=== PATIENT | male | born 1990 | race Caucasian/White ===

== ENCOUNTER 2020-02-06 09:41 | Emergency (ER) | payer SELFPAY ==
[2020-02-06 09:55] VITALS: BP 120/82; PULSE 75; RESP 18; TEMP 37.1; O2SAT 100; BMI 24.3
--- NOTE | 2020-02-06 09:57 | XR_ITS ---
EXAMINATION: CHEST X-RAY CLINICAL INFORMATION: Cough COMPARISON: None TECHNIQUE: Two-view chest FINDINGS: The cardiac and mediastinal contours are normal. The lungs are clear. There is no pleural effusion or pneumothorax. Bony structures are unremarkable. IMPRESSION: Unremarkable exam. EXAMINATION: Bilateral foot x-ray CLINICAL INFORMATION: Pain and soft tissue infection/cellulitis COMPARISON: None. TECHNIQUE: 3 views of each foot FINDINGS: Bone alignment is normal. No fracture or dislocation is seen. The joint spaces are normal. Soft tissues are normal. IMPRESSION: Unremarkable examination.
--- NOTE | 2020-02-06 10:09 | PC.NURSE ---
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 PT HAS WHITE PATCHES? ULCERS TO BOTH FEET ON TOES AND EXCORIATED SKIN AROUND BOTH ANKLES. PT PRESENTED IN POOR HYGIENWITH WET POOR FITTING FOOTWEAR.
--- NOTE | 2020-02-06 10:10 | ED_ITS ---
HPI - General Adult General Chief complaint: General Medical Stated complaint: foot pain Time Seen by Provider: 02/06/20 09:57 Source: EMS Mode of arrival: ambulatory Limitations: other (Homeless) History of Present Illness HPI narrative: 29yoM c PMHx of heart murmur whom is currently homeless and ETOH dependent presenting to the ED via EMS c multiple complaints and concerns. He admits to not taking his shoes on in so long and has pain to them which has been for a few weeks worse today. 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 Hev reports he only had one nip this AM and feels like he may be in ETOH withdrawal due to has been having shakes and feeling liks his heart is racing. Also admit to nausea and a productive cough. Related Data Previous Rx's Medication Instructions Recorded cephalexin 500 mg PO Q6H 10 Days #400 ml NS 02/06/20 doxycycline calcium 10 ml PO BID 10 Days #200 ml NS 02/06/20 ketoconazole 1 applic TOPICAL BID #60 g NS 02/06/20 Allergies Allergy/AdvReac Type Severity Reaction Status Date / Time No Known Allergies Allergy Unverified 01/05/20 16:46 Review of Systems Review of Systems: Constitutional : No Weight loss, No Fever, No Chills, No Night Sweats, No Fatigue, No Malaise ENT/Mouth : No Hearing loss, No Ear Pain, No Nasal Congestion, No Sinus Pain, No Hoarseness, No sore throat, No Rhinorrhea, No Swallowing Difficulty Eyes: No Eye Pain, No Swelling, No Redness, No Foreign Body, No Discharge, No Vision Changes Cardiovascular : No Chest Pain, No SOB, No Dyspnea on Exertion, No Orthopnea, No Edema, No Palpitations Respiratory : No Wheezing, No Smoke Exposure, No Dyspnea Gastrointestinal : No Nausea, No Vomiting, No Diarrhea, No Constipation, No abdominal Pain, No Hematochezia, No Melena Genitourinary : no irregular bleeding, No Dysuria, No Urinary Frequency, No Hematuria, No Urinary Incontinence, No Urgency, No Flank Pain, No Urinary Flow Changes, No Hesitancy Musculoskeletal : No joint pain, No Myalgias, No Joint Swelling Skin : No rash Neuro : No Weakness, No Numbness, No Paresthesias, No Loss of Consciousness, No Dizziness, No Headache Psych : No Anxiety/Panic, No Depression, No SI/HI/AH/VH Heme/Lymph: No Bruising, No Bleeding,No Lymphadenopathy Endocrine : No Polyuria, No Polydipsia, No Temperature Intolerance Yes all other systems are reviewed and are negative [facility] Past Medical History Attestation statement: The following information was validated with the patient. Medical History Heart murmur No known health problems Social History Social History Alcohol intake: current Alcohol intake frequency: 3 or more drinks per day Alcohol type: hard liquor Smoking Status: Current every day smoker Smoked in Last 30 Days: Yes Use of substances other than those prescribed or required for medical reasons: Yes Substance Use Type: Heroin Substance Use Type Other:: PT REPLACED ETOH FOR HEROIN DRUG OF CHOICE Substance Use Frequency: Chronic Longstanding Last Used Substance: Just Prior to Admission Any prior treatment program specific to substance use: No Advance Directives: No Advance Directives Information Provided: No Physical Exam Vital Signs: Vital Signs: Vital Signs Temp Pulse Resp BP Pulse Ox 02/06/20 12:00 98.4 F 86 16 151/82 H 97 02/06/20 09:55 98.8 F 75 18 120/82 100 Body Mass Index 24.3 Vital signs have been reviewed as normal and appeared to be correct. Blood pressure normal. Heart rate normal. Respiration rate normal. Temperature normal. Oxygen saturation normal. Appearance: Alert. Oriented X3. No acute distress. Head: Normal external exam. Normocephalic. Atraumatic. Eyes: PERRLA. EOMI. Conjunctiva and sclera normal. Eyelids normal. ENT: EAC normal. TM's Normal. Pharynx normal. Uvula midline. Moist mucous membranes. No trismus noted. No drooling noted. No muffled voice noted. Neck: Normal inspection. Neck supple. FROM. No adenopathy. Thyroid Normal. No meningeal signs. No neck mass noted. CVS: Normal heart rate and rhythm. Heart sound normal. No murmurs noted. Pulses normal throughout. Respiratory: No respiratory distress. Painless inspiration. Breath sounds normal. No wheezes/rales/rhonchi noted. Chest nontender. No accessory muscle usage noted or decreased air movement noted. Abdomen: Soft and nontender. Bowel sounds normal in all 4 quadrants. No dis tention noted. No organomegaly noted. No visible injury noted. Back: No CVA tenderness. Full range of motion noted. Skin: the pt's b/l feet c hard black dirty stuck to feet. Once cleaned and jose e vianney he is noted to have erythema to the soles of b/l feet and between the toes. Erythema and white, macerated skin between the toes. The rest of the Skin is warm and dry. Normal skin color. Normal skin turgor. No lacerations noted. Extremities: No lower extremity edema. Extremities exhibit normal range of motion. Neuro: Oriented X 3. No motor deficit. No sensory deficit. Reflexes normal. Course Course Course Narrative: 29yoM c PMHx of heart murmur whom is currently homeless and ETOH dependent presenting to the ED via EMS c multiple complaints and concerns. which incldued pain/rash/lesions to b/l feet, productive cough, nause c heart racing ? withdrawal. Requesting Detox for ETOH. Denies SI/TERESA/AVH or thoughts of self injury. Denies drug usage has been sober from drugs for 4 years. - Plan: Labs including ETOH level, drugs of abuse screen, xray of chest and b/l feet. Pt's feet were cleansed and scrubbed and topical antifungal cream placed and new socks given. Provide ativan after the drugs of abuse screen. Will also consult power and recovery superintendent for Detox then Re-evaluate. Reevaluation(s) Reevaluation #1: Labs within normal limits. Chest x-ray within normal limits no acute processes noted. X-ray of bilateral feet within normal limits no acute processes noted. Will DC home with antibiotics for cellulitis infection and antifungal cream. Patient is going to detox at this time at [place] and is going by [facility] ([place]). I gave him a list of primary care providers. Will instruct to return if any new or worsening symptoms and to follow up with primary care provider. Patient understands agrees with this plan Medical Decision Making Lab Data Result diagrams: 02/06/20 10:46 02/06/20 10:46 Labs: Lab Results 02/06/20 02/06/20 02/06/20 Range/Units 10:46 10:46 10:46 WBC (4.8-10.8) X10*3/uL RBC (4.60-5.80) X10*6/uL Hgb (14.0-18.0) g/dl Hct (42-52) % MCV (80-98) fL MCH (27.0-33.0) pg MCHC (31.0-36.0) g/dl RDW (11.0-16.0) % Plt Count (160-400) X10*3/uL MPV (9.4-12.4) fL Immature Gran % (Auto) (0.0-0.4) % Neut % (Auto) (45-73) % Lymph % (Auto) (20-40) % [place] % (Auto) (2-11) % Eos % (Auto) (0-4) % Baso % (Auto) (0-2) % Lymph # (Auto) (1.2-4.9) X10*3/uL [place] # (Auto) (0.1-1.2) X10*3/uL Eos # (Auto) (0.0-0.4) X10*3/uL Baso # (Auto) (0.0-0.2) X10*3/uL Abs Immat Gran (auto) (0.00-0.03) X10*3/uL Absolute Neuts (auto) (2.0-8.3) X10*3/uL Absolute Nucleated RBC (0.0-0.012) X10*3/uL Nucleated RBC % (auto) (0.0-0.2) /100WBC Smear Tech's Comments Hold Blue Top SEE NOTE Sodium 138 (135-145) mmol/L Potassium 4.0 (3.3-5.1) mmol/l Chloride 101 (96-108) mmol/L Carbon Dioxide 22 (22-29) mmol/L Anion Gap 19 (12-20) BUN 6 L (9-16) mg/dL Creatinine 0.68 (0.5-1.4) mg/dL Estim Creat Clear Calc 149.8 Estimated GFR > 60 Random Glucose 68 (60-115) mg/dL Calcium 9.7 (8.4-10.2) mg/dL Magnesium 1.8 (1.6-2.6) mg/dL Ethyl Alcohol < 10 mg/dL 02/06/20 Range/Units 10:46 WBC 5.7 (4.8-10.8) X10*3/uL RBC 4.12 L (4.60-5.80) X10*6/uL Hgb 14.8 (14.0-18.0) g/dl Hct 41.3 L (42-52) % MCV 100.2 H (80-98) fL MCH 35.9 H (27.0-33.0) pg MCHC 35.8 (31.0-36.0) g/dl RDW 12.0 (11.0-16.0) % Plt Count 165 (160-400) X10*3/uL MPV 9.9 (9.4-12.4) fL Immature Gran % (Auto) 0.4 (0.0-0.4) % Neut % (Auto) 77.0 H (45-73) % Lymph % (Auto) 9.1 L (20-40) % [place] % (Auto) 12.1 H (2-11) % Eos % (Auto) 0.2 (0-4) % Baso % (Auto) 1.2 (0-2) % Lymph # (Auto) 0.5 L (1.2-4.9) X10*3/uL [place] # (Auto) 0.7 (0.1-1.2) X10*3/uL Eos # (Auto) 0.0 (0.0-0.4) X10*3/uL Baso # (Auto) 0.1 (0.0-0.2) X10*3/uL Abs Immat Gran (auto) 0.02 (0.00-0.03) X10*3/uL Absolute Neuts (auto) 4.4 (2.0-8.3) X10*3/uL Absolute Nucleated RBC 0.000 (0.0-0.012) X10*3/uL Nucleated RBC % (auto) 0.0 (0.0-0.2) /100WBC Smear Tech's Comments VERIFIED Hold Blue Top Sodium (135-145) mmol/L Potassium (3.3-5.1) mmol/l Chloride (96-108) mmol/L Carbon Dioxide (22-29) mmol/L Anion Gap (12-20) BUN (9-16) mg/dL Creatinine (0.5-1.4) mg/dL Estim Creat Clear Calc Estimated GFR Random Glucose (60-115) mg/dL Calcium (8.4-10.2) mg/dL Magnesium (1.6-2.6) mg/dL Ethyl Alcohol mg/dL Imaging Data b/l feet: Attestation: I personally reviewed and interpreted this imaging study as follows: Radiologist's impression: FINDINGS: Bone alignment is normal. No fracture or dislocation is seen. The joint spaces are normal. Soft tissues are normal. IMPRESSION: Unremarkable examination Chest x-ray: Attestation: I personally reviewed and interpreted this imaging study as follows: Radiologist's impression: FINDINGS: The cardiac and mediastinal contours are normal. The lungs are clear. There is no pleural effusion or pneumothorax. Bony structures are unremarkable. IMPRESSION: Unremarkable exam. Discharge Plan Discharge Clinical Impression: Tinea pedis, Cellulitis and abscess of foot, Multiple open wounds of foot, EtOH dependence Patient Disposition: Xfer Psychiatric Hosp Instructions: Athlete's Foot (ED), Cellulitis (ED), Abuse of Alcohol (ED), Polysubstance Abuse (ED) Additional Instructions: Follow-up if new or worsening symptoms. Follow up with her primary care provider. Prescriptions: New ketoconazole 2 % cream 1 applic topical BID Qty: 60 RF: 0 cephalexin 250 mg/5 mL suspension for reconstitution 500 mg PO Q6H 10 Days Qty: 400 RF: 0 doxycycline calcium 50 mg/5 mL syrup 10 ml PO BID 10 Days Qty: 200 RF: 0 Print Language: Burkinan
[2020-02-06 10:56] LABS: Basophils Absolute Auto 0.1 X10*3/uL (0.0-0.2); Basophils Percent Auto 1.2 % (0-2); Eosinophils Percent Auto 0.2 % (0-4); Hematocrit 41.3 % (42-52); Hemoglobin 14.8 g/dl (14.0-18.0); Imm Gran Abs Auto 0.02 X10*3/uL (0.00-0.03); Imm Gran Pct Auto 0.4 % (0.0-0.4); Lymphocytes Absolute Auto 0.5 X10*3/uL (1.2-4.9); Lymphocytes Percent Auto 9.1 % (20-40); MANUAL DIFF FLAG SCAN; Mean Corpuscular HGB Conc 35.8 g/dl (31.0-36.0); Mean Corpuscular Hemoglobin 35.9 pg (27.0-33.0); Mean Corpuscular Volume 100.2 fL (80-98); Mean Platelet Volume 9.9 fL (9.4-12.4); Monocytes Absolute Auto 0.7 X10*3/uL (0.1-1.2); Monocytes Percent Auto 12.1 % (2-11); Neutrophils Absolute Auto 4.4 X10*3/uL (2.0-8.3); Platelet Count 165 X10*3/uL (160-400); Red Blood Count 4.12 X10*6/uL (4.60-5.80); SCAN SMEAR FLAG 1; White Blood Count 5.7 X10*3/uL (4.8-10.8)
[2020-02-06] MEDS: Clotrimazole 1 % Cream 15 GM TUBE TOPICAL (11:18)
[2020-02-06 11:20] LABS: Ethanol < 10 mg/dL
[2020-02-06 11:22] LABS: Magnesium 1.8 mg/dL (1.6-2.6)
[2020-02-06 11:48] LABS: SLIDE REVIEW VERIFIED
[2020-02-06 12:00] VITALS: BP 151/82; PULSE 86; RESP 16; TEMP 36.9; O2SAT 97
--- NOTE | 2020-02-06 12:12 | MHC.CARE ---
Addiction Consult Service note: Patient reports daily etoh consumption and that he believes he is starting to experience withdrawal. Patient was referred to [facility] and has been accepted for a 1300 admission. Patient and RN aware. This communications writer will assist with transportation via [employer].
[2020-02-06] MEDS: cephALEXin 500 MG CAPSULE PO (12:29)
[2020-02-06 12:31] LABS: Anion Gap 19 (12-20); Blood Urea Nitrogen 6 mg/dL (9-16); Calcium 9.7 mg/dL (8.4-10.2); Carbon Dioxide 22 mmol/L (22-29); Chloride 101 mmol/L (96-108); Creatinine Clr Calc Pharmacy 149.8; Estimated Glomerular Filt Rate > 60; Glucose Random 68 mg/dL (60-115); Sodium 138 mmol/L (135-145)
--- NOTE | 2020-02-06 12:40 | PC.NURSE ---
bilateral feet soaked in ns/betadine, clotrimazole cream applied/telfa and gauze wrap also applied. medicated with antibiotics prior to dc, awaiting tray, chicken salad sandwich and navneet jonah given
== END 2020-02-06 12:55 | disposition home or self-care (01) ==
PROVIDERS: Physician Assistant Medical; Emergency Provider Emergency Medicine
DX: B35.3 Tinea pedis (principal); L03.116 Cellulitis of left lower limb; L03.115 Cellulitis of right lower limb; R05 Cough; S91.302A Unspecified open wound, left foot, initial encounter; S91.301A Unspecified open wound, right foot, initial encounter; Y33.XXXA Other specified events, undetermined intent, initial encounter; Y93.01 Activity, walking, marching and hiking; Y92.410 Unspecified street and highway as the place of occurrence of the external cause; F10.20 Alcohol dependence, uncomplicated; Y90.0 Blood alcohol level of less than 20 mg/100 ml; F11.10 Opioid abuse, uncomplicated; Z71.51 Drug abuse counseling and surveillance of drug abuser; Z59.0 Homelessness; Z79.899 Other long term (current) drug therapy
CPT/HCPCS: 36415; 71046; 73630; 80048; 80320; 83735; 85025; 99284; 99285

== ENCOUNTER 2020-04-26 10:33 | Outpatient (REF) | payer OTHER, SELFPAY | END 2020-04-26 10:34 | disposition home or self-care (01) | LOC: HO.LAB 10:33 | PROVIDERS: Visit Provider Internal Medicine | DX: Z20.828 Contact with and (suspected) exposure to other viral communicable diseases (principal) | CPT/HCPCS: 36415; C9803; U0003 ==

== ENCOUNTER 2020-12-12 14:53 | Emergency (ER) | payer OTHER, SELFPAY ==
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
[2020-12-12 14:56] VITALS: RESP 16; BMI 23.6
[2020-12-12 15:00] VITALS: BP 125/85; PULSE 87; RESP 16; TEMP 37; O2SAT 98
[2020-12-12] MEDS: Ketorolac Tromethamine 15 MG/ML VIAL IM (16:24)
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
[2020-12-12] MEDS: Diphth,Pertus(ACell),Tet Adult 0.5 ML SYRINGE IM (17:57)
[2020-12-12 18:01] VITALS: BP 129/79; PULSE 69; RESP 16; O2SAT 98
[2020-12-12] MEDS: LORazepam 2 MG/ML VIAL IVPUSH (18:27)
== END 2020-12-12 19:00 | disposition home or self-care (01) ==
PROVIDERS: Emergency Provider Emergency Medicine
DX: S01.511A Laceration without foreign body of lip, initial encounter (principal); R07.81 Pleurodynia; M54.2 Cervicalgia; G44.309 Post-traumatic headache, unspecified, not intractable; M54.6 Pain in thoracic spine; Y04.8XXA Assault by other bodily force, initial encounter; Y93.9 Activity, unspecified; Y92.9 Unspecified place or not applicable; Y99.9 Unspecified external cause status; Z79.899 Other long term (current) drug therapy
CPT/HCPCS: 70450; 71250; 72125; 90471; 90715; 96372; 96374; 99284; J1885; J2060

== ENCOUNTER 2021-01-28 08:39 | Inpatient (IN) | payer OTHER, SELFPAY ==
--- NOTE | ~2021-01-28 | XR_ITS ---
EXAMINATION: XR ABDOMEN KUB CLINICAL INDICATION: Left-sided abdominal pain COMPARISON: None TECHNIQUE: AP view of the abdomen. FINDINGS: No dilated air-filled loops of small bowel to suggest an obstructive process. Moderate colonic stool burden diffusely. No definitive calcific density identified projected over either renal shadow or the expected course of either ureter. No acute osseous abnormality. XR/XR abdomen 1V IMPRESSION: Moderate colonic stool burden suggesting constipation.
[2021-01-28 09:10] VITALS: BP 131/75; PULSE 106; RESP 18; TEMP 37.4; O2SAT 96; BMI 23.6
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
--- NOTE | 2021-01-28 10:13 | MHC.CARE ---
CARE Team conducted local ATS bedsearch. No current beds available. Pending medical clearance CARE Team will meet with Pt regarding recovery support.
[2021-01-28 10:14] LABS: Basophils Absolute Auto 0.1 X10*3/uL (0.0-0.2); Basophils Percent Auto 0.7 % (0-2); Hemoglobin 14.3 g/dl (14.0-18.0); PLT CLUMP 1; Red Cell Distribution Width 11.9 % (11.0-16.0); SCAN SMEAR FLAG 1
[2021-01-28 10:14] LABS: Appearance Urine CLEAR; Color Urine YELLOW; Glucose Urine UA NEG (NEG); Leukocyte Esterase Urine NEG (NEG); Nitrite Urine NEG (NEG); Urine Blood NEG (NEG); Urine Ketones NEG (NEG); Urine Protein NEG (NEG-TRACE)
[2021-01-28 10:16] LABS: Eosinophils Absolute Auto 0.1 X10*3/uL (0.0-0.4); Eosinophils Percent Auto 0.7 % (0-4); Hematocrit 40.7 % (42-52); Imm Gran Abs Auto 0.02 X10*3/uL (0.00-0.03); Imm Gran Pct Auto 0.3 % (0.0-0.4); Lymphocytes Absolute Auto 1.2 X10*3/uL (1.2-4.9); Lymphocytes Percent Auto 15.8 % (20-40); Mean Corpuscular HGB Conc 35.1 g/dl (31.0-36.0); Mean Corpuscular Hemoglobin 34.5 pg (27.0-33.0); Mean Corpuscular Volume 98.3 fL (80-98); Monocytes Absolute Auto 0.9 X10*3/uL (0.1-1.2); Monocytes Percent Auto 12.1 % (2-11); Neutrophils Absolute Auto 5.3 X10*3/uL (2.0-8.3); Neutrophils Percent Auto 70.4 % (45-73); Red Blood Count 4.14 X10*6/uL (4.60-5.80); White Blood Count 7.5 X10*3/uL (4.8-10.8)
[2021-01-28 10:17] LABS: Platelet Count 125 X10*3/uL (160-400)
[2021-01-28 10:29] LABS: Ethanol 177 mg/dL
[2021-01-28 10:32] LABS: Amphetamine Screen Urine Not Detected (Not Detect); Barbiturates, Urine Not Detected (Not Detect); Benzodiazepines Screen Urine Not Detected (Not Detect); Cannabinoid Screen Urine Not Detected (Not Detect); Cocaine Screen Urine Not Detected (Not Detect); Fentanyl, urine Not Detected (Not Detect); Opiate Screen Urine Not Detected (Not Detect); Phencyclidine Screen Urine Not Detected (Not Detect)
[2021-01-28 10:37] LABS: Alanine Aminotransferase 107 U/L (0-40); Albumin Level 4.7 g/dL (3.5-5.0); Alkaline Phosphatase 109 U/L (39-117); Anion Gap 19 (12-20); Aspartate Amino Transferase 153 U/L (5-37); Bilirubin Direct 0.3 mg/dL (0.0-0.5); Bilirubin Total 0.8 mg/dL (0.0-1.0); Blood Urea Nitrogen 9 mg/dL (9-16); Calcium 9.7 mg/dL (8.4-10.2); Carbon Dioxide 19 mmol/L (22-29); Chloride 104 mmol/L (96-108); Creatinine Clr Calc Pharmacy 133.9; Estimated Glomerular Filt Rate > 60; Glucose Random 70 mg/dL (60-115); Lipase 71 U/L (8-78); Potassium 3.6 mmol/L (3.3-5.1); Sodium 138 mmol/L (135-145); Total Protein 8.5 g/dL (6.5-8.0)
--- NOTE | 2021-01-28 11:44 | MHC.CARE ---
Pt provided ATS list and encouraged to call facilities
[2021-01-28 11:52] LABS: COVID-19 Test Negative (Negative)
[2021-01-28] MEDS: chlordiazePOXIDE HCl 25 MG CAPSULE 50 MG PO ×2 (12:34→17:28)
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
--- NOTE | 2021-01-28 17:12 | PC.NURSE ---
pt reports visual and audible hallucination while in pt room, sts spirits are speaking with him and reports the bed is moving. this rn at bedside, reorienting pt to present situation and encouraging pt is in safe space. provider aware, vss. wctm for further s/s of etoh withdrawal, prn medications ordered.
--- NOTE | 2021-01-28 18:07 | MHC.RECOVSUP ---
? Reason for consult:Detox admit o?? Current location [facility]? o?? Identified substance use Alcohol ?? Seeking ATS (detox ? Intervention: o?? Community resources provided o?? Harm reduction discussion ? Plan: o?? Bed search in progress to o?? Follow up tomorrow? o?? Patient awaiting crisis evaluation o?? Patient to follow up with [facility] after discharge ? Additional information: ?Spoke to Pt. about his alcohol use. He states that he has been drinking for a while now.Also he is seeing thing in his room while we were having a conversation.Informed the [facility] Team about what Pt. told me Will give Pt. information about different treatment option
[2021-01-28 19:33] VITALS: BP 122/70; PULSE 85; RESP 18; TEMP 36.9; O2SAT 99
[2021-01-28 23:05] LABS: Ammonia 32 umol/L (13-55)
[2021-01-28 23:42] VITALS: BP 109/76; PULSE 80; RESP 20; TEMP 36.6; O2SAT 100
--- NOTE | 2021-01-29 | ECG_ITS ---
Test Reason : MEDCLEAREANCE Blood Pressure : / mmHG Vent. Rate : 063 BPM Atrial Rate : 063 BPM P-R Int : 142 ms QRS Dur : 088 ms QT Int : 420 ms P-R-T Axes : 033 067 059 degrees QTc Int : 429 ms Normal sinus rhythm Possible Early repolarization Otherwise normal ECG No previous ECGs available Referred By: Pilar Whitaker Electronically Signed By:JESUS CHAVEZ MD
[2021-01-29] MEDS: chlordiazePOXIDE HCl 25 MG CAPSULE PO ×2 (03:40→10:39)
--- NOTE | 2021-01-29 06:42 | PC.NURSE ---
Patient slept through the night, patient was up one time reporting he is seeing a girl in his room, patient is at time delusional and at time patient is reporting seeing things, patient is asymptomatic of ETOH withdrawal at this time, but received librium 25 mg for restlessness due to hallucination, VSS, patient showered before going to bed, disposition per care team is section 12 inpatient bed search, will continue to monitor.
--- NOTE | 2021-01-29 07:36 | PC.NURSE ---
patient appears in no distress, appears asleep respirations are even and unlabored
[2021-01-29 08:30] VITALS: BP 106/70; PULSE 67; RESP 12; TEMP 36.6; O2SAT 98
[2021-01-29 16:46] VITALS: BP 119/64; PULSE 65; RESP 18; TEMP 37.4; O2SAT 100
--- NOTE | 2021-01-29 21:44 | PC.ADMIT ---
Pt is a 30 year old male who came into [facility] seeking detox. Tox screen negative - BAL 177. Reports no withdrawal symptoms but stated DT's he has had before yesterday I saw water coming out of the hyman and the nurse told me there wasn't . States that anxiety 11/27 and depression 10/27. Currently, experiencing AVH and believes that mother Neisha has chosen him to unburden the souls of ghosts. Speaks of mother Neisha frequently. Although denies auditory and visual hallucinations I see spirits and I have befriended them . Pt placed on 15 minute checks. CV signed.
[2021-01-29] MEDS: traZODone HCL 50 MG TABLET PO (21:47)
[2021-01-29] MEDS: LORazepam 1 MG TABLET 2 MG PO (21:47)
[2021-01-30 09:00] VITALS: BP 112/65; PULSE 62; TEMP 35.8; O2SAT 100
[2021-01-30] MEDS: Thiamine HCL 100 MG TABLET PO (09:24)
[2021-01-30] MEDS: Folic Acid 1 MG TABLET PO (09:24)
[2021-01-30 09:25] LABS: Folate 10.9 ng/mL (> or = 4.0); Vitamin B12 222 pg/mL (200-900)
[2021-01-30] MEDS: Nicotine 14 MG PATCH.TD24 TRANSDERMA (11:51)
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
[2021-01-30 18:00] VITALS: BP 114/62; PULSE 66; TEMP 36.6; O2SAT 100
[2021-01-30] MEDS: LORazepam 1 MG TABLET 2 MG PO (19:13)
[2021-01-30 22:18] VITALS: BP 127/66; PULSE 75; RESP 16; TEMP 37.3; O2SAT 100
[2021-01-30] MEDS: traZODone HCL 50 MG TABLET PO (22:24)
[2021-01-31 06:00] VITALS: BP 105/64; PULSE 62; RESP 16; TEMP 36.6; O2SAT 99
[2021-01-31] MEDS: Nicotine 14 MG PATCH.TD24 TRANSDERMA (08:31)
[2021-01-31] MEDS: Thiamine HCL 100 MG TABLET PO (08:31)
[2021-01-31] MEDS: Multivitamin TABLET 1 TAB PO (08:31)
[2021-01-31] MEDS: Folic Acid 1 MG TABLET PO (08:31)
[2021-01-31 08:57] LABS: Estimated Average Glucose 82 mg/dL; Hemoglobin A1c % 4.5 %
[2021-01-31 09:15] LABS: Cholesterol 204 mg/dL; HDL Cholesterol 62 mg/dL; Iron 104 mcg/dL (45-160); LDL Cholesterol Calculated 128 mg/dl; Percent Iron Saturation 33 % (15-50); Total Iron Binding Capacity 313 mcg/dL (228-428); Triglycerides 72 mg/dL; Unsaturated Iron Binding 209 ug/dL
[2021-01-31 09:25] VITALS: BP 110/61; PULSE 60; TEMP 35.8; O2SAT 99
[2021-01-31 09:36] LABS: Thyroid Stimulating Hormone 2.52 uIU/mL (0.32-4.0)
[2021-01-31 09:42] VITALS: BMI 23.3
[2021-01-31 20:48] VITALS: BP 122/66; PULSE 63; RESP 16; TEMP 36.9; O2SAT 100
[2021-01-31] MEDS: OLANZapine 5 MG TABLET PO (21:47)
[2021-01-31] MEDS: traZODone HCL 50 MG TABLET PO (21:49)
[2021-02-01 06:00] VITALS: BP 109/69; PULSE 57; RESP 16; TEMP 36.2; O2SAT 98
[2021-02-01] MEDS: Multivitamin TABLET 1 TAB PO (08:51)
[2021-02-01] MEDS: Folic Acid 1 MG TABLET PO (08:51)
[2021-02-01] MEDS: Thiamine HCL 100 MG TABLET PO (08:51)
[2021-02-01] MEDS: Nicotine 14 MG PATCH.TD24 TRANSDERMA (08:51)
--- NOTE | 2021-02-01 09:00 | HO.PSYCHPN ---
Subjective Subjective Date of Service: 01/31/21 Reason For Visit: AUD Psychosis Subjective Notes: Conditional Voluntary Interim History: Pt reports he was able to sleep and is in NAD with withdrawal sx. He reports he is safe on the unit. Discussed hx of mood sx. He reports he believes he has had johanny with significant anxiety, racing thoughts, lability and irritability. Discussed medication options for trial. Currently pt is wanting to transfer to a [facility] when admission is completed. Full review of diagnostics with pt as well. Medication Compliance: Yes Side effects from medications: No Review of Systems Acute medical concerns: No Medical Review of Systems: unchanged Review of Systems Reports behavioral changes Psychiatric: Reports anxiety, Reports behavioral changes, Reports depression, Reports difficulty concentrating, Reports auditory hallucinations, Reports irritability, Reports mood swings, Reports paranoia and Reports visual hallucinations Mental Status Exam Mental Status Exam Patient Appearance: Fatigued and Appropriate Patient Orientation: Person, Place, Time and Situation Level of Consciousness: Awake and Alert Patient Behavior: Appropriate, Talkative, Cooperative, Anxious, Fearful, Fatigued, Distractible and Good Eye Contact Mood Description: Withdrawn, Depressed and Anxious Affect Description: Flat Patient Cognition Impaired: No Ability to Follow Directions: Good Speech Pattern: Spontaneous Speech Memory Description: Intact Hallucinations: Auditory (not currently, but with clear memory of interaction in ER with spirits), Visual (not currently, but last night) and Tactile (not currently, but last night) Delusions: Not Present Perceptual Disturbances: Derealization Thought Process: Distracted Thought Content: positive for Intact, positive for Goal Oriented, positive for Perseveration and positive for Preoccupation Depressive Symptoms: Increased Anxiety, Insomnia, Hopelessness, Increased Fatigue, Thoughts of /Suicide (I need to be alive for my daughter), Low Self Esteem, Loss of Energy and Difficulty Concentrating Judgement: Fair Diagnostics Vital Signs (24Hr): Vital Signs - 24 hr 01/31/21 09:25 01/31/21 20:48 02/01/21 06:00 Temperature 96.4 F L 98.4 F 97.2 F Pulse Rate 60 63 57 Respiratory Rate 16 16 Blood Pressure 110/61 122/66 109/69 Pulse Oximetry 99 100 98 Body Mass Index 23.3 Labs Results: 01/28/21 09:48 01/28/21 09:48 Labs: Laboratory Results - last 48 hr 01/30/21 01/31/21 01/31/21 07:16 08:02 08:02 Estimat Average Glucose 82 Hemoglobin A1c % 4.5 Iron 104 TIBC 313 % Saturation 33 Unsat Iron Binding 209 Triglycerides 72 Cholesterol 204 LDL Cholesterol, Calc 128 HDL Cholesterol 62 Vitamin B12 222 Folate 10.9 TSH 2.52 Medications Medications Current Medications Acetaminophen (Acetaminophen 325 Mg Tablet) 650 mg PO Q6H PRN PRN Reason: Headache/Pain Mild Scale (1-3) Al Hydroxide/Mg Hydroxide (Magnesium Hydrox/Alum Hydrox 30 Ml Oral.Susp) 30 ml PO Q6H PRN PRN Reason: Heartburn/Nausea Folic Acid (Folic Acid 1 Mg Tablet) 1 mg PO DAILY [facility] Last Admin: 02/01/21 08:51 Dose: 1 mg Documented by: Hydroxyzine HCl (Hydroxyzine Hcl 25 Mg Tablet) 25 mg PO Q6H PRN PRN Reason: Anxiety Lorazepam (Lorazepam 1 Mg Tablet) 2 mg PO Q6H PRN PRN Reason: Alcohol Withdrawal Last Admin: 01/30/21 19:13 Dose: 2 mg Documented by: Magnesium Hydroxide (Milk Of Magnesia 30 Ml Oral.Susp) 30 ml PO DAILY PRN PRN Reason: Constipation Multivitamins/Vitamin C (Multivitamin Tablet) 1 tab PO DAILY [facility] Last Admin: 02/01/21 08:51 Dose: 1 tab Documented by: Nicotine (Nicotine 14 Mg Patch.Td24) 14 mg TRANSDERMA DAILY [facility] Last Admin: 02/01/21 08:51 Dose: 14 mg Documented by: Olanzapine (Olanzapine 5 Mg Tablet) 5 mg PO BEDTIME [facility] Last Admin: 01/31/21 21:47 Dose: 5 mg Documented by: Olanzapine (Olanzapine 5 Mg Tablet) 5 mg PO Q8H PRN PRN Reason: agitation, hypomania, psychosi Thiamine HCl (Thiamine Hcl 100 Mg Tablet) 100 mg PO DAILY [facility] Last Admin: 02/01/21 08:51 Dose: 100 mg Documented by: Trazodone HCl (Trazodone Hcl 50 Mg Tablet) 50 mg PO BEDTIME PRN PRN Reason: Insomnia Last Admin: 01/31/21 21:49 Dose: 50 mg Documented by: Allergies Allergies Allergy/AdvReac Type Severity Reaction Status Date / Time sertraline AdvReac Intermediate heart Verified 06/29/20 12:21 palpitations Assessment & Plan Assessment & Plan (1) Psychosis: Status: Acute Code(s): F29 - Unspecified psychosis not due to a substance or known physiological condition (2) Alcohol use disorder, severe, dependence: Status: Acute Code(s): F10.20 - Alcohol dependence, uncomplicated (3) Hallucinosis, alcohol withdrawal: Status: Acute Code(s): F10.232 - Alcohol dependence with withdrawal with perceptual disturbance Assessment and Plan: 30 yo male presenting with auditory visual tactile perceptual alterations of mother Neisha instructing him to unburden souls. Pt reports a history of depression, anxiety and bipolar disorder along with alcohol use disorder, reports drinking 48 oz of liquor daily and being unable to maintain sobriety for more than twelve hours without withdrawal symptoms. Pt is not currently experiencing perceptual alterations, however, is very focused on the reality of the experience and is frightened by the meaning for him. He describes a history of bipolar disorder, states he has used medications for depression and anxiety in the past (Gabapentin) but had stopped them as he was fed up with the same stuff . Plan: Continue to monitor for withdrawal/psychosis Collateral contact family/former treatment team if available Addiction consult Lamictal 25 mg HS 01/31/21: Review of diagnostics. Review of mood symptoms. Plan: Olanzapine 5 mg HS and prn for trial. Atorvastatin 10 mg daily. Greater than 50% of the session was spent on counseling and/or coordination of care Patient educated on: medication risk/benefits, substance abuse, therapeutic strategies and medical condition Informed Consent: understands Reason for contiued inpatient stay Substantial Risk for: harm to self, inability to function, rapid decompensation and med/psych decompensation
--- NOTE | 2021-02-01 15:55 | P.PNPSI_ITS ---
Subjective Subjective Date of Service: 02/01/21 Reason For Visit: AUD Psychosis Subjective Notes: Conditional Voluntary Medical Problems Affecting Mental Status: No Interim History: I am starting to feel better-I think I am going to try to meet some of the people on the unit today. Reports minimal withdrawal sx, reasonable sleep- getting back on track . Tolerating olanzapine No further sx of hallucinosis-less guarded wanting to become more milieu involved. Medication Compliance: Yes Side effects from medications: No Attending Groups: Yes Review of Systems Acute medical concerns: No Medical Review of Systems: unchanged Review of Systems Reports behavioral changes Psychiatric: Reports anxiety, Reports behavioral changes, Reports depression, Reports difficulty concentrating, Reports auditory hallucinations, Reports irritability, Reports mood swings, Reports paranoia, Reports visual hallucinations and Reports other (reports symptoms listed above are decreasing and subsiding.) Mental Status Exam Mental Status Exam Patient Appearance: Appropriate Patient Orientation: Person, Place, Time and Situation Level of Consciousness: Awake and Alert Patient Behavior: Appropriate, Talkative, Cooperative, Fatigued, Distractible and Good Eye Contact Mood Description: Depressed and Anxious Affect Description: Flat Patient Cognition Impaired: No Ability to Follow Directions: Good Speech Pattern: Spontaneous Speech Memory Description: Intact Delusions: Not Present Perceptual Disturbances: Derealization Thought Process: Distracted Thought Content: positive for Intact, positive for Goal Oriented, positive for Perseveration and positive for Preoccupation Depressive Symptoms: Increased Anxiety, Insomnia (decreasing), Hopelessness, Increased Fatigue, Low Self Esteem, Loss of Energy and Difficulty Concentrating Judgement: Fair Diagnostics Vital Signs (24Hr): Vital Signs - 24 hr 01/31/21 20:48 02/01/21 06:00 Temperature 98.4 F 97.2 F Pulse Rate 63 57 Respiratory Rate 16 16 Blood Pressure 122/66 109/69 Pulse Oximetry 100 98 Body Mass Index 23.3 Labs Results: 01/28/21 09:48 01/28/21 09:48 Labs: Laboratory Results - last 48 hr 01/31/21 01/31/21 08:02 08:02 Estimat Average Glucose 82 Hemoglobin A1c % 4.5 Iron 104 TIBC 313 % Saturation 33 Unsat Iron Binding 209 Triglycerides 72 Cholesterol 204 LDL Cholesterol, Calc 128 HDL Cholesterol 62 TSH 2.52 Medications Medications Current Medications Acetaminophen (Acetaminophen 325 Mg Tablet) 650 mg PO Q6H PRN PRN Reason: Headache/Pain Mild Scale (1-3) Al Hydroxide/Mg Hydroxide (Magnesium Hydrox/Alum Hydrox 30 Ml Oral.Susp) 30 ml PO Q6H PRN PRN Reason: Heartburn/Nausea Folic Acid (Folic Acid 1 Mg Tablet) 1 mg PO DAILY [facility] Last Admin: 02/01/21 08:51 Dose: 1 mg Documented by: Hydroxyzine HCl (Hydroxyzine Hcl 25 Mg Tablet) 25 mg PO Q6H PRN PRN Reason: Anxiety Lorazepam (Lorazepam 1 Mg Tablet) 2 mg PO Q6H PRN PRN Reason: Alcohol Withdrawal Last Admin: 01/30/21 19:13 Dose: 2 mg Documented by: Magnesium Hydroxide (Milk Of Magnesia 30 Ml Oral.Susp) 30 ml PO DAILY PRN PRN Reason: Constipation Multivitamins/Vitamin C (Multivitamin Tablet) 1 tab PO DAILY [facility] Last Admin: 02/01/21 08:51 Dose: 1 tab Documented by: Nicotine (Nicotine 14 Mg Patch.Td24) 14 mg TRANSDERMA DAILY [facility] Last Admin: 02/01/21 08:51 Dose: 14 mg Documented by: Olanzapine (Olanzapine 5 Mg Tablet) 5 mg PO BEDTIME [facility] Last Admin: 01/31/21 21:47 Dose: 5 mg Documented by: Olanzapine (Olanzapine 5 Mg Tablet) 5 mg PO Q8H PRN PRN Reason: agitation, hypomania, psychosi Thiamine HCl (Thiamine Hcl 100 Mg Tablet) 100 mg PO DAILY [facility] Last Admin: 02/01/21 08:51 Dose: 100 mg Documented by: Trazodone HCl (Trazodone Hcl 50 Mg Tablet) 50 mg PO BEDTIME PRN PRN Reason: Insomnia Last Admin: 01/31/21 21:49 Dose: 50 mg Documented by: Allergies Allergies Allergy/AdvReac Type Severity Reaction Status Date / Time sertraline AdvReac Intermediate heart Verified 06/29/20 12:21 palpitations Assessment & Plan Assessment & Plan (1) Psychosis: Status: Acute Code(s): F29 - Unspecified psychosis not due to a substance or known physiological condition (2) Alcohol use disorder, severe, dependence: Status: Acute Code(s): F10.20 - Alcohol dependence, uncomplicated (3) Hallucinosis, alcohol withdrawal: Status: Acute Code(s): F10.232 - Alcohol dependence with withdrawal with perceptual disturbance (4) Bipolar disorder: Status: Acute Code(s): F31.9 - Bipolar disorder, unspecified Assessment and Plan: 30 yo male presenting with auditory visual tactile perceptual alterations of mother Neisha instructing him to unburden souls. Pt reports a history of depression, anxiety and bipolar disorder along with alcohol use disorder, reports drinking 48 oz of liquor daily and being unable to maintain sobriety for more than twelve hours without withdrawal symptoms. Pt is not currently experiencing perceptual alterations, however, is very focused on the reality of the experience and is frightened by the meaning for him. He describes a history of bipolar disorder, states he has used medications for depression and anxiety in the past (Gabapentin) but had stopped them as he was fed up with the same stuff . Plan: Continue to monitor for withdrawal/psychosis Collateral contact family/former treatment team if available Addiction consult Lamictal 25 mg HS 01/31/21: Review of diagnostics. Review of mood symptoms. Plan: Olanzapine 5 mg HS and prn for trial. Atorvastatin 10 mg daily. 02/01/21: Pt reporting some improvement. Continue current regime. Withdrawal sx are subsiding. Greater than 50% of the session was spent on counseling and/or coordination of care Patient educated on: medication risk/benefits and therapeutic strategies Informed Consent: understands and further education needed Reason for contiued inpatient stay Substantial Risk for: harm to self, inability to function, rapid decompensation and med/psych decompensation
[2021-02-01 18:00] VITALS: BP 130/72; PULSE 64; TEMP 36.1; O2SAT 100
[2021-02-01] MEDS: OLANZapine 5 MG TABLET PO (20:36)
[2021-02-01] MEDS: lamoTRIgine 25 MG TABLET PO (20:36)
[2021-02-01] MEDS: traZODone HCL 50 MG TABLET PO (22:08)
[2021-02-02 06:00] VITALS: BP 106/60; PULSE 58; RESP 18; TEMP 36.3; O2SAT 99
[2021-02-02] MEDS: Multivitamin TABLET 1 TAB PO (08:47)
[2021-02-02] MEDS: Nicotine 14 MG PATCH.TD24 TRANSDERMA (08:47)
[2021-02-02] MEDS: Folic Acid 1 MG TABLET PO (08:47)
[2021-02-02] MEDS: Thiamine HCL 100 MG TABLET PO (08:47)
[2021-02-02 16:44] VITALS: BP 125/68; PULSE 82; TEMP 36.4; O2SAT 99
[2021-02-02] MEDS: lamoTRIgine 25 MG TABLET PO (21:17)
[2021-02-02] MEDS: OLANZapine 5 MG TABLET PO (21:17)
[2021-02-02] MEDS: hydrOXYzine HCL 25 MG TABLET PO (21:21)
--- NOTE | 2021-02-02 22:11 | P.PNPSI_ITS ---
Subjective Subjective Date of Service: 02/02/21 Reason For Visit: AUD Psychosis Subjective Notes: Conditional Voluntary Guardianship: No Interim History: Patient complains of flank pain history of renal stones. Feeling somewhat improved less psychotic intrusions tolerating olanzapine Medication Compliance: Yes Mental Status Exam Mental Status Exam Patient Appearance: Appropriate Patient Orientation: Person, Place, Time and Situation Level of Consciousness: Awake and Alert Patient Behavior: Appropriate, Talkative, Cooperative, Fatigued, Distractible and Good Eye Contact Mood Description: Depressed and Anxious Affect Description: Flat Patient Cognition Impaired: No Ability to Follow Directions: Good Speech Pattern: Spontaneous Speech Memory Description: Intact Delusions: Not Present Perceptual Disturbances: Derealization Thought Process: Distracted Thought Content: positive for Intact, positive for Goal Oriented, positive for Perseveration and positive for Preoccupation Depressive Symptoms: Increased Anxiety, Insomnia (decreasing), Hopelessness, Increased Fatigue, Low Self Esteem, Loss of Energy and Difficulty Concentrating Judgement: Fair Diagnostics Vital Signs (24Hr): Vital Signs - 24 hr 02/02/21 06:00 02/02/21 16:44 Temperature 97.4 F 97.6 F Pulse Rate 58 82 Respiratory Rate 18 Blood Pressure 106/60 125/68 Pulse Oximetry 99 99 Body Mass Index 23.3 Labs Results: 01/28/21 09:48 01/28/21 09:48 Imaging Radiology Impressions: ITS Impressions Abdomen X-Ray 02/02/21 15:40 IMPRESSION: Moderate colonic stool burden suggesting constipation. Medications Medications Current Medications Acetaminophen (Acetaminophen 325 Mg Tablet) 650 mg PO Q6H PRN PRN Reason: Headache/Pain Mild Scale (1-3) Al Hydroxide/Mg Hydroxide (Magnesium Hydrox/Alum Hydrox 30 Ml Oral.Susp) 30 ml PO Q6H PRN PRN Reason: Heartburn/Nausea Folic Acid (Folic Acid 1 Mg Tablet) 1 mg PO DAILY [facility] Last Admin: 02/02/21 08:47 Dose: 1 mg Documented by: Hydroxyzine HCl (Hydroxyzine Hcl 25 Mg Tablet) 25 mg PO Q6H PRN PRN Reason: Anxiety Last Admin: 02/02/21 21:21 Dose: 25 mg Documented by: Lamotrigine (Lamotrigine 25 Mg Tablet) 25 mg PO BEDTIME [facility] Last Admin: 02/02/21 21:17 Dose: 25 mg Documented by: Lorazepam (Lorazepam 1 Mg Tablet) 2 mg PO Q6H PRN PRN Reason: Alcohol Withdrawal Last Admin: 01/30/21 19:13 Dose: 2 mg Documented by: Magnesium Hydroxide (Milk Of Magnesia 30 Ml Oral.Susp) 30 ml PO DAILY PRN PRN Reason: Constipation Multivitamins/Vitamin C (Multivitamin Tablet) 1 tab PO DAILY [facility] Last Admin: 02/02/21 08:47 Dose: 1 tab Documented by: Nicotine (Nicotine 14 Mg Patch.Td24) 14 mg TRANSDERMA DAILY [facility] Last Admin: 02/02/21 08:47 Dose: 14 mg Documented by: Olanzapine (Olanzapine 5 Mg Tablet) 5 mg PO BEDTIME [facility] Last Admin: 02/02/21 21:17 Dose: 5 mg Documented by: Olanzapine (Olanzapine 5 Mg Tablet) 5 mg PO Q8H PRN PRN Reason: agitation, hypomania, psychosi Thiamine HCl (Thiamine Hcl 100 Mg Tablet) 100 mg PO DAILY [facility] Last Admin: 02/02/21 08:47 Dose: 100 mg Documented by: Trazodone HCl (Trazodone Hcl 50 Mg Tablet) 50 mg PO BEDTIME PRN PRN Reason: Insomnia Last Admin: 02/01/21 22:08 Dose: 50 mg Documented by: Allergies Allergies Allergy/AdvReac Type Severity Reaction Status Date / Time sertraline AdvReac Intermediate heart Verified 06/29/20 12:21 palpitations Assessment & Plan Assessment & Plan (1) Psychosis: Status: Acute Code(s): F29 - Unspecified psychosis not due to a substance or known physiological condition (2) Alcohol use disorder, severe, dependence: Status: Acute Code(s): F10.20 - Alcohol dependence, uncomplicated (3) Hallucinosis, alcohol withdrawal: Status: Acute Code(s): F10.232 - Alcohol dependence with withdrawal with perceptual disturbance (4) Bipolar disorder: Status: Acute Code(s): F31.9 - Bipolar disorder, unspecified Assessment and Plan: Continue psychiatric plan of care. Encourage fluids check UA and abdominal x- ray rule out renal stones Continue Lamictal increased gradually education regarding diagnosis medication options Greater than 50% of the session was spent on counseling and/or coordination of care Reason for contiued inpatient stay Substantial Risk for: harm to self and rapid decompensation
[2021-02-02] MEDS: traZODone HCL 50 MG TABLET PO (22:17)
[2021-02-03 08:35] VITALS: BP 109/57; PULSE 59; RESP 16; TEMP 36.4; O2SAT 99
[2021-02-03 08:55] LABS: Appearance Urine CLEAR; Color Urine YELLOW; Glucose Urine UA NEG (NEG); Leukocyte Esterase Urine NEG (NEG); Nitrite Urine NEG (NEG); PH 6.5 (5.0-8.0); Specific Gravity - Urine 1.015 (1.005-1.025); Urine Blood NEG (NEG); Urine Ketones NEG (NEG); Urine Protein NEG (NEG-TRACE)
[2021-02-03] MEDS: Nicotine 14 MG PATCH.TD24 TRANSDERMA (08:56)
[2021-02-03] MEDS: Multivitamin TABLET 1 TAB PO (08:57)
[2021-02-03] MEDS: Folic Acid 1 MG TABLET PO (08:57)
[2021-02-03] MEDS: Thiamine HCL 100 MG TABLET PO (08:57)
[2021-02-03] MEDS: hydrOXYzine HCL 25 MG TABLET PO ×2 (09:00→23:05)
[2021-02-03] MEDS: Naltrexone HCl 50 MG TABLET PO (13:42)
[2021-02-03 16:19] VITALS: BP 123/60; PULSE 74; TEMP 36.1
[2021-02-03] MEDS: OLANZapine 5 MG TABLET PO (20:05)
[2021-02-03] MEDS: lamoTRIgine 25 MG TABLET 37.5 MG PO (20:05)
--- NOTE | 2021-02-03 22:05 | P.PNPSI_ITS ---
Subjective Subjective Date of Service: 02/03/21 Reason For Visit: AUD Psychosis Subjective Notes: Conditional Voluntary Interim History: Patient with intermittent anxiety and depression tolerating olanzapine and Lamictal denies active self-harm Patient describes constant self talk ongoing versus auditory hallucinations Medication Compliance: Yes Mental Status Exam Mental Status Exam Patient Appearance: Appropriate Patient Orientation: Person, Place, Time and Situation Level of Consciousness: Awake and Alert Patient Behavior: Appropriate, Talkative, Cooperative, Fatigued, Distractible and Good Eye Contact Mood Description: Depressed and Anxious Affect Description: Anxious and Apprehensive Patient Cognition Impaired: No Ability to Follow Directions: Good Speech Pattern: Spontaneous Speech Memory Description: Intact Delusions: Not Present Perceptual Disturbances: Derealization Thought Process: Distracted Thought Content: positive for Intact, positive for Goal Oriented, positive for Perseveration and positive for Preoccupation Depressive Symptoms: Increased Anxiety, Insomnia (decreasing), Hopelessness, Inc reased Fatigue, Low Self Esteem, Loss of Energy and Difficulty Concentrating Judgement: Fair Judgement and Insight: Describes constant self talk states he has done that since childhood having arguments and has had denies that is an outside voice or a different voice states safe in this setting Diagnostics Vital Signs (24Hr): Vital Signs - 24 hr 02/03/21 08:35 02/03/21 16:19 Temperature 97.5 F 97.0 F Pulse Rate 59 74 Respiratory Rate 16 Blood Pressure 109/57 L 123/60 Pulse Oximetry 99 Body Mass Index 23.3 Labs Results: 01/28/21 09:48 01/28/21 09:48 Labs: Laboratory Results - last 48 hr 02/02/21 21:20 Urine Color YELLOW Urine Appearance CLEAR Urine pH 6.5 Ur Specific [place] 1.015 Urine Protein NEG Urine Glucose (UA) NEG Urine Ketones NEG Urine Blood NEG Urine Nitrite NEG Ur Leukocyte Esterase NEG Imaging Radiology Impressions: ITS Impressions Abdomen X-Ray 02/02/21 15:40 IMPRESSION: Moderate colonic stool burden suggesting constipation. Medications Medications Current Medications Acetaminophen (Acetaminophen 325 Mg Tablet) 650 mg PO Q6H PRN PRN Reason: Headache/Pain Mild Scale (1-3) Al Hydroxide/Mg Hydroxide (Magnesium Hydrox/Alum Hydrox 30 Ml Oral.Susp) 30 ml PO Q6H PRN PRN Reason: Heartburn/Nausea Docusate Sodium (Docusate Sodium 100 Mg Capsule) 100 mg PO BEDTIME PRN PRN Reason: Constipation Folic Acid (Folic Acid 1 Mg Tablet) 1 mg PO DAILY [facility] Last Admin: 02/03/21 08:57 Dose: 1 mg Documented by: Hydroxyzine HCl (Hydroxyzine Hcl 25 Mg Tablet) 25 mg PO Q6H PRN PRN Reason: Anxiety Last Admin: 02/03/21 09:00 Dose: 25 mg Documented by: Lamotrigine (Lamotrigine 25 Mg Tablet) 37.5 mg PO BEDTIME [facility] Last Admin: 02/03/21 20:05 Dose: 37.5 mg Documented by: Lorazepam (Lorazepam 1 Mg Tablet) 1 mg PO Q6H PRN PRN Reason: Alcohol Withdrawal Magnesium Hydroxide (Milk Of Magnesia 30 Ml Oral.Susp) 30 ml PO DAILY PRN PRN Reason: Constipation Multivitamins/Vitamin C (Multivitamin Tablet) 1 tab PO DAILY [facility] Last Admin: 02/03/21 08:57 Dose: 1 tab Documented by: Naltrexone HCl (Naltrexone Hcl 50 Mg Tablet) 50 mg PO DAILY [facility] Last Admin: 02/03/21 13:42 Dose: 50 mg Documented by: Nicotine (Nicotine 14 Mg Patch.Td24) 14 mg TRANSDERMA DAILY [facility] Last Admin: 02/03/21 08:56 Dose: 14 mg Documented by: Olanzapine (Olanzapine 5 Mg Tablet) 5 mg PO BEDTIME [facility] Last Admin: 02/03/21 20:05 Dose: 5 mg Documented by: Olanzapine (Olanzapine 5 Mg Tablet) 5 mg PO Q8H PRN PRN Reason: agitation, hypomania, psychosi Thiamine HCl (Thiamine Hcl 100 Mg Tablet) 100 mg PO DAILY [facility] Last Admin: 02/03/21 08:57 Dose: 100 mg Documented by: Trazodone HCl (Trazodone Hcl 50 Mg Tablet) 50 mg PO BEDTIME PRN PRN Reason: Insomnia Last Admin: 02/02/21 22:17 Dose: 50 mg Documented by: Allergies Allergies Allergy/AdvReac Type Severity Reaction Status Date / Time sertraline AdvReac Intermediate heart Verified 06/29/20 12:21 palpitations Assessment & Plan Assessment & Plan (1) Psychosis: Status: Acute Code(s): F29 - Unspecified psychosis not due to a substance or known physiological condition Assessment and Plan: Continues Zyprexa lamotrigine monitor response (2) Alcohol use disorder, severe, dependence: Status: Acute Code(s): F10.20 - Alcohol dependence, uncomplicated Assessment and Plan: Naltrexone patient unable tolerate Vivitrol (3) Hallucinosis, alcohol withdrawal: Status: Acute Code(s): F10.232 - Alcohol dependence with withdrawal with perceptual disturbance (4) Bipolar disorder: Status: Acute Code(s): F31.9 - Bipolar disorder, unspecified Assessment and Plan: Lamotrigine Assessment and Plan: Continue psychiatric plan of care. Encourage fluids check UA and abdominal x-ra y rule out renal stones Continue Lamictal increased gradually education regarding diagnosis medication options Greater than 50% of the session was spent on counseling and/or coordination of care Reason for contiued inpatient stay Substantial Risk for: harm to self and inability to function
[2021-02-03] MEDS: traZODone HCL 50 MG TABLET PO (23:05)
[2021-02-04 06:00] VITALS: BP 113/63; PULSE 56; RESP 18; TEMP 36.4; O2SAT 97
[2021-02-04] MEDS: Thiamine HCL 100 MG TABLET PO (08:45)
[2021-02-04] MEDS: Nicotine 14 MG PATCH.TD24 TRANSDERMA (08:45)
[2021-02-04] MEDS: Multivitamin TABLET 1 TAB PO (08:45)
[2021-02-04] MEDS: Naltrexone HCl 50 MG TABLET PO (08:45)
[2021-02-04] MEDS: Folic Acid 1 MG TABLET PO (08:45)
[2021-02-04 17:53] VITALS: BP 119/70; PULSE 66; TEMP 36.7; O2SAT 100
--- NOTE | 2021-02-04 20:01 | P.PNPSI_ITS ---
Subjective Subjective Date of Service: 02/04/21 Reason For Visit: AUD Psychosis Subjective Notes: Conditional Voluntary Healthcare Proxy: No Guardianship: No Medical Problems Affecting Mental Status: No Interim History: Reports some improvement with mood lability. Review of lamictal/olanzapine combination and target symptom efficacy. Pt asks for Trazodone increase as he is experiencing sx of sleep disturbance. Plans transfer to [facility] on 02/07/21. Medication Compliance: Yes Side effects from medications: No Attending Groups: Yes Review of Systems Acute medical concerns: No Medical Review of Systems: unchanged Review of Systems Reports behavioral changes Psychiatric: Reports abnormal sleep pattern, Reports behavioral changes, Reports depression, Reports irritability, Reports anhedonia, Reports mood swings, Reports paranoia and Reports suicidal ideation (denies today) Mental Status Exam Mental Status Exam Patient Appearance: Appropriate Patient Orientation: Person, Place and Time Level of Consciousness: Alert Patient Behavior: Appropriate, Talkative, Cooperative and Good Eye Contact Mood Description: Apprehensive Affect Description: Flat Patient Cognition Impaired: No Ability to Follow Directions: Good Speech Pattern: Spontaneous Speech Memory Description: Episodic Impaired Hallucinations: None Delusions: Not Present Thought Process: Intact Thought Content: positive for Intact, positive for [place], positive for Circumstantial and positive for Suicidal Ideation (denies) Depressive Symptoms: Insomnia, Increased Irritability, Difficulty Sleeping and Thoughts of /Suicide (denies) Judgement: Fair Diagnostics Vital Signs (24Hr): Vital Signs - 24 hr 02/04/21 06:00 02/04/21 17:53 Temperature 97.6 F 98.1 F Pulse Rate 56 66 Respiratory Rate 18 Blood Pressure 113/63 119/70 Pulse Oximetry 97 100 Body Mass Index 23.3 Labs Results: 01/28/21 09:48 01/28/21 09:48 Labs: Laboratory Results - last 48 hr 02/02/21 21:20 Urine Color YELLOW Urine Appearance CLEAR Urine pH 6.5 Ur Specific [place] 1.015 Urine Protein NEG Urine Glucose (UA) NEG Urine Ketones NEG Urine Blood NEG Urine Nitrite NEG Ur Leukocyte Esterase NEG Imaging Radiology Impressions: ITS Impressions Abdomen X-Ray 02/02/21 15:40 IMPRESSION: Moderate colonic stool burden suggesting constipation. Medications Medications Current Medications Acetaminophen (Acetaminophen 325 Mg Tablet) 650 mg PO Q6H PRN PRN Reason: Headache/Pain Mild Scale (1-3) Al Hydroxide/Mg Hydroxide (Magnesium Hydrox/Alum Hydrox 30 Ml Oral.Susp) 30 ml PO Q6H PRN PRN Reason: Heartburn/Nausea Docusate Sodium (Docusate Sodium 100 Mg Capsule) 100 mg PO BEDTIME PRN PRN Reason: Constipation Folic Acid (Folic Acid 1 Mg Tablet) 1 mg PO DAILY [facility] Last Admin: 02/04/21 08:45 Dose: 1 mg Documented by: Hydroxyzine HCl (Hydroxyzine Hcl 25 Mg Tablet) 25 mg PO Q6H PRN PRN Reason: Anxiety Last Admin: 02/03/21 23:05 Dose: 25 mg Documented by: Lamotrigine (Lamotrigine 25 Mg Tablet) 37.5 mg PO BEDTIME [facility] Last Admin: 02/03/21 20:05 Dose: 37.5 mg Documented by: Lorazepam (Lorazepam 1 Mg Tablet) 1 mg PO Q6H PRN PRN Reason: Alcohol Withdrawal Magnesium Hydroxide (Milk Of Magnesia 30 Ml Oral.Susp) 30 ml PO DAILY PRN PRN Reason: Constipation Multivitamins/Vitamin C (Multivitamin Tablet) 1 tab PO DAILY [facility] Last Admin: 02/04/21 08:45 Dose: 1 tab Documented by: Naltrexone HCl (Naltrexone Hcl 50 Mg Tablet) 50 mg PO DAILY [facility] Last Admin: 02/04/21 08:45 Dose: 50 mg Documented by: Nicotine (Nicotine 14 Mg Patch.Td24) 14 mg TRANSDERMA DAILY [facility] Last Admin: 02/04/21 08:45 Dose: 14 mg Documented by: Olanzapine (Olanzapine 5 Mg Tablet) 5 mg PO BEDTIME [facility] Last Admin: 02/03/21 20:05 Dose: 5 mg Documented by: Olanzapine (Olanzapine 5 Mg Tablet) 5 mg PO Q8H PRN PRN Reason: agitation, hypomania, psychosi Thiamine HCl (Thiamine Hcl 100 Mg Tablet) 100 mg PO DAILY [facility] Last Admin: 02/04/21 08:45 Dose: 100 mg Documented by: Trazodone HCl (Trazodone Hcl 50 Mg Tablet) 50 mg PO BEDTIME PRN PRN Reason: Insomnia Last Admin: 02/03/21 23:05 Dose: 50 mg Documented by: Allergies Allergies Allergy/AdvReac Type Severity Reaction Status Date / Time sertraline AdvReac Intermediate heart Verified 06/29/20 12:21 palpitations Assessment & Plan Assessment & Plan (1) Psychosis: Status: Acute Code(s): F29 - Unspecified psychosis not due to a substance or known physiological condit ion Assessment and Plan: Continues Zyprexa lamotrigine monitor response (2) Alcohol use disorder, severe, dependence: Status: Acute Code(s): F10.20 - Alcohol dependence, uncomplicated Assessment and Plan: Naltrexone patient unable tolerate Vivitrol (3) Hallucinosis, alcohol withdrawal: Status: Acute Code(s): F10.232 - Alcohol dependence with withdrawal with perceptual disturbance Assessment and Plan: Resolved per pt report (4) Bipolar disorder: Status: Acute Code(s): F31.9 - Bipolar disorder, unspecified Assessment and Plan: Lamotrigine Assessment and Plan: Continue psychiatric plan of care. Discharge planned for 02/07 to [facility]. Greater than 50% of the session was spent on counseling and/or coordination of care Patient educated on: medication risk/benefits, substance abuse and therapeutic strategies Informed Consent: understands Reason for contiued inpatient stay Substantial Risk for: harm to self, inability to function and rapid decompensation
[2021-02-04] MEDS: OLANZapine 5 MG TABLET PO (22:07)
[2021-02-04] MEDS: lamoTRIgine 25 MG TABLET 37.5 MG PO (22:07)
[2021-02-04] MEDS: hydrOXYzine HCL 25 MG TABLET PO (23:10)
[2021-02-04] MEDS: traZODone HCL 100 MG TABLET PO (23:10)
[2021-02-05 06:00] VITALS: BP 108/58; PULSE 70; RESP 18; TEMP 36.4; O2SAT 98
[2021-02-05] MEDS: Thiamine HCL 100 MG TABLET PO (08:24)
[2021-02-05] MEDS: Nicotine 14 MG PATCH.TD24 TRANSDERMA (08:24)
[2021-02-05] MEDS: Folic Acid 1 MG TABLET PO (08:24)
[2021-02-05] MEDS: Naltrexone HCl 50 MG TABLET PO (08:24)
[2021-02-05] MEDS: Multivitamin TABLET 1 TAB PO (08:25)
--- NOTE | 2021-02-05 11:31 | HO.PSYCHPN ---
Subjective Subjective Date of Service: 02/05/21 Reason For Visit: AUD Psychosis Subjective Notes: Conditional Voluntary Healthcare Proxy: No Guardianship: No Medical Problems Affecting Mental Status: No Interim History: Pt declined to meet today, citing feeling anger that a peer he has become close to is planning discharge today. Denies SI, HI, Declined to discuss medications, upcoming transition to [facility]. Medication Compliance: Yes Side effects from medications: No Attending Groups: Yes Review of Systems Acute medical concerns: No Medical Review of Systems: unchanged Review of Systems Gastrointestinal: Reports constipation Psychiatric: Reports anxiety, Reports depression, Reports irritability and Reports suicidal ideation (denies) Mental Status Exam Mental Status Exam Patient Appearance: Appropriate Patient Orientation: Person, Place and Time Level of Consciousness: Alert Patient Behavior: Appropriate, Restless, Anxious and Avoidant Mood Description: Angry and Apprehensive Affect Description: Constricted Patient Cognition Impaired: No Ability to Follow Directions: Good Speech Pattern: Spontaneous Speech Memory Description: Episodic Impaired Hallucinations: None Delusions: Not Present Thought Process: Intact Thought Content: positive for Intact, positive for [place], positive for Circumstantial and positive for Suicidal Ideation (denies) Depressive Symptoms: Insomnia, Increased Irritability, Difficulty Sleeping and Thoughts of /Suicide (denies) Judgement: Fair Diagnostics Vital Signs (24Hr): Vital Signs - 24 hr 02/04/21 17:53 02/05/21 06:00 Temperature 98.1 F 97.6 F Pulse Rate 66 70 Respiratory Rate 18 Blood Pressure 119/70 108/58 L Pulse Oximetry 100 98 Body Mass Index 23.3 Labs Results: 01/28/21 09:48 01/28/21 09:48 Imaging Radiology Impressions: ITS Impressions Abdomen X-Ray 02/02/21 15:40 IMPRESSION: Moderate colonic stool burden suggesting constipation. Medications Medications Current Medications Acetaminophen (Acetaminophen 325 Mg Tablet) 650 mg PO Q6H PRN PRN Reason: Headache/Pain Mild Scale (1-3) Al Hydroxide/Mg Hydroxide (Magnesium Hydrox/Alum Hydrox 30 Ml Oral.Susp) 30 ml PO Q6H PRN PRN Reason: Heartburn/Nausea Docusate Sodium (Docusate Sodium 100 Mg Capsule) 100 mg PO BEDTIME PRN PRN Reason: Constipation Folic Acid (Folic Acid 1 Mg Tablet) 1 mg PO DAILY [facility] Last Admin: 02/05/21 08:24 Dose: 1 mg Documented by: Hydroxyzine HCl (Hydroxyzine Hcl 25 Mg Tablet) 25 mg PO Q6H PRN PRN Reason: Anxiety Last Admin: 02/04/21 23:10 Dose: 25 mg Documented by: Lamotrigine (Lamotrigine 25 Mg Tablet) 37.5 mg PO BEDTIME [facility] Last Admin: 02/04/21 22:07 Dose: 37.5 mg Documented by: Lorazepam (Lorazepam 1 Mg Tablet) 1 mg PO Q6H PRN PRN Reason: Alcohol Withdrawal Magnesium Hydroxide (Milk Of Magnesia 30 Ml Oral.Susp) 30 ml PO DAILY PRN PRN Reason: Constipation Multivitamins/Vitamin C (Multivitamin Tablet) 1 tab PO DAILY [facility] Last Admin: 02/05/21 08:25 Dose: 1 tab Documented by: Naltrexone HCl (Naltrexone Hcl 50 Mg Tablet) 50 mg PO DAILY [facility] Last Admin: 02/05/21 08:24 Dose: 50 mg Documented by: Nicotine (Nicotine 14 Mg Patch.Td24) 14 mg TRANSDERMA DAILY [facility] Last Admin: 02/05/21 08:24 Dose: 14 mg Documented by: Olanzapine (Olanzapine 5 Mg Tablet) 5 mg PO BEDTIME [facility] Last Admin: 02/04/21 22:07 Dose: 5 mg Documented by: Olanzapine (Olanzapine 5 Mg Tablet) 5 mg PO Q8H PRN PRN Reason: agitation, hypomania, psychosi Thiamine HCl (Thiamine Hcl 100 Mg Tablet) 100 mg PO DAILY [facility] Last Admin: 02/05/21 08:24 Dose: 100 mg Documented by: Trazodone HCl (Trazodone Hcl 100 Mg Tablet) 100 mg PO BEDTIME PRN PRN Reason: Insomnia Last Admin: 02/04/21 23:10 Dose: 100 mg Documented by: Allergies Allergies Allergy/AdvReac Type Severity Reaction Status Date / Time sertraline AdvReac Intermediate heart Verified 06/29/20 12:21 palpitations Assessment & Plan Assessment & Plan (1) Psychosis: Status: Acute Code(s): F29 - Unspecified psychosis not due to a substance or known physiological condition Assessment and Plan: Continues Zyprexa lamotrigine monitor response (2) Alcohol use disorder, severe, dependence: Status: Acute Code(s): F10.20 - Alcohol dependence, uncomplicated Assessment and Plan: Naltrexone patient unable tolerate Vivitrol (3) Hallucinosis, alcohol withdrawal: Status: Acute Code(s): F10.232 - Alcohol dependence with withdrawal with perceptual disturbance Assessment and Plan: Resolved per pt report (4) Bipolar disorder: Status: Acute Code(s): F31.9 - Bipolar disorder, unspecified Assessment and Plan: Lamotrigine Assessment and Plan: Continue psychiatric plan of care. Discharge planned for 02/07 to [facility]. Greater than 50% of the session was spent on counseling and/or coordination of care Informed Consent: further education needed Reason for contiued inpatient stay Substantial Risk for: harm to self, inability to function and rapid decompensation
[2021-02-05 19:15] VITALS: BP 128/69; PULSE 63; TEMP 37; O2SAT 97
[2021-02-05] MEDS: OLANZapine 5 MG TABLET PO (21:29)
[2021-02-05] MEDS: lamoTRIgine 25 MG TABLET 37.5 MG PO (21:29)
[2021-02-05] MEDS: hydrOXYzine HCL 25 MG TABLET PO (23:06)
[2021-02-05] MEDS: traZODone HCL 100 MG TABLET PO (23:06)
[2021-02-06 06:00] VITALS: BP 105/54; PULSE 65; RESP 16; TEMP 36.2; O2SAT 96
[2021-02-06] MEDS: Thiamine HCL 100 MG TABLET PO (08:27)
[2021-02-06] MEDS: Nicotine 14 MG PATCH.TD24 TRANSDERMA (08:27)
[2021-02-06] MEDS: Multivitamin TABLET 1 TAB PO (08:27)
[2021-02-06] MEDS: Naltrexone HCl 50 MG TABLET PO (08:27)
[2021-02-06] MEDS: Folic Acid 1 MG TABLET PO (08:27)
[2021-02-06 13:37] LABS: Influenza A PCR NEGATIVE (Negative); Influenza B PCR NEGATIVE (Negative); Resp Syncy Virus RNA Qual PCR NEGATIVE (Negative); SARS COV2 PCR INHOUSE NEGATIVE (Negative)
--- NOTE | 2021-02-06 22:19 | P.PNPSI_ITS ---
Subjective Subjective Date of Service: 02/06/21 Reason For Visit: AUD Psychosis Subjective Notes: Conditional Voluntary Healthcare Proxy: No Guardianship: No Medical Problems Affecting Mental Status: No Interim History: The medicines are good, I am ready to go to the next level, but I am nervous. All of you here make things easy to get through for me. I am thankful all of you are here. Reports regime to be effective, denies SE, sleeping is improved. States he is ready for transfer to [facility] on 02/07. Reports being anxious, apprehensive. Medication Compliance: Yes Side effects from medications: No Attending Groups: Yes Review of Systems Acute medical concerns: No Medical Review of Systems: unchanged Review of Systems Psychiatric: Reports abnormal sleep pattern, Reports anxiety, Reports irritability and Reports suicidal ideation (denies) Mental Status Exam Mental Status Exam Patient Appearance: Appropriate Patient Orientation: Person, Place and Time Level of Consciousness: Alert Patient Behavior: Appropriate, Restless, Anxious and Avoidant Mood Description: Angry and Apprehensive Affect Description: Constricted Patient Cognition Impaired: No Ability to Follow Directions: Good Speech Pattern: Spontaneous Speech Memory Description: Episodic Impaired Hallucinations: None Delusions: Not Present Thought Process: Intact Thought Content: positive for Intact, positive for [place], positive for Circumstantial and positive for Suicidal Ideation (denies) Depressive Symptoms: Insomnia, Increased Irritability, Difficulty Sleeping and Thoughts of /Suicide (denies) Judgement: Fair Diagnostics Vital Signs (24Hr): Vital Signs - 24 hr 02/06/21 06:00 Temperature 97.1 F Pulse Rate 65 Respiratory Rate 16 Blood Pressure 105/54 L Pulse Oximetry 96 Body Mass Index 23.3 Labs Results: 01/28/21 09:48 01/28/21 09:48 Labs: Laboratory Results - last 48 hr 02/06/21 12:45 Coronavirus (PCR) NEGATIVE Influenza Type A (PCR) NEGATIVE Influenza Type B (PCR) NEGATIVE RSV RNA Qual (PCR) NEGATIVE Imaging Radiology Impressions: ITS Impressions Abdomen X-Ray 02/02/21 15:40 IMPRESSION: Moderate colonic stool burden suggesting constipation. Medications Medications Current Medications Acetaminophen (Acetaminophen 325 Mg Tablet) 650 mg PO Q6H PRN PRN Reason: Headache/Pain Mild Scale (1-3) Al Hydroxide/Mg Hydroxide (Magnesium Hydrox/Alum Hydrox 30 Ml Oral.Susp) 30 ml PO Q6H PRN PRN Reason: Heartburn/Nausea Docusate Sodium (Docusate Sodium 100 Mg Capsule) 100 mg PO BEDTIME PRN PRN Reason: Constipation Folic Acid (Folic Acid 1 Mg Tablet) 1 mg PO DAILY [facility] Last Admin: 02/06/21 08:27 Dose: 1 mg Documented by: Hydroxyzine HCl (Hydroxyzine Hcl 25 Mg Tablet) 25 mg PO Q6H PRN PRN Reason: Anxiety Last Admin: 02/05/21 23:06 Dose: 25 mg Documented by: Lamotrigine (Lamotrigine 25 Mg Tablet) 37.5 mg PO BEDTIME [facility] Last Admin: 02/05/21 21:29 Dose: 37.5 mg Documented by: Lorazepam (Lorazepam 1 Mg Tablet) 1 mg PO Q6H PRN PRN Reason: Alcohol Withdrawal Magnesium Hydroxide (Milk Of Magnesia 30 Ml Oral.Susp) 30 ml PO DAILY PRN PRN Reason: Constipation Multivitamins/Vitamin C (Multivitamin Tablet) 1 tab PO DAILY [facility] Last Admin: 02/06/21 08:27 Dose: 1 tab Documented by: Naltrexone HCl (Naltrexone Hcl 50 Mg Tablet) 50 mg PO DAILY [facility] Last Admin: 02/06/21 08:27 Dose: 50 mg Documented by: Nicotine (Nicotine 14 Mg Patch.Td24) 14 mg TRANSDERMA DAILY [facility] Last Admin: 02/06/21 08:27 Dose: 14 mg Documented by: Olanzapine (Olanzapine 5 Mg Tablet) 5 mg PO BEDTIME [facility] Last Admin: 02/05/21 21:29 Dose: 5 mg Documented by: Olanzapine (Olanzapine 5 Mg Tablet) 5 mg PO Q8H PRN PRN Reason: agitation, hypomania, psychosi Thiamine HCl (Thiamine Hcl 100 Mg Tablet) 100 mg PO DAILY [facility] Last Admin: 02/06/21 08:27 Dose: 100 mg Documented by: Trazodone HCl (Trazodone Hcl 100 Mg Tablet) 100 mg PO BEDTIME PRN PRN Reason: Insomnia Last Admin: 02/05/21 23:06 Dose: 100 mg Documented by: Allergies Allergies Allergy/AdvReac Type Severity Reaction Status Date / Time sertraline AdvReac Intermediate heart Verified 06/29/20 12:21 palpitations Assessment & Plan Assessment & Plan (1) Psychosis: Status: Acute Code(s): F29 - Unspecified psychosis not due to a substance or known physiological condition Assessment and Plan: Continues Zyprexa lamotrigine monitor response (2) Alcohol use disorder, severe, dependence: Status: Acute Code(s): F10.20 - Alcohol dependence, uncomplicated Assessment and Plan: Naltrexone patient unable tolerate Vivitrol (3) Hallucinosis, alcohol withdrawal: Status: Acute Code(s): F10.232 - Alcohol dependence with withdrawal with perceptual disturbance Assessment and Plan: Resolved per pt report (4) Bipolar disorder: Status: Acute Code(s): F31.9 - Bipolar disorder, unspecified Assessment and Plan: Lamotrigine Assessment and Plan: Continue psychiatric plan of care. Discharge planned for 02/07 to [facility]. I spent ____20__ minutes with the patient and/or on the patient floor today, greater than?50% of which was spent counseling/coordinating care. Patient educated on: diagnosis, medication risk/benefits, substance abuse and therapeutic strategies Informed Consent: understands Reason for contiued inpatient stay Substantial Risk for: stable for discharge
[2021-02-06] MEDS: traZODone HCL 100 MG TABLET PO (22:37)
[2021-02-06] MEDS: lamoTRIgine 25 MG TABLET 37.5 MG PO (22:37)
[2021-02-06] MEDS: OLANZapine 5 MG TABLET PO (22:37)
[2021-02-07 06:00] VITALS: BP 111/61; PULSE 70; RESP 16; TEMP 36.4; O2SAT 97
[2021-02-07] MEDS: Multivitamin TABLET 1 TAB PO (09:40)
[2021-02-07] MEDS: Naltrexone HCl 50 MG TABLET PO (09:40)
[2021-02-07] MEDS: Folic Acid 1 MG TABLET PO (09:40)
[2021-02-07] MEDS: Thiamine HCL 100 MG TABLET PO (09:40)
--- NOTE | 2021-02-07 17:14 | P.DS_ITS ---
DS: Providers Provider Date of Service: 02/07/21 Date of admission: 01/29/21 18:38 Date of discharge: 02/07/21 Primary care physician: Unknown Physician Admitting clinician: Susan Perez Attending physician on admission: Josef Ramírez Attending physician on discharge: Josef Ramírez Discharging clinician: Susan Perez DS: Diagnosis Discharge Diagnosis (1) Bipolar disorder: Status: Acute (2) Psychosis: Status: Resolved (3) Alcohol use disorder, severe, dependence: Status: Acute (4) Hallucinosis, alcohol withdrawal: Status: Resolved DS: Medications Discharge Medications Home Medications: Previous Rx's Medication Instructions Recorded docusate sodium 100 mg capsule 100 mg PO BEDTIME PRN #30 cap 02/06/21 folic acid 1 mg tablet 1 mg PO DAILY #0 tab 02/06/21 folic acid 1 mg tablet 1 mg PO DAILY #30 tab 02/06/21 ketoconazole 2 % topical cream 1 applic TOPICAL BID #60 g NS 02/06/21 lamotrigine 25 mg tablet 37.5 mg PO BEDTIME #45 tab 02/06/21 multivitamin (Daily-Lc) 1 tab PO DAILY #0 tab 02/06/21 multivitamin with folic acid 400 1 tab PO DAILY #30 tab 02/06/21 mcg tablet naltrexone 50 mg tablet 50 mg PO DAILY #0 tab 02/06/21 naltrexone 50 mg tablet 50 mg PO DAILY #30 tab 02/06/21 nicotine 14 mg/24 hr daily 14 mg TRANSDERMAL DAILY #30 ea 02/06/21 transdermal patch olanzapine 5 mg tablet 5 mg PO BEDTIME #30 tab 02/06/21 thiamine HCl (vitamin B1) 100 mg 100 mg PO DAILY #30 tab 02/06/21 tablet thiamine mononitrate (vit B1) 100 100 mg PO DAILY #0 tab 02/06/21 mg tablet trazodone 100 mg tablet 100 mg PO BEDTIME PRN #0 tab 02/06/21 trazodone 50 mg tablet 50 mg PO BEDTIME #30 tab 02/06/21 Mental Status Exam Mental Status Exam Patient Appearance: Appropriate Patient Orientation: Person, Place and Time Level of Consciousness: Alert Patient Behavior: Appropriate, Restless, Anxious and Avoidant Mood Description: Angry and Apprehensive Affect Description: Constricted Patient Cognition Impaired: No Ability to Follow Directions: Good Speech Pattern: Spontaneous Speech Memory Description: Episodic Impaired Hallucinations: None Delusions: Not Present Thought Process: Intact Thought Content: positive for Intact, positive for [place], positive for Circumstantial and positive for Suicidal Ideation (denies) Depressive Symptoms: Insomnia, Increased Irritability, Difficulty Sleeping and Thoughts of /Suicide (denies) Judgement: Fair Data Data Completed and Pending Completed studies during hospitalization [Text1]: 02/02/21 02/06/21 21:20 12:45 Urine Color YELLOW Urine Appearance CLEAR Urine pH 6.5 Ur Specific [place] 1.015 Urine Protein NEG Urine Glucose (UA) NEG Urine Ketones NEG Urine Blood NEG Urine Nitrite NEG Ur Leukocyte Esterase NEG Coronavirus (PCR) NEGATIVE Influenza Type A (PCR) NEGATIVE Influenza Type B (PCR) NEGATIVE RSV RNA Qual (PCR) NEGATIVE Imaging Diagnostic Imaging Impressions Abdomen X-Ray 02/02/21 15:40 IMPRESSION: Moderate colonic stool burden suggesting constipation. DS: Summary Hospital Course Hospital Course: Admission to adult psychiatry to address symptoms of bipolar disorder, psychosis and alcohol use disorder. Care plan, medication regime and out patient plan of care prior to admission were reviewed. Education was provided regarding management of symptoms, medication and side effects. Nursing and social service worked extensively with patient on collateral contacts, plan of care, education regarding management of symptoms, medications and discharge planning. Naltrexone, Olanzapine, Trazodone and Lamictal were initiated. Pt will follow up by transitioning to [facility] program upon discharge. Time spent discussing smoking cessation with patient: 3 to 10 minutes Status at Discharge Cognitive/behavioral status at discharge: non-psychotic, non-suicidal Functional status at discharge: independent ambulation Overall status at discharge: patient is progressing back to baseline Time Spent with Patient Time attestation: Total time spent providing and/or coordinating discharge services: 35 Time spent: Greater than 30 minutes Discharge Plan Discharge Patient Disposition: Xfer Inpatient Rehab Fac Discharge Diagnosis: Bipolar Disorder Alcohol Use Disorder, Dependence with Hallucinosis Referrals: [facility] (dual-diagnosis program) [Other] - 02/07/21 11:00 am (You are being discharged to [facility] for residential dual- diagnosis treatment) [facility] [Other] - 1 Week (Walk In) Physician,Unknown J [Primary Care Provider] - 1 Week Discharge Medications: New nicotine 14 mg/24 hr Patch 24 Hour 14 mg transdermal DAILY Qty: 30 RF: 0 naltrexone 50 mg Tablet 50 mg PO DAILY Qty: 0 RF: 0 olanzapine 5 mg Tablet 5 mg PO BEDTIME Qty: 30 RF: 0 lamotrigine 25 mg Tablet 37.5 mg PO BEDTIME Qty: 45 RF: 0 trazodone 100 mg Tablet 100 mg PO BEDTIME PRN (Reason: Insomnia) Qty: 0 RF: 0 docusate sodium 100 mg Capsule 100 mg PO BEDTIME PRN (Reason: Constipation) Qty: 30 RF: 0 multivitamin [Daily-Lc] Tablet 1 tab PO DAILY Qty: 0 RF: 0 folic acid 1 mg Tablet 1 mg PO DAILY Qty: 0 RF: 0 thiamine mononitrate (vit B1) 100 mg Tablet 100 mg PO DAILY Qty: 0 RF: 0 Continued trazodone 50 mg tablet 50 mg PO BEDTIME Qty: 30 RF: 0 naltrexone 50 mg tablet 50 mg PO DAILY Qty: 30 RF: 0 thiamine HCl (vitamin B1) 100 mg tablet 100 mg PO DAILY Qty: 30 RF: 0 folic acid 1 mg tablet 1 mg PO DAILY Qty: 30 RF: 0 ketoconazole 2 % cream 1 applic topical BID Qty: 60 RF: 0 multivitamin with folic acid 400 mcg tablet 1 tab PO DAILY Qty: 30 RF: 0 Discontinued cephalexin 250 mg/5 mL suspension for reconstitution 500 mg PO Q6H 10 Days Qty: 400 RF: 0 doxycycline calcium 50 mg/5 mL syrup 10 ml PO BID 10 Days Qty: 200 RF: 0 amoxicillin-pot clavulanate [Augmentin] 875-125 mg tablet 1 tab PO BID 10 Days Qty: 20 RF: 0 gabapentin 100 mg capsule 100 mg PO TID RF: 0 Discharge Orders: Discharge Order (Routine); Ordered 02/07/21 Ordered By: Susan Perez Diet: advance to usual diet Activity on Discharge: As tolerated Stand Alone Forms: Patient Portal Discharge page, Community Support Care Plan Goals: Mood stabilization Sobriety Health Concerns: Bipolar Disorder Alcohol Use Disorder-Dependence Plan of Treatment: Transfer to [facility] for treatment Attend appointments as scheduled Take medications as ordered Assessment: non psychotic, non suicidal. Discharge Date/Time: 02/07/21 10:53
== END 2021-02-07 10:53 | DRG 753 ==
LOC: HO.ED 09:25 → HO.PM5 01-29 18:49
PROVIDERS: Nurse Practitioner Family; Psychiatry & Neurology Psychiatry; Registered Nurse; Admitting Provider Psychiatry & Neurology Psychiatry; Emergency Provider Emergency Medicine; Visit Provider Clinical Nurse Specialist Psychiatric/Mental Health, Adult
DX: F31.9 Bipolar disorder, unspecified (principal); F10.229 Alcohol dependence with intoxication, unspecified; F17.210 Nicotine dependence, cigarettes, uncomplicated; F10.232 Alcohol dependence with withdrawal with perceptual disturbance; F29 Unspecified psychosis not due to a substance or known physiological condition; Z20.822 Contact with and (suspected) exposure to COVID-19; Z87.442 Personal history of urinary calculi; Z71.6 Tobacco abuse counseling; Z79.899 Other long term (current) drug therapy
CPT/HCPCS: 0241U; 36415; 74018; 80048; 80061; 80076; 80307; 81003; 82077; 82140; 82607; 82746; 83036; 83540; 83690; 84443; 85025; 87635; 93005; 99285

== ENCOUNTER 2021-11-02 18:27 | Emergency (ER) | payer OTHER, SELFPAY ==
--- NOTE | ~2021-11-02 | XR_ITS ---
EXAMINATION: XR ANKLE, RIGHT CLINICAL INFORMATION: Pain, fall. COMPARISON: Radiograph right foot 02/06/2020. TECHNIQUE: AP, lateral, and mortise views of the right ankle. FINDINGS: Asymmetric soft tissue swelling along the lateral malleolus. No evidence of acute fractures or malalignment. No unexpected radiopaque foreign bodies. XR/XR ankle RT min 3V IMPRESSION: Soft tissue swelling in the lateral surface of the ankle. No evidence of acute osseous fractures or subluxation.
--- NOTE | ~2021-11-02 | XR_ITS ---
EXAMINATION: XR FOOT, RIGHT CLINICAL INFORMATION: Fall COMPARISON: 02/06/2020 TECHNIQUE: AP, lateral, and oblique views of the right foot. FINDINGS: There is a nondisplaced transverse fracture of the proximal shaft of the third metatarsal. Overlying soft tissue swelling is noted. Articular alignment throughout the foot appears anatomic. XR/XR foot RT min 3V IMPRESSION: Nondisplaced transverse fracture of the proximal shaft of the third metatarsal.
[2021-11-02 18:34] VITALS: BP 140/60; BP 143/84; PULSE 110; PULSE 115; RESP 18; TEMP 36.9; O2SAT 95; BMI 38.0
--- NOTE | 2021-11-03 00:22 | ED_ITS ---
HPI - Extremity Injury (Lower) General Chief Complaint: Extremity Injury, Lower Stated Complaint: L FOOT PAIN SINCE LAST NOC,UNKOWN INJURY PER EMS Time Seen by Provider: 11/03/21 00:20 Source: patient Mode of arrival: ambulatory Limitations: no limitations History of Present Illness complaint: ankle injury and foot injury Onset (ago): day(s) (yesterday ) Injury: Right: ankle and foot Type of Injury: other (was drinking and woke up with foot pain thinks he twisted it) Place: home Severity: moderate Relieving factors: nothing Exacerbating factors: weight bearing and palpation Context: other (unsure) Associated symptoms: swelling and unable to bear weight Other symptoms: none Related Data Previous Rx's Medication Instructions Recorded docusate sodium 100 mg capsule 100 mg PO BEDTIME PRN Constipation 02/06/21 #30 caps folic acid 1 mg tablet 1 mg PO DAILY #0 tabs 02/06/21 folic acid 1 mg tablet 1 mg PO DAILY #30 tabs 02/06/21 ketoconazole 2 % topical cream 1 applic topical BID tinea pedis 02/06/21 #60 grams lamotrigine 25 mg tablet 37.5 mg PO BEDTIME #45 tabs 02/06/21 multivitamin (Daily-Lc) 1 tab PO DAILY #0 tabs 02/06/21 multivitamin with folic acid 400 1 tab PO DAILY #30 tabs 02/06/21 mcg tablet naltrexone 50 mg tablet 50 mg PO DAILY #0 tabs 02/06/21 naltrexone 50 mg tablet 50 mg PO DAILY #30 tabs 02/06/21 nicotine 14 mg/24 hr daily 14 mg transdermal DAILY #30 ea 02/06/21 transdermal patch olanzapine 5 mg tablet 5 mg PO BEDTIME #30 tabs 02/06/21 thiamine HCl (vitamin B1) 100 mg 100 mg PO DAILY #30 tabs 02/06/21 tablet thiamine mononitrate (vit B1) 100 100 mg PO DAILY #0 tabs 02/06/21 mg tablet trazodone 100 mg tablet 100 mg PO BEDTIME PRN Insomnia #0 02/06/21 tabs trazodone 50 mg tablet 50 mg PO BEDTIME #30 tabs 02/06/21 Allergies Allergy/AdvReac Type Severity Reaction Status Date / Time sertraline AdvReac Intermediate heart Verified 06/29/20 12:21 palpitations Review of Systems Review of Systems: Constitutional : No Fever, No Chills ENT/Mouth : No Ear Pain, No Hoarseness, No sore throat Eyes: No Eye Pain, No Swelling, No Redness, No Foreign Body Cardiovascular : No Chest Pain, No SOB Respiratory : No Cough, No Dyspnea Gastrointestinal : No Nausea, No Vomiting, No Diarrhea, No abdominal Pain Genitourinary : No Dysuria, No Hematuria Musculoskeletal : positive joint pain, No Myalgias, pos Joint Swelling Skin : No Skin lacerations, No rash Neuro : No Weakness, No Numbness, No Loss of Consciousness, No Dizziness, No Headache [facility] Past Medical History Attestation statement: The following information was validated with the patient. Medical History Alcohol abuse Anxiety Bipolar disorder Heart murmur No known health problems Family History Family History Maternal Grandfather Diabetes Social History Social History Household Members: None Do you presently have visiting nurse or other home services: No Alcohol intake: current Alcohol intake frequency: 3 or more drinks per day Alcohol type: hard liquor Patient Tobacco Use Status: Current everyday Tobacco user Tobacco use type: Cigarette Cigarette Packs Per Day: 0.5 Cigarettes Per Day: 10.0 Second Hand Smoke Exposure: Yes Substance Use Type: Heroin Advance Directives: No Advance Directives Information Provided: Yes service: No Physical Exam Vital Signs: Vital Signs: Last Vital Signs Temp 98.4 F 11/02/21 18:34 Pulse 115 H 11/02/21 18:34 Resp 18 11/02/21 18:34 BP 143/84 H 11/02/21 18:34 Pulse Ox 95 11/02/21 18:34 O2 Del Method 11/02/21 18:34 BMI result Body Mass Index 38.0 Appearance: Alert. Oriented X3. No acute distress. Anxious Eyes: Pupils equal, round and reactive to light. ENT: Pharynx normal. Neck: Normal inspection. Neck supple. CVS: Normal heart rate and rhythm. Pulses normal. Respiratory: No respiratory distress. Breath sounds normal. Abdomen: Soft and nontender. Skin: Skin warm and dry. Normal skin color. Normal skin turgor. Extremities: No lower extremity edema. R foot contusion and swelling noted to R lateral foot - moderate distal NV intact Neuro: Oriented X 3. No motor deficit. No sensory deficit. Course Course Course Narrative: upon discharge now reports SI to the [facility] and states he thought about jumping off of a bridge will move to pod and order labs refer to N Physician observation started at 144am Patient placed in physician observation because the patient needed more time for N to assess the need for psych admission. At the time observation was started the patient's vitals were stable, patient is alert and oriented Neuro: nonfocal, CV RRR, Lungs clear MDM - Extremity Injury (Lower) MDM Narrative Medical decision making narrative: 31 yo male with hx of ETOH abuse was drinking last night thinks he twisted his ankle and foot comes in 1 day later with contusion to foot he is NV intact will need xrays of ankle and foot - PO pain medications, no other injuries noted no headache. Dispo per results and findings. Procedures Orthopedic Splinting/Casting Injury #1: Side: right Lower Extremity Injury Location: foot Lower Extremity Immobilizer: posterior splint Other Orthopedic Equipment: crutches Discharge Plan Discharge Clinical Impression: Metatarsal bone fracture Qualifiers: Encounter type: initial encounter Metatarsal bone: third Fracture type: closed Fracture alignment: nondisplaced Laterality: right Qualified Code(s): S92.334A - Nondisplaced fracture of third metatarsal bone, right foot, initial encounter for closed fracture Patient Disposition: Still a Patient Prescriptions: No Action nicotine 14 mg/24 hr Patch 24 Hour 14 mg transdermal DAILY Qty: 30 0RF naltrexone 50 mg Tablet 50 mg PO DAILY Qty: 0 0RF olanzapine 5 mg Tablet 5 mg PO BEDTIME Qty: 30 0RF lamotrigine 25 mg Tablet 37.5 mg PO BEDTIME Qty: 45 0RF trazodone 100 mg Tablet 100 mg PO BEDTIME PRN (Reason: Insomnia) Qty: 0 0RF docusate sodium 100 mg Capsule 100 mg PO BEDTIME PRN (Reason: Constipation) Qty: 30 0RF multivitamin [Daily-Lc] Tablet 1 tab PO DAILY Qty: 0 0RF folic acid 1 mg Tablet 1 mg PO DAILY Qty: 0 0RF thiamine mononitrate (vit B1) 100 mg Tablet 100 mg PO DAILY Qty: 0 0RF trazodone 50 mg tablet 50 mg PO BEDTIME Qty: 30 0RF naltrexone 50 mg tablet 50 mg PO DAILY Qty: 30 0RF thiamine HCl (vitamin B1) 100 mg tablet 100 mg PO DAILY Qty: 30 0RF folic acid 1 mg tablet 1 mg PO DAILY Qty: 30 0RF ketoconazole 2 % cream 1 applic topical BID Qty: 60 0RF multivitamin with folic acid 400 mcg tablet 1 tab PO DAILY Qty: 30 0RF Referrals: Agatha Tello PA-C [Physician Gluer Machine Operator] - 10 days Stand Alone Forms: Work/School Release
[2021-11-03] MEDS: HYDROcodone Bit/Acetam 5/325 TABLET 1 TAB PO (00:46)
--- NOTE | 2021-11-03 01:50 | PC.NURSE ---
Online [facility] referral completed by this RN.
--- NOTE | 2021-11-03 01:53 | PC.NURSE ---
Med Rec completed by this RN.
[2021-11-03 02:56] LABS: Basophils Absolute Auto 0.1 X10*3/uL (0.0-0.2); Basophils Percent Auto 0.3 % (0-2); Hematocrit 40.9 % (42.0-52.0); Hemoglobin 14.6 g/dl (14.0-18.0); Imm Gran Abs Auto 0.07 X10*3/uL (0.00-0.03); Imm Gran Pct Auto 0.4 % (0.0-0.4); Lymphocytes Absolute Auto 1.4 X10*3/uL (1.2-4.9); Lymphocytes Percent Auto 8.2 % (20-40); Mean Corpuscular HGB Conc 35.7 g/dl (31.0-36.0); Mean Corpuscular Hemoglobin 29.4 pg (27.0-33.0); Mean Corpuscular Volume 82.5 fL (80.0-98.0); Mean Platelet Volume 9.7 fL (9.4-12.4); Monocytes Absolute Auto 1.4 X10*3/uL (0.1-1.2); Monocytes Percent Auto 8.6 % (2-11); Neutrophils Absolute Auto 13.9 x10*3/uL (2.0-8.3); Neutrophils Percent Auto 82.5 % (45-73); Platelet Count 286 X10*3/uL (160-400); Red Blood Count 4.96 X10*6/uL (4.60-5.80); Red Cell Distribution Width 12.3 % (11.0-16.0); White Blood Count 16.8 X10*3/uL (4.8-10.8)
[2021-11-03 03:06] LABS: Alanine Aminotransferase 51 U/L (0-40); Albumin Level 4.8 g/dL (3.5-5.0); Alkaline Phosphatase 84 U/L (39-117); Anion Gap 20 (12-20); Aspartate Amino Transferase 39 U/L (5-37); Bilirubin Direct 0.4 mg/dL (0.0-0.5); Bilirubin Total 1.2 mg/dL (0.0-1.0); Blood Urea Nitrogen 18 mg/dL (9-16); Calcium 9.4 mg/dL (8.4-10.2); Carbon Dioxide 18 mmol/L (22-29); Chloride 101 mmol/L (96-108); Creatinine Clr Calc Pharmacy 155.7; Estimated Glomerular Filt Rate > 60; Ethanol < 10 mg/dL; Glucose Random 101 mg/dL (60-115); MANUAL DIFF FLAG NO; Potassium 4.7 mmol/L (3.3-5.1); Sodium 134 mmol/L (135-145); Total Protein 8.2 g/dL (6.5-8.0)
--- NOTE | 2021-11-03 03:08 | PC.NURSE ---
Patient just got transferred from main ED after endorsing suicidal ideation. Per report BH[facility] has been referred, [facility] called/no response after ringing for 30 minutes, med rec completed/pending provider's approval, patient ambulates safely with walker, no distress observed/reported at this time, will continue to monitor.
[2021-11-03 03:09] LABS: COVID-19 Test Negative (Negative)
[2021-11-03 03:50] LABS: Amphetamine Screen Urine Not Detected (Not Detect); Barbiturates, Urine Not Detected (Not Detect); Benzodiazepines Screen Urine Not Detected (Not Detect); Cannabinoid Screen Urine Not Detected (Not Detect); Cocaine Screen Urine Not Detected (Not Detect); Fentanyl, urine POSITIVE (Not Detect); Opiate Screen Urine Not Detected (Not Detect); Phencyclidine Screen Urine Not Detected (Not Detect)
--- NOTE | 2021-11-03 07:34 | PC.NURSE ---
Patient slept through the night, no distress observed/reported, patient has left non displaced transverse fracture 3 metatarsal, yokasta wrapped, patient wlaks safely with walker, behavior non concerning, [facility] referral completed/confirmed/pending ETA, VSS, med rec completed/confirmed/pending ETA, will continue to monitor.
--- NOTE | 2021-11-03 09:41 | PHA.MEDREC ---
Pharmacy Consult ? Medication Reconciliation rn has completed the medication reconciliation, pharmacy reviewed.
[2021-11-03] MEDS: hydrOXYzine HCL 50 MG TABLET PO ×2 (10:44→12:00)
[2021-11-03] MEDS: LORazepam 1 MG TABLET 2 MG PO (10:44)
[2021-11-03] MEDS: lamoTRIgine 100 MG TABLET 200 MG PO (10:44)
--- NOTE | 2021-11-03 11:20 | MHC.RECOVSUP ---
Recovery Support note: Patient is a 31 year old Finnish speaking male who presented to [facility] ED due to an ankle injury that occurred while under the influence of alcohol. Patient was medically cleared for discharge however reported SI and was referred to N. N met with patient and cleared him for discharge. Patient left sober living arrangement two days ago and reports he has drank 2 pints per day since then, in addition patient used heroin for the first time in six years. Patient is requesting detox at this time. Patient has been multiple times and has found it helpful. This information writer will assist patient in referring to ATS facilities.
[2021-11-03] MEDS: Magnesium Hydrox/Alum Hydrox 30 ML ORAL.SUSP PO (12:00)
[2021-11-03] MEDS: Famotidine 20 MG TABLET PO (12:00)
--- NOTE | 2021-11-03 14:39 | PC.NURSE ---
patient did intake at [facility] in [place], provider aware of needing to discharge, pt getting dressed to discharge, will notify charge and continue to monitor.
== END 2021-11-03 14:51 | disposition home or self-care (01) ==
PROVIDERS: Emergency Provider Emergency Medicine
DX: S92.334A Nondisplaced fracture of third metatarsal bone, right foot, initial encounter for closed fracture (principal); R45.851 Suicidal ideations; F11.90 Opioid use, unspecified, uncomplicated; M79.671 Pain in right foot; W19.XXXA Unspecified fall, initial encounter; Y93.9 Activity, unspecified; Y92.9 Unspecified place or not applicable; Y99.9 Unspecified external cause status; F17.210 Nicotine dependence, cigarettes, uncomplicated; Z20.822 Contact with and (suspected) exposure to COVID-19; Z71.6 Tobacco abuse counseling; Z79.899 Other long term (current) drug therapy
CPT/HCPCS: 29515; 73610; 73630; 80048; 80076; 80307; 82077; 85025; 87635; 99284

== ENCOUNTER 2022-03-04 04:08 | Inpatient (IN) | payer OTHER, SELFPAY ==
--- NOTE | 2022-03-04 | ECG_ITS ---
Test Reason : MED CLEARANCE Blood Pressure : / mmHG Vent. Rate : 095 BPM Atrial Rate : 095 BPM P-R Int : 148 ms QRS Dur : 084 ms QT Int : 356 ms P-R-T Axes : 041 037 058 degrees QTc Int : 447 ms Normal sinus rhythm Normal ECG When compared with ECG of 29-JAN-2021 10:28, Vent. rate has increased BY 32 BPM Referred By: Socorro Mcwilliams Electronically Signed By:JESUS CHAVEZ MD
[2022-03-04 04:10] VITALS: BP 111/82; BP 132/88; PULSE 86; PULSE 99; RESP 17; TEMP 37; O2SAT 96; O2SAT 98; BMI 35.5
--- NOTE | 2022-03-04 04:57 | PC.NURSE ---
Addendum entered by Ursula Fermin RN 03/04/22 06:48: report given to CHARLIE Valdes Addendum entered by Ursula Fermin RN 03/04/22 06:40: N referral submitted Original Note: pt arrived to the ED with the following medications clonidine 0.1mg (60 pills) trazodone 150mg(14pills) melatonin 3mg (14 pills) lamictal 100mg (29 pills, 50mg (2pills) lamictal 25mg (19 pills) olanzapine 7.5mg (13 pills) hydroxyzine 25mg (70 pills) naltrexone 50mg (90pills) nicotine patch 21mg (29 patches)
[2022-03-04 05:24] LABS: Amphetamine Screen Urine Not Detected (Not Detect); Barbiturates, Urine Not Detected (Not Detect); Benzodiazepines Screen Urine Not Detected (Not Detect); Cannabinoid Screen Urine Not Detected (Not Detect); Cocaine Screen Urine Not Detected (Not Detect); Fentanyl, urine POSITIVE (Not Detect); Opiate Screen Urine Not Detected (Not Detect); Phencyclidine Screen Urine Not Detected (Not Detect)
[2022-03-04 05:27] LABS: COVID-19 Test Negative (Negative); IDNOW Serial# BCCEAD1C
[2022-03-04 05:33] LABS: Basophils Absolute Auto 0.1 X10*3/uL (0.0-0.2); Basophils Percent Auto 0.4 % (0-2); Eosinophils Percent Auto 0.2 % (0-4); Hematocrit 42.2 % (42.0-52.0); Hemoglobin 14.8 g/dl (14.0-18.0); Imm Gran Abs Auto 0.04 X10*3/uL (0.00-0.03); Imm Gran Pct Auto 0.3 % (0.0-0.4); Lymphocytes Absolute Auto 2.2 X10*3/uL (1.2-4.9); Lymphocytes Percent Auto 17.8 % (20-40); MANUAL DIFF FLAG NO; Mean Corpuscular HGB Conc 35.1 g/dl (31.0-36.0); Mean Corpuscular Hemoglobin 28.8 pg (27.0-33.0); Mean Corpuscular Volume 82.3 fL (80.0-98.0); Mean Platelet Volume 9.4 fL (9.4-12.4); Monocytes Absolute Auto 0.7 X10*3/uL (0.1-1.2); Monocytes Percent Auto 5.6 % (2-11); Neutrophils Absolute Auto 9.5 x10*3/uL (2.0-8.3); Neutrophils Percent Auto 75.7 % (45-73); Platelet Count 296 X10*3/uL (160-400); Red Blood Count 5.13 X10*6/uL (4.60-5.80); White Blood Count 12.5 X10*3/uL (4.8-10.8)
[2022-03-04 05:51] LABS: Anion Gap 19 (12-20); Blood Urea Nitrogen 12 mg/dL (9-16); Carbon Dioxide 21 mmol/L (22-29); Chloride 108 mmol/L (96-108); Creatinine Clr Calc Pharmacy 127.4; Estimated Glomerular Filt Rate > 60; Ethanol 171 mg/dL; Glucose Random 80 mg/dL (60-115); Sodium 144 mmol/L (135-145)
--- NOTE | 2022-03-04 07:24 | ED_ITS ---
HPI - Psych General Chief Complaint: Psychiatric Symptoms Stated Complaint: crisis Time Seen by Provider: 03/04/22 06:31 History of Present Illness HPI Narrative: Patient is a 32-year-old male with a long history of use. History of panic attacks. Presented today after drinking alcohol. Question using fentanyl. Patient complained that he is having visual hallucinations. Seen people that do not exist. Patient had had similar symptoms in the past. Denies any suicidal homicidal ideations. Related Data Home Medications Medication Instructions Recorded Confirmed hydroxyzine HCl 25 mg tablet 2 tab PO QID 11/03/21 03/04/22 melatonin 3 mg tablet 1 tab PO BEDTIME 11/03/21 03/04/22 olanzapine 7.5 mg tablet 1 tab PO BEDTIME 11/03/21 03/04/22 trazodone 150 mg tablet 1 tab PO BEDTIME 11/03/21 03/04/22 lamotrigine 100 mg tablet 1 tab PO DAILY 03/04/22 03/04/22 naltrexone 50 mg tablet 1 tab PO DAILY 03/04/22 03/04/22 Allergies Allergy/AdvReac Type Severity Reaction Status Date / Time sertraline AdvReac Intermediate heart Verified 03/04/22 04:30 palpitations Review of Systems Review of Systems: Positive visual hallucinations. No cough and no congestion or upper respiratory symptoms. Positive ETOH Positive recreational drugs Yes all other systems are reviewed and are negative [facility] Past Medical History Attestation statement: The following information was validated with the patient. Medical History Alcohol abuse Anxiety Bipolar disorder Heart murmur No known health problems Family History Family History Maternal Grandfather Diabetes Social History Social History Household Members: None Do you presently have visiting nurse or other home services: No Alcohol intake: current Alcohol intake frequency: 3 or more drinks per day Alcohol type: hard liquor Patient Tobacco Use Status: Current everyday Tobacco user Tobacco use type: Cigarette Cigarette Packs Per Day: 0.5 Cigarettes Per Day: 10.0 Smoked in Last 30 Days: Yes Second Hand Smoke Exposure: Yes Substance Use Type: Heroin Last Used Substance: Just Prior to Admission Advance Directives: No Advance Directives Information Provided: Yes service: No Physical Exam Vital Signs: Vital Signs: Last Vital Signs Temp 98.8 F 03/04/22 07:42 Pulse 94 03/04/22 07:42 Resp 20 03/04/22 07:42 BP 115/70 03/04/22 07:42 Pulse Ox 95 03/04/22 07:42 O2 Del Method 03/04/22 07:42 BMI result Body Mass Index 35.5 Appearance: Alert. Oriented X3. No acute distress. Eyes: Pupils equal, round and reactive to light. ENT: Pharynx normal. Neck: Normal inspection. Neck supple. No lymph nodes noted. No crepitus CVS: Normal heart rate and rhythm. Pulses normal. Normal S1 and S2 Respiratory: No respiratory distress. Breath sounds normal. No Wheezing. No rales Abdomen: Soft and nontender. No rigidity. No distention. good BS x4 Skin: Skin warm and dry. Normal skin color. Normal skin turgor. Extremities: No lower extremity edema. Neurovascular intact to all extremities. No Lacerations. No Rash Neuro: Oriented X 3. No motor deficit. No sensory deficit. Moving all extermities. No slurred speech. Cranial nerves grossly intact MDM - Psych MDM Narrative Medical decision making narrative: Well-appearing not acute distress. Awaiting clinical sobriety. Will get crisis involved currently in stable condition Patient is seen by crisis. Will admit for further evaluation. Currently in stable condition Medical Records Attestation: I reviewed the patient's medical records. Lab Data Attestation: I reviewed the patient's lab results. Result diagrams: 03/04/22 05:28 03/04/22 05:28 Labs: Lab Results 03/04/22 03/04/22 03/04/22 Range/Units 04:50 04:50 05:28 WBC 12.5 H (4.8-10.8) X10*3/uL RBC 5.13 (4.60-5.80) X10*6/uL Hgb 14.8 (14.0-18.0) g/dl Hct 42.2 (42.0-52.0) % MCV 82.3 (80.0-98.0) fL MCH 28.8 (27.0-33.0) pg MCHC 35.1 (31.0-36.0) g/dl RDW 13.0 (11.0-16.0) % Plt Count 296 (160-400) X10*3/uL MPV 9.4 (9.4-12.4) fL Immature Gran % (Auto) 0.3 (0.0-0.4) % Neut % (Auto) 75.7 H (45-73) % Lymph % (Auto) 17.8 L (20-40) % Stone % (Auto) 5.6 (2-11) % Eos % (Auto) 0.2 (0-4) % Baso % (Auto) 0.4 (0-2) % Lymph # (Auto) 2.2 (1.2-4.9) X10*3/uL Stone # (Auto) 0.7 (0.1-1.2) X10*3/uL Eos # (Auto) 0.0 (0.0-0.4) X10*3/uL Baso # (Auto) 0.1 (0.0-0.2) X10*3/uL Abs Immat Gran (auto) 0.04 H (0.00-0.03) X10*3/uL Absolute Neuts (auto) 9.5 H (2.0-8.3) x10*3/uL Absolute Nucleated RBC 0.000 (0.0-0.012) X10*3/uL Nucleated RBC % (auto) 0.0 (0.0-0.2) /100WBC Sodium (135-145) mmol/L Potassium (3.3-5.1) mmol/L Chloride (96-108) mmol/L Carbon Dioxide (22-29) mmol/L Anion Gap (12-20) BUN (9-16) mg/dL Creatinine (0.5-1.4) mg/dL Estim Creat Clear Calc Estimated GFR Random Glucose (60-115) mg/dL Calcium (8.4-10.2) mg/dL Urine Opiates Screen Not Detected (Not Detect) Urine Fentanyl Screen POSITIVE H (Not Detect) Ur Barbiturates Screen Not Detected (Not Detect) Ur Phencyclidine Scrn Not Detected (Not Detect) Ur Amphetamines Screen Not Detected (Not Detect) U Benzodiazepines Scrn Not Detected (Not Detect) Urine Cocaine Screen Not Detected (Not Detect) U Marijuana (THC) Screen Not Detected (Not Detect) Ethyl Alcohol mg/dL COVID-19 (PEDRITO) Negative (Negative) COVID-19 Clin Com See Note 03/04/22 Range/Units 05:28 WBC (4.8-10.8) X10*3/uL RBC (4.60-5.80) X10*6/uL Hgb (14.0-18.0) g/dl Hct (42.0-52.0) % MCV (80.0-98.0) fL MCH (27.0-33.0) pg MCHC (31.0-36.0) g/dl RDW (11.0-16.0) % Plt Count (160-400) X10*3/uL MPV (9.4-12.4) fL Immature Gran % (Auto) (0.0-0.4) % Neut % (Auto) (45-73) % Lymph % (Auto) (20-40) % Stone % (Auto) (2-11) % Eos % (Auto) (0-4) % Baso % (Auto) (0-2) % Lymph # (Auto) (1.2-4.9) X10*3/uL Stone # (Auto) (0.1-1.2) X10*3/uL Eos # (Auto) (0.0-0.4) X10*3/uL Baso # (Auto) (0.0-0.2) X10*3/uL Abs Immat Gran (auto) (0.00-0.03) X10*3/uL Absolute Neuts (auto) (2.0-8.3) x10*3/uL Absolute Nucleated RBC (0.0-0.012) X10*3/uL Nucleated RBC % (auto) (0.0-0.2) /100WBC Sodium 144 (135-145) mmol/L Potassium 4.0 (3.3-5.1) mmol/L Chloride 108 (96-108) mmol/L Carbon Dioxide 21 L (22-29) mmol/L Anion Gap 19 (12-20) BUN 12 (9-16) mg/dL Creatinine 0.92 (0.5-1.4) mg/dL Estim Creat Clear Calc 127.4 Estimated GFR > 60 Random Glucose 80 (60-115) mg/dL Calcium 9.0 (8.4-10.2) mg/dL Urine Opiates Screen (Not Detect) Urine Fentanyl Screen (Not Detect) Ur Barbiturates Screen (Not Detect) Ur Phencyclidine Scrn (Not Detect) Ur Amphetamines Screen (Not Detect) U Benzodiazepines Scrn (Not Detect) Urine Cocaine Screen (Not Detect) U Marijuana (THC) Screen (Not Detect) Ethyl Alcohol 171 mg/dL COVID-19 (PEDRITO) (Negative) COVID-19 Clin Com Discharge Plan Discharge Clinical Impression: Alcohol intoxication, Altered mental status Patient Disposition: Admitted As Inpatient Prescriptions: No Action naltrexone 50 mg tablet 1 tab PO DAILY lamotrigine 100 mg tablet 1 tab PO DAILY melatonin 3 mg tablet 1 tab PO BEDTIME olanzapine 7.5 mg tablet 1 tab PO BEDTIME trazodone 150 mg tablet 1 tab PO BEDTIME hydroxyzine HCl 25 mg tablet 2 tab PO QID
[2022-03-04 07:42] VITALS: BP 115/70; PULSE 94; RESP 20; TEMP 37.1; O2SAT 95
--- NOTE | 2022-03-04 07:42 | PC.NURSE ---
patient appears to remain asleep at present respirations are even and unlabored patient appears in no distress
--- NOTE | 2022-03-04 11:56 | PC.NURSE ---
this nurse obtained report from fabrice, resumed care at 1115am, patient sleeping, it was requested the patient have an ekg for admission, Dr. Mcwilliams was notified, verbal order obtained for EKG which was performed, pt offers no complaints at this time, will continue to monitor.
--- NOTE | 2022-03-04 15:33 | PC.NURSE ---
patient currently sleeping
--- NOTE | 2022-03-04 16:59 | PC.NURSE ---
security called to transport the patient to the floor
[2022-03-04 17:17] VITALS: BP 132/79; PULSE 94; RESP 18; TEMP 36.4; O2SAT 96
--- NOTE | 2022-03-04 17:22 | P.HPPS_ITS ---
HPI Chief Complaint: SI HPI Past Psychiatric History: 30 yo male to ER experiencing perceptual alterations- auditory and visual, believes that he had been chosen by mother Neisha to unburden souls. Pt in addition is possibly in hallucinosis from alcohol-reports to ER 48 oz of liquor daily-consistently for several months. Today, pt reports he was in room #6 and a 20 yo female, Rosalinda or Sarah was with him. She told him she had in that room from a heroin OD. He also reports encountering good and bad spirits . Reports he is unable to go without alcohol for ~12 hours or he experiences withdrawal. He uses 24 oz earthquake drinks til blackout on a regular basis. Reports a positive history of seizures, tremors, hallucinations- but this was different-it was real. States he started alcohol use at age 16 and has had ~7 years of heavy drinking. He reports he is fearful of symptoms and wants treatment so he may look for stable housing work and have a relationship with his 11 yo daughter. IP: One overnight stay secondary to alcohol when his girlfriend broke up with him-he wanted to stab himself OP: A few therapists and prescribers, I got fed up, it was the same stuff so I stopped it. Denies current alliances. Trials: some, trazodone, gabapentin, vitamins. Call to [facility] [address] they report last rx was Gabapentin for 7 days in June 2020. Pt reports diagnoses of bipolar, anxiety, depression [facility] Medical History Alcohol abuse Anxiety Bipolar disorder Heart murmur No known health problems Family History: denies Social History: Born and raised in [place]. One older sister, one younger sister, both estranged from pt. Pt completed the first quarter of 12th grade, met daughter's mother, and you know the rest of the story, failures from then on. Pt has a daughter who will be eleven on 04/04/21 whom he has not seen in one month. He describes her as smart, wonderful, my proudest moment . 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 Currently unemployed. Pt has tried to complete GED but has had no real support so this is a future goal. Trauma History: Affirms and denies Diagnostics Vital Signs (24Hr): Vital Signs - 24 hr 03/04/22 04:10 03/04/22 07:42 Temperature 98.6 F 98.8 F Pulse Rate 99 94 Respiratory Rate 17 20 Blood Pressure 111/82 115/70 Pulse Oximetry 96 95 Oxygen Delivery Method Room Air Room Air BMI result Body Mass Index 35.5 Labs Results: 03/04/22 05:28 03/04/22 05:28 Labs: Laboratory Results - last 48 hr 03/04/22 03/04/22 03/04/22 04:50 04:50 05:28 WBC 12.5 H RBC 5.13 Hgb 14.8 Hct 42.2 MCV 82.3 MCH 28.8 MCHC 35.1 RDW 13.0 Plt Count 296 MPV 9.4 Immature Gran % (Auto) 0.3 Neut % (Auto) 75.7 H Lymph % (Auto) 17.8 L [place] % (Auto) 5.6 Eos % (Auto) 0.2 Baso % (Auto) 0.4 Lymph # (Auto) 2.2 [place] # (Auto) 0.7 Eos # (Auto) 0.0 Baso # (Auto) 0.1 Abs Immat Gran (auto) 0.04 H Absolute Neuts (auto) 9.5 H Absolute Nucleated RBC 0.000 Nucleated RBC % (auto) 0.0 Sodium Potassium Chloride Carbon Dioxide Anion Gap BUN Creatinine Estim Creat Clear Calc Estimated GFR Random Glucose Calcium Urine Opiates Screen Not Detected Urine Fentanyl Screen POSITIVE H Ur Barbiturates Screen Not Detected Ur Phencyclidine Scrn Not Detected Ur Amphetamines Screen Not Detected U Benzodiazepines Scrn Not Detected Urine Cocaine Screen Not Detected U Marijuana (THC) Screen Not Detected Ethyl Alcohol COVID-19 (PEDRITO) Negative COVID-19 Clin Com See Note 03/04/22 05:28 WBC RBC Hgb Hct MCV MCH MCHC RDW Plt Count MPV Immature Gran % (Auto) Neut % (Auto) Lymph % (Auto) [place] % (Auto) Eos % (Auto) Baso % (Auto) Lymph # (Auto) [place] # (Auto) Eos # (Auto) Baso # (Auto) Abs Immat Gran (auto) Absolute Neuts (auto) Absolute Nucleated RBC Nucleated RBC % (auto) Sodium 144 Potassium 4.0 Chloride 108 Carbon Dioxide 21 L Anion Gap 19 BUN 12 Creatinine 0.92 Estim Creat Clear Calc 127.4 Estimated GFR > 60 Random Glucose 80 Calcium 9.0 Urine Opiates Screen Urine Fentanyl Screen Ur Barbiturates Screen Ur Phencyclidine Scrn Ur Amphetamines Screen U Benzodiazepines Scrn Urine Cocaine Screen U Marijuana (THC) Screen Ethyl Alcohol 171 COVID-19 (PEDRITO) COVID-19 Clin Com Meds/Allergies Meds Home Medications Medication Instructions Recorded Confirmed Type hydroxyzine HCl 25 mg tablet 2 tab PO QID 11/03/21 03/04/22 History melatonin 3 mg tablet 1 tab PO BEDTIME 11/03/21 03/04/22 History olanzapine 7.5 mg tablet 1 tab PO BEDTIME 11/03/21 03/04/22 History trazodone 150 mg tablet 1 tab PO BEDTIME 11/03/21 03/04/22 History lamotrigine 100 mg tablet 1 tab PO DAILY 03/04/22 03/04/22 History naltrexone 50 mg tablet 1 tab PO DAILY 03/04/22 03/04/22 History Allergies Allergies Allergy/AdvReac Type Severity Reaction Status Date / Time sertraline AdvReac Intermediate heart Verified 03/04/22 04:30 palpitations
[2022-03-04] MEDS: LORazepam 1 MG TABLET 2 MG PO (18:14)
[2022-03-04] MEDS: Acetaminophen 325 MG TABLET 650 MG PO (18:14)
[2022-03-04] MEDS: Thiamine HCL 100 MG TABLET PO (18:14)
--- NOTE | 2022-03-04 18:17 | PC.NURSE ---
Nursing admission note: 32 year old male DX: Alcohol use disorder, severe Unspecified depressive disorder, Unspecified bipolar and related disorder. Patient referred for admission by CARE team. Signed Conditional Voluntary for admission. Patient presented to ED reporting suicidal ideation with plan to jump [place] or cut himself. Patient engages easily, reports depressed mood, feeling hopeless. Affect congruent. Denies SI/HI plan or intent at this time. Thoughts linear and organized. Good eye contact, dressed in hospital attire. Reports AH, hears whispers , come and go . Denies AH at this time. Denies VH at this time. States sleep is all right , reports approx 7 hours per night. Reports poor access to food currently however reported weight gain of 80 lbs in last year. No acute medical problems reported. Reports history of heart murmur. Poor dentition. Wearing glasses, currently with patient. Allergy to Sertraline. Reports he is currently homeless. Patient is smoker although declined NRT at this time. Reports almost daily use of alcohol, presented this morning with BAL of 171. States he will drink 2 pints of Vodka and tall beers . Currently placed on CIWA protocol. Reports history of drug use, TOX screen positive for Fentanyl. 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 History of prior hospitalizations, history of detox. Refused flu shot. Patient oriented to unit, placed on 15 minute safety checks. See nursing assessment for further details, crisis eval for complete details.
[2022-03-04 18:52] VITALS: BMI 34.0
[2022-03-04 23:17] VITALS: BP 128/61; PULSE 102; RESP 16; TEMP 36.6; O2SAT 93
[2022-03-05] MEDS: Acetaminophen 325 MG TABLET 650 MG PO ×2 (00:30→08:59)
[2022-03-05] MEDS: LORazepam 1 MG TABLET 2 MG PO ×2 (00:30→11:41)
[2022-03-05 06:00] VITALS: BP 123/73; PULSE 91; RESP 18; TEMP 36.8; O2SAT 93
[2022-03-05] MEDS: Thiamine HCL 100 MG TABLET PO (08:58)
[2022-03-05 09:44] LABS: Estimated Average Glucose 105 mg/dL; Hemoglobin A1c % 5.3 %
[2022-03-05 09:59] LABS: Alanine Aminotransferase 41 U/L (0-40); Albumin Level 4.4 g/dL (3.5-5.0); Alkaline Phosphatase 83 U/L (39-117); Anion Gap 14 (12-20); Aspartate Amino Transferase 27 U/L (5-37); Bilirubin Total 0.8 mg/dL (0.0-1.0); Blood Urea Nitrogen 13 mg/dL (9-16); Calcium 9.6 mg/dL (8.4-10.2); Carbon Dioxide 24 mmol/L (22-29); Chloride 103 mmol/L (96-108); Cholesterol 264 mg/dL; Creatinine Clr Calc Pharmacy 136.7; Estimated Glomerular Filt Rate > 60; Glucose Fasting 89 mg/dL (60-99); HDL Cholesterol 40 mg/dL; LDL Cholesterol Calculated 198 mg/dl; Sodium 137 mmol/L (135-145); Total Protein 7.5 g/dL (6.5-8.0); Triglycerides 133 mg/dL
[2022-03-05 10:20] LABS: Thyroid Stimulating Hormone 1.15 uIU/mL (0.32-4.0)
[2022-03-05 10:29] LABS: Folate 15.1 ng/mL (> or = 4.0); Vitamin B12 247 pg/mL (200-900)
[2022-03-05] MEDS: Ondansetron ODT 4 MG TAB.RAPDIS TRANSLINGU ×2 (11:41→20:25)
--- NOTE | 2022-03-05 12:40 | P.HPPS_ITS ---
HPI Date of Service: 03/05/22 Chief Complaint: SI Sources of Information: patient interviewed, chart reviewed and crisis/core team assessment reviewed HPI Subjective Notes: Kaplan Warning (pt understood) and Conditional Voluntary Narrative: Mr. Velásquez is 32 year-old male with Bipolar Disorder and alcohol use. Pt self presented to [facility] reporting increase depression, suicidal ideation in context of quickly relapsing on alcohol use after completing day prior a 90 day program alcohol use treatment program in [place]. In the ED, BAL 171. Pt reported hearing voices telling him to hurt himself. On the unit, Mr. Velásquez reports that he was doing fairly well while in the TSS program. He reports once he completed program he was on wait list for sober housing at [facility]. He reports he had trouble even finding transportation to come from [facility] to [facility] and he quickly relapsed. He reports intermittent voices telling him to hurt himself. He reports is mostly a female voice. Pt continues to report suicidal ideation. he endorses feeling hopeless, helpless, worried that he won't be able to get back into a substance use treatment program. Past Psychiatric History: 30 yo male to ER experiencing perceptual alterations- auditory and visual, believes that he had been chosen by mother Neisha to unburden souls. Pt in addition is possibly in hallucinosis from alcohol-reports to ER 48 oz of liquor daily-consistently for several months. IP: One overnight stay secondary to alcohol when his girlfriend broke up with him-he wanted to stab himself OP: Yamel Abreu APRN Trials: some, trazodone, gabapentin, vitamins. Medical Evaluation Reviewed: Yes [facility] Medical History (Updated 03/05/22 @ 15:57 by Ly Sosa) Alcohol abuse Anxiety Bipolar disorder Heart murmur No known health problems Family History: denies Social History: Born and raised in [place]. One older sister, one younger sister, both estranged from pt. Pt completed the first quarter of 12th grade, met daughter's mother, and you know the rest of the story, failures from then on. Pt has a daughter who will be eleven on 04/04/21 whom he has not seen in one month. He describes her as smart, wonderful, my proudest moment . 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 Currently unemployed. Pt has tried to complete GED but has had no real support so this is a future goal. Substance History: Alcohol use since age 16- just completed 90 day program and is longest period of sobriety. Trauma History: Affirms and denies Diagnostics Vital Signs (24Hr): Vital Signs - 24 hr 03/04/22 17:17 03/04/22 23:17 03/05/22 06:00 Temperature 97.6 F 97.8 F 98.2 F Pulse Rate 94 102 H 91 Respiratory Rate 18 16 18 Blood Pressure 132/79 128/61 123/73 Pulse Oximetry 96 93 93 Oxygen Delivery Method Room Air Room Air Room Air BMI result Body Mass Index 34.0 Labs Results: 03/04/22 05:28 03/05/22 09:09 Labs: Laboratory Results - last 48 hr 03/04/22 03/04/22 03/04/22 04:50 04:50 05:28 WBC 12.5 H RBC 5.13 Hgb 14.8 Hct 42.2 MCV 82.3 MCH 28.8 MCHC 35.1 RDW 13.0 Plt Count 296 MPV 9.4 Immature Gran % (Auto) 0.3 Neut % (Auto) 75.7 H Lymph % (Auto) 17.8 L [place] % (Auto) 5.6 Eos % (Auto) 0.2 Baso % (Auto) 0.4 Lymph # (Auto) 2.2 [place] # (Auto) 0.7 Eos # (Auto) 0.0 Baso # (Auto) 0.1 Abs Immat Gran (auto) 0.04 H Absolute Neuts (auto) 9.5 H Absolute Nucleated RBC 0.000 Nucleated RBC % (auto) 0.0 Sodium Potassium Chloride Carbon Dioxide Anion Gap BUN Creatinine Estim Creat Clear Calc Estimated GFR Random Glucose Fasting Glucose Estimat Average Glucose Hemoglobin A1c % Calcium Total Bilirubin AST ALT Alkaline Phosphatase Total Protein Albumin Triglycerides Cholesterol LDL Cholesterol, Calc HDL Cholesterol Vitamin B12 Folate TSH Urine Opiates Screen Not Detected Urine Fentanyl Screen POSITIVE H Ur Barbiturates Screen Not Detected Ur Phencyclidine Scrn Not Detected Ur Amphetamines Screen Not Detected U Benzodiazepines Scrn Not Detected Urine Cocaine Screen Not Detected U Marijuana (THC) Screen Not Detected Ethyl Alcohol COVID-19 (PEDRITO) Negative COVID-19 Clin Com See Note 03/04/22 03/05/22 03/05/22 05:28 09:09 09:09 WBC RBC Hgb Hct MCV MCH MCHC RDW Plt Count MPV Immature Gran % (Auto) Neut % (Auto) Lymph % (Auto) [place] % (Auto) Eos % (Auto) Baso % (Auto) Lymph # (Auto) [place] # (Auto) Eos # (Auto) Baso # (Auto) Abs Immat Gran (auto) Absolute Neuts (auto) Absolute Nucleated RBC Nucleated RBC % (auto) Sodium 144 137 Potassium 4.0 4.0 Chloride 108 103 Carbon Dioxide 21 L 24 Anion Gap 19 14 BUN 12 13 Creatinine 0.92 0.84 Estim Creat Clear Calc 127.4 136.7 Estimated GFR > 60 > 60 Random Glucose 80 Fasting Glucose 89 Estimat Average Glucose 105 Hemoglobin A1c % 5.3 Calcium 9.0 9.6 D Total Bilirubin 0.8 AST 27 ALT 41 H Alkaline Phosphatase 83 Total Protein 7.5 Albumin 4.4 Triglycerides 133 Cholesterol 264 D LDL Cholesterol, Calc 198 HDL Cholesterol 40 D Vitamin B12 Folate TSH 1.15 Urine Opiates Screen Urine Fentanyl Screen Ur Barbiturates Screen Ur Phencyclidine Scrn Ur Amphetamines Screen U Benzodiazepines Scrn Urine Cocaine Screen U Marijuana (THC) Screen Ethyl Alcohol 171 COVID-19 (PEDRITO) COVID-19 [employer] 03/05/22 09:09 WBC RBC Hgb Hct MCV MCH MCHC RDW Plt Count MPV Immature Gran % (Auto) Neut % (Auto) Lymph % (Auto) [place] % (Auto) Eos % (Auto) Baso % (Auto) Lymph # (Auto) [place] # (Auto) Eos # (Auto) Baso # (Auto) Abs Immat Gran (auto) Absolute Neuts (auto) Absolute Nucleated RBC Nucleated RBC % (auto) Sodium Potassium Chloride Carbon Dioxide Anion Gap BUN Creatinine Estim Creat Clear Calc Estimated GFR Random Glucose Fasting Glucose Estimat Average Glucose Hemoglobin A1c % Calcium Total Bilirubin AST ALT Alkaline Phosphatase Total Protein Albumin Triglycerides Cholesterol LDL Cholesterol, Calc HDL Cholesterol Vitamin B12 247 Folate 15.1 TSH Urine Opiates Screen Urine Fentanyl Screen Ur Barbiturates Screen Ur Phencyclidine Scrn Ur Amphetamines Screen U Benzodiazepines Scrn Urine Cocaine Screen U Marijuana (THC) Screen Ethyl Alcohol COVID-19 (PEDRITO) COVID-19 [employer] Com Meds/Allergies Meds Home Medications Medication Instructions Recorded Confirmed Type hydroxyzine HCl 25 mg tablet 2 tab PO QID 11/03/21 03/04/22 History melatonin 3 mg tablet 1 tab PO BEDTIME 11/03/21 03/04/22 History olanzapine 7.5 mg tablet 1 tab PO BEDTIME 11/03/21 03/04/22 History trazodone 150 mg tablet 1 tab PO BEDTIME 11/03/21 03/04/22 History lamotrigine 100 mg tablet 1 tab PO DAILY 03/04/22 03/04/22 History naltrexone 50 mg tablet 1 tab PO DAILY 03/04/22 03/04/22 History Allergies Allergies Allergy/AdvReac Type Severity Reaction Status Date / Time sertraline AdvReac Intermediate heart Verified 03/04/22 04:30 palpitations Mental Status Exam Mental Status Exam Narrative: Appearance: casually groomed, good hygiene, in NAD Behavior: cooperative Speech: clear, normal rate/rhythm/volume, spontaneous TP: linear TC: no signs of psychosis, wanting to get back into program Mood: depressed Affect: blunted SI: passive HI: none AH: on and off voices of woman telling him to hurt himself VH: none Insight/judgment: fair x 2. Memory/cog: alert, oriented x 3. grossly intact to conversational testing. Assessment & Plan Assessment & Plan (1) Alcohol use disorder, severe, dependence: Status: Acute Code(s): F10.20 - Alcohol dependence, uncomplicated (2) Bipolar disorder: Status: Acute Code(s): F31.9 - Bipolar disorder, unspecified Plan Mr. Velásquez is a 32 year-old male with hx of alcohol use, Bipolar disorder who self presented to [facility] reporting increase depression, suicidal ideation with plan to jump off a bridge in setting of quickly relapsing on alcohol after completing 90 day TSS program at [facility] few days ago. We discussed risks, benefits and alternative treatment options. Pt agreed to continue lamictal, olanzapine, naltrexon. He asks to be reconnected with dual diagnosis residential program. PLAN 1. Admit to M3, CV, 15 minutes checks for safety 2. continue current medications 3. Obtain collateral information 4. Aftercare planning. Patient educated on: diagnosis and medication risk/benefits Informed Consent: understands Reason for continued inpatient stay Substantial Risk for: harm to self
[2022-03-05] MEDS: Naltrexone HCl 50 MG TABLET PO (15:35)
[2022-03-05] MEDS: Famotidine 20 MG TABLET PO ×2 (15:35→20:24)
[2022-03-05] MEDS: Pyridoxine HCl (Vitamin B6) 50 MG TABLET 25 MG PO (15:35)
[2022-03-05] MEDS: lamoTRIgine 100 MG TABLET PO (15:36)
[2022-03-05] MEDS: Omeprazole 20 MG CAPSULE.DR PO (15:36)
[2022-03-05 20:05] VITALS: BP 127/87; PULSE 80; RESP 16; TEMP 36.3; O2SAT 98
[2022-03-05] MEDS: hydrOXYzine HCL 50 MG TABLET PO (20:24)
[2022-03-05] MEDS: Melatonin 3 MG TABLET PO (20:24)
[2022-03-05] MEDS: OLANZapine 2.5 MG TABLET 7.5 MG PO (20:25)
[2022-03-05] MEDS: traZODone HCL 50 MG TABLET 150 MG PO (20:25)
--- NOTE | 2022-03-05 21:31 | MHC.RECOVSUP ---
? Reason for consult:BOTH o? Current location:307-1? o? Identified substance use concern:? -? Support ? Intervention: o? Community resources provided o? Harm reduction discussion ? Plan: o? Follow up tomorrow? ? Additional information: provided pt with recovery resources, and tennis coach pamphlet as well as contact information.
[2022-03-06 08:00] VITALS: BP 124/72; PULSE 92; TEMP 36.7; O2SAT 98
[2022-03-06] MEDS: lamoTRIgine 100 MG TABLET PO (09:41)
[2022-03-06] MEDS: Naltrexone HCl 50 MG TABLET PO (09:41)
[2022-03-06] MEDS: Thiamine HCL 100 MG TABLET PO (09:42)
[2022-03-06] MEDS: Pyridoxine HCl (Vitamin B6) 50 MG TABLET 25 MG PO (09:43)
[2022-03-06] MEDS: Omeprazole 20 MG CAPSULE.DR PO (09:43)
--- NOTE | 2022-03-06 12:22 | HO.PSYCHPN ---
Subjective Subjective Date of Service: 03/06/22 Reason For Visit: SI Subjective Notes: Conditional Voluntary Interim History: Pt reports feeling better in that he is less depressed but still very anxious and worried about not being able to go to dual residential program from here. He reports intermittent suicidal ideation but no plan or intent. No VH/AH. Per nursing, pt has been visible on the unit, taking medications as prescribed. Medication Compliance: Yes Side effects from medications: No Review of Systems Review of Systems Yes all other systems are reviewed and are negative Constitutional: Reports headache(s) and Reports poor appetite Eyes: Reports no additional eye complaints Reports headache(s) Cardiovascular: Denies chest pain at rest, Denies chest pain with activity, Denies lightheadedness and Denies dyspnea Respiratory: Denies dyspnea Gastrointestinal: Denies constipation, Denies excessive flatus, Reports dyspepsia, Reports heartburn, Denies fecal incontinence, Denies diarrhea and Reports nausea Reports headache(s) Mental Status Exam Mental Status Exam Narrative: Appearance: casually groomed, good hygiene, in NAD Behavior: cooperative Speech: clear, normal rate/rhythm/volume, spontaneous TP: linear TC: no signs of psychosis, wanting to get back into program Mood: depressed Affect: blunted SI: passive HI: none AH: on and off voices of woman telling him to hurt himself VH: none Insight/judgment: fair x 2. Memory/cog: alert, oriented x 3. grossly intact to conversational testing. Diagnostics Vital Signs (24Hr): Vital Signs - 24 hr 03/07/22 09:00 03/07/22 20:25 Temperature 98 F 97.8 F Pulse Rate 83 76 Blood Pressure 134/66 142/76 H Pulse Oximetry 95 96 Oxygen Delivery Method Room Air Room Air BMI result Body Mass Index 34.0 Labs Results: 03/04/22 05:28 03/05/22 09:09 Medications Medications Current Medications Acetaminophen (Acetaminophen 325 Mg Tablet) 650 mg PO Q6H PRN PRN Reason: Headache/Pain Mild Scale (1-3) Last Admin: 03/05/22 08:59 Dose: 650 mg Al Hydroxide/Mg Hydroxide (Magnesium Hydrox/Alum Hydrox 30 Ml Oral.Susp) 30 ml PO Q6H PRN PRN Reason: Heartburn/Nausea Famotidine (Famotidine 20 Mg Tablet) 20 mg PO BID [facility] Last Admin: 03/07/22 21:10 Dose: Not Given Hydroxyzine HCl (Hydroxyzine Hcl 50 Mg Tablet) 50 mg PO Q6H PRN PRN Reason: Anxiety Last Admin: 03/07/22 16:36 Dose: 50 mg Lamotrigine (Lamotrigine 100 Mg Tablet) 100 mg PO DAILY [facility] Last Admin: 03/07/22 10:24 Dose: 100 mg Lorazepam (Lorazepam 1 Mg Tablet) 2 mg PO Q4H PRN PRN Reason: ciwa 12-17 Last Admin: 03/05/22 11:41 Dose: 2 mg Magnesium Hydroxide (Milk Of Magnesia 30 Ml Oral.Susp) 30 ml PO DAILY PRN PRN Reason: Constipation Melatonin (Melatonin 3 Mg Tablet) 3 mg PO BEDTIME [facility] Last Admin: 03/07/22 21:10 Dose: 3 mg Naltrexone HCl (Naltrexone Hcl 50 Mg Tablet) 50 mg PO DAILY [facility] Last Admin: 03/07/22 10:22 Dose: 50 mg Olanzapine (Olanzapine 2.5 Mg Tablet) 7.5 mg PO BEDTIME [facility] Last Admin: 03/07/22 21:10 Dose: 7.5 mg Omeprazole (Omeprazole 20 Mg Capsule.Dr) 20 mg PO DAILY@0630 [facility] Last Admin: 03/07/22 10:25 Dose: Not Given Ondansetron HCl (Ondansetron Odt 4 Mg Tab.Rapdis) 4 mg TRANSLINGU Q8H PRN PRN Reason: nausea Last Admin: 03/05/22 20:25 Dose: 4 mg Pyridoxine HCl (Pyridoxine Hcl (Vitamin B6) 50 Mg Tablet) 25 mg PO DAILY [facility] Last Admin: 03/07/22 10:24 Dose: 25 mg Thiamine HCl (Thiamine Hcl 100 Mg Tablet) 100 mg PO DAILY [facility] Last Admin: 03/07/22 10:23 Dose: 100 mg Trazodone HCl (Trazodone Hcl 50 Mg Tablet) 50 mg PO BEDTIME PRN PRN Reason: Insomnia Trazodone HCl (Trazodone Hcl 50 Mg Tablet) 150 mg PO BEDTIME [facility] Last Admin: 03/07/22 21:09 Dose: 150 mg Allergies Allergies Allergy/AdvReac Type Severity Reaction Status Date / Time sertraline AdvReac Intermediate heart Verified 03/04/22 04:30 palpitations Assessment & Plan Assessment & Plan (1) Alcohol use disorder, severe, dependence: Status: Acute Code(s): F10.20 - Alcohol dependence, uncomplicated (2) Bipolar disorder: Status: Acute Code(s): F31.9 - Bipolar disorder, unspecified Plan 03/06- continue current medications. I spent minutes with the patient and/or on the patient floor today, greater than?50% of which was spent counseling/coordinating care. Reason for contiued inpatient stay Substantial Risk for: harm to self
[2022-03-06] MEDS: hydrOXYzine HCL 50 MG TABLET PO (15:53)
[2022-03-06 21:22] VITALS: BP 133/75; PULSE 75; RESP 18; TEMP 36.5; O2SAT 96
[2022-03-06] MEDS: traZODone HCL 50 MG TABLET 150 MG PO (21:23)
[2022-03-06] MEDS: Melatonin 3 MG TABLET PO (21:23)
[2022-03-06] MEDS: OLANZapine 2.5 MG TABLET 7.5 MG PO (21:23)
[2022-03-07 09:00] VITALS: BP 134/66; PULSE 83; TEMP 36.6; O2SAT 95
[2022-03-07] MEDS: Naltrexone HCl 50 MG TABLET PO (10:22)
[2022-03-07] MEDS: Thiamine HCL 100 MG TABLET PO (10:23)
[2022-03-07] MEDS: lamoTRIgine 100 MG TABLET PO (10:24)
[2022-03-07] MEDS: Pyridoxine HCl (Vitamin B6) 50 MG TABLET 25 MG PO (10:24)
[2022-03-07] MEDS: hydrOXYzine HCL 50 MG TABLET PO ×2 (10:46→16:36)
--- NOTE | 2022-03-07 12:25 | P.PNPSI_ITS ---
Subjective Subjective Date of Service: 03/07/22 Reason For Visit: SI Subjective Notes: Conditional Voluntary Interim History: Pt reports he is doing better, concern about not going to a program but more open to referrals to more programs. Pt denies SI/HI. He reports less nausea with pepcid and omeprazole. Per nursing, no behavioral concerns. Medication Compliance: Yes Side effects from medications: No Review of Systems Review of Systems Yes all other systems are reviewed and are negative Constitutional: Reports headache(s) and Reports poor appetite Eyes: Reports no additional eye complaints Reports headache(s) Cardiovascular: Denies chest pain at rest, Denies chest pain with activity, Denies lightheadedness and Denies dyspnea Respiratory: Denies dyspnea Gastrointestinal: Denies constipation, Denies excessive flatus, Reports dyspepsia, Reports heartburn, Denies fecal incontinence, Denies diarrhea and Reports nausea Reports headache(s) Mental Status Exam Mental Status Exam Narrative: Appearance: casually groomed, good hygiene, in NAD Behavior: cooperative Speech: clear, normal rate/rhythm/volume, spontaneous TP: linear TC: no signs of psychosis, wanting to get back into program Mood: depressed Affect: blunted SI: passive HI: none AH: on and off voices of woman telling him to hurt himself VH: none Insight/judgment: fair x 2. Memory/cog: alert, oriented x 3. grossly intact to conversational testing. Diagnostics Vital Signs (24Hr): Vital Signs - 24 hr 03/07/22 09:00 03/07/22 20:25 Temperature 98 F 97.8 F Pulse Rate 83 76 Blood Pressure 134/66 142/76 H Pulse Oximetry 95 96 Oxygen Delivery Method Room Air Room Air BMI result Body Mass Index 34.0 Labs Results: 03/04/22 05:28 03/05/22 09:09 Medications Medications Current Medications Acetaminophen (Acetaminophen 325 Mg Tablet) 650 mg PO Q6H PRN PRN Reason: Headache/Pain Mild Scale (1-3) Last Admin: 03/05/22 08:59 Dose: 650 mg Al Hydroxide/Mg Hydroxide (Magnesium Hydrox/Alum Hydrox 30 Ml Oral.Susp) 30 ml PO Q6H PRN PRN Reason: Heartburn/Nausea Famotidine (Famotidine 20 Mg Tablet) 20 mg PO BID [facility] Last Admin: 03/07/22 21:10 Dose: Not Given Hydroxyzine HCl (Hydroxyzine Hcl 50 Mg Tablet) 50 mg PO Q6H PRN PRN Reason: Anxiety Last Admin: 03/07/22 16:36 Dose: 50 mg Lamotrigine (Lamotrigine 100 Mg Tablet) 100 mg PO DAILY [facility] Last Admin: 03/07/22 10:24 Dose: 100 mg Lorazepam (Lorazepam 1 Mg Tablet) 2 mg PO Q4H PRN PRN Reason: ciwa 12-17 Last Admin: 03/05/22 11:41 Dose: 2 mg Magnesium Hydroxide (Milk Of Magnesia 30 Ml Oral.Susp) 30 ml PO DAILY PRN PRN Reason: Constipation Melatonin (Melatonin 3 Mg Tablet) 3 mg PO BEDTIME [facility] Last Admin: 03/07/22 21:10 Dose: 3 mg Naltrexone HCl (Naltrexone Hcl 50 Mg Tablet) 50 mg PO DAILY [facility] Last Admin: 03/07/22 10:22 Dose: 50 mg Olanzapine (Olanzapine 2.5 Mg Tablet) 7.5 mg PO BEDTIME [facility] Last Admin: 03/07/22 21:10 Dose: 7.5 mg Omeprazole (Omeprazole 20 Mg Capsule.Dr) 20 mg PO DAILY@0630 [facility] Last Admin: 03/07/22 10:25 Dose: Not Given Ondansetron HCl (Ondansetron Odt 4 Mg Tab.Rapdis) 4 mg TRANSLINGU Q8H PRN PRN Reason: nausea Last Admin: 03/05/22 20:25 Dose: 4 mg Pyridoxine HCl (Pyridoxine Hcl (Vitamin B6) 50 Mg Tablet) 25 mg PO DAILY [facility] Last Admin: 03/07/22 10:24 Dose: 25 mg Thiamine HCl (Thiamine Hcl 100 Mg Tablet) 100 mg PO DAILY [facility] Last Admin: 03/07/22 10:23 Dose: 100 mg Trazodone HCl (Trazodone Hcl 50 Mg Tablet) 50 mg PO BEDTIME PRN PRN Reason: Insomnia Trazodone HCl (Trazodone Hcl 50 Mg Tablet) 150 mg PO BEDTIME [facility] Last Admin: 03/07/22 21:09 Dose: 150 mg Allergies Allergies Allergy/AdvReac Type Severity Reaction Status Date / Time sertraline AdvReac Intermediate heart Verified 03/04/22 04:30 palpitations Assessment & Plan Assessment & Plan (1) Alcohol use disorder, severe, dependence: Status: Acute Code(s): F10.20 - Alcohol dependence, uncomplicated (2) Bipolar disorder: Status: Acute Code(s): F31.9 - Bipolar disorder, unspecified Plan 03/06- continue current medications. 03/07 continue current medications. I spent minutes with the patient and/or on the patient floor today, greater than?50% of which was spent counseling/coordinating care. Reason for contiued inpatient stay Substantial Risk for: harm to self
[2022-03-07 20:25] VITALS: BP 142/76; PULSE 76; TEMP 36.6; O2SAT 96
[2022-03-07] MEDS: traZODone HCL 50 MG TABLET 150 MG PO (21:09)
[2022-03-07] MEDS: OLANZapine 2.5 MG TABLET 7.5 MG PO (21:10)
[2022-03-07] MEDS: Melatonin 3 MG TABLET PO (21:10)
--- NOTE | 2022-03-08 00:49 | HO.PSYCHPN ---
Subjective Subjective Date of Service: 03/08/22 Reason For Visit: SI Subjective Notes: Kaplan Warning Interim History: Discussed with team, pt is anxious, has AH, frequent nighttime awakenings. Says he feels like his meds are working and that his nighttime meds are working for the most part, wakes up a few times in the night, awake for 30 min then falls back asleep, energy is neutral. Says he has not been remembering to use hydroxyzine as much as he used to, that's probably the reason why im waking up, wants this scheduled. Medication Compliance: Yes Side effects from medications: No Attending Groups: Intermittent Review of Systems Acute medical concerns: No Medical Review of Systems: unchanged Mental Status Exam Mental Status Exam Narrative: Appearance: casually groomed, good hygiene, in NAD Behavior: cooperative Speech: clear, normal rate/rhythm/volume, spontaneous TP: linear TC: no signs of psychosis, wanting to get back into program Mood: depressed Affect: blunted SI: passive HI: none AH: on and off voices of woman telling him to hurt himself VH: none Insight/judgment: fair x 2. Memory/cog: alert, oriented x 3. grossly intact to conversational testing. Diagnostics Vital Signs (24Hr): Vital Signs - 24 hr 03/07/22 09:00 03/07/22 20:25 Temperature 98 F 97.8 F Pulse Rate 83 76 Blood Pressure 134/66 142/76 H Pulse Oximetry 95 96 Oxygen Delivery Method Room Air Room Air BMI result Body Mass Index 34.0 Labs Results: 03/04/22 05:28 03/05/22 09:09 Medications Medications Current Medications Acetaminophen (Acetaminophen 325 Mg Tablet) 650 mg PO Q6H PRN PRN Reason: Headache/Pain Mild Scale (1-3) Last Admin: 03/05/22 08:59 Dose: 650 mg Al Hydroxide/Mg Hydroxide (Magnesium Hydrox/Alum Hydrox 30 Ml Oral.Susp) 30 ml PO Q6H PRN PRN Reason: Heartburn/Nausea Famotidine (Famotidine 20 Mg Tablet) 20 mg PO BID [facility] Last Admin: 03/07/22 21:10 Dose: Not Given Hydroxyzine HCl (Hydroxyzine Hcl 50 Mg Tablet) 50 mg PO Q6H PRN PRN Reason: Anxiety Last Admin: 03/07/22 16:36 Dose: 50 mg Lamotrigine (Lamotrigine 100 Mg Tablet) 100 mg PO DAILY [facility] Last Admin: 03/07/22 10:24 Dose: 100 mg Lorazepam (Lorazepam 1 Mg Tablet) 2 mg PO Q4H PRN PRN Reason: ciwa 12-17 Last Admin: 03/05/22 11:41 Dose: 2 mg Magnesium Hydroxide (Milk Of Magnesia 30 Ml Oral.Susp) 30 ml PO DAILY PRN PRN Reason: Constipation Melatonin (Melatonin 3 Mg Tablet) 3 mg PO BEDTIME [facility] Last Admin: 03/07/22 21:10 Dose: 3 mg Naltrexone HCl (Naltrexone Hcl 50 Mg Tablet) 50 mg PO DAILY [facility] Last Admin: 03/07/22 10:22 Dose: 50 mg Olanzapine (Olanzapine 2.5 Mg Tablet) 7.5 mg PO BEDTIME [facility] Last Admin: 03/07/22 21:10 Dose: 7.5 mg Omeprazole (Omeprazole 20 Mg Capsule.Dr) 20 mg PO DAILY@0630 [facility] Last Admin: 03/07/22 10:25 Dose: Not Given Ondansetron HCl (Ondansetron Odt 4 Mg Tab.Rapdis) 4 mg TRANSLINGU Q8H PRN PRN Reason: nausea Last Admin: 03/05/22 20:25 Dose: 4 mg Pyridoxine HCl (Pyridoxine Hcl (Vitamin B6) 50 Mg Tablet) 25 mg PO DAILY [facility] Last Admin: 03/07/22 10:24 Dose: 25 mg Thiamine HCl (Thiamine Hcl 100 Mg Tablet) 100 mg PO DAILY [facility] Last Admin: 03/07/22 10:23 Dose: 100 mg Trazodone HCl (Trazodone Hcl 50 Mg Tablet) 50 mg PO BEDTIME PRN PRN Reason: Insomnia Trazodone HCl (Trazodone Hcl 50 Mg Tablet) 150 mg PO BEDTIME [facility] Last Admin: 03/07/22 21:09 Dose: 150 mg Allergies Allergies Allergy/AdvReac Type Severity Reaction Status Date / Time sertraline AdvReac Intermediate heart Verified 03/04/22 04:30 palpitations Assessment & Plan Assessment & Plan (1) Alcohol use disorder, severe, dependence: Status: Acute Code(s): F10.20 - Alcohol dependence, uncomplicated (2) Bipolar disorder: Status: Acute Code(s): F31.9 - Bipolar disorder, unspecified Plan 11/17- continue current medications. 03/07 continue current medications. 03/08 Schedule hydroxyzine 50 mg for bedtime I spent minutes with the patient and/or on the patient floor today, greater than?50% of which was spent counseling/coordinating care. Patient educated on: medication risk/benefits Reason for contiued inpatient stay Substantial Risk for: harm to self, rapid decompensation and med/psych decompensation
[2022-03-08] MEDS: Omeprazole 20 MG CAPSULE.DR PO (09:25)
[2022-03-08] MEDS: Thiamine HCL 100 MG TABLET PO (09:26)
[2022-03-08] MEDS: Pyridoxine HCl (Vitamin B6) 50 MG TABLET 25 MG PO (09:26)
[2022-03-08] MEDS: Famotidine 20 MG TABLET PO ×2 (09:26→22:38)
[2022-03-08] MEDS: lamoTRIgine 100 MG TABLET PO (09:26)
[2022-03-08] MEDS: Naltrexone HCl 50 MG TABLET PO (09:26)
[2022-03-08 10:03] VITALS: BP 98/51; PULSE 71; RESP 16; TEMP 36.6; O2SAT 96
[2022-03-08] MEDS: hydrOXYzine HCL 50 MG TABLET PO ×2 (13:07→21:25)
[2022-03-08 21:15] VITALS: BP 121/71; PULSE 65; RESP 16; TEMP 36.7; O2SAT 98
[2022-03-08] MEDS: traZODone HCL 50 MG TABLET 150 MG PO (21:24)
[2022-03-08] MEDS: OLANZapine 2.5 MG TABLET 7.5 MG PO (21:24)
[2022-03-08] MEDS: Melatonin 3 MG TABLET PO (21:25)
--- NOTE | 2022-03-09 01:46 | HO.PSYCHPN ---
Subjective Subjective Date of Service: 03/09/22 Reason For Visit: SI Interim History: Discussed with team. Spoke with pt. He is wondering when he is discharging. Wants to talk with the child protective services social worker about discharge planning. Last night had bad acid reflux, didnt get to sleep until 1:30-2am. Asks to trial an increase in vistaril. Medication Compliance: Yes Side effects from medications: No Attending Groups: Intermittent Review of Systems Acute medical concerns: No Medical Review of Systems: unchanged Mental Status Exam Mental Status Exam Narrative: Appearance: casually groomed, good hygiene, in NAD Behavior: cooperative Speech: clear, normal rate/rhythm/volume, spontaneous TP: linear TC: no signs of psychosis, wanting to get back into program Mood: okay Affect: blunted SI: passive HI: none AH: on and off voices of woman telling him to hurt himself VH: none Insight/judgment: fair x 2. Memory/cog: alert, oriented x 3. grossly intact to conversational testing. Diagnostics Vital Signs (24Hr): Vital Signs - 24 hr 03/08/22 10:03 03/08/22 21:15 Temperature 97.8 F 98.1 F Pulse Rate 71 65 Respiratory Rate 16 16 Blood Pressure 98/51 L 121/71 Pulse Oximetry 96 98 Oxygen Delivery Method Room Air Room Air BMI result Body Mass Index 34.0 Labs Results: 03/04/22 05:28 03/05/22 09:09 Medications Medications Current Medications Acetaminophen (Acetaminophen 325 Mg Tablet) 650 mg PO Q6H PRN PRN Reason: Headache/Pain Mild Scale (1-3) Last Admin: 03/05/22 08:59 Dose: 650 mg Al Hydroxide/Mg Hydroxide (Magnesium Hydrox/Alum Hydrox 30 Ml Oral.Susp) 30 ml PO Q6H PRN PRN Reason: Heartburn/Nausea Famotidine (Famotidine 20 Mg Tablet) 20 mg PO BID [facility] Last Admin: 03/08/22 22:38 Dose: 20 mg Hydroxyzine HCl (Hydroxyzine Hcl 50 Mg Tablet) 50 mg PO Q6H PRN PRN Reason: Anxiety Last Admin: 03/08/22 13:07 Dose: 50 mg Hydroxyzine HCl (Hydroxyzine Hcl 50 Mg Tablet) 50 mg PO BEDTIME [facility] Last Admin: 03/08/22 21:25 Dose: 50 mg Lamotrigine (Lamotrigine 100 Mg Tablet) 100 mg PO DAILY [facility] Last Admin: 03/08/22 09:26 Dose: 100 mg Lorazepam (Lorazepam 1 Mg Tablet) 2 mg PO Q4H PRN PRN Reason: ciwa 12-17 Last Admin: 03/05/22 11:41 Dose: 2 mg Magnesium Hydroxide (Milk Of Magnesia 30 Ml Oral.Susp) 30 ml PO DAILY PRN PRN Reason: Constipation Melatonin (Melatonin 3 Mg Tablet) 3 mg PO BEDTIME [facility] Last Admin: 03/08/22 21:25 Dose: 3 mg Naltrexone HCl (Naltrexone Hcl 50 Mg Tablet) 50 mg PO DAILY [facility] Last Admin: 03/08/22 09:26 Dose: 50 mg Olanzapine (Olanzapine 2.5 Mg Tablet) 7.5 mg PO BEDTIME [facility] Last Admin: 03/08/22 21:24 Dose: 7.5 mg Omeprazole (Omeprazole 20 Mg Capsule.Dr) 20 mg PO DAILY@0630 [facility] Last Admin: 03/08/22 09:25 Dose: 20 mg Ondansetron HCl (Ondansetron Odt 4 Mg Tab.Rapdis) 4 mg TRANSLINGU Q8H PRN PRN Reason: nausea Last Admin: 03/05/22 20:25 Dose: 4 mg Pyridoxine HCl (Pyridoxine Hcl (Vitamin B6) 50 Mg Tablet) 25 mg PO DAILY [facility] Last Admin: 03/08/22 09:26 Dose: 25 mg Thiamine HCl (Thiamine Hcl 100 Mg Tablet) 100 mg PO DAILY [facility] Last Admin: 03/08/22 09:26 Dose: 100 mg Trazodone HCl (Trazodone Hcl 50 Mg Tablet) 50 mg PO BEDTIME PRN PRN Reason: Insomnia Trazodone HCl (Trazodone Hcl 50 Mg Tablet) 150 mg PO BEDTIME [facility] Last Admin: 03/08/22 21:24 Dose: 150 mg Allergies Allergies Allergy/AdvReac Type Severity Reaction Status Date / Time sertraline AdvReac Intermediate heart Verified 03/04/22 04:30 palpitations Assessment & Plan Assessment & Plan (1) Alcohol use disorder, severe, dependence: Status: Acute Code(s): F10.20 - Alcohol dependence, uncomplicated (2) Bipolar disorder: Status: Acute Code(s): F31.9 - Bipolar disorder, unspecified Plan 03/06- continue current medications. 03/07 continue current medications. 03/08 Schedule hydroxyzine 50 mg for bedtime 03/09 increase hydroxyzine to 75 mg for sleep, anxiety I spent minutes with the patient and/or on the patient floor today, greater than?50% of which was spent counseling/coordinating care. Patient educated on: medication risk/benefits Reason for contiued inpatient stay Substantial Risk for: med/psych decompensation
[2022-03-09 09:06] VITALS: BP 114/68; PULSE 77; RESP 18; TEMP 36.7; O2SAT 94
[2022-03-09] MEDS: Omeprazole 20 MG CAPSULE.DR PO (09:08)
[2022-03-09] MEDS: Pyridoxine HCl (Vitamin B6) 50 MG TABLET 25 MG PO (09:08)
[2022-03-09] MEDS: lamoTRIgine 100 MG TABLET PO (09:09)
[2022-03-09] MEDS: Thiamine HCL 100 MG TABLET PO (09:09)
[2022-03-09] MEDS: Naltrexone HCl 50 MG TABLET PO (09:09)
[2022-03-09] MEDS: Famotidine 20 MG TABLET PO ×2 (09:09→21:45)
[2022-03-09] MEDS: hydrOXYzine HCL 50 MG TABLET PO ×2 (14:01→18:56)
[2022-03-09 21:40] VITALS: BP 135/76; PULSE 68; RESP 18; TEMP 36.6; O2SAT 99
[2022-03-09] MEDS: OLANZapine 2.5 MG TABLET 7.5 MG PO (21:45)
[2022-03-09] MEDS: traZODone HCL 50 MG TABLET 150 MG PO (21:45)
[2022-03-09] MEDS: hydrOXYzine HCL 25 MG TABLET 75 MG PO (21:45)
[2022-03-09] MEDS: Melatonin 3 MG TABLET PO (21:45)
[2022-03-09] MEDS: traZODone HCL 50 MG TABLET PO (22:29)
[2022-03-10 09:38] VITALS: BP 125/64; PULSE 79; TEMP 36.6; O2SAT 93
[2022-03-10] MEDS: lamoTRIgine 100 MG TABLET PO (09:46)
[2022-03-10] MEDS: Naltrexone HCl 50 MG TABLET PO (09:46)
[2022-03-10] MEDS: Pyridoxine HCl (Vitamin B6) 50 MG TABLET 25 MG PO (09:46)
[2022-03-10] MEDS: Famotidine 20 MG TABLET PO ×2 (09:46→21:23)
[2022-03-10] MEDS: Omeprazole 20 MG CAPSULE.DR PO (09:47)
[2022-03-10] MEDS: Thiamine HCL 100 MG TABLET PO (09:47)
--- NOTE | 2022-03-10 11:26 | HO.PSYCHPN ---
Subjective Subjective Date of Service: 03/10/22 Reason For Visit: SI Subjective Notes: Conditional Voluntary Interim History: Pt reports overall mood is improved, no SI/HI. No VH/AH. He reports anxious mood related to not knowing where he will go next and fear of relapsing. Per nursing, he has been visible on the unit, social with peers, no behavioral concerns. Pending referrals for dual dx residential programs. Medication Compliance: Yes Review of Systems Review of Systems Yes all other systems are reviewed and are negative Constitutional: Reports headache(s) and Reports poor appetite Eyes: Reports no additional eye complaints Reports headache(s) Cardiovascular: Denies chest pain at rest, Denies chest pain with activity, Denies lightheadedness and Denies dyspnea Respiratory: Denies dyspnea Gastrointestinal: Denies constipation, Denies excessive flatus, Reports dyspepsia, Reports heartburn, Denies fecal incontinence, Denies diarrhea and Reports nausea Reports headache(s) Mental Status Exam Mental Status Exam Narrative: Appearance: casually groomed, good hygiene, in NAD Behavior: cooperative Speech: clear, normal rate/rhythm/volume, spontaneous TP: linear TC: no signs of psychosis, wanting to get back into program Mood: okay Affect: blunted SI: passive HI: none AH: on and off voices of woman telling him to hurt himself VH: none Insight/judgment: fair x 2. Memory/cog: alert, oriented x 3. grossly intact to conversational testing. Diagnostics Vital Signs (24Hr): Vital Signs - 24 hr 03/10/22 09:38 03/10/22 21:25 Temperature 97.9 F 97.6 F Pulse Rate 79 64 Blood Pressure 125/64 122/80 Pulse Oximetry 93 96 Oxygen Delivery Method Room Air Room Air BMI result Body Mass Index 34.0 Labs Results: 03/04/22 05:28 03/05/22 09:09 Medications Medications Current Medications Acetaminophen (Acetaminophen 325 Mg Tablet) 650 mg PO Q6H PRN PRN Reason: Headache/Pain Mild Scale (1-3) Last Admin: 03/05/22 08:59 Dose: 650 mg Al Hydroxide/Mg Hydroxide (Magnesium Hydrox/Alum Hydrox 30 Ml Oral.Susp) 30 ml PO Q6H PRN PRN Reason: Heartburn/Nausea Famotidine (Famotidine 20 Mg Tablet) 20 mg PO BID [facility] Last Admin: 03/10/22 21:23 Dose: 20 mg Hydroxyzine HCl (Hydroxyzine Hcl 50 Mg Tablet) 50 mg PO Q6H PRN PRN Reason: Anxiety Last Admin: 03/10/22 11:38 Dose: 50 mg Hydroxyzine HCl (Hydroxyzine Hcl 25 Mg Tablet) 75 mg PO BEDTIME [facility] Last Admin: 03/10/22 21:23 Dose: 75 mg Lamotrigine (Lamotrigine 100 Mg Tablet) 100 mg PO DAILY [facility] Last Admin: 03/10/22 09:46 Dose: 100 mg Magnesium Hydroxide (Milk Of Magnesia 30 Ml Oral.Susp) 30 ml PO DAILY PRN PRN Reason: Constipation Melatonin (Melatonin 3 Mg Tablet) 3 mg PO BEDTIME [facility] Last Admin: 03/10/22 21:23 Dose: 3 mg Naltrexone HCl (Naltrexone Hcl 50 Mg Tablet) 50 mg PO DAILY [facility] Last Admin: 03/10/22 09:46 Dose: 50 mg Olanzapine (Olanzapine 2.5 Mg Tablet) 7.5 mg PO BEDTIME [facility] Last Admin: 03/10/22 21:21 Dose: 7.5 mg Omeprazole (Omeprazole 20 Mg Capsule.Dr) 20 mg PO DAILY@0630 [facility] Last Admin: 03/10/22 09:47 Dose: 20 mg Ondansetron HCl (Ondansetron Odt 4 Mg Tab.Rapdis) 4 mg TRANSLINGU Q8H PRN PRN Reason: nausea Last Admin: 03/05/22 20:25 Dose: 4 mg Pyridoxine HCl (Pyridoxine Hcl (Vitamin B6) 50 Mg Tablet) 25 mg PO DAILY [facility] Last Admin: 03/10/22 09:46 Dose: 25 mg Thiamine HCl (Thiamine Hcl 100 Mg Tablet) 100 mg PO DAILY [facility] Last Admin: 03/10/22 09:47 Dose: 100 mg Trazodone HCl (Trazodone Hcl 50 Mg Tablet) 50 mg PO BEDTIME PRN PRN Reason: Insomnia Last Admin: 03/09/22 22:29 Dose: 50 mg Trazodone HCl (Trazodone Hcl 50 Mg Tablet) 150 mg PO BEDTIME [facility] Last Admin: 03/10/22 21:22 Dose: 150 mg Allergies Allergies Allergy/AdvReac Type Severity Reaction Status Date / Time sertraline AdvReac Intermediate heart Verified 03/04/22 04:30 palpitations Assessment & Plan Assessment & Plan (1) Alcohol use disorder, severe, dependence: Status: Acute Code(s): F10.20 - Alcohol dependence, uncomplicated (2) Bipolar disorder: Status: Acute Code(s): F31.9 - Bipolar disorder, unspecified Plan 03/06- continue current medications. 03/07 continue current medications. 03/08 Schedule hydroxyzine 50 mg for bedtime 03/09 increase hydroxyzine to 75 mg for sleep, anxiety 03/10 continue tx. I spent minutes with the patient and/or on the patient floor today, greater than?50% of which was spent counseling/coordinating care. Reason for contiued inpatient stay Substantial Risk for: harm to self
[2022-03-10] MEDS: hydrOXYzine HCL 50 MG TABLET PO (11:38)
[2022-03-10] MEDS: OLANZapine 2.5 MG TABLET 7.5 MG PO (21:21)
[2022-03-10] MEDS: traZODone HCL 50 MG TABLET 150 MG PO (21:22)
[2022-03-10] MEDS: Melatonin 3 MG TABLET PO (21:23)
[2022-03-10] MEDS: hydrOXYzine HCL 25 MG TABLET 75 MG PO (21:23)
[2022-03-10 21:25] VITALS: BP 122/80; PULSE 64; TEMP 36.4; O2SAT 96
[2022-03-11 06:00] VITALS: BP 116/57; PULSE 77; RESP 18; TEMP 36.6; O2SAT 92
[2022-03-11] MEDS: Naltrexone HCl 50 MG TABLET PO (08:31)
[2022-03-11] MEDS: Omeprazole 20 MG CAPSULE.DR PO (08:31)
[2022-03-11] MEDS: lamoTRIgine 100 MG TABLET PO (08:31)
[2022-03-11] MEDS: Pyridoxine HCl (Vitamin B6) 50 MG TABLET 25 MG PO (08:31)
[2022-03-11] MEDS: Famotidine 20 MG TABLET PO ×2 (08:32→20:41)
[2022-03-11] MEDS: Acetaminophen 325 MG TABLET 650 MG PO (09:11)
[2022-03-11] MEDS: Thiamine HCL 100 MG TABLET PO (09:11)
[2022-03-11] MEDS: hydrOXYzine HCL 50 MG TABLET PO (12:57)
--- NOTE | 2022-03-11 13:20 | P.PNPSI_ITS ---
Subjective Subjective Date of Service: 03/11/22 Reason For Visit: SI Subjective Notes: Conditional Voluntary Interim History: Pt reports feeling anxious about not knowing where he will go next. Pt otherwise reports doing well, less depressed, more hopeful. No SI/HI. No VH/AH. Pt is visible on the unit, social with peers, attends groups. Medication Compliance: Yes Side effects from medications: No Attending Groups: Yes Review of Systems Review of Systems Yes all other systems are reviewed and are negative Constitutional: Reports headache(s) and Reports poor appetite Eyes: Reports no additional eye complaints Reports headache(s) Cardiovascular: Denies chest pain at rest, Denies chest pain with activity, Denies lightheadedness and Denies dyspnea Respiratory: Denies dyspnea Gastrointestinal: Denies constipation, Denies excessive flatus, Reports dyspepsia, Reports heartburn, Denies fecal incontinence, Denies diarrhea and Reports nausea Reports headache(s) Mental Status Exam Mental Status Exam Narrative: Appearance: casually groomed, good hygiene, in NAD Behavior: cooperative Speech: clear, normal rate/rhythm/volume, spontaneous TP: linear TC: no signs of psychosis, wanting to get back into program Mood: okay Affect: blunted SI: passive HI: none AH: on and off voices of woman telling him to hurt himself VH: none Insight/judgment: fair x 2. Memory/cog: alert, oriented x 3. grossly intact to conversational testing. Diagnostics Vital Signs (24Hr): Vital Signs - 24 hr 03/11/22 20:40 Temperature 98 F Pulse Rate 65 Respiratory Rate 18 Blood Pressure 120/68 Pulse Oximetry 98 Oxygen Delivery Method Room Air BMI result Body Mass Index 34.0 Labs Results: 03/04/22 05:28 03/05/22 09:09 Medications Medications Current Medications Acetaminophen (Acetaminophen 325 Mg Tablet) 650 mg PO Q6H PRN PRN Reason: Headache/Pain Mild Scale (1-3) Last Admin: 03/11/22 09:11 Dose: 650 mg Al Hydroxide/Mg Hydroxide (Magnesium Hydrox/Alum Hydrox 30 Ml Oral.Susp) 30 ml PO Q6H PRN PRN Reason: Heartburn/Nausea Famotidine (Famotidine 20 Mg Tablet) 20 mg PO BID [facility] Last Admin: 03/11/22 20:41 Dose: 20 mg Hydroxyzine HCl (Hydroxyzine Hcl 50 Mg Tablet) 50 mg PO Q6H PRN PRN Reason: Anxiety Last Admin: 03/11/22 12:57 Dose: 50 mg Hydroxyzine HCl (Hydroxyzine Hcl 25 Mg Tablet) 75 mg PO BEDTIME [facility] Last Admin: 03/11/22 20:41 Dose: 75 mg Lamotrigine (Lamotrigine 100 Mg Tablet) 100 mg PO DAILY [facility] Last Admin: 03/11/22 08:31 Dose: 100 mg Magnesium Hydroxide (Milk Of Magnesia 30 Ml Oral.Susp) 30 ml PO DAILY PRN PRN Reason: Constipation Melatonin (Melatonin 3 Mg Tablet) 3 mg PO BEDTIME [facility] Last Admin: 03/11/22 20:41 Dose: 3 mg Naltrexone HCl (Naltrexone Hcl 50 Mg Tablet) 50 mg PO DAILY [facility] Last Admin: 03/11/22 08:31 Dose: 50 mg Olanzapine (Olanzapine 2.5 Mg Tablet) 7.5 mg PO BEDTIME [facility] Last Admin: 03/11/22 20:41 Dose: 7.5 mg Omeprazole (Omeprazole 20 Mg Capsule.Dr) 20 mg PO DAILY@0630 [facility] Last Admin: 03/11/22 08:31 Dose: 20 mg Ondansetron HCl (Ondansetron Odt 4 Mg Tab.Rapdis) 4 mg TRANSLINGU Q8H PRN PRN Reason: nausea Last Admin: 03/05/22 20:25 Dose: 4 mg Pyridoxine HCl (Pyridoxine Hcl (Vitamin B6) 50 Mg Tablet) 25 mg PO DAILY [facility] Last Admin: 03/11/22 08:31 Dose: 25 mg Thiamine HCl (Thiamine Hcl 100 Mg Tablet) 100 mg PO DAILY [facility] Last Admin: 03/11/22 09:11 Dose: 100 mg Trazodone HCl (Trazodone Hcl 50 Mg Tablet) 50 mg PO BEDTIME PRN PRN Reason: Insomnia Last Admin: 03/09/22 22:29 Dose: 50 mg Trazodone HCl (Trazodone Hcl 50 Mg Tablet) 150 mg PO BEDTIME [facility] Last Admin: 03/11/22 20:41 Dose: 150 mg Allergies Allergies Allergy/AdvReac Type Severity Reaction Status Date / Time sertraline AdvReac Intermediate heart Verified 03/04/22 04:30 palpitations Assessment & Plan Assessment & Plan (1) Alcohol use disorder, severe, dependence: Status: Acute Code(s): F10.20 - Alcohol dependence, uncomplicated (2) Bipolar disorder: Status: Acute Code(s): F31.9 - Bipolar disorder, unspecified Plan 03/06- continue current medications. 03/07 continue current medications. 03/08 Schedule hydroxyzine 50 mg for bedtime 03/09 increase hydroxyzine to 75 mg for sleep, anxiety 03/10 continue tx. 03/11 continue tx. I spent minutes with the patient and/or on the patient floor today, greater than?50% of which was spent counseling/coordinating care. Reason for contiued inpatient stay Substantial Risk for: harm to self
--- NOTE | 2022-03-11 17:41 | MHC.RECOVSUP ---
? Reason for consult Recovery Support o Current location: [address] o Identified substance use concern: - Support ? Intervention: o Community resources provided o Harm reduction discussion ? Plan: o Bed search in progress to [facility] o Follow up tomorrow o Patient to follow up with [facility] after discharge ? Additional information: Met with Patient and we had a harm reduction and recovery talk.. Patient stated that he want to go to a tss where when off restriction able to work and save money for apartment
[2022-03-11 20:40] VITALS: BP 120/68; PULSE 65; RESP 18; TEMP 36.6; O2SAT 98
[2022-03-11] MEDS: hydrOXYzine HCL 25 MG TABLET 75 MG PO (20:41)
[2022-03-11] MEDS: traZODone HCL 50 MG TABLET 150 MG PO (20:41)
[2022-03-11] MEDS: OLANZapine 2.5 MG TABLET 7.5 MG PO (20:41)
[2022-03-11] MEDS: Melatonin 3 MG TABLET PO (20:41)
[2022-03-12 10:15] VITALS: BP 124/71; PULSE 70; RESP 18; TEMP 36.3; O2SAT 95
[2022-03-12] MEDS: lamoTRIgine 100 MG TABLET PO (10:22)
[2022-03-12] MEDS: Omeprazole 20 MG CAPSULE.DR PO (10:22)
[2022-03-12] MEDS: Thiamine HCL 100 MG TABLET PO (10:22)
[2022-03-12] MEDS: Pyridoxine HCl (Vitamin B6) 50 MG TABLET 25 MG PO (10:22)
[2022-03-12] MEDS: Famotidine 20 MG TABLET PO ×2 (10:22→20:54)
[2022-03-12] MEDS: Naltrexone HCl 50 MG TABLET PO (10:23)
--- NOTE | 2022-03-12 13:31 | P.PNPSI_ITS ---
Subjective Subjective Date of Service: 03/12/22 Reason For Visit: SI Subjective Notes: Conditional Voluntary Interim History: Pt continues to report feeling anxious about not knowing where he will go next. Pt otherwise reports doing well, less depressed, more hopeful. No SI/HI. Pt reports that he may drink to go into detox after discharge if he does not get into a program. Pt is visible on the unit, social with peers, attends groups. Review of Systems Review of Systems Yes all other systems are reviewed and are negative Constitutional: Reports headache(s) and Reports poor appetite Eyes: Reports no additional eye complaints Reports headache(s) Cardiovascular: Denies chest pain at rest, Denies chest pain with activity, De nies lightheadedness and Denies dyspnea Respiratory: Denies dyspnea Gastrointestinal: Denies constipation, Denies excessive flatus, Reports dyspepsia, Reports heartburn, Denies fecal incontinence, Denies diarrhea and Reports nausea Reports headache(s) Mental Status Exam Mental Status Exam Narrative: Appearance: casually groomed, good hygiene, in NAD Behavior: cooperative Speech: clear, normal rate/rhythm/volume, spontaneous TP: linear TC: no signs of psychosis, wanting to get back into program Mood: okay Affect: blunted SI: passive HI: none AH: on and off voices of woman telling him to hurt himself VH: none Insight/judgment: fair x 2. Memory/cog: alert, oriented x 3. grossly intact to conversational testing. Diagnostics Vital Signs (24Hr): Vital Signs - 24 hr 03/12/22 10:15 03/12/22 20:57 Temperature 97.4 F 97.7 F Pulse Rate 70 84 Respiratory Rate 18 Blood Pressure 124/71 124/69 Pulse Oximetry 95 98 Oxygen Delivery Method Room Air Room Air BMI result Body Mass Index 34.0 Labs Results: 03/04/22 05:28 03/05/22 09:09 Medications Medications Current Medications Acetaminophen (Acetaminophen 325 Mg Tablet) 650 mg PO Q6H PRN PRN Reason: Headache/Pain Mild Scale (1-3) Last Admin: 03/11/22 09:11 Dose: 650 mg Al Hydroxide/Mg Hydroxide (Magnesium Hydrox/Alum Hydrox 30 Ml Oral.Susp) 30 ml PO Q6H PRN PRN Reason: Heartburn/Nausea Famotidine (Famotidine 20 Mg Tablet) 20 mg PO BID [facility] Last Admin: 03/13/22 09:24 Dose: 20 mg Hydroxyzine HCl (Hydroxyzine Hcl 50 Mg Tablet) 50 mg PO Q6H PRN PRN Reason: Anxiety Last Admin: 03/12/22 15:49 Dose: 50 mg Hydroxyzine HCl (Hydroxyzine Hcl 25 Mg Tablet) 75 mg PO BEDTIME [facility] Last Admin: 03/12/22 20:53 Dose: 75 mg Lamotrigine (Lamotrigine 100 Mg Tablet) 100 mg PO DAILY [facility] Last Admin: 03/13/22 09:25 Dose: 100 mg Magnesium Hydroxide (Milk Of Magnesia 30 Ml Oral.Susp) 30 ml PO DAILY PRN PRN Reason: Constipation Melatonin (Melatonin 3 Mg Tablet) 3 mg PO BEDTIME [facility] Last Admin: 03/12/22 20:54 Dose: 3 mg Naltrexone HCl (Naltrexone Hcl 50 Mg Tablet) 50 mg PO DAILY [facility] Last Admin: 03/13/22 09:25 Dose: 50 mg Olanzapine (Olanzapine 2.5 Mg Tablet) 7.5 mg PO BEDTIME [facility] Last Admin: 03/12/22 20:53 Dose: 7.5 mg Omeprazole (Omeprazole 20 Mg Capsule.Dr) 20 mg PO DAILY@0630 [facility] Last Admin: 03/13/22 09:25 Dose: 20 mg Ondansetron HCl (Ondansetron Odt 4 Mg Tab.Rapdis) 4 mg TRANSLINGU Q8H PRN PRN Reason: nausea Last Admin: 03/05/22 20:25 Dose: 4 mg Pyridoxine HCl (Pyridoxine Hcl (Vitamin B6) 50 Mg Tablet) 25 mg PO DAILY [facility] Last Admin: 03/13/22 09:25 Dose: 25 mg Thiamine HCl (Thiamine Hcl 100 Mg Tablet) 100 mg PO DAILY [facility] Last Admin: 03/13/22 09:25 Dose: 100 mg Trazodone HCl (Trazodone Hcl 50 Mg Tablet) 50 mg PO BEDTIME PRN PRN Reason: Insomnia Last Admin: 03/09/22 22:29 Dose: 50 mg Trazodone HCl (Trazodone Hcl 50 Mg Tablet) 150 mg PO BEDTIME [facility] Last Admin: 03/12/22 20:53 Dose: 150 mg Allergies Allergies Allergy/AdvReac Type Severity Reaction Status Date / Time sertraline AdvReac Intermediate heart Verified 03/04/22 04:30 palpitations Assessment & Plan Assessment & Plan (1) Alcohol use disorder, severe, dependence: Status: Acute Code(s): F10.20 - Alcohol dependence, uncomplicated (2) Bipolar disorder: Status: Acute Code(s): F31.9 - Bipolar disorder, unspecified Plan 03/06- continue current medications. 03/07 continue current medications. 03/08 Schedule hydroxyzine 50 mg for bedtime 03/09 increase hydroxyzine to 75 mg for sleep, anxiety 03/10 continue tx. 03/11 continue tx. 03/12 continue tx/ I spent minutes with the patient and/or on the patient floor today, greater than?50% of which was spent counseling/coordinating care. Reason for contiued inpatient stay Substantial Risk for: harm to self
[2022-03-12] MEDS: hydrOXYzine HCL 50 MG TABLET PO (15:49)
[2022-03-12] MEDS: traZODone HCL 50 MG TABLET 150 MG PO (20:53)
[2022-03-12] MEDS: OLANZapine 2.5 MG TABLET 7.5 MG PO (20:53)
[2022-03-12] MEDS: hydrOXYzine HCL 25 MG TABLET 75 MG PO (20:53)
[2022-03-12] MEDS: Melatonin 3 MG TABLET PO (20:54)
[2022-03-12 20:57] VITALS: BP 124/69; PULSE 84; TEMP 36.5; O2SAT 98
[2022-03-13 07:00] VITALS: BMI 35.0
[2022-03-13 08:50] VITALS: BP 90/52; PULSE 60; RESP 18; TEMP 36.6; O2SAT 96
[2022-03-13] MEDS: Famotidine 20 MG TABLET PO ×2 (09:24→21:00)
[2022-03-13] MEDS: Pyridoxine HCl (Vitamin B6) 50 MG TABLET 25 MG PO (09:25)
[2022-03-13] MEDS: Naltrexone HCl 50 MG TABLET PO (09:25)
[2022-03-13] MEDS: Thiamine HCL 100 MG TABLET PO (09:25)
[2022-03-13] MEDS: Omeprazole 20 MG CAPSULE.DR PO (09:25)
[2022-03-13] MEDS: lamoTRIgine 100 MG TABLET PO (09:25)
--- NOTE | 2022-03-13 09:35 | HO.PSYCHPN ---
Subjective Subjective Date of Service: 03/13/22 Reason For Visit: SI Subjective Notes: Conditional Voluntary Interim History: Pt in bed. Reports no change. Pt continues to report feeling anxious about not knowing where he will go next. Pt otherwise reports doing well, less depressed, more hopeful. No SI/HI. Pt reports that he may drink to go into detox after discharge if he does not get into a program. Pt is visible on the unit, social with peers, attends groups. No signs of psychosis, although reports hearing mumbles at night. Medication Compliance: Yes Side effects from medications: No Attending Groups: Yes Review of Systems Review of Systems Yes all other systems are reviewed and are negative Constitutional: Reports headache(s) and Reports poor appetite Eyes: Reports no additional eye complaints Reports headache(s) Cardiovascular: Denies chest pain at rest, Denies chest pain with activity, Denies lightheadedness and Denies dyspnea Respiratory: Denies dyspnea Gastrointestinal: Denies constipation, Denies excessive flatus, Reports dyspepsia, Reports heartburn, Denies fecal incontinence, Denies diarrhea and Reports nausea Reports headache(s) Mental Status Exam Mental Status Exam Narrative: Appearance: casually groomed, good hygiene, in NAD Behavior: cooperative Speech: clear, normal rate/rhythm/volume, spontaneous TP: linear TC: no signs of psychosis, wanting to get back into program Mood: okay Affect: blunted SI: passive HI: none AH: on and off voices of woman telling him to hurt himself VH: none Insight/judgment: fair x 2. Memory/cog: alert, oriented x 3. grossly intact to conversational testing. Diagnostics Vital Signs (24Hr): Vital Signs - 24 hr 03/12/22 10:15 03/12/22 20:57 Temperature 97.4 F 97.7 F Pulse Rate 70 84 Respiratory Rate 18 Blood Pressure 124/71 124/69 Pulse Oximetry 95 98 Oxygen Delivery Method Room Air Room Air BMI result Body Mass Index 34.0 Labs Results: 03/04/22 05:28 03/05/22 09:09 Medications Medications Current Medications Acetaminophen (Acetaminophen 325 Mg Tablet) 650 mg PO Q6H PRN PRN Reason: Headache/Pain Mild Scale (1-3) Last Admin: 03/11/22 09:11 Dose: 650 mg Al Hydroxide/Mg Hydroxide (Magnesium Hydrox/Alum Hydrox 30 Ml Oral.Susp) 30 ml PO Q6H PRN PRN Reason: Heartburn/Nausea Famotidine (Famotidine 20 Mg Tablet) 20 mg PO BID [facility] Last Admin: 03/13/22 09:24 Dose: 20 mg Hydroxyzine HCl (Hydroxyzine Hcl 50 Mg Tablet) 50 mg PO Q6H PRN PRN Reason: Anxiety Last Admin: 03/12/22 15:49 Dose: 50 mg Hydroxyzine HCl (Hydroxyzine Hcl 25 Mg Tablet) 75 mg PO BEDTIME [facility] Last Admin: 03/12/22 20:53 Dose: 75 mg Lamotrigine (Lamotrigine 100 Mg Tablet) 100 mg PO DAILY [facility] Last Admin: 03/13/22 09:25 Dose: 100 mg Magnesium Hydroxide (Milk Of Magnesia 30 Ml Oral.Susp) 30 ml PO DAILY PRN PRN Reason: Constipation Melatonin (Melatonin 3 Mg Tablet) 3 mg PO BEDTIME [facility] Last Admin: 03/12/22 20:54 Dose: 3 mg Naltrexone HCl (Naltrexone Hcl 50 Mg Tablet) 50 mg PO DAILY [facility] Last Admin: 03/13/22 09:25 Dose: 50 mg Olanzapine (Olanzapine 2.5 Mg Tablet) 7.5 mg PO BEDTIME [facility] Last Admin: 03/12/22 20:53 Dose: 7.5 mg Omeprazole (Omeprazole 20 Mg Capsule.Dr) 20 mg PO DAILY@0630 [facility] Last Admin: 03/13/22 09:25 Dose: 20 mg Ondansetron HCl (Ondansetron Odt 4 Mg Tab.Rapdis) 4 mg TRANSLINGU Q8H PRN PRN Reason: nausea Last Admin: 03/05/22 20:25 Dose: 4 mg Pyridoxine HCl (Pyridoxine Hcl (Vitamin B6) 50 Mg Tablet) 25 mg PO DAILY [facility] Last Admin: 03/13/22 09:25 Dose: 25 mg Thiamine HCl (Thiamine Hcl 100 Mg Tablet) 100 mg PO DAILY [facility] Last Admin: 03/13/22 09:25 Dose: 100 mg Trazodone HCl (Trazodone Hcl 50 Mg Tablet) 50 mg PO BEDTIME PRN PRN Reason: Insomnia Last Admin: 03/09/22 22:29 Dose: 50 mg Trazodone HCl (Trazodone Hcl 50 Mg Tablet) 150 mg PO BEDTIME [facility] Last Admin: 03/12/22 20:53 Dose: 150 mg Allergies Allergies Allergy/AdvReac Type Severity Reaction Status Date / Time sertraline AdvReac Intermediate heart Verified 03/04/22 04:30 palpitations Assessment & Plan Assessment & Plan (1) Alcohol use disorder, severe, dependence: Status: Acute Code(s): F10.20 - Alcohol dependence, uncomplicated (2) Bipolar disorder: Status: Acute Code(s): F31.9 - Bipolar disorder, unspecified Plan 03/06- continue current medications. 03/07 continue current medications. 03/08 Schedule hydroxyzine 50 mg for bedtime 03/09 increase hydroxyzine to 75 mg for sleep, anxiety 03/10 continue tx. 03/11 continue tx. 03/12 continue tx/ 03/13 continue tx. I spent minutes with the patient and/or on the patient floor today, greater than?50% of which was spent counseling/coordinating care. Reason for contiued inpatient stay Substantial Risk for: harm to self
[2022-03-13] MEDS: hydrOXYzine HCL 50 MG TABLET PO (13:39)
[2022-03-13] MEDS: hydrOXYzine HCL 25 MG TABLET 75 MG PO (20:59)
[2022-03-13] MEDS: traZODone HCL 50 MG TABLET 150 MG PO (20:59)
[2022-03-13] MEDS: Melatonin 3 MG TABLET PO (21:00)
[2022-03-13] MEDS: OLANZapine 2.5 MG TABLET 7.5 MG PO (21:00)
[2022-03-13 21:11] VITALS: BP 127/63; PULSE 63; TEMP 36.7; O2SAT 98
[2022-03-14 10:00] VITALS: BP 132/72; PULSE 76; RESP 18; TEMP 36.4; O2SAT 96
[2022-03-14] MEDS: Famotidine 20 MG TABLET PO ×2 (10:03→21:04)
[2022-03-14] MEDS: Thiamine HCL 100 MG TABLET PO (10:03)
[2022-03-14] MEDS: Omeprazole 20 MG CAPSULE.DR PO (10:03)
[2022-03-14] MEDS: Pyridoxine HCl (Vitamin B6) 50 MG TABLET 25 MG PO (10:03)
[2022-03-14] MEDS: lamoTRIgine 100 MG TABLET PO (10:04)
--- NOTE | 2022-03-14 12:19 | P.PNPSI_ITS ---
Subjective Subjective Date of Service: 03/14/22 Reason For Visit: SI Subjective Notes: Conditional Voluntary Interim History: Pt reports he is anxious to leave Thursday and plans to drink alcohol and present to detox. He declined naltrexon this morning with this plan in mind. This entry writer explain to pt that that's ultimately his decision but that it is a poor one. Pt encouraged to call his recovery auditor today and call again [facility] to obtain update on beds. He denies SI/HI. He reports sleeping fairly well. visible on the unit, social with peers. Medication Compliance: Yes Side effects from medications: No Attending Groups: Yes Review of Systems Review of Systems Yes all other systems are reviewed and are negative Constitutional: Reports headache(s) and Reports poor appetite Eyes: Reports no additional eye complaints Reports headache(s) Cardiovascular: Denies chest pain at rest, Denies chest pain with activity, Denies lightheadedness and Denies dyspnea Respiratory: Denies dyspnea Gastrointestinal: Denies constipation, Denies excessive flatus, Reports dyspepsia, Reports heartburn, Denies fecal incontinence, Denies diarrhea and Reports nausea Reports headache(s) Mental Status Exam Mental Status Exam Narrative: Appearance: casually groomed, good hygiene, in NAD Behavior: cooperative Speech: clear, normal rate/rhythm/volume, spontaneous TP: linear TC: no signs of psychosis, wanting to get back into program Mood: okay Affect: blunted SI: passive HI: none AH: on and off voices of woman telling him to hurt himself VH: none Insight/judgment: fair x 2. Memory/cog: alert, oriented x 3. grossly intact to conversational testing. Diagnostics Vital Signs (24Hr): Vital Signs - 24 hr 03/13/22 21:11 03/14/22 10:00 Temperature 98.1 F 97.6 F Pulse Rate 63 76 Respiratory Rate 18 Blood Pressure 127/63 132/72 Pulse Oximetry 98 96 Oxygen Delivery Method Room Air Room Air BMI result Body Mass Index 35.0 Labs Results: 03/04/22 05:28 03/05/22 09:09 Medications Medications Current Medications Acetaminophen (Acetaminophen 325 Mg Tablet) 650 mg PO Q6H PRN PRN Reason: Headache/Pain Mild Scale (1-3) Last Admin: 03/11/22 09:11 Dose: 650 mg Al Hydroxide/Mg Hydroxide (Magnesium Hydrox/Alum Hydrox 30 Ml Oral.Susp) 30 ml PO Q6H PRN PRN Reason: Heartburn/Nausea Famotidine (Famotidine 20 Mg Tablet) 20 mg PO BID [facility] Last Admin: 03/14/22 10:03 Dose: 20 mg Hydroxyzine HCl (Hydroxyzine Hcl 50 Mg Tablet) 50 mg PO Q6H PRN PRN Reason: Anxiety Last Admin: 03/13/22 13:39 Dose: 50 mg Hydroxyzine HCl (Hydroxyzine Hcl 25 Mg Tablet) 75 mg PO BEDTIME [facility] Last Admin: 03/13/22 20:59 Dose: 75 mg Lamotrigine (Lamotrigine 100 Mg Tablet) 100 mg PO DAILY [facility] Last Admin: 03/14/22 10:04 Dose: 100 mg Magnesium Hydroxide (Milk Of Magnesia 30 Ml Oral.Susp) 30 ml PO DAILY PRN PRN Reason: Constipation Melatonin (Melatonin 3 Mg Tablet) 3 mg PO BEDTIME [facility] Last Admin: 03/13/22 21:00 Dose: 3 mg Naltrexone HCl (Naltrexone Hcl 50 Mg Tablet) 50 mg PO DAILY [facility] Last Admin: 03/14/22 10:05 Dose: Not Given Olanzapine (Olanzapine 2.5 Mg Tablet) 7.5 mg PO BEDTIME [facility] Last Admin: 03/13/22 21:00 Dose: 7.5 mg Omeprazole (Omeprazole 20 Mg Capsule.Dr) 20 mg PO DAILY@0630 [facility] Last Admin: 03/14/22 10:03 Dose: 20 mg Ondansetron HCl (Ondansetron Odt 4 Mg Tab.Rapdis) 4 mg TRANSLINGU Q8H PRN PRN Reason: nausea Last Admin: 03/05/22 20:25 Dose: 4 mg Pyridoxine HCl (Pyridoxine Hcl (Vitamin B6) 50 Mg Tablet) 25 mg PO DAILY [facility] Last Admin: 03/14/22 10:03 Dose: 25 mg Thiamine HCl (Thiamine Hcl 100 Mg Tablet) 100 mg PO DAILY [facility] Last Admin: 03/14/22 10:03 Dose: 100 mg Trazodone HCl (Trazodone Hcl 50 Mg Tablet) 50 mg PO BEDTIME PRN PRN Reason: Insomnia Last Admin: 03/09/22 22:29 Dose: 50 mg Trazodone HCl (Trazodone Hcl 50 Mg Tablet) 150 mg PO BEDTIME [facility] Last Admin: 03/13/22 20:59 Dose: 150 mg Allergies Allergies Allergy/AdvReac Type Severity Reaction Status Date / Time sertraline AdvReac Intermediate heart Verified 03/04/22 04:30 palpitations Assessment & Plan Assessment & Plan (1) Alcohol use disorder, severe, dependence: Status: Acute Code(s): F10.20 - Alcohol dependence, uncomplicated (2) Bipolar disorder: Status: Acute Code(s): F31.9 - Bipolar disorder, unspecified Plan 03/06- continue current medications. 03/07 continue current medications. 03/08 Schedule hydroxyzine 50 mg for bedtime 03/09 increase hydroxyzine to 75 mg for sleep, anxiety 03/10 continue tx. 03/11 continue tx. 03/12 continue tx/ 03/13 continue tx. 03/14 continue tx. I spent minutes with the patient and/or on the patient floor today, greater than?50% of which was spent counseling/coordinating care. Reason for contiued inpatient stay Substantial Risk for: harm to self
[2022-03-14] MEDS: hydrOXYzine HCL 50 MG TABLET PO (14:37)
[2022-03-14 20:58] VITALS: BP 135/91; PULSE 68; RESP 18; TEMP 36.5; O2SAT 98
[2022-03-14] MEDS: Melatonin 3 MG TABLET PO (21:04)
[2022-03-14] MEDS: OLANZapine 2.5 MG TABLET 7.5 MG PO (21:05)
[2022-03-14] MEDS: traZODone HCL 50 MG TABLET 150 MG PO (21:05)
[2022-03-14] MEDS: hydrOXYzine HCL 25 MG TABLET 75 MG PO (21:05)
[2022-03-15 09:15] VITALS: BP 116/71; PULSE 69; RESP 16; TEMP 36.2; O2SAT 96
[2022-03-15] MEDS: Omeprazole 20 MG CAPSULE.DR PO (09:46)
[2022-03-15] MEDS: Thiamine HCL 100 MG TABLET PO (09:46)
[2022-03-15] MEDS: Famotidine 20 MG TABLET PO ×2 (09:46→21:10)
[2022-03-15] MEDS: lamoTRIgine 100 MG TABLET PO (09:46)
[2022-03-15] MEDS: Pyridoxine HCl (Vitamin B6) 50 MG TABLET 25 MG PO (09:47)
--- NOTE | 2022-03-15 11:38 | HO.PSYCHPN ---
Subjective Subjective Date of Service: 03/15/22 Reason For Visit: SI Subjective Notes: Conditional Voluntary Interim History: Pt continues to report he is anxious to leave Thursday. He states he has called some places and left message to classroom technology coach. Pt denies SI/HI. No behavioral concerns. Medication Compliance: Yes Side effects from medications: No Review of Systems Review of Systems Yes all other systems are reviewed and are negative Constitutional: Reports headache(s) and Reports poor appetite Eyes: Reports no additional eye complaints Reports headache(s) Cardiovascular: Denies chest pain at rest, Denies chest pain with activity, Denies lightheadedness and Denies dyspnea Respiratory: Denies dyspnea Gastrointestinal: Denies constipation, Denies excessive flatus, Reports dyspepsia, Reports heartburn, Denies fecal incontinence, Denies diarrhea and Reports nausea Reports headache(s) Mental Status Exam Mental Status Exam Narrative: Appearance: casually groomed, good hygiene, in NAD Behavior: cooperative Speech: clear, normal rate/rhythm/volume, spontaneous TP: linear TC: no signs of psychosis, wanting to get back into program Mood: okay Affect: blunted SI: passive HI: none AH: on and off voices of woman telling him to hurt himself VH: none Insight/judgment: fair x 2. Memory/cog: alert, oriented x 3. grossly intact to conversational testing. Diagnostics Vital Signs (24Hr): Vital Signs - 24 hr 03/16/22 09:00 03/16/22 20:08 Temperature 97.9 F 98.1 F Pulse Rate 82 67 Respiratory Rate 16 16 Blood Pressure 125/76 129/73 Pulse Oximetry 98 98 Oxygen Delivery Method Room Air Room Air BMI result Body Mass Index 35.0 Labs Results: 03/04/22 05:28 03/05/22 09:09 Medications Medications Current Medications Acetaminophen (Acetaminophen 325 Mg Tablet) 650 mg PO Q6H PRN PRN Reason: Headache/Pain Mild Scale (1-3) Last Admin: 03/11/22 09:11 Dose: 650 mg Al Hydroxide/Mg Hydroxide (Magnesium Hydrox/Alum Hydrox 30 Ml Oral.Susp) 30 ml PO Q6H PRN PRN Reason: Heartburn/Nausea Famotidine (Famotidine 20 Mg Tablet) 20 mg PO BID [facility] Last Admin: 03/16/22 22:18 Dose: 20 mg Hydroxyzine HCl (Hydroxyzine Hcl 50 Mg Tablet) 50 mg PO Q6H PRN PRN Reason: Anxiety Last Admin: 03/16/22 14:27 Dose: 50 mg Hydroxyzine HCl (Hydroxyzine Hcl 25 Mg Tablet) 75 mg PO BEDTIME [facility] Last Admin: 03/16/22 22:16 Dose: 75 mg Lamotrigine (Lamotrigine 100 Mg Tablet) 100 mg PO DAILY [facility] Last Admin: 03/16/22 09:44 Dose: 100 mg Magnesium Hydroxide (Milk Of Magnesia 30 Ml Oral.Susp) 30 ml PO DAILY PRN PRN Reason: Constipation Melatonin (Melatonin 3 Mg Tablet) 3 mg PO BEDTIME [facility] Last Admin: 03/16/22 22:16 Dose: 3 mg Naltrexone HCl (Naltrexone Hcl 50 Mg Tablet) 50 mg PO DAILY [facility] Last Admin: 03/16/22 09:46 Dose: Not Given Olanzapine (Olanzapine 2.5 Mg Tablet) 7.5 mg PO BEDTIME [facility] Last Admin: 03/16/22 22:17 Dose: 7.5 mg Omeprazole (Omeprazole 20 Mg Capsule.Dr) 20 mg PO DAILY@0630 [facility] Last Admin: 03/16/22 09:44 Dose: 20 mg Ondansetron HCl (Ondansetron Odt 4 Mg Tab.Rapdis) 4 mg TRANSLINGU Q8H PRN PRN Reason: nausea Last Admin: 03/05/22 20:25 Dose: 4 mg Pyridoxine HCl (Pyridoxine Hcl (Vitamin B6) 50 Mg Tablet) 25 mg PO DAILY [facility] Last Admin: 03/16/22 09:43 Dose: 25 mg Thiamine HCl (Thiamine Hcl 100 Mg Tablet) 100 mg PO DAILY [facility] Last Admin: 03/16/22 09:44 Dose: 100 mg Trazodone HCl (Trazodone Hcl 50 Mg Tablet) 50 mg PO BEDTIME PRN PRN Reason: Insomnia Last Admin: 03/16/22 23:35 Dose: 50 mg Trazodone HCl (Trazodone Hcl 50 Mg Tablet) 150 mg PO BEDTIME [facility] Last Admin: 03/16/22 22:17 Dose: 150 mg Allergies Allergies Allergy/AdvReac Type Severity Reaction Status Date / Time sertraline AdvReac Intermediate heart Verified 03/04/22 04:30 palpitations Assessment & Plan Assessment & Plan (1) Alcohol use disorder, severe, dependence: Status: Acute Code(s): F10.20 - Alcohol dependence, uncomplicated (2) Bipolar disorder: Status: Acute Code(s): F31.9 - Bipolar disorder, unspecified Plan 03/06- continue current medications. 03/07 continue current medications. 03/08 Schedule hydroxyzine 50 mg for bedtime 03/09 increase hydroxyzine to 75 mg for sleep, anxiety 03/10 continue tx. 03/11 continue tx. 03/12 continue tx/ 03/13 continue tx. 03/14 continue tx. 03/15 continue tx. I spent minutes with the patient and/or on the patient floor today, greater than?50% of which was spent counseling/coordinating care. Reason for contiued inpatient stay Substantial Risk for: stable for discharge
[2022-03-15] MEDS: hydrOXYzine HCL 50 MG TABLET PO (15:15)
[2022-03-15 21:08] VITALS: BP 125/67; PULSE 63; RESP 16; TEMP 36.2; O2SAT 98
[2022-03-15] MEDS: Melatonin 3 MG TABLET PO (21:10)
[2022-03-15] MEDS: hydrOXYzine HCL 25 MG TABLET 75 MG PO (21:10)
[2022-03-15] MEDS: OLANZapine 2.5 MG TABLET 7.5 MG PO (21:10)
[2022-03-15] MEDS: traZODone HCL 50 MG TABLET 150 MG PO (21:11)
[2022-03-16 09:00] VITALS: BP 125/76; PULSE 82; RESP 16; TEMP 36.6; O2SAT 98
[2022-03-16] MEDS: Famotidine 20 MG TABLET PO ×2 (09:43→22:18)
[2022-03-16] MEDS: Pyridoxine HCl (Vitamin B6) 50 MG TABLET 25 MG PO (09:43)
[2022-03-16] MEDS: lamoTRIgine 100 MG TABLET PO (09:44)
[2022-03-16] MEDS: Omeprazole 20 MG CAPSULE.DR PO (09:44)
[2022-03-16] MEDS: Thiamine HCL 100 MG TABLET PO (09:44)
--- NOTE | 2022-03-16 10:25 | HO.PSYCHPN ---
Subjective Subjective Date of Service: 03/16/22 Reason For Visit: SI Subjective Notes: Conditional Voluntary Interim History: Pt continues to report he is anxious to leave Thursday. He states he has called some places and left message to oil recovery operator but has not heard back from him. This narrative writer gave pt phone number for [facility]. Pt denies SI/HI. No behavioral concerns. Medication Compliance: Yes Side effects from medications: No Review of Systems Review of Systems Yes all other systems are reviewed and are negative Constitutional: Reports headache(s) and Reports poor appetite Eyes: Reports no additional eye complaints Reports headache(s) Cardiovascular: Denies chest pain at rest, Denies chest pain with activity, Denies lightheadedness and Denies dyspnea Respiratory: Denies dyspnea Gastrointestinal: Denies constipation, Denies excessive flatus, Reports dyspepsia, Reports heartburn, Denies fecal incontinence, Denies diarrhea and Reports nausea Reports headache(s) Mental Status Exam Mental Status Exam Narrative: Appearance: casually groomed, good hygiene, in NAD Behavior: cooperative Speech: clear, normal rate/rhythm/volume, spontaneous TP: linear TC: no signs of psychosis, wanting to get back into program Mood: okay Affect: blunted SI: passive HI: none AH: on and off voices of woman telling him to hurt himself VH: none Insight/judgment: fair x 2. Memory/cog: alert, oriented x 3. grossly intact to conversational testing. Diagnostics Vital Signs (24Hr): Vital Signs - 24 hr 03/16/22 09:00 03/16/22 20:08 Temperature 97.9 F 98.1 F Pulse Rate 82 67 Respiratory Rate 16 16 Blood Pressure 125/76 129/73 Pulse Oximetry 98 98 Oxygen Delivery Method Room Air Room Air BMI result Body Mass Index 35.0 Labs Results: 03/04/22 05:28 03/05/22 09:09 Medications Medications Current Medications Acetaminophen (Acetaminophen 325 Mg Tablet) 650 mg PO Q6H PRN PRN Reason: Headache/Pain Mild Scale (1-3) Last Admin: 03/11/22 09:11 Dose: 650 mg Al Hydroxide/Mg Hydroxide (Magnesium Hydrox/Alum Hydrox 30 Ml Oral.Susp) 30 ml PO Q6H PRN PRN Reason: Heartburn/Nausea Famotidine (Famotidine 20 Mg Tablet) 20 mg PO BID [facility] Last Admin: 03/16/22 22:18 Dose: 20 mg Hydroxyzine HCl (Hydroxyzine Hcl 50 Mg Tablet) 50 mg PO Q6H PRN PRN Reason: Anxiety Last Admin: 03/16/22 14:27 Dose: 50 mg Hydroxyzine HCl (Hydroxyzine Hcl 25 Mg Tablet) 75 mg PO BEDTIME [facility] Last Admin: 03/16/22 22:16 Dose: 75 mg Lamotrigine (Lamotrigine 100 Mg Tablet) 100 mg PO DAILY [facility] Last Admin: 03/16/22 09:44 Dose: 100 mg Magnesium Hydroxide (Milk Of Magnesia 30 Ml Oral.Susp) 30 ml PO DAILY PRN PRN Reason: Constipation Melatonin (Melatonin 3 Mg Tablet) 3 mg PO BEDTIME [facility] Last Admin: 03/16/22 22:16 Dose: 3 mg Naltrexone HCl (Naltrexone Hcl 50 Mg Tablet) 50 mg PO DAILY [facility] Last Admin: 03/16/22 09:46 Dose: Not Given Olanzapine (Olanzapine 2.5 Mg Tablet) 7.5 mg PO BEDTIME [facility] Last Admin: 03/16/22 22:17 Dose: 7.5 mg Omeprazole (Omeprazole 20 Mg Capsule.Dr) 20 mg PO DAILY@0630 [facility] Last Admin: 03/16/22 09:44 Dose: 20 mg Ondansetron HCl (Ondansetron Odt 4 Mg Tab.Rapdis) 4 mg TRANSLINGU Q8H PRN PRN Reason: nausea Last Admin: 03/05/22 20:25 Dose: 4 mg Pyridoxine HCl (Pyridoxine Hcl (Vitamin B6) 50 Mg Tablet) 25 mg PO DAILY [facility] Last Admin: 03/16/22 09:43 Dose: 25 mg Thiamine HCl (Thiamine Hcl 100 Mg Tablet) 100 mg PO DAILY [facility] Last Admin: 03/16/22 09:44 Dose: 100 mg Trazodone HCl (Trazodone Hcl 50 Mg Tablet) 50 mg PO BEDTIME PRN PRN Reason: Insomnia Last Admin: 03/16/22 23:35 Dose: 50 mg Trazodone HCl (Trazodone Hcl 50 Mg Tablet) 150 mg PO BEDTIME [facility] Last Admin: 03/16/22 22:17 Dose: 150 mg Allergies Allergies Allergy/AdvReac Type Severity Reaction Status Date / Time sertraline AdvReac Intermediate heart Verified 03/04/22 04:30 palpitations Assessment & Plan Assessment & Plan (1) Alcohol use disorder, severe, dependence: Status: Acute Code(s): F10.20 - Alcohol dependence, uncomplicated (2) Bipolar disorder: Status: Acute Code(s): F31.9 - Bipolar disorder, unspecified Plan 03/06- continue current medications. 03/07 continue current medications. 03/08 Schedule hydroxyzine 50 mg for bedtime 03/09 increase hydroxyzine to 75 mg for sleep, anxiety 03/10 continue tx. 03/11 continue tx. 03/12 continue / 03/13 continue tx. 03/14 continue tx. 03/15 continue tx. 03/16 continue tx. I spent minutes with the patient and/or on the patient floor today, greater than?50% of which was spent counseling/coordinating care. Reason for contiued inpatient stay Substantial Risk for: stable for discharge
[2022-03-16] MEDS: hydrOXYzine HCL 50 MG TABLET PO (14:27)
[2022-03-16 20:08] VITALS: BP 129/73; PULSE 67; RESP 16; TEMP 36.7; O2SAT 98
[2022-03-16] MEDS: Melatonin 3 MG TABLET PO (22:16)
[2022-03-16] MEDS: hydrOXYzine HCL 25 MG TABLET 75 MG PO (22:16)
[2022-03-16] MEDS: OLANZapine 2.5 MG TABLET 7.5 MG PO (22:17)
[2022-03-16] MEDS: traZODone HCL 50 MG TABLET 150 MG PO (22:17)
[2022-03-16] MEDS: traZODone HCL 50 MG TABLET PO (23:35)
[2022-03-17 09:46] VITALS: BP 91/47; PULSE 65; RESP 15; TEMP 36.6; O2SAT 96
--- NOTE | 2022-03-17 11:33 | PM.PSYDC ---
DS: Providers Provider Date of Service: 03/17/22 Date of admission: 03/04/22 16:29 Primary care physician: Donny Longoria MD DS: Diagnosis Discharge Diagnosis (1) Alcohol use disorder, severe, dependence: Status: Acute (2) Bipolar disorder: Status: Acute DS: Medications Discharge Medications Home Medications: Home Medications Medication Instructions Recorded Confirmed clonidine HCl 0.1 mg tablet 0.1 mg PO BID PRN Anxiety 03/21/22 03/21/22 hydroxyzine pamoate 25 mg capsule 50 mg PO BID PRN Anxiety 03/21/22 03/21/22 lamotrigine 100 mg tablet 150 mg PO DAILY 03/21/22 03/21/22 Previous Rx's Medication Instructions Recorded melatonin 3 mg tablet 3 mg PO BEDTIME #30 tabs 03/17/22 olanzapine 2.5 mg tablet 7.5 mg PO BEDTIME #90 tabs 03/17/22 trazodone 150 mg tablet 150 mg PO BEDTIME #30 tabs 03/17/22 Mental Status Exam Mental Status Exam Narrative: Appearance: casually groomed, good hygiene, in NAD Behavior: cooperative Speech: clear, normal rate/rhythm/volume, spontaneous TP: linear TC: no signs of psychosis, wanting to get back into program Mood: okay Affect: congruent SI:none HI: none AH: on and off voices of woman telling him to hurt himself VH: none Insight/judgment: fair x 2. Memory/cog: alert, oriented x 3. grossly intact to conversational testing. DS: Summary Hospital Course Hospital Course: Subjective Notes: Kaplan Warning (pt understood) and Conditional Voluntary Narrative: Mr. Velásquez is 32 year-old male with Bipolar Disorder and alcohol use. Pt self presented to [facility] ED reporting increase depression, suicidal ideation in context of quickly relapsing on alcohol use after completing day prior a 90 day program alcohol use treatment program in [place]. In the ED, BAL 171. Pt reported hearing voices telling him to hurt himself. On the unit, Mr. Velásquez reports that he was doing fairly well while in the [facility]SS program. He reports once he completed program he was on wait list for sober housing at [facility]. He reports he had trouble even finding transportation to come from [facility] to [facility] and he quickly relapsed. He reports intermittent voices telling him to hurt himself. He reports is mostly a female voice. Pt continues to report suicidal ideation. he endorses feeling hopeless, helpless, worried that he won't be able to get back into a substance use treatment program. Past Psychiatric History: 30 yo male to ER experiencing perceptual alterations-auditory and visual, believes that he had been chosen by mother Neisha to unburden souls. Pt in addition is possibly in hallucinosis from alcohol-reports to ER 48 oz of liquor daily-consistently for several months.? ? IP: One overnight stay secondary to alcohol when his girlfriend broke up with him-he wanted to stab himself OP: Yamel Abreu APRN Trials: some, trazodone, gabapentin, vitamins. Medical Evaluation Reviewed: Yes HOSPITAL COURSE On the unit,pt was admitted on a CV and placed on 15 minutes checks for safety. Pt reported feeling overwhelmed and frustrated about not being able to continue substance use treatment at residential program. He expressed motivation to return to substance use treatment program. We discussed risks, benefits and alternative treatment options, he reported current medications including lamictal, naltrexon, olanzapine have been beneficial for his mood. He was referred to at least 3 [facility]. He declined referrals to [facility] and other [facility] as he specifically wanted one program. He was connected with a disaster recovery specialist who met with him while he was on the unit. He denied suicidal ideation throughout this admission. Time spent discussing smoking cessation with patient: 3 to 10 minutes Status at Discharge Cognitive/behavioral status at discharge: Pt with brighter affect. He is anxious about not going from unit to a residential program and fears to relapsed quickly after leaving. No SI/HI. Future oriented. No VH/AH. No aggression towards self or others. Functional status at discharge: independent ambulation Overall status at discharge: patient is progressing back to baseline Time Spent with Patient Time attestation: Total time spent providing and/or coordinating discharge services: Discharge Plan Discharge Anticipated Discharge Date/Time: 03/17/22 11:06 Patient Disposition: Home, Self-Care Discharge Diagnosis: MDD, recurrent, moderate Alcohol Use Disorder Referrals: [facility] [Other] (You can utilize this space for a few hours during the day. You will not be able to stay overnight at this time) [facility] [Other] (Arrive by 4pm to request a bed for the night) [facility] [Other] (Referral was submitted for therapy & psychiatry. Please follow up if you do not receive a call with your appointments) [facility] [Other] (Referral submitted. Call daily to check on bed availability) [facility] [Other] (Referral submitted. Call to follow up on bed availability) Donny Longoria MD [Primary Care Provider] - 04/17/22 10:30 am Discharge Medications: New olanzapine 2.5 mg Tablet 7.5 mg PO BEDTIME Qty: 90 0RF trazodone 150 mg tablet 150 mg PO BEDTIME Qty: 30 0RF melatonin 3 mg Tablet 3 mg PO BEDTIME Qty: 30 0RF Discontinued naltrexone 50 mg tablet 1 tab PO DAILY lamotrigine 100 mg tablet 1 tab PO DAILY melatonin 3 mg tablet 1 tab PO BEDTIME olanzapine 7.5 mg tablet 1 tab PO BEDTIME trazodone 150 mg tablet 1 tab PO BEDTIME hydroxyzine HCl 25 mg tablet 2 tab PO QID No Action lamotrigine 100 mg tablet 150 mg PO DAILY clonidine HCl 0.1 mg Tablet 0.1 mg PO BID PRN (Reason: Anxiety) hydroxyzine pamoate 25 mg capsule 50 mg PO BID PRN (Reason: Anxiety) Discharge Orders: Discharge Order (Routine); Ordered 03/17/22 Ordered By: Ly Sosa Diet: Regular diet Activity on Discharge: As tolerated Stand Alone Forms: Patient Portal Discharge page, Community Support Care Plan Goals: 1. Maintain Mood 2. No SI/HI. 3. recovery work Health Concerns: Follow up with PCP Plan of Treatment: 1. Take medications as prescribed. 2. Go to nearest ED or call 911 Assessment: Pt with brighter affect but anxious about not going straight from here to a program. No SI/HI. No signs of aggression towards self or others. Discharge Date/Time: 03/17/22 12:00
== END 2022-03-17 12:00 | disposition home or self-care (01) | DRG 753 ==
LOC: HO.ED 11:05 → HO.PADLT16 16:45
PROVIDERS: Admitting Provider Social Worker; Emergency Provider Emergency Medicine Emergency Medical Services; PCP Family Medicine; Visit Provider Social Worker
DX: F31.9 Bipolar disorder, unspecified (principal); R45.851 Suicidal ideations; F10.229 Alcohol dependence with intoxication, unspecified; F17.210 Nicotine dependence, cigarettes, uncomplicated; Z20.822 Contact with and (suspected) exposure to COVID-19; Y90.6 Blood alcohol level of 120-199 mg/100 ml; Z71.6 Tobacco abuse counseling; Z79.899 Other long term (current) drug therapy
CPT/HCPCS: 36415; 80048; 80053; 80061; 80307; 82077; 82607; 82746; 83036; 84443; 85025; 87635; 93005; 99285

== ENCOUNTER 2022-03-21 20:58 | Inpatient (IN) | payer OTHER, MEDICAID, SELFPAY ==
[2022-03-21 21:06] VITALS: BP 143/88; PULSE 120; RESP 18; TEMP 37; O2SAT 96; BMI 32.8
[2022-03-21 21:43] LABS: MANUAL DIFF FLAG NO
[2022-03-21 21:47] LABS: Amphetamine Screen Urine Not Detected (Not Detect); Barbiturates, Urine Not Detected (Not Detect); Benzodiazepines Screen Urine Not Detected (Not Detect); Cannabinoid Screen Urine Not Detected (Not Detect); Cocaine Screen Urine Not Detected (Not Detect); Fentanyl, urine Not Detected (Not Detect); Opiate Screen Urine Not Detected (Not Detect); Phencyclidine Screen Urine Not Detected (Not Detect)
[2022-03-21 21:50] LABS: Basophils Absolute Auto 0.1 X10*3/uL (0.0-0.2); Basophils Percent Auto 0.9 % (0-2); Eosinophils Absolute Auto 0.1 X10*3/uL (0.0-0.4); Eosinophils Percent Auto 0.7 % (0-4); Hematocrit 41.8 % (42.0-52.0); Hemoglobin 14.7 g/dl (14.0-18.0); Imm Gran Abs Auto 0.02 X10*3/uL (0.00-0.03); Imm Gran Pct Auto 0.2 % (0.0-0.4); Lymphocytes Absolute Auto 3.7 X10*3/uL (1.2-4.9); Lymphocytes Percent Auto 31.7 % (20-40); Mean Corpuscular HGB Conc 35.2 g/dl (31.0-36.0); Mean Corpuscular Hemoglobin 28.9 pg (27.0-33.0); Mean Corpuscular Volume 82.1 fL (80.0-98.0); Mean Platelet Volume 9.1 fL (9.4-12.4); Monocytes Absolute Auto 0.9 X10*3/uL (0.1-1.2); Monocytes Percent Auto 7.9 % (2-11); Neutrophils Absolute Auto 6.8 x10*3/uL (2.0-8.3); Neutrophils Percent Auto 58.6 % (45-73); Platelet Count 383 X10*3/uL (160-400); Red Blood Count 5.09 X10*6/uL (4.60-5.80); Red Cell Distribution Width 13.2 % (11.0-16.0); White Blood Count 11.6 X10*3/uL (4.8-10.8)
[2022-03-21 21:54] LABS: Appearance Urine Clear; Color Urine Dark Yellow; Glucose Urine UA Negative (Negative); Leukocyte Esterase Urine Negative (Negative); Nitrite Urine Negative (Negative); PH 5.5 (5.0-9.0); Specific Gravity - Urine 1.025 (1.005-1.025); UMIC TRIGGER UACC YES; Urine Blood Negative (Negative); Urine Ketones 15 mg/dL (Negative); Urine Protein 30 (1+) mg/dL (Neg-Trace)
[2022-03-21 21:55] LABS: Bacteria Urine None Seen (None Seen); RBC Urine 0-2 /HPF (0-2); Squamous Epithelial Cell Urine 0-2 /HPF (0-2); WBC Urine 0-5 /HPF (0-5)
[2022-03-21 22:03] LABS: Alanine Aminotransferase 122 U/L (0-40); Albumin Level 4.6 g/dL (3.5-5.0); Alkaline Phosphatase 100 U/L (39-117); Anion Gap 19 (12-20); Aspartate Amino Transferase 146 U/L (5-37); Blood Urea Nitrogen 12 mg/dL (9-16); Calcium 9.2 mg/dL (8.4-10.2); Carbon Dioxide 24 mmol/L (22-29); Chloride 102 mmol/L (96-108); Estimated Glomerular Filt Rate > 60; Ethanol 241 mg/dL; Glucose Random 122 mg/dL (60-115); Magnesium 2.3 mg/dL (1.6-2.6); Potassium 3.3 mmol/L (3.3-5.1); Sodium 142 mmol/L (135-145); Total Protein 7.8 g/dL (6.5-8.0)
[2022-03-21 22:04] LABS: Acetaminophen LAB < 1 mcg/mL (<30); Salicylate < 5.0 mg/dL (15-30)
[2022-03-21 22:14] LABS: Influenza A PCR NEGATIVE (Negative); Influenza B PCR NEGATIVE (Negative); Resp Syncy Virus RNA Qual PCR NEGATIVE (Negative); SARS COV2 PCR INHOUSE NEGATIVE (Negative)
--- NOTE | 2022-03-21 22:50 | ED_ITS ---
HPI - General Adult General Chief complaint: Psychiatric Symptoms Stated complaint: si Time Seen by Provider: 03/21/22 21:03 Source: patient and EMS Mode of arrival: EMS Limitations: no limitations History of Present Illness HPI narrative: 32-year-old male history of panic attack, bipolar disorder, alcohol abuse with alcohol withdrawal presenting to the emergency department with complaints of suicidal ideation with multiple plans times a few days worsening. Patient reports no associated triggers. He tells me to statin we started feeling this way few days ago he tells me his 1st plan would be to slit his wrist with a very sharp knife vertically. He tells me another plan is to jump off of a green bridge that connects [place] [facility]. He tells me he has really been considering this over the past few days and he really feels like he is going to kill himself. He tells me he is a current daily drinker and drinks over a pt of vodka a day with some ?[employer] ?. Last drink was just prior to arrival, he tells me he drink a pt of vodka, tells me he has a history of withdrawal. Patient reports intermittent visual and auditory hallucinations, tells me he is seeing shadows that are telling him to harm himself. Patient denies drugs, tobacco. Denies medical complaints. Related Data Home Medications Medication Instructions Recorded Confirmed clonidine HCl 0.1 mg tablet 0.1 mg PO BID PRN Anxiety 03/21/22 03/21/22 hydroxyzine pamoate 25 mg capsule 50 mg PO BID PRN Anxiety 03/21/22 03/21/22 lamotrigine 100 mg tablet 150 mg PO DAILY 03/21/22 03/21/22 Previous Rx's Medication Instructions Recorded melatonin 3 mg tablet 3 mg PO BEDTIME #30 tabs 03/17/22 olanzapine 2.5 mg tablet 7.5 mg PO BEDTIME #90 tabs 03/17/22 trazodone 150 mg tablet 150 mg PO BEDTIME #30 tabs 03/17/22 Allergies Allergy/AdvReac Type Severity Reaction Status Date / Time sertraline AdvReac Intermediate heart Verified 03/04/22 04:30 palpitations Review of Systems Review of Systems: Constitutional : No Weight loss, No Fever, No Chills, No Fatigue, No Malaise ENT/Mouth : No sore throat, No Rhinorrhea Eyes: No Eye Pain, No Swelling, No Redness Cardiovascular : No Chest Pain, No SOB, No Dyspnea on Exertion, No Orthopnea, No Edema, No Palpitations Respiratory : No Cough, No Sputum, No Wheezing Gastrointestinal : No Nausea, No Vomiting, No Diarrhea, No Constipation, No abdominal Pain, No Hematochezia, No Melena Genitourinary : No Dysuria, No Urinary Frequency, No Hematuria, Musculoskeletal : No joint pain, No Myalgias, No Joint Swelling Skin : No Skin Lesions, No rash Neuro : No Weakness, No Numbness, No Dizziness, No Headache Psych : + Anxiety/Panic, + Depression, + SI All other systems reviewed and are negative Yes all other systems are reviewed and are negative [facility] Past Medical History Attestation statement: The following information was validated with the patient. Source: old records reviewed and nursing notes reviewed Medical History Alcohol abuse Anxiety Bipolar disorder Heart murmur No known health problems Family History Family History Maternal Grandfather Diabetes Social History Social History Household Members: None Housing: Homeless Do you presently have visiting nurse or other home services: No Alcohol intake: current Alcohol intake frequency: 3 or more drinks per day Alcohol type: hard liquor Patient Tobacco Use Status: Current everyday Tobacco user Tobacco use type: Cigarette Cigarette Packs Per Day: 0.5 Cigarettes Per Day: 20 Years Smoked: 16 e-Cigarette/Vaping Use: Never Used Second Hand Smoke Exposure: No Substance Use Type: Crack/Cocaine, Hallucinogens, Heroin, Marijuana, Opiates and Tranquilizers Advance Directives: No Advance Directives Information Provided: No service: No Sexual orientation: Don't Know Physical Exam ED Vital Signs: Vital Signs - 24 hr 03/21/22 21:06 Temperature 98.6 F Pulse Rate 120 H Respiratory Rate 18 Blood Pressure 143/88 H Pulse Oximetry 96 Oxygen Delivery Method Room Air BMI result Body Mass Index 32.8 vss Appearance: Alert.? Oriented X3.? No acute distress.? Smells like alcohol Head: Normocephalic, atraumatic, no step-offs or deformities Eyes: Pupils equal, round and reactive to light.? Bilateral conjunctival injection Neck: Normal inspection.? Neck supple.? CVS: Normal heart rate and rhythm.? Pulses normal.? Respiratory: No respiratory distress.? Breath sounds normal.? Abdomen: Soft and nontender.? Skin: Skin warm and dry.? Normal skin color.? Normal skin turgor.? Extremities: No lower extremity edema.? No calf ttp. 5/5 strength to bilateral upper and lower extremities Neuro: Oriented X 3.? No motor deficit.? No sensory deficit. CN 2-12 intact Course Reevaluation(s) Reevaluation #1: CBC with slight leukocytosis, appears to be around patient's baseline. Chemistry with no acute electrolyte abnormalities requiring intervention. Patient is noted to have an elevated AST and ALT, likely secondary to drinking, patient without abdominal complaints and no abdominal tenderness on exam. Patient's urine without infection. Patient's salicylate, acetaminophen negative. Urine toxicology negative. Ethanol level 241 consistent with acute alcohol intoxication. Flu/COVID/RSV negative. Patient will be evaluated by the care team when clinically sober At at this time patient will be placed in physician observation to allow more time to be evaluated by care team once sober at time observation was started patient common cooperative no acute distress, CIWA 0 no sign of w/ drawl will continue to monitor Time: 22:56 Medical Decision Making [facility] Narrative Medical decision making narrative: 589 32 year old male presents w/ si w/ plan X fweew days reports drinking prior to arrival PE patient smells like alcohol and has bilateral conjunctival injection. Plan- medical clearacne, bhn eval, ciwa Q4 hrs Medical Records Medical records reviewed: Yes I reviewed the patient's medical records. Lab Data Lab results reviewed: Yes I reviewed the patient's lab results. Result diagrams: 03/21/22 21:39 03/21/22 21:39 Labs: Lab Results 03/21/22 03/21/22 03/21/22 Range/Units 21:28 21:28 21:28 WBC (4.8-10.8) X10*3/uL RBC (4.60-5.80) X10*6/uL Hgb (14.0-18.0) g/dl Hct (42.0-52.0) % MCV (80.0-98.0) fL MCH (27.0-33.0) pg MCHC (31.0-36.0) g/dl RDW (11.0-16.0) % Plt Count (160-400) X10*3/uL MPV (9.4-12.4) fL Immature Gran % (Auto) (0.0-0.4) % Neut % (Auto) (45-73) % Lymph % (Auto) (20-40) % [place] % (Auto) (2-11) % Eos % (Auto) (0-4) % Baso % (Auto) (0-2) % Lymph # (Auto) (1.2-4.9) X10*3/uL [place] # (Auto) (0.1-1.2) X10*3/uL Eos # (Auto) (0.0-0.4) X10*3/uL Baso # (Auto) (0.0-0.2) X10*3/uL Abs Immat Gran (auto) (0.00-0.03) X10*3/uL Absolute Neuts (auto) (2.0-8.3) x10*3/uL Absolute Nucleated RBC (0.0-0.012) X10*3/uL Nucleated RBC % (auto) (0.0-0.2) /100WBC Sodium (135-145) mmol/L Potassium (3.3-5.1) mmol/L Chloride (96-108) mmol/L Carbon Dioxide (22-29) mmol/L Anion Gap (12-20) BUN (9-16) mg/dL Creatinine (0.5-1.4) mg/dL Estim Creat Clear Calc Estimated GFR Random Glucose (60-115) mg/dL Calcium (8.4-10.2) mg/dL Magnesium (1.6-2.6) mg/dL AST (5-37) U/L ALT (0-40) U/L Alkaline Phosphatase (39-117) U/L Total Protein (6.5-8.0) g/dL Albumin (3.5-5.0) g/dL Urine Color Dark Yellow Urine Appearance Clear Urine pH 5.5 (5.0-9.0) Ur Specific [place] 1.025 (1.005-1.025) Urine Protein 30 (1+) H (Neg-Trace) mg/dL Urine Glucose (UA) Negative (Negative) mg/dL Urine Ketones 15 (Negative) mg/dL Urine Blood Negative (Negative) Urine Nitrite Negative (Negative) Ur Leukocyte Esterase Negative (Negative) Urine RBC 0-2 (0-2) /HPF Urine WBC 0-5 (0-5) /HPF Ur Squamous Epith Cells 0-2 (0-2) /HPF Urine Bacteria None Seen (None Seen) Hyaline Casts 3-5 (0-2) /LPF Salicylates (15-30) mg/dL Urine Opiates Screen Not Detected (Not Detect) Urine Fentanyl Screen Not Detected (Not Detect) Acetaminophen (<30) mcg/mL Ur Barbiturates Screen Not Detected (Not Detect) Ur Phencyclidine Scrn Not Detected (Not Detect) Ur Amphetamines Screen Not Detected (Not Detect) U Benzodiazepines Scrn Not Detected (Not Detect) Urine Cocaine Screen Not Detected (Not Detect) U Marijuana (THC) Screen Not Detected (Not Detect) Ethyl Alcohol mg/dL Influenza Type A (PCR) NEGATIVE (Negative) Influenza Type B (PCR) NEGATIVE (Negative) RSV RNA Qual (PCR) NEGATIVE (Negative) SARS-CoV-2 RNA (RT-PCR) NEGATIVE (Negative) 03/21/22 03/21/22 03/21/22 Range/Units 21:38 21:39 21:39 WBC 11.6 H (4.8-10.8) X10*3/uL RBC 5.09 (4.60-5.80) X10*6/uL Hgb 14.7 (14.0-18.0) g/dl Hct 41.8 L (42.0-52.0) % MCV 82.1 (80.0-98.0) fL MCH 28.9 (27.0-33.0) pg MCHC 35.2 (31.0-36.0) g/dl RDW 13.2 (11.0-16.0) % Plt Count 383 D (160-400) X10*3/uL MPV 9.1 L (9.4-12.4) fL Immature Gran % (Auto) 0.2 (0.0-0.4) % Neut % (Auto) 58.6 (45-73) % Lymph % (Auto) 31.7 (20-40) % [place] % (Auto) 7.9 (2-11) % Eos % (Auto) 0.7 (0-4) % Baso % (Auto) 0.9 (0-2) % Lymph # (Auto) 3.7 (1.2-4.9) X10*3/uL [place] # (Auto) 0.9 (0.1-1.2) X10*3/uL Eos # (Auto) 0.1 (0.0-0.4) X10*3/uL Baso # (Auto) 0.1 (0.0-0.2) X10*3/uL Abs Immat Gran (auto) 0.02 (0.00-0.03) X10*3/uL Absolute Neuts (auto) 6.8 (2.0-8.3) x10*3/uL Absolute Nucleated RBC 0.000 (0.0-0.012) X10*3/uL Nucleated RBC % (auto) 0.0 (0.0-0.2) /100WBC Sodium 142 (135-145) mmol/L Potassium 3.3 (3.3-5.1) mmol/L Chloride 102 (96-108) mmol/L Carbon Dioxide 24 (22-29) mmol/L Anion Gap 19 (12-20) BUN 12 (9-16) mg/dL Creatinine 0.81 (0.5-1.4) mg/dL Estim Creat Clear Calc 144.0 Estimated GFR > 60 Random Glucose 122 H (60-115) mg/dL Calcium 9.2 (8.4-10.2) mg/dL Magnesium 2.3 (1.6-2.6) mg/dL AST 146 H (5-37) U/L ALT 122 H (0-40) U/L Alkaline Phosphatase 100 D (39-117) U/L Total Protein 7.8 (6.5-8.0) g/dL Albumin 4.6 (3.5-5.0) g/dL Urine Color Urine Appearance Urine pH (5.0-9.0) Ur Specific [place] (1.005-1.025) Urine Protein (Neg-Trace) mg/dL Urine Glucose (UA) (Negative) mg/dL Urine Ketones (Negative) mg/dL Urine Blood (Negative) Urine Nitrite (Negative) Ur Leukocyte Esterase (Negative) Urine RBC (0-2) /HPF Urine WBC (0-5) /HPF Ur Squamous Epith Cells (0-2) /HPF Urine Bacteria (None Seen) Hyaline Casts (0-2) /LPF Salicylates < 5.0 L (15-30) mg/dL Urine Opiates Screen (Not Detect) Urine Fentanyl Screen (Not Detect) Acetaminophen < 1 (<30) mcg/mL Ur Barbiturates Screen (Not Detect) Ur Phencyclidine Scrn (Not Detect) Ur Amphetamines Screen (Not Detect) U Benzodiazepines Scrn (Not Detect) Urine Cocaine Screen (Not Detect) U Marijuana (THC) Screen (Not Detect) Ethyl Alcohol 241 mg/dL Influenza Type A (PCR) (Negative) Influenza Type B (PCR) (Negative) RSV RNA Qual (PCR) (Negative) SARS-CoV-2 RNA (RT-PCR) (Negative) Critical Care Time Critical Care Time Critical Care Time: No Discharge Plan Discharge Clinical Impression: Suicidal ideation, Depression, Alcohol intoxication Patient Disposition: Still a Patient Prescriptions: No Action olanzapine 2.5 mg Tablet 7.5 mg PO BEDTIME Qty: 90 0RF trazodone 150 mg tablet 150 mg PO BEDTIME Qty: 30 0RF melatonin 3 mg Tablet 3 mg PO BEDTIME Qty: 30 0RF lamotrigine 100 mg tablet 150 mg PO DAILY clonidine HCl 0.1 mg Tablet 0.1 mg PO BID PRN (Reason: Anxiety) hydroxyzine pamoate 25 mg capsule 50 mg PO BID PRN (Reason: Anxiety) Interventions: [place]-Suicide Risk Severity Scale Last Done: 03/21/22 21:28
[2022-03-21 23:18] LABS: Bilirubin Total 0.7 mg/dL (0.0-1.0)
--- NOTE | 2022-03-22 06:16 | PC.NURSE ---
Patient slept through the night, no distress observed/reported, behavior appropriate and non concerns, patient is asymptomatic of ETOH withdrawal at this time, med rec completed/pending provider's approval, LEILANI SAUCEDO referral completed/confirmed/pending ETA, care team made aware of the referral, will continue to monitor.
[2022-03-22 06:33] VITALS: BP 116/66; PULSE 83; RESP 16; TEMP 37.3; O2SAT 96
--- NOTE | 2022-03-22 07:31 | PC.NURSE ---
Addendum entered by Timoteo Hwang 03/22/22 07:47: CIWA score of 4. Patient reports seeing shadows . Dr. Redmond aware. Original Note: Patient remains asleep. Dr. Redmond instructed to let patient sleep and complete CIWA when patient wakes up.
--- NOTE | 2022-03-22 10:09 | PC.NURSE ---
Patient reports to this RN that he feels like he is starting to have withdrawals. He reports he is having sweats, chills and feels like he is falling when he starts to fall asleep . Provider Dr. Redmond notified.
[2022-03-22] MEDS: LORazepam 1 MG TABLET 2 MG PO ×3 (10:56→20:29)
[2022-03-22 14:09] VITALS: BP 134/69; PULSE 96; RESP 16; TEMP 37.1; O2SAT 95
[2022-03-22 20:18] VITALS: BP 148/76; PULSE 95; RESP 18; TEMP 37; O2SAT 95
--- NOTE | 2022-03-22 20:35 | PC.NURSE ---
HAYDER 11 @ 2026, Ativan 2 mg po administered per order, patient is bed currently resting, disposition per [facility] is section 12 inpatient bed search, will continue to monitor.
--- NOTE | 2022-03-23 06:08 | PC.NURSE ---
Patient slept through the night, no distress observed/reported, asymptomatic of ETOH withdrawal, behavior appropriate and non concerning, medication compliant, disposition is section 12 inpatient bed search per [facility], [facility], no safety concerns at this time, will continue to monitor.
[2022-03-23 06:35] VITALS: BP 124/70; PULSE 79; RESP 16; TEMP 36.7; O2SAT 96
[2022-03-23] MEDS: lamoTRIgine 25 MG TABLET 150 MG PO (08:32)
[2022-03-23] MEDS: LORazepam 1 MG TABLET 2 MG PO (08:32)
[2022-03-23 08:34] VITALS: BP 132/74; PULSE 84; RESP 16; O2SAT 98
--- NOTE | 2022-03-23 08:38 | PC.NURSE ---
sleeping and easily woken, ciwa 10 w reported hallucinations (happens at baseline without etoh withdrawls), anxiety, see ciwa, polite and pleasant, steady gait to bathroom, medicated as ordered
[2022-03-23] MEDS: hydrOXYzine HCL 50 MG TABLET PO (14:49)
[2022-03-23] MEDS: Ondansetron ODT 4 MG TAB.RAPDIS TRANSLINGU (17:47)
[2022-03-23] MEDS: OLANZapine 2.5 MG TABLET 7.5 MG PO (20:08)
[2022-03-23] MEDS: Melatonin 3 MG TABLET PO (20:08)
[2022-03-23] MEDS: traZODone HCL 50 MG TABLET 150 MG PO (20:08)
[2022-03-23 20:09] VITALS: BP 134/78; PULSE 80; RESP 16; TEMP 36.9; O2SAT 98
--- NOTE | 2022-03-24 00:06 | PC.NURSE ---
Pt sleeping in no apparent distress. Breaths are even and unlabored with equal chest rises. Will continue to monitor.
--- NOTE | 2022-03-24 02:24 | PC.NURSE ---
Pt sleeping in no apparent distress. Breaths are even and unlabored with equal chest rises. Will continue to monitor.
[2022-03-24] MEDS: lamoTRIgine 25 MG TABLET 150 MG PO (09:36)
[2022-03-24 09:41] VITALS: BP 119/78; PULSE 85; RESP 15; TEMP 37.1; O2SAT 95
--- NOTE | 2022-03-24 13:19 | ECG_ITS ---
Test Reason : psych meds Blood Pressure : / mmHG Vent. Rate : 074 BPM Atrial Rate : 074 BPM P-R Int : 154 ms QRS Dur : 084 ms QT Int : 406 ms P-R-T Axes : 046 033 036 degrees QTc Int : 450 ms Normal sinus rhythm Normal ECG When compared with ECG of 04-MAR-2022 11:53, No significant change was found Referred By: Steven Redmond Electronically Signed By:IRENE KHAN MD
--- NOTE | 2022-03-24 14:41 | PC.NURSE ---
rn to rn report given to deloris abebe aware of plan of care for admission to .
[2022-03-24 15:57] VITALS: BP 119/81; PULSE 97; RESP 16; TEMP 36.3; O2SAT 96
[2022-03-24 18:50] VITALS: BP 125/78; PULSE 79; RESP 16; TEMP 36.9
[2022-03-24] MEDS: LORazepam 1 MG TABLET 2 MG PO (19:15)
[2022-03-24] MEDS: traZODone HCL 50 MG TABLET 150 MG PO (20:42)
[2022-03-24] MEDS: Melatonin 3 MG TABLET PO (20:42)
[2022-03-24] MEDS: OLANZapine 2.5 MG TABLET 7.5 MG PO (20:42)
--- NOTE | 2022-03-24 21:09 | PC.ADMIT ---
PT is a 32 year old filipino speaking male that arrived on this unit @ 18:50 [place] [facility] [place] and was placed on 15 minute safety checks.. PT admitted on conditional voluntary basis. PT was recently discharged from and was inpatient from 03/05-03/17. After discharge pt immediately began to decompensate, drinking vodka excessively daily and planning to jump from a bridge to complete suicide. PT reports chronic homelessness and inability to maintain his mental health due to medication non compliance due to homelessness and alcohol misuse. COVID, FLU, RSV all negative, tox screen negative, BAL upon arrival was 241. 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 All legals signed, treatment plan, safety tool completed. PT oriented to unit. Denies SI/HI, AH/VH @ this time. PT is an everyday pack per day smoker but refuses nicotine replacement. PT refuses the flu vaccine.
[2022-03-25] VITALS: BP 119/70; PULSE 70; TEMP 36.8; O2SAT 95
[2022-03-25 04:00] VITALS: BP 125/80; PULSE 75; TEMP 36.6
[2022-03-25 08:00] VITALS: BP 117/60; PULSE 75; RESP 18; O2SAT 93
[2022-03-25] MEDS: lamoTRIgine 25 MG TABLET 150 MG PO (08:43)
--- NOTE | 2022-03-25 09:11 | P.HPPS_ITS ---
HPI Date of Service: 03/25/22 Chief Complaint: SI Sources of Information: patient interviewed, chart reviewed and crisis/core team assessment reviewed HPI Subjective Notes: Kaplan Warning and Conditional Voluntary Narrative: Mr. Velásquez is a 32 year-old male with hx of alcohol use and Bipolar type 2 disorder. He was recently discharged from on 03/17 after treatment of depression in setting of relapsed on alcohol soon after completing 90 day residential program. Pt [place] [facility] [place] increase depression, suicidal ideation in context of relapsed on alcohol. In the ED, BAL 241. On the unit, pt reports that soon after discharged and complicated by the fact that he was not able to transition to another retirement residential substance use treatment program, he quickly relapsed. He reports he was staying on the streets. 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 Pt endorses feeling anxious, very motivated to get into residential treatment and afraid to be back where he was several years ago in terms of his alcohol use and mental health deterioration. He denies suicidal ideation. He reports poor sleep. Current medication have helped him and he wants to continue taking them as prescribed. No AH/VH. Past Psychiatric History: 30 yo male to ER experiencing perceptual alterations-auditory and visual, believes that he had been chosen by mother Neisha to unburden souls. Pt in addition is possibly in hallucinosis from alcohol- reports to ER 48 oz of liquor daily-consistently for several months. IP: One overnight stay secondary to alcohol when his girlfriend broke up with him-he wanted to stab himself OP: Yamel Abreu APRN Trials: some, trazodone, gabapentin, vitamins. Medical Evaluation Reviewed: Yes [facility] Medical History Alcohol abuse Anxiety Bipolar disorder Heart murmur No known health problems Family History: denies Social History: Born and raised in [place]. One older sister, one younger sister, both estranged from pt. Pt completed the first quarter of 12th grade, met daughter's mother, and you know the rest of the story, failures from then on. Pt has a daughter who will be eleven on 04/04/21 whom he has not seen in one month. He describes her as smart, wonderful, my proudest moment . 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 Currently unemployed. Pt has tried to complete GED but has had no real support so this is a future goal. Trauma History: Affirms and denies Diagnostics Vital Signs (24Hr): Vital Signs - 24 hr 03/25/22 12:15 03/25/22 16:00 03/25/22 20:00 Temperature 98.3 F 97.5 F 97 F Pulse Rate 77 71 76 Respiratory Rate 20 18 18 Blood Pressure 134/82 143/76 H 140/70 H Pulse Oximetry 98 99 98 Oxygen Delivery Method Room Air Room Air Room Air 03/26/22 00:00 Temperature Pulse Rate Respiratory Rate 14 Blood Pressure Pulse Oximetry Oxygen Delivery Method BMI result Body Mass Index 32.8 Labs Results: 03/21/22 21:39 03/25/22 08:19 Labs: Laboratory Results - last 48 hr 03/25/22 08:19 Sodium 140 Potassium 4.2 D Chloride 107 Carbon Dioxide 26 Anion Gap 11 L BUN 12 Creatinine 0.79 Estim Creat Clear Calc 147.6 Estimated GFR > 60 Fasting Glucose 96 Calcium 9.1 Total Bilirubin 0.6 AST 45 H ALT 94 H Alkaline Phosphatase 87 Total Protein 6.8 Albumin 4.0 Triglycerides 85 Cholesterol 237 LDL Cholesterol, Calc 177 HDL Cholesterol 43 Meds/Allergies Meds Home Medications Medication Instructions Recorded Confirmed Type clonidine HCl 0.1 mg tablet 0.1 mg PO BID PRN Anxiety 03/21/22 03/21/22 History hydroxyzine pamoate 25 mg capsule 50 mg PO BID PRN Anxiety 03/21/22 03/21/22 History lamotrigine 100 mg tablet 150 mg PO DAILY 03/21/22 03/21/22 History Allergies Allergies Allergy/AdvReac Type Severity Reaction Status Date / Time sertraline AdvReac Intermediate heart Verified 03/04/22 04:30 palpitations Mental Status Exam Mental Status Exam Narrative: Appearance: casually groomed, good hygiene, in NAD Behavior: cooperative Speech: clear, normal rate/rhythm/volume, spontaneous TP: linear TC: no signs of psychosis, wanting to get back into program Mood: anxious Affect: congruent SI:passive HI: none AH: on and off voices of woman telling him to hurt himself VH: none Insight/judgment: fair x 2. Memory/cog: alert, oriented x 3. grossly intact to conversational testing. Assessment & Plan Assessment & Plan (1) Alcohol use disorder, mild, in early remission, abuse: Status: Acute Code(s): F10.11 - Alcohol abuse, in remission (2) Bipolar 2 disorder, major depressive episode: Status: Acute Code(s): F31.81 - Bipolar II disorder Plan Mr. Velásquez is a 32 year-old male with hx of alcohol use disorder and bipolar disorder. He has made significant improvement on his recovery, able to complete recently 90 day program and unfortunately was on wait list to go to [facility]. He quickly relapsed. He is highly motivated to continue alcohol use disorder. We discussed risks, benefits and alternative treatment options. PLAN 1. Admit to M5, CV. 15 mins check 2. continue current medications 3. Aftercare planning. Patient educated on: diagnosis, medication risk/benefits and substance abuse Reason for continued inpatient stay Substantial Risk for: harm to self
[2022-03-25 10:26] LABS: Alanine Aminotransferase 94 U/L (0-40); Alkaline Phosphatase 87 U/L (39-117); Anion Gap 11 (12-20); Aspartate Amino Transferase 45 U/L (5-37); Bilirubin Total 0.6 mg/dL (0.0-1.0); Blood Urea Nitrogen 12 mg/dL (9-16); Calcium 9.1 mg/dL (8.4-10.2); Carbon Dioxide 26 mmol/L (22-29); Chloride 107 mmol/L (96-108); Cholesterol 237 mg/dL; Creatinine Clr Calc Pharmacy 147.6; Estimated Glomerular Filt Rate > 60; Glucose Fasting 96 mg/dL (60-99); HDL Cholesterol 43 mg/dL; LDL Cholesterol Calculated 177 mg/dl; Potassium 4.2 mmol/L (3.3-5.1); Sodium 140 mmol/L (135-145); Total Protein 6.8 g/dL (6.5-8.0); Triglycerides 85 mg/dL
[2022-03-25 12:15] VITALS: BP 134/82; PULSE 77; RESP 20; TEMP 36.8; O2SAT 98
[2022-03-25] MEDS: cloNIDine HCL 0.1 MG TABLET PO (12:29)
[2022-03-25 16:00] VITALS: BP 143/76; PULSE 71; RESP 18; TEMP 36.4; O2SAT 99
[2022-03-25] MEDS: LORazepam 1 MG TABLET 2 MG PO ×2 (16:38→21:14)
--- NOTE | 2022-03-25 19:38 | PM.PSYDC ---
DS: Providers Provider Date of admission: 03/24/22 17:59 Primary care physician: Donny Longoria MD DS: Medications Discharge Medications Home Medications: Home Medications Medication Instructions Recorded Confirmed clonidine HCl 0.1 mg tablet 0.1 mg PO BID PRN Anxiety 03/21/22 03/21/22 hydroxyzine pamoate 25 mg capsule 50 mg PO BID PRN Anxiety 03/21/22 03/21/22 lamotrigine 100 mg tablet 150 mg PO DAILY 03/21/22 03/21/22 Previous Rx's Medication Instructions Recorded melatonin 3 mg tablet 3 mg PO BEDTIME #30 tabs 03/17/22 olanzapine 2.5 mg tablet 7.5 mg PO BEDTIME #90 tabs 03/17/22 trazodone 150 mg tablet 150 mg PO BEDTIME #30 tabs 03/17/22 Mental Status Exam Mental Status Exam Narrative: Appearance: casually groomed, good hygiene, in NAD Behavior: cooperative Speech: clear, normal rate/rhythm/volume, spontaneous TP: linear TC: no signs of psychosis, wanting to get back into program Mood: okay Affect: blunted SI: none HI: none AH: none VH: none Insight/judgment: fair x 2. Memory/cog: alert, oriented x 3. grossly intact to conversational testing. Data Data Completed and Pending Completed studies during hospitalization [Text1]: 03/21/22 03/21/22 03/21/22 21:28 21:28 21:28 WBC RBC Hgb Hct MCV MCH MCHC RDW Plt Count MPV Immature Gran % (Auto) Neut % (Auto) Lymph % (Auto) Lamar % (Auto) Eos % (Auto) Baso % (Auto) Lymph # (Auto) Lamar # (Auto) Eos # (Auto) Baso # (Auto) Abs Immat Gran (auto) Absolute Neuts (auto) Absolute Nucleated RBC Nucleated RBC % (auto) Sodium Potassium Chloride Carbon Dioxide Anion Gap BUN Creatinine Estim Creat Clear Calc Estimated GFR Random Glucose Fasting Glucose Calcium Magnesium Total Bilirubin AST ALT Alkaline Phosphatase Total Protein Albumin Triglycerides Cholesterol LDL Cholesterol, Calc HDL Cholesterol Urine Color Dark Yellow Urine Appearance Clear Urine pH 5.5 Ur Specific Dauphin 1.025 Urine Protein 30 (1+) H Urine Glucose (UA) Negative Urine Ketones 15 Urine Blood Negative Urine Nitrite Negative Ur Leukocyte Esterase Negative Urine RBC 0-2 Urine WBC 0-5 Ur Squamous Epith Cells 0-2 Urine Bacteria None Seen Hyaline Casts 3-5 Salicylates Urine Opiates Screen Not Detected Urine Fentanyl Screen Not Detected Acetaminophen Ur Barbiturates Screen Not Detected Lamotrigine Ur Phencyclidine Scrn Not Detected Ur Amphetamines Screen Not Detected U Benzodiazepines Scrn Not Detected Urine Cocaine Screen Not Detected U Marijuana (THC) Screen Not Detected Ethyl Alcohol Influenza Type A (PCR) NEGATIVE Influenza Type B (PCR) NEGATIVE RSV RNA Qual (PCR) NEGATIVE SARS-CoV-2 RNA (RT-PCR) NEGATIVE 03/21/22 03/21/22 03/21/22 21:38 21:39 21:39 WBC 11.6 H RBC 5.09 Hgb 14.7 Hct 41.8 L MCV 82.1 MCH 28.9 MCHC 35.2 RDW 13.2 Plt Count 383 D MPV 9.1 L Immature Gran % (Auto) 0.2 Neut % (Auto) 58.6 Lymph % (Auto) 31.7 Lamar % (Auto) 7.9 Eos % (Auto) 0.7 Baso % (Auto) 0.9 Lymph # (Auto) 3.7 Lamar # (Auto) 0.9 Eos # (Auto) 0.1 Baso # (Auto) 0.1 Abs Immat Gran (auto) 0.02 Absolute Neuts (auto) 6.8 Absolute Nucleated RBC 0.000 Nucleated RBC % (auto) 0.0 Sodium 142 Potassium 3.3 Chloride 102 Carbon Dioxide 24 Anion Gap 19 BUN 12 Creatinine 0.81 Estim Creat Clear Calc 144.0 Estimated GFR > 60 Random Glucose 122 H Fasting Glucose Calcium 9.2 Magnesium 2.3 Total Bilirubin 0.7 AST 146 H ALT 122 H Alkaline Phosphatase 100 D Total Protein 7.8 Albumin 4.6 Triglycerides Cholesterol LDL Cholesterol, Calc HDL Cholesterol Urine Color Urine Appearance Urine pH Ur Specific Dauphin Urine Protein Urine Glucose (UA) Urine Ketones Urine Blood Urine Nitrite Ur Leukocyte Esterase Urine RBC Urine WBC Ur Squamous Epith Cells Urine Bacteria Hyaline Casts Salicylates < 5.0 L Urine Opiates Screen Urine Fentanyl Screen Acetaminophen < 1 Ur Barbiturates Screen Lamotrigine Ur Phencyclidine Scrn Ur Amphetamines Screen U Benzodiazepines Scrn Urine Cocaine Screen U Marijuana (THC) Screen Ethyl Alcohol 241 Influenza Type A (PCR) Influenza Type B (PCR) RSV RNA Qual (PCR) SARS-CoV-2 RNA (RT-PCR) 03/25/22 03/25/22 08:19 08:19 WBC RBC Hgb Hct MCV MCH MCHC RDW Plt Count MPV Immature Gran % (Auto) Neut % (Auto) Lymph % (Auto) Lamar % (Auto) Eos % (Auto) Baso % (Auto) Lymph # (Auto) Lamar # (Auto) Eos # (Auto) Baso # (Auto) Abs Immat Gran (auto) Absolute Neuts (auto) Absolute Nucleated RBC Nucleated RBC % (auto) Sodium 140 Potassium 4.2 D Chloride 107 Carbon Dioxide 26 Anion Gap 11 L BUN 12 Creatinine 0.79 Estim Creat Clear Calc 147.6 Estimated GFR > 60 Random Glucose Fasting Glucose 96 Calcium 9.1 Magnesium Total Bilirubin 0.6 AST 45 H ALT 94 H Alkaline Phosphatase 87 Total Protein 6.8 Albumin 4.0 Triglycerides 85 Cholesterol 237 LDL Cholesterol, Calc 177 HDL Cholesterol 43 Urine Color Urine Appearance Urine pH Ur Specific Dauphin Urine Protein Urine Glucose (UA) Urine Ketones Urine Blood Urine Nitrite Ur Leukocyte Esterase Urine RBC Urine WBC Ur Squamous Epith Cells Urine Bacteria Hyaline Casts Salicylates Urine Opiates Screen Urine Fentanyl Screen Acetaminophen Ur Barbiturates Screen Lamotrigine Pending Ur Phencyclidine Scrn Ur Amphetamines Screen U Benzodiazepines Scrn Urine Cocaine Screen U Marijuana (THC) Screen Ethyl Alcohol Influenza Type A (PCR) Influenza Type B (PCR) RSV RNA Qual (PCR) SARS-CoV-2 RNA (RT-PCR) DS: Summary Hospital Course Hospital Course: Subjective Notes: Kaplan Warning (pt understood) and Conditional Voluntary Narrative: Mr. Velásquez is 32 year-old male with Bipolar Disorder and alcohol use. Pt self presented to [facility] reporting increase depression, suicidal ideation in context of quickly relapsing on alcohol use after completing day prior a 90 day program alcohol use treatment program in [place]. In the ED, BAL 171. Pt reported hearing voices telling him to hurt himself. On the unit, Mr. Velásquez reports that he was doing fairly well while in the TSS program. He reports once he completed program he was on wait list for sober housing at [facility]. He reports he had trouble even finding transportation to come from [facility] to [facility] and he quickly relapsed. He reports intermittent voices telling him to hurt himself. He reports is mostly a female voice. Pt continues to report suicidal ideation. he endorses feeling hopeless, helpless, worried that he won't be able to get back into a substance use treatment program. Past Psychiatric History: 30 yo male to ER experiencing perceptual alterations-auditory and visual, believes that he had been chosen by mother Neisha to unburden souls. Pt in addition is possibly in hallucinosis from alcohol-reports to ER 48 oz of liquor daily-consistently for several months.? ? IP: One overnight stay secondary to alcohol when his girlfriend broke up with him-he wanted to stab himself OP: Yamel Abreu APRN Trials: some, trazodone, gabapentin, vitamins. Medical Evaluation Reviewed: Yes HOSPITAL COURSE On the unit,pt was admitted on a CV and placed on 15 minutes checks for safety. Pt reported feeling overwhelmed and frustrated about not being able to continue substance use treatment at residential program. He expressed motivation to return to substance use treatment program. We discussed risks, benefits and alternative treatment options, he reported current medications including lamictal, naltrexon, olanzapine have been beneficial for his mood. He was referred to at least 3 CSS. He declined referrals to [facility] and other CSS as he especifically wanted one program. He was connected with a womens volleyball coach who met with him while he was on the unit. He denied suicidal ideation throughout this admission and he was increasingly more visible and attending groups. Status at Discharge Cognitive/behavioral status at discharge: Pt with brigther, non labile mood. He reports anxiety related to not going directly from unit to a CSS program and fear of quickly relapsing on alcohol. He denied SI/HI. He did not appear internally preoccupied. No signs of aggression towards self or others. Functional status at discharge: independent ambulation Overall status at discharge: patient is progressing back to baseline Time Spent with Patient Time attestation: Total time spent providing and/or coordinating discharge services: Time spent: Less than 30 minutes Discharge Plan Discharge Referrals: Donny Longoria MD [Primary Care Provider] - 1 Week Discharge Medications: No Action olanzapine 2.5 mg Tablet 7.5 mg PO BEDTIME Qty: 90 0RF trazodone 150 mg tablet 150 mg PO BEDTIME Qty: 30 0RF melatonin 3 mg Tablet 3 mg PO BEDTIME Qty: 30 0RF lamotrigine 100 mg tablet 150 mg PO DAILY clonidine HCl 0.1 mg Tablet 0.1 mg PO BID PRN (Reason: Anxiety) hydroxyzine pamoate 25 mg capsule 50 mg PO BID PRN (Reason: Anxiety)
[2022-03-25 20:00] VITALS: BP 140/70; PULSE 76; RESP 18; TEMP 36.1; O2SAT 98
[2022-03-25] MEDS: Melatonin 3 MG TABLET PO (21:13)
[2022-03-25] MEDS: traZODone HCL 50 MG TABLET 150 MG PO (21:13)
[2022-03-25] MEDS: OLANZapine 2.5 MG TABLET 7.5 MG PO (21:13)
[2022-03-26] VITALS: RESP 14
[2022-03-26 09:50] VITALS: BP 115/60; PULSE 74; RESP 18; TEMP 36.4; O2SAT 94
[2022-03-26] MEDS: lamoTRIgine 25 MG TABLET 150 MG PO (09:55)
--- NOTE | 2022-03-26 10:43 | P.HPPS_ITS ---
HPI Chief Complaint: SI HPI Past Psychiatric History: 30 yo male to ER experiencing perceptual alterations- auditory and visual, believes that he had been chosen by mother Neisha to unburden souls. Pt in addition is possibly in hallucinosis from alcohol-reports to ER 48 oz of liquor daily-consistently for several months. IP: One overnight stay secondary to alcohol when his girlfriend broke up with him-he wanted to stab himself OP: Yamel Abreu APRN Trials: some, trazodone, gabapentin, vitamins. Medical Evaluation Reviewed: Yes [facility] Medical History Alcohol abuse Anxiety Bipolar disorder Heart murmur No known health problems Family History: denies Social History: Born and raised in [place]. One older sister, one younger sister, both estranged from pt. Pt completed the first quarter of 12th grade, met daughter's mother, and you know the rest of the story, failures from then on. Pt has a daughter who will be eleven on 04/04/21 whom he has not seen in one month. He describes her as smart, wonderful, my proudest moment . 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 Currently unemployed. Pt has tried to complete GED but has had no real support so this is a future goal. Trauma History: Affirms and denies Diagnostics Vital Signs (24Hr): Vital Signs - 24 hr 03/25/22 12:15 03/25/22 16:00 03/25/22 20:00 Temperature 98.3 F 97.5 F 97 F Pulse Rate 77 71 76 Respiratory Rate 20 18 18 Blood Pressure 134/82 143/76 H 140/70 H Pulse Oximetry 98 99 98 Oxygen Delivery Method Room Air Room Air Room Air 03/26/22 00:00 03/26/22 09:50 Temperature 97.6 F Pulse Rate 74 Respiratory Rate 14 18 Blood Pressure 115/60 Pulse Oximetry 94 Oxygen Delivery Method Room Air BMI result Body Mass Index 32.8 Labs Results: 03/21/22 21:39 03/25/22 08:19 Labs: Laboratory Results - last 48 hr 03/25/22 08:19 Sodium 140 Potassium 4.2 D Chloride 107 Carbon Dioxide 26 Anion Gap 11 L BUN 12 Creatinine 0.79 Estim Creat Clear Calc 147.6 Estimated GFR > 60 Fasting Glucose 96 Calcium 9.1 Total Bilirubin 0.6 AST 45 H ALT 94 H Alkaline Phosphatase 87 Total Protein 6.8 Albumin 4.0 Triglycerides 85 Cholesterol 237 LDL Cholesterol, Calc 177 HDL Cholesterol 43 Meds/Allergies Meds Home Medications Medication Instructions Recorded Confirmed Type clonidine HCl 0.1 mg tablet 0.1 mg PO BID PRN Anxiety 03/21/22 03/21/22 History hydroxyzine pamoate 25 mg capsule 50 mg PO BID PRN Anxiety 03/21/22 03/21/22 History lamotrigine 100 mg tablet 150 mg PO DAILY 03/21/22 03/21/22 History Allergies Allergies Allergy/AdvReac Type Severity Reaction Status Date / Time sertraline AdvReac Intermediate heart Verified 03/04/22 04:30 palpitations Assessment & Plan Statement Statement: I have reviewed the history and physical and performed a pertinent examination on my patient. No changes have occurred unless specified. If we did it that way it would in addition to automatically populate Ng
[2022-03-26] MEDS: hydrOXYzine HCL 25 MG TABLET 50 MG PO (11:46)
--- NOTE | 2022-03-26 12:15 | HO.PSYCHPN ---
Subjective Subjective Date of Service: 03/26/22 Reason For Visit: SI Subjective Notes: Conditional Voluntary Healthcare Proxy: No Guardianship: No Medical Problems Affecting Mental Status: No Interim History: Pt reports regime to be effective. Asks for no current changes. Looking to return to [facility]. States he had been there for six months, left July 2021. States he re-applied for admit prior to current admission. Medication Compliance: Yes Side effects from medications: No Attending Groups: Intermittent Review of Systems Acute medical concerns: Yes Reports a lump on the left side of his chest-asks for assessment then declines-concerned he has cancer. Anxious about this. Medical Review of Systems: unchanged Mental Status Exam Mental Status Exam Patient Appearance: Fatigued Patient Orientation: Person, Place, Time and Situation Level of Consciousness: Alert Patient Behavior: Talkative and Good Eye Contact Mood Description: Flat Affect Description: Flat Patient Cognition Impaired: No Ability to Follow Directions: Good Speech Pattern: Spontaneous Speech Memory Description: Intact Hallucinations: None (denies) Delusions: Not Present Thought Process: Intact and Rumination Thought Content: positive for Intact, positive for Suicidal Ideation (denies) and positive for Homicidal Ideation (denies) Judgement: Fair Diagnostics Vital Signs (24Hr): Vital Signs - 24 hr 03/25/22 16:00 03/25/22 20:00 03/26/22 00:00 Temperature 97.5 F 97 F Pulse Rate 71 76 Respiratory Rate 18 18 14 Blood Pressure 143/76 H 140/70 H Pulse Oximetry 99 98 Oxygen Delivery Method Room Air Room Air 03/26/22 09:50 Temperature 97.6 F Pulse Rate 74 Respiratory Rate 18 Blood Pressure 115/60 Pulse Oximetry 94 Oxygen Delivery Method Room Air BMI result Body Mass Index 32.8 Labs Results: 03/21/22 21:39 03/25/22 08:19 Labs: Laboratory Results - last 48 hr 03/25/22 08:19 Sodium 140 Potassium 4.2 D Chloride 107 Carbon Dioxide 26 Anion Gap 11 L BUN 12 Creatinine 0.79 Estim Creat Clear Calc 147.6 Estimated GFR > 60 Fasting Glucose 96 Calcium 9.1 Total Bilirubin 0.6 AST 45 H ALT 94 H Alkaline Phosphatase 87 Total Protein 6.8 Albumin 4.0 Triglycerides 85 Cholesterol 237 LDL Cholesterol, Calc 177 HDL Cholesterol 43 Medications Medications Current Medications Acetaminophen (Acetaminophen 325 Mg Tablet) 650 mg PO Q6H PRN PRN Reason: Headache/Pain Mild Scale (1-3) Al Hydroxide/Mg Hydroxide (Magnesium Hydrox/Alum Hydrox 30 Ml Oral.Susp) 30 ml PO Q6H PRN PRN Reason: Heartburn/Nausea Clonidine HCl (Clonidine Hcl 0.1 Mg Tablet) 0.1 mg PO BID PRN; Protocol PRN Reason: Anxiety Last Admin: 03/25/22 12:29 Dose: 0.1 mg Hydroxyzine HCl (Hydroxyzine Hcl 25 Mg Tablet) 50 mg PO BID PRN PRN Reason: Anxiety Last Admin: 03/26/22 11:46 Dose: 50 mg Lamotrigine (Lamotrigine 25 Mg Tablet) 150 mg PO DAILY [facility] Last Admin: 03/26/22 09:55 Dose: 150 mg Lorazepam (Lorazepam 1 Mg Tablet) 2 mg PO Q1H PRN PRN Reason: Alcohol Withdrawal CIWA - Last Admin: 03/25/22 16:38 Dose: 2 mg Magnesium Hydroxide (Milk Of Magnesia 30 Ml Oral.Susp) 30 ml PO DAILY PRN PRN Reason: Constipation Melatonin (Melatonin 3 Mg Tablet) 3 mg PO BEDTIME [facility] Last Admin: 03/25/22 21:13 Dose: 3 mg Nicotine (Nicotine 21 Mg Patch.Td24) 21 mg TRANSDERMA DAILY [facility] Last Admin: 03/26/22 09:55 Dose: Not Given Olanzapine (Olanzapine 2.5 Mg Tablet) 7.5 mg PO BEDTIME [facility] Last Admin: 03/25/22 21:13 Dose: 7.5 mg Olanzapine (Olanzapine 2.5 Mg Tablet) 2.5 mg PO Q4H PRN PRN Reason: Psychosis Trazodone HCl (Trazodone Hcl 50 Mg Tablet) 150 mg PO BEDTIME [facility] Last Admin: 03/25/22 21:13 Dose: 150 mg Allergies Allergies Allergy/AdvReac Type Severity Reaction Status Date / Time sertraline AdvReac Intermediate heart Verified 03/04/22 04:30 palpitations Assessment & Plan Assessment & Plan (1) Alcohol use disorder, mild, in early remission, abuse: Status: Acute Code(s): F10.11 - Alcohol abuse, in remission (2) Bipolar 2 disorder, major depressive episode: Status: Acute Code(s): F31.81 - Bipolar II disorder Plan 03/26/22- Pt asks for no medication changes at this time. He reports L sided chest nodule, enlargement. He is worried about it, unsure if he wants eval here. Will ask for hospitalist consult or get OP appt for discharge. Pt concerned he has cancer and eval is anxiety provoking. Will consider I spent minutes with the patient and/or on the patient floor today, greater than?50% of which was spent counseling/coordinating care. Patient educated on: medication risk/benefits and therapeutic strategies Informed Consent: understands and further education needed Reason for contiued inpatient stay Substantial Risk for: rapid decompensation
[2022-03-26] MEDS: cloNIDine HCL 0.1 MG TABLET PO (17:18)
[2022-03-26 20:00] VITALS: BP 139/80; PULSE 73; RESP 18; TEMP 36.8; O2SAT 99
[2022-03-26] MEDS: OLANZapine 2.5 MG TABLET 7.5 MG PO (21:33)
[2022-03-26] MEDS: Melatonin 3 MG TABLET 6 MG PO (21:34)
[2022-03-26] MEDS: traZODone HCL 50 MG TABLET 150 MG PO (21:34)
[2022-03-27] MEDS: lamoTRIgine 25 MG TABLET 150 MG PO (09:07)
[2022-03-27] MEDS: hydrOXYzine HCL 25 MG TABLET 50 MG PO (12:14)
[2022-03-27] MEDS: cloNIDine HCL 0.1 MG TABLET PO (14:29)
--- NOTE | 2022-03-27 16:49 | HO.PSYCHPN ---
Subjective Subjective Date of Service: 03/27/22 Reason For Visit: SI Subjective Notes: Conditional Voluntary Healthcare Proxy: No Guardianship: No Medical Problems Affecting Mental Status: No Interim History: Pt asks for a change of room-mate as he was awake most of the night due to current room-mates symptoms. Requests Ensure/Glucerna as this is a supplement he uses with meals to manage his health. Asks that we use a lower sugar version if possible. Team reports an increase in anxiety, visual and auditory perceptual alterations. Pt denies these as current issues and attributes issues to having a poor nights sleep due to current room-mate. Asks for no changes in medications at this time. Medication Compliance: Yes Side effects from medications: No Attending Groups: Intermittent Review of Systems Acute medical concerns: No Medical Review of Systems: unchanged Mental Status Exam Mental Status Exam Patient Appearance: Fatigued Patient Orientation: Person, Place, Time and Situation Level of Consciousness: Alert Patient Behavior: Talkative and Good Eye Contact Mood Description: Flat Affect Description: Flat Patient Cognition Impaired: No Ability to Follow Directions: Good Speech Pattern: Spontaneous Speech Memory Description: Intact Hallucinations: None (denies) Delusions: Not Present Thought Process: Intact and Rumination Thought Content: positive for Intact, positive for Suicidal Ideation (denies) and positive for Homicidal Ideation (denies) Judgement: Fair Diagnostics Vital Signs (24Hr): Vital Signs - 24 hr 03/26/22 20:00 Temperature 98.3 F Pulse Rate 73 Respiratory Rate 18 Blood Pressure 139/80 Pulse Oximetry 99 Oxygen Delivery Method Room Air BMI result Body Mass Index 32.8 Labs Results: 03/21/22 21:39 03/25/22 08:19 Medications Medications Current Medications Acetaminophen (Acetaminophen 325 Mg Tablet) 650 mg PO Q6H PRN PRN Reason: Headache/Pain Mild Scale (1-3) Al Hydroxide/Mg Hydroxide (Magnesium Hydrox/Alum Hydrox 30 Ml Oral.Susp) 30 ml PO Q6H PRN PRN Reason: Heartburn/Nausea Clonidine HCl (Clonidine Hcl 0.1 Mg Tablet) 0.1 mg PO BID PRN; Protocol PRN Reason: Anxiety Last Admin: 03/27/22 14:29 Dose: 0.1 mg Hydroxyzine HCl (Hydroxyzine Hcl 25 Mg Tablet) 50 mg PO BID PRN PRN Reason: Anxiety Last Admin: 03/27/22 12:14 Dose: 50 mg Lamotrigine (Lamotrigine 25 Mg Tablet) 150 mg PO DAILY [facility] Last Admin: 03/27/22 09:07 Dose: 150 mg Magnesium Hydroxide (Milk Of Magnesia 30 Ml Oral.Susp) 30 ml PO DAILY PRN PRN Reason: Constipation Melatonin (Melatonin 3 Mg Tablet) 6 mg PO BEDTIME [facility] Last Admin: 03/26/22 21:34 Dose: 6 mg Nicotine (Nicotine 21 Mg Patch.Td24) 21 mg TRANSDERMA DAILY [facility] Last Admin: 03/27/22 09:07 Dose: Not Given Olanzapine (Olanzapine 2.5 Mg Tablet) 7.5 mg PO BEDTIME [facility] Last Admin: 03/26/22 21:33 Dose: 7.5 mg Olanzapine (Olanzapine 2.5 Mg Tablet) 2.5 mg PO Q4H PRN PRN Reason: Psychosis Trazodone HCl (Trazodone Hcl 50 Mg Tablet) 150 mg PO BEDTIME [facility] Last Admin: 03/26/22 21:34 Dose: 150 mg Allergies Allergies Allergy/AdvReac Type Severity Reaction Status Date / Time sertraline AdvReac Intermediate heart Verified 03/04/22 04:30 palpitations Assessment & Plan Assessment & Plan (1) Alcohol use disorder, mild, in early remission, abuse: Status: Acute Code(s): F10.11 - Alcohol abuse, in remission (2) Bipolar 2 disorder, major depressive episode: Status: Acute Code(s): F31.81 - Bipolar II disorder Plan 03/26/22- Pt asks for no medication changes at this time. He reports L sided chest nodule, enlargement. He is worried about it, unsure if he wants eval here. Will ask for hospitalist consult or get OP appt for discharge. Pt concerned he has cancer and eval is anxiety provoking. Will consider 03/27/22- Glucerna tid with meals Team will accomodate room change Continue current regime per pt request. Declines changes to address teams reported sx. I spent minutes with the patient and/or on the patient floor today, greater than?50% of which was spent counseling/coordinating care. Patient educated on: medication risk/benefits and therapeutic strategies Informed Consent: understands Reason for contiued inpatient stay Substantial Risk for: rapid decompensation
--- NOTE | 2022-03-27 17:32 | PM.EVENT ---
Event Note Date of Service: 03/27/22 Event Note: Patient who is a smoker with history heart murmur who is obese with BMI >32 admitted to psychiatry for bipolar/SI with consult placed to medicine for evaluation left chest nodule/enlarged area, with discomfort . Patient reports he has had bilateral breast masses for about 2-3 week that have not increased in size. Reports 7/10 pain only when touched, otherwise not bothersome/tender. There is no overlying redness, warmth. Pt afebrile. There are palpable breast masses bilaterally that are tender to palpation, about 2.5cm x 2cm right, 2cm x2cm left. This is most probably gynecomastia, a chronic issue most likely related to obesity and smoking, possibly recent PPI use, which results in hypogonadism and estorgen dominance and can result in benign proliferation of breast tissue. He has no family history breast cancer. There is very low suspicion for malignancy or abscess. The focus inpatient should be comfort. Recommend ibuprofen or tylenol. Can also use warm compresses. Patient needs to work on weight loss and smoking cessation and is counseled on this. Avoid PPIs. Patient needs to follow up outpt with PCP for further work up including optimization of testosterone levels.
[2022-03-27] MEDS: OLANZapine 2.5 MG TABLET 7.5 MG PO (19:45)
[2022-03-27] MEDS: traZODone HCL 50 MG TABLET 150 MG PO (19:46)
[2022-03-27] MEDS: Melatonin 3 MG TABLET 6 MG PO (19:46)
[2022-03-27 20:00] VITALS: BP 118/68; PULSE 75; RESP 16; TEMP 36.4; O2SAT 98
[2022-03-28 08:38] VITALS: BP 105/55; PULSE 60; RESP 16; TEMP 36.7; O2SAT 96
[2022-03-28] MEDS: lamoTRIgine 25 MG TABLET 150 MG PO (10:06)
[2022-03-28] MEDS: hydrOXYzine HCL 25 MG TABLET 50 MG PO (12:51)
[2022-03-28 15:01] VITALS: BP 121/68; PULSE 73; RESP 16; TEMP 36.5; O2SAT 96
--- NOTE | 2022-03-28 15:19 | P.PNPSI_ITS ---
Subjective Subjective Date of Service: 03/28/22 Reason For Visit: SI Subjective Notes: Conditional Voluntary Healthcare Proxy: No Guardianship: No Medical Problems Affecting Mental Status: No Interim History: Planning discharge 03/31. Calling [facility] for discussion of return as this is a previous placement. Hospitalist consult for breast mass much appreciated. Denies current sx. Medication Compliance: Yes Side effects from medications: No Attending Groups: Intermittent Review of Systems Acute medical concerns: No Medical Review of Systems: unchanged Mental Status Exam Mental Status Exam Patient Appearance: Appropriate Patient Orientation: Person, Place, Time and Situation Level of Consciousness: Alert Patient Behavior: Talkative and Good Eye Contact Mood Description: Constricted Affect Description: Constricted Patient Cognition Impaired: No Ability to Follow Directions: Good Speech Pattern: Spontaneous Speech Memory Description: Intact Hallucinations: None (denies) Delusions: Not Present Thought Process: Intact and Rumination Thought Content: positive for Intact, positive for Suicidal Ideation (denies) and positive for Homicidal Ideation (denies) Judgement: Fair Diagnostics Vital Signs (24Hr): Vital Signs - 24 hr 03/27/22 20:00 03/28/22 08:38 03/28/22 15:01 Temperature 97.6 F 98.1 F 97.7 F Pulse Rate 75 60 73 Respiratory Rate 16 16 16 Blood Pressure 118/68 105/55 L 121/68 Pulse Oximetry 98 96 96 Oxygen Delivery Method Room Air Room Air Room Air BMI result Body Mass Index 32.8 Labs Results: 03/21/22 21:39 03/25/22 08:19 Medications Medications Current Medications Acetaminophen (Acetaminophen 325 Mg Tablet) 650 mg PO Q6H PRN PRN Reason: Headache/Pain Mild Scale (1-3) Al Hydroxide/Mg Hydroxide (Magnesium Hydrox/Alum Hydrox 30 Ml Oral.Susp) 30 ml PO Q6H PRN PRN Reason: Heartburn/Nausea Clonidine HCl (Clonidine Hcl 0.1 Mg Tablet) 0.1 mg PO BID PRN; Protocol PRN Reason: Anxiety Last Admin: 03/27/22 14:29 Dose: 0.1 mg Hydroxyzine HCl (Hydroxyzine Hcl 25 Mg Tablet) 50 mg PO BID PRN PRN Reason: Anxiety Last Admin: 03/28/22 12:51 Dose: 50 mg Lamotrigine (Lamotrigine 25 Mg Tablet) 150 mg PO DAILY [facility] Last Admin: 03/28/22 10:06 Dose: 150 mg Magnesium Hydroxide (Milk Of Magnesia 30 Ml Oral.Susp) 30 ml PO DAILY PRN PRN Reason: Constipation Melatonin (Melatonin 3 Mg Tablet) 6 mg PO BEDTIME [facility] Last Admin: 03/27/22 19:46 Dose: 6 mg Nicotine (Nicotine 21 Mg Patch.Td24) 21 mg TRANSDERMA DAILY [facility] Last Admin: 03/28/22 10:06 Dose: Not Given Olanzapine (Olanzapine 2.5 Mg Tablet) 7.5 mg PO BEDTIME [facility] Last Admin: 03/27/22 19:45 Dose: 7.5 mg Olanzapine (Olanzapine 2.5 Mg Tablet) 2.5 mg PO Q4H PRN PRN Reason: Psychosis Trazodone HCl (Trazodone Hcl 50 Mg Tablet) 150 mg PO BEDTIME [facility] Last Admin: 03/27/22 19:46 Dose: 150 mg Allergies Allergies Allergy/AdvReac Type Severity Reaction Status Date / Time sertraline AdvReac Intermediate heart Verified 03/04/22 04:30 palpitations Assessment & Plan Assessment & Plan (1) Alcohol use disorder, mild, in early remission, abuse: Status: Acute Code(s): F10.11 - Alcohol abuse, in remission (2) Bipolar 2 disorder, major depressive episode: Status: Acute Code(s): F31.81 - Bipolar II disorder Plan 03/26/22- Pt asks for no medication changes at this time. He reports L sided chest nodule, enlargement. He is worried about it, unsure if he wants eval here. Will ask for hospitalist consult or get OP appt for discharge. Pt concerned he has cancer and eval is anxiety provoking. Will consider 03/27/22- Glucerna tid with meals Team will accomodate room change Continue current regime per pt request. Declines changes to address teams reported sx. 03/28/22- Discharge planned for 03/31/22. Pt assisting in search for housing. I spent minutes with the patient and/or on the patient floor today, greater than?50% of which was spent counseling/coordinating care. Patient educated on: therapeutic strategies Informed Consent: understands Reason for contiued inpatient stay Substantial Risk for: stable for discharge
[2022-03-28 16:00] VITALS: BP 102/61; PULSE 83; TEMP 37; O2SAT 96
[2022-03-28 19:23] VITALS: BP 95/53; PULSE 80; TEMP 36.8; O2SAT 97
[2022-03-28] MEDS: OLANZapine 2.5 MG TABLET 7.5 MG PO (21:51)
[2022-03-28] MEDS: traZODone HCL 50 MG TABLET 150 MG PO (21:51)
[2022-03-28] MEDS: Melatonin 3 MG TABLET 6 MG PO (21:52)
[2022-03-29 08:00] VITALS: BP 107/51; PULSE 59; RESP 16; TEMP 37.2; O2SAT 95
[2022-03-29] MEDS: lamoTRIgine 25 MG TABLET 150 MG PO (08:25)
--- NOTE | 2022-03-29 09:53 | P.PNPSI_ITS ---
Subjective Subjective Date of Service: 03/29/22 Reason For Visit: SI Subjective Notes: Conditional Voluntary Healthcare Proxy: No Guardianship: No Medical Problems Affecting Mental Status: No Interim History: Patient has been flat withdrawn Medication Compliance: Yes Side effects from medications: No Attending Groups: Intermittent Review of Systems Acute medical concerns: No Medical Review of Systems: unchanged Mental Status Exam Mental Status Exam Patient Appearance: Appropriate Patient Orientation: Person, Place, Time and Situation Level of Consciousness: Alert Patient Behavior: Guarded, Passive and Good Eye Contact Mood Description: Constricted Affect Description: Constricted Patient Cognition Impaired: No Ability to Follow Directions: Good Speech Pattern: Spontaneous Speech Memory Description: Intact Hallucinations: None (denies) Delusions: Not Present Thought Process: Intact and Rumination Thought Content: positive for Intact, negative for Suicidal Ideation (denies) or negative for Homicidal Ideation (denies) Judgement: Fair Diagnostics Vital Signs (24Hr): Vital Signs - 24 hr 03/28/22 16:00 03/28/22 19:23 03/28/22 15:01 Temperature 98.6 F 98.2 F 97.7 F Pulse Rate 83 80 73 Respiratory Rate 16 Blood Pressure 102/61 95/53 L 121/68 Pulse Oximetry 96 97 96 Oxygen Delivery Method Room Air Room Air Room Air BMI result Body Mass Index 32.8 Labs Results: 03/21/22 21:39 03/25/22 08:19 Medications Medications Current Medications Acetaminophen (Acetaminophen 325 Mg Tablet) 650 mg PO Q6H PRN PRN Reason: Headache/Pain Mild Scale (1-3) Al Hydroxide/Mg Hydroxide (Magnesium Hydrox/Alum Hydrox 30 Ml Oral.Susp) 30 ml PO Q6H PRN PRN Reason: Heartburn/Nausea Clonidine HCl (Clonidine Hcl 0.1 Mg Tablet) 0.1 mg PO BID PRN; Protocol PRN Reason: Anxiety Last Admin: 03/27/22 14:29 Dose: 0.1 mg Hydroxyzine HCl (Hydroxyzine Hcl 25 Mg Tablet) 50 mg PO BID PRN PRN Reason: Anxiety Last Admin: 03/28/22 12:51 Dose: 50 mg Lamotrigine (Lamotrigine 25 Mg Tablet) 150 mg PO DAILY [facility] Last Admin: 03/29/22 08:25 Dose: 150 mg Magnesium Hydroxide (Milk Of Magnesia 30 Ml Oral.Susp) 30 ml PO DAILY PRN PRN Reason: Constipation Melatonin (Melatonin 3 Mg Tablet) 6 mg PO BEDTIME [facility] Last Admin: 03/28/22 21:52 Dose: 6 mg Nicotine (Nicotine 21 Mg Patch.Td24) 21 mg TRANSDERMA DAILY [facility] Last Admin: 03/29/22 08:26 Dose: Not Given Olanzapine (Olanzapine 2.5 Mg Tablet) 7.5 mg PO BEDTIME [facility] Last Admin: 03/28/22 21:51 Dose: 7.5 mg Olanzapine (Olanzapine 2.5 Mg Tablet) 2.5 mg PO Q4H PRN PRN Reason: Psychosis Trazodone HCl (Trazodone Hcl 50 Mg Tablet) 150 mg PO BEDTIME [facility] Last Admin: 03/28/22 21:51 Dose: 150 mg Allergies Allergies Allergy/AdvReac Type Severity Reaction Status Date / Time sertraline AdvReac Intermediate heart Verified 03/04/22 04:30 palpitations Assessment & Plan Assessment & Plan (1) Alcohol use disorder, mild, in early remission, abuse: Status: Acute Code(s): F10.11 - Alcohol abuse, in remission (2) Bipolar 2 disorder, major depressive episode: Status: Acute Code(s): F31.81 - Bipolar II disorder Plan 03/26/22- Pt asks for no medication changes at this time. He reports L sided chest nodule, enlargement. He is worried about it, unsure if he wants eval here. Will ask for hospitalist consult or get OP appt for discharge. Pt concerned he has cancer and eval is anxiety provoking. Will consider 03/27/22- Glucerna tid with meals Team will accomodate room change Continue current regime per pt request. Declines changes to address teams reported sx. 03/28/22- Discharge planned for 03/31/22. Pt assisting in search for housing. 03/29/2022 Continue plan of care discharge planning I spent minutes with the patient and/or on the patient floor today, greater than?50% of which was spent counseling/coordinating care. Reason for contiued inpatient stay Substantial Risk for: harm to self and rapid decompensation
[2022-03-29 11:54] LABS: Lamotrigine Lamictal 1.5 mcg/mL (4.0-18.0)
[2022-03-29] MEDS: hydrOXYzine HCL 25 MG TABLET 50 MG PO (12:26)
[2022-03-29 12:41] VITALS: BP 113/61; PULSE 67; RESP 16; TEMP 36.8; O2SAT 98
[2022-03-29 19:58] VITALS: BP 120/83; PULSE 65; RESP 14; TEMP 36.6
[2022-03-29] MEDS: cloNIDine HCL 0.1 MG TABLET PO (20:01)
[2022-03-29] MEDS: traZODone HCL 50 MG TABLET 150 MG PO (21:51)
[2022-03-29] MEDS: Melatonin 3 MG TABLET 6 MG PO (21:51)
[2022-03-29] MEDS: OLANZapine 2.5 MG TABLET 7.5 MG PO (21:51)
[2022-03-30 07:59] VITALS: BP 111/54; PULSE 63; RESP 16; TEMP 37.2; O2SAT 96
[2022-03-30] MEDS: lamoTRIgine 25 MG TABLET 150 MG PO (09:20)
[2022-03-30 12:00] VITALS: BP 136/89; PULSE 89; RESP 16; TEMP 36.8; O2SAT 96
[2022-03-30] MEDS: hydrOXYzine HCL 25 MG TABLET 50 MG PO (15:12)
[2022-03-30 16:47] VITALS: BP 117/67; PULSE 70; RESP 18; TEMP 37.3; O2SAT 98
[2022-03-30] MEDS: traZODone HCL 50 MG TABLET 150 MG PO (21:53)
[2022-03-30] MEDS: OLANZapine 2.5 MG TABLET 7.5 MG PO (21:53)
[2022-03-30] MEDS: Melatonin 3 MG TABLET 6 MG PO (22:02)
--- NOTE | 2022-03-30 23:31 | P.PNPSI_ITS ---
Subjective Subjective Date of Service: 03/30/22 Reason For Visit: SI Interim History: Patient continues to be relatively stable stable cooperative with discharge planning Mental Status Exam Mental Status Exam Patient Appearance: Appropriate Patient Orientation: Person, Place, Time and Situation Level of Consciousness: Alert Patient Behavior: Guarded, Passive and Good Eye Contact Mood Description: Constricted Affect Description: Constricted Patient Cognition Impaired: No Ability to Follow Directions: Good Speech Pattern: Spontaneous Speech Memory Description: Intact Hallucinations: None (denies) Delusions: Not Present Thought Process: Intact and Rumination Thought Content: positive for Intact, negative for Suicidal Ideation (denies) or negative for Homicidal Ideation (denies) Judgement: Fair Diagnostics Vital Signs (24Hr): Vital Signs - 24 hr 03/30/22 07:59 03/30/22 12:00 03/30/22 16:47 Temperature 98.9 F 98.2 F 99.2 F Pulse Rate 63 89 70 Respiratory Rate 16 16 18 Blood Pressure 111/54 L 136/89 117/67 Pulse Oximetry 96 96 98 Oxygen Delivery Method Room Air Room Air Room Air BMI result Body Mass Index 32.8 Labs Results: 03/21/22 21:39 03/25/22 08:19 Labs: Laboratory Results - last 48 hr 03/25/22 08:19 Lamotrigine 1.5 L Medications Medications Current Medications Acetaminophen (Acetaminophen 325 Mg Tablet) 650 mg PO Q6H PRN PRN Reason: Headache/Pain Mild Scale (1-3) Al Hydroxide/Mg Hydroxide (Magnesium Hydrox/Alum Hydrox 30 Ml Oral.Susp) 30 ml PO Q6H PRN PRN Reason: Heartburn/Nausea Clonidine HCl (Clonidine Hcl 0.1 Mg Tablet) 0.1 mg PO BID PRN; Protocol PRN Reason: Anxiety Last Admin: 03/29/22 20:01 Dose: 0.1 mg Hydroxyzine HCl (Hydroxyzine Hcl 25 Mg Tablet) 50 mg PO BID PRN PRN Reason: Anxiety Last Admin: 03/30/22 15:12 Dose: 50 mg Lamotrigine (Lamotrigine 25 Mg Tablet) 150 mg PO DAILY [facility] Last Admin: 03/30/22 09:20 Dose: 150 mg Magnesium Hydroxide (Milk Of Magnesia 30 Ml Oral.Susp) 30 ml PO DAILY PRN PRN Reason: Constipation Melatonin (Melatonin 3 Mg Tablet) 6 mg PO BEDTIME [facility] Last Admin: 03/30/22 22:02 Dose: 6 mg Nicotine (Nicotine 21 Mg Patch.Td24) 21 mg TRANSDERMA DAILY [facility] Last Admin: 03/30/22 09:23 Dose: Not Given Olanzapine (Olanzapine 2.5 Mg Tablet) 7.5 mg PO BEDTIME [facility] Last Admin: 03/30/22 21:53 Dose: 7.5 mg Olanzapine (Olanzapine 2.5 Mg Tablet) 2.5 mg PO Q4H PRN PRN Reason: Psychosis Trazodone HCl (Trazodone Hcl 50 Mg Tablet) 150 mg PO BEDTIME [facility] Last Admin: 03/30/22 21:53 Dose: 150 mg Allergies Allergies Allergy/AdvReac Type Severity Reaction Status Date / Time sertraline AdvReac Intermediate heart Verified 03/04/22 04:30 palpitations Assessment & Plan Assessment & Plan (1) Alcohol use disorder, mild, in early remission, abuse: Status: Acute Code(s): F10.11 - Alcohol abuse, in remission (2) Bipolar 2 disorder, major depressive episode: Status: Acute Code(s): F31.81 - Bipolar II disorder Plan 03/26/22- Pt asks for no medication changes at this time. He reports L sided chest nodule, enlargement. He is worried about it, unsure if he wants eval here. Will ask for hospitalist consult or get OP appt for discharge. Pt concerned he has cancer and eval is anxiety provoking. Will consider 03/27/22- Glucerna tid with meals Team will accomodate room change Continue current regime per pt request. Declines changes to address teams reported sx. 03/28/22- Discharge planned for 03/31/22. Pt assisting in search for housing. 03/29/2022 Continue plan of care discharge planning Or 03/30/2022 Continue plan of care I spent minutes with the patient and/or on the patient floor today, greater than?50% of which was spent counseling/coordinating care. Reason for contiued inpatient stay Substantial Risk for: harm to self, inability to function and rapid decompensation
[2022-03-31 08:40] VITALS: BP 131/65; PULSE 64; RESP 18; TEMP 36.7; O2SAT 98
[2022-03-31] MEDS: hydrOXYzine HCL 25 MG TABLET 50 MG PO ×2 (09:23→16:10)
[2022-03-31] MEDS: lamoTRIgine 25 MG TABLET 150 MG PO (10:11)
[2022-03-31 16:00] VITALS: BP 125/77; PULSE 86; TEMP 37; O2SAT 98
--- NOTE | 2022-03-31 18:40 | P.PNPSI_ITS ---
Subjective Subjective Date of Service: 03/31/22 Reason For Visit: SI Subjective Notes: Conditional Voluntary Healthcare Proxy: No Guardianship: No Medical Problems Affecting Mental Status: No Interim History: Upset about discharge. Refusing program placement offers. Review of symptoms-lability, anxiety, AH, insomnia with medication changes- [place] added, Clonidine scheduled, Melatonin increased, Seroquel prn Medication Compliance: Yes Side effects from medications: No Attending Groups: Intermittent Review of Systems Acute medical concerns: No Medical Review of Systems: unchanged Mental Status Exam Mental Status Exam Patient Appearance: Fatigued Patient Orientation: Person, Place, Time and Situation Level of Consciousness: Alert Patient Behavior: Talkative, Resistive to Care and Good Eye Contact Mood Description: Blunted Affect Description: Blunted Patient Cognition Impaired: No Ability to Follow Directions: Good Speech Pattern: Spontaneous Speech Memory Description: Intact Hallucinations: Auditory Thought Process: Distracted Thought Content: positive for [place], positive for Circumstantial and positive for Suicidal Ideation (denies) Depressive Symptoms: Insomnia, Increased Irritability, Difficulty Sleeping and Thoughts of /Suicide (denies) Judgement: Fair Diagnostics Vital Signs (24Hr): Vital Signs - 24 hr 03/31/22 08:40 03/31/22 16:00 Temperature 98.0 F 98.6 F Pulse Rate 64 86 Respiratory Rate 18 Blood Pressure 131/65 125/77 Pulse Oximetry 98 98 Oxygen Delivery Method Room Air Room Air BMI result Body Mass Index 32.8 Labs Results: 03/21/22 21:39 03/25/22 08:19 Medications Medications Current Medications Acetaminophen (Acetaminophen 325 Mg Tablet) 650 mg PO Q6H PRN PRN Reason: Headache/Pain Mild Scale (1-3) Al Hydroxide/Mg Hydroxide (Magnesium Hydrox/Alum Hydrox 30 Ml Oral.Susp) 30 ml PO Q6H PRN PRN Reason: Heartburn/Nausea Clonidine HCl (Clonidine Hcl 0.1 Mg Tablet) 0.1 mg PO BID [facility]IS; Protocol Hydroxyzine HCl (Hydroxyzine Hcl 25 Mg Tablet) 50 mg PO BID PRN PRN Reason: Anxiety Last Admin: 03/31/22 16:10 Dose: 50 mg Lamotrigine (Lamotrigine 25 Mg Tablet) 150 mg PO DAILY [facility] Last Admin: 03/31/22 10:11 Dose: 150 mg [place] Carbonate ([place] Carbonate 300 Mg Tablet) 300 mg PO BEDTIME [facility] Magnesium Hydroxide (Milk Of Magnesia 30 Ml Oral.Susp) 30 ml PO DAILY PRN PRN Reason: Constipation Melatonin (Melatonin 3 Mg Tablet) 10 mg PO BEDTIME [facility] Nicotine (Nicotine 21 Mg Patch.Td24) 21 mg TRANSDERMA DAILY [facility] Last Admin: 03/31/22 10:12 Dose: Not Given Olanzapine (Olanzapine 2.5 Mg Tablet) 7.5 mg PO BEDTIME [facility] Last Admin: 03/30/22 21:53 Dose: 7.5 mg Olanzapine (Olanzapine 2.5 Mg Tablet) 2.5 mg PO Q4H PRN PRN Reason: Psychosis Quetiapine Fumarate (Quetiapine Fumarate 50 Mg Tablet) 50 mg PO BEDTIME PRN PRN Reason: anxiety, insomnia Trazodone HCl (Trazodone Hcl 50 Mg Tablet) 150 mg PO BEDTIME [facility] Last Admin: 03/30/22 21:53 Dose: 150 mg Allergies Allergies Allergy/AdvReac Type Severity Reaction Status Date / Time sertraline AdvReac Intermediate heart Verified 03/04/22 04:30 palpitations Assessment & Plan Assessment & Plan (1) Alcohol use disorder, mild, in early remission, abuse: Status: Acute Code(s): F10.11 - Alcohol abuse, in remission (2) Bipolar 2 disorder, major depressive episode: Status: Acute Code(s): F31.81 - Bipolar II disorder Plan 03/26/22- Pt asks for no medication changes at this time. He reports L sided chest nodule, enlargement. He is worried about it, unsure if he wants eval here. Will ask for hospitalist consult or get OP appt for discharge. Pt concerned he has cancer and eval is anxiety provoking. Will consider 03/27/22- Glucerna tid with meals Team will accomodate room change Continue current regime per pt request. Declines changes to address teams reported sx. 03/28/22- Discharge planned for 03/31/22. Pt assisting in search for housing. 03/29/2022 Continue plan of care discharge planning Or 03/30/2022 Continue plan of care 03/31/22 [place] 300 mg hs Change clonidine from prn to scheduled Melatonin 10 mg hs Seroquel prn I spent minutes with the patient and/or on the patient floor today, g reater than?50% of which was spent counseling/coordinating care. Patient educated on: medication risk/benefits and therapeutic strategies Informed Consent: understands Reason for contiued inpatient stay Substantial Risk for: rapid decompensation Time Spent With Patient Time: Total time managing care of this patient today ___20_ minutes.
[2022-03-31 20:00] VITALS: RESP 16
[2022-03-31] MEDS: traZODone HCL 50 MG TABLET 150 MG PO (21:26)
[2022-03-31] MEDS: Melatonin 3 MG TABLET 9 MG PO (21:26)
[2022-03-31] MEDS: OLANZapine 2.5 MG TABLET 7.5 MG PO (21:26)
[2022-03-31] MEDS: Lithium Carbonate 300 MG TABLET PO (21:56)
[2022-04-01 08:00] VITALS: BP 125/67; PULSE 85; RESP 18; TEMP 36.6; O2SAT 97
[2022-04-01] MEDS: lamoTRIgine 25 MG TABLET 150 MG PO (09:40)
[2022-04-01] MEDS: cloNIDine HCL 0.1 MG TABLET PO ×2 (10:17→21:40)
[2022-04-01] MEDS: hydrOXYzine HCL 25 MG TABLET 50 MG PO (16:19)
[2022-04-01 18:00] VITALS: BP 103/65; PULSE 64; RESP 16; TEMP 37.1; O2SAT 99
--- NOTE | 2022-04-01 18:25 | P.PNPSI_ITS ---
Subjective Subjective Date of Service: 04/01/22 Reason For Visit: SI Subjective Notes: Conditional Voluntary Healthcare Proxy: No Guardianship: No Medical Problems Affecting Mental Status: No Interim History: Reports improved sleep on additions to regime, feeling somewhat better. Continues to want a program, however, with many restrictions. We have programs that have openings, pt has refused them all. As a result, will discharge outright on 04/02. [facility] is over a 4 weeks wait for pt at this time per team report Medication Compliance: Yes Side effects from medications: No Attending Groups: Yes Review of Systems Acute medical concerns: No Medical Review of Systems: unchanged Mental Status Exam Mental Status Exam Patient Appearance: Fatigued Patient Orientation: Person, Place, Time and Situation Level of Consciousness: Alert Patient Behavior: Talkative, Resistive to Care and Good Eye Contact Mood Description: Blunted Affect Description: Blunted Patient Cognition Impaired: No Ability to Follow Directions: Good Speech Pattern: Spontaneous Speech Memory Description: Intact Hallucinations: Auditory Thought Process: Distracted Thought Content: positive for [place], positive for Circumstantial and positive for Suicidal Ideation (denies) Depressive Symptoms: Insomnia, Increased Irritability, Difficulty Sleeping and Thoughts of /Suicide (denies) Judgement: Fair Diagnostics Vital Signs (24Hr): Vital Signs - 24 hr 03/31/22 20:00 04/01/22 08:00 Temperature 97.9 F Pulse Rate 85 Respiratory Rate 16 18 Blood Pressure 125/67 Pulse Oximetry 97 BMI result Body Mass Index 32.8 Labs Results: 03/21/22 21:39 03/25/22 08:19 Medications Medications Current Medications Acetaminophen (Acetaminophen 325 Mg Tablet) 650 mg PO Q6H PRN PRN Reason: Headache/Pain Mild Scale (1-3) Al Hydroxide/Mg Hydroxide (Magnesium Hydrox/Alum Hydrox 30 Ml Oral.Susp) 30 ml PO Q6H PRN PRN Reason: Heartburn/Nausea Clonidine HCl (Clonidine Hcl 0.1 Mg Tablet) 0.1 mg PO BID [facility]; Protocol Last Admin: 04/01/22 10:17 Dose: 0.1 mg Hydroxyzine HCl (Hydroxyzine Hcl 25 Mg Tablet) 50 mg PO BID PRN PRN Reason: Anxiety Last Admin: 04/01/22 16:19 Dose: 50 mg Lamotrigine (Lamotrigine 25 Mg Tablet) 150 mg PO DAILY [facility] Last Admin: 04/01/22 09:40 Dose: 150 mg [place] Carbonate ([place] Carbonate 300 Mg Tablet) 300 mg PO BEDTIME [facility] Last Admin: 03/31/22 21:56 Dose: 300 mg Magnesium Hydroxide (Milk Of Magnesia 30 Ml Oral.Susp) 30 ml PO DAILY PRN PRN Reason: Constipation Melatonin (Melatonin 3 Mg Tablet) 9 mg PO BEDTIME [facility] Last Admin: 03/31/22 21:26 Dose: 9 mg Nicotine (Nicotine 21 Mg Patch.Td24) 21 mg TRANSDERMA DAILY [facility] Last Admin: 04/01/22 09:45 Dose: Not Given Olanzapine (Olanzapine 2.5 Mg Tablet) 7.5 mg PO BEDTIME [facility] Last Admin: 03/31/22 21:26 Dose: 7.5 mg Olanzapine (Olanzapine 2.5 Mg Tablet) 2.5 mg PO Q4H PRN PRN Reason: Psychosis Quetiapine Fumarate (Quetiapine Fumarate 50 Mg Tablet) 50 mg PO BEDTIME PRN PRN Reason: anxiety, insomnia Trazodone HCl (Trazodone Hcl 50 Mg Tablet) 150 mg PO BEDTIME [facility] Last Admin: 03/31/22 21:26 Dose: 150 mg Allergies Allergies Allergy/AdvReac Type Severity Reaction Status Date / Time sertraline AdvReac Intermediate heart Verified 03/04/22 04:30 palpitations Assessment & Plan Assessment & Plan (1) Alcohol use disorder, mild, in early remission, abuse: Status: Acute Code(s): F10.11 - Alcohol abuse, in remission (2) Bipolar 2 disorder, major depressive episode: Status: Acute Code(s): F31.81 - Bipolar II disorder Plan 03/26/22- Pt asks for no medication changes at this time. He reports L sided chest nodule, enlargement. He is worried about it, unsure if he wants eval here. Will ask for hospitalist consult or get OP appt for discharge. Pt concerned he has cancer and eval is anxiety provoking. Will consider 03/27/22- Glucerna tid with meals Team will accomodate room change Continue current regime per pt request. Declines changes to address teams reported sx. 03/28/22- Discharge planned for 03/31/22. Pt assisting in search for housing. 03/29/2022 Continue plan of care discharge planning Or 03/30/2022 Continue plan of care 12/12/22 [place] 300 mg hs Change clonidine from prn to scheduled Melatonin 10 mg hs Seroquel prn 04/01/22 No changes to regime Discharge 04/02/22. I spent minutes with the patient and/or on the patient floor today, greater than?50% of which was spent counseling/coordinating care. Patient educated on: medication risk/benefits Informed Consent: understands and further education needed Reason for contiued inpatient stay Substantial Risk for: rapid decompensation Time Spent With Patient Time: Total time managing care of this patient today __20__ minutes.
[2022-04-01] MEDS: OLANZapine 2.5 MG TABLET 7.5 MG PO (21:39)
[2022-04-01] MEDS: traZODone HCL 50 MG TABLET 150 MG PO (21:40)
[2022-04-01] MEDS: Melatonin 3 MG TABLET 9 MG PO (21:40)
[2022-04-01] MEDS: Lithium Carbonate 300 MG TABLET PO (21:40)
[2022-04-02 08:36] VITALS: BP 103/63; PULSE 65; RESP 16; TEMP 36.8; O2SAT 96
[2022-04-02] MEDS: lamoTRIgine 25 MG TABLET 150 MG PO (08:39)
--- NOTE | 2022-04-02 17:08 | PM.PSYDC ---
DS: Providers Provider Date of Service: 04/02/22 Date of admission: 03/24/22 17:59 Date of discharge: 04/02/22 Primary care physician: Donny Longoria MD Admitting clinician: Susan Perez Attending physician on admission: Josef Ramírez Consults: 03/27/22 16:18 Consult to Hospitalist Routine Consulting Provider: Hospitalist Reason For Exam: L chest nodule/ englarged area, with discomfort Attending physician on discharge: Josef Ramírez Discharging clinician: Susan Perez DS: Diagnosis Discharge Diagnosis (1) Alcohol use disorder, mild, in early remission, abuse: Status: Acute (2) Bipolar 2 disorder, major depressive episode: Status: Acute DS: Medications Discharge Medications Home Medications: Previous Rx's Medication Instructions Recorded clonidine HCl 0.1 mg tablet 0.1 mg PO BID #30 tabs 04/02/22 hydroxyzine pamoate 25 mg capsule 50 mg PO BID PRN Anxiety #30 caps 04/02/22 lamotrigine 150 mg tablet 150 mg PO DAILY #14 tabs 04/02/22 (Lamictal) lithium carbonate 300 mg tablet 300 mg PO BEDTIME #14 tabs 04/02/22 melatonin 10 mg capsule 10 mg PO BEDTIME PRN sleep #14 caps 04/02/22 nicotine 21 mg/24 hr daily 21 mg transdermal DAILY #30 ea 04/02/22 transdermal patch olanzapine 7.5 mg tablet 7.5 mg PO BEDTIME #14 tabs 04/02/22 trazodone 150 mg tablet 150 mg PO BEDTIME #15 tabs 04/02/22 Mental Status Exam Mental Status Exam Patient Appearance: Fatigued Patient Orientation: Person, Place, Time and Situation Level of Consciousness: Alert Patient Behavior: Talkative, Resistive to Care and Good Eye Contact Mood Description: Blunted Affect Description: Blunted Patient Cognition Impaired: No Ability to Follow Directions: Good Speech Pattern: Spontaneous Speech Memory Description: Intact Thought Process: Intact Thought Content: positive for [place], positive for Circumstantial and positive for Suicidal Ideation (denies) Depressive Symptoms: Difficulty Sleeping and Thoughts of /Suicide (denies) Judgement: Fair Data Data Completed and Pending Completed studies during hospitalization [Text1]: 03/25/22 08:19 Lamotrigine 1.5 L DS: Summary Hospital Course Hospital Course: Admission to adult psychiatry for exacerbation of symptoms of bipolar disorder and alcohol dependence. Olanzapine, Lamictal, Clonidine were established. Low dose Davison was added to assist with mood stabilization efficacy. Low dose quetiapine was added to augment regime. Pt did well on the unit, however, declined available referrals and chose to go to a group home upon discharge. Time spent discussing smoking cessation with patient: 3 to 10 minutes Status at Discharge Functional status at discharge: independent ambulation Overall status at discharge: patient is back to baseline Time Spent with Patient Time attestation: Total time managing care of this patient today 35____ minutes. Time spent: Greater than 30 minutes Discharge Plan Discharge Anticipated Discharge Date/Time: 04/02/22 12:17 Patient Disposition: Nursing Home Discharge Diagnosis: Bipolar Disorder, type 2 Alcohol Use Disorder, Severe Referrals: Substance Abuse Residential: [facility] [Other] - 1 Week (Call to follow up on your referral once a week; they estimated a four week wait period until a bed will be available ) Therapy Intake: Donna Mahmood ([facility]) [Other] - 04/10/22 2:00 pm (Appointment is in person at their office in [place]. Please arrive 15 minutes early to complete intake paperwork. ) Psychiatrist: Hanh East ([facility]) [Other] - 05/01/22 8:30 am (Telehealth-she will call your phone at the appointment time) Psychiatrist: Hanh East ([facility]) [Other] - 05/15/22 8:40 am (Telehealth-she will call your phone at the time of appointment ) Community Navigator: Neisha ([facility]) [Other] - 1 Week (Call for support in accessing resources or questions about services available to you. ) Donny Longoria MD [Primary Care Provider] - 04/17/22 10:30 am (in house) Discharge Medications: Discontinued olanzapine 2.5 mg Tablet 7.5 mg PO BEDTIME Qty: 90 0RF trazodone 150 mg tablet 150 mg PO BEDTIME Qty: 30 0RF melatonin 3 mg Tablet 3 mg PO BEDTIME Qty: 30 0RF lamotrigine 100 mg tablet 150 mg PO DAILY clonidine HCl 0.1 mg Tablet 0.1 mg PO BID PRN (Reason: Anxiety) hydroxyzine pamoate 25 mg capsule 50 mg PO BID PRN (Reason: Anxiety) No Action nicotine (polacrilex) 2 mg Gum 4 mg buccal Q2H PRN (Reason: Nicotine Cravings) Qty: 60 4RF Eliquis 5 mg Tablet 5 mg PO BID Qty: 60 0RF trazodone 50 mg Tablet 50 mg PO BEDTIME PRN (Reason: Insomnia) Qty: 30 0RF olanzapine 10 mg Tablet 10 mg PO BEDTIME Qty: 30 0RF aspirin 81 mg Tablet,Delayed Release (Dr/Ec) 81 mg PO DAILY Qty: 30 0RF hydroxyzine HCl 25 mg Tablet 25 mg PO Q6H PRN (Reason: Anxiety) Qty: 60 0RF lamotrigine 100 mg Tablet 100 mg PO DAILY Qty: 30 0RF ferrous sulfate 324 mg (65 mg iron) Tablet,Delayed Release (Dr/Ec) 325 mg PO DAILY Qty: 30 0RF multivitamin [Daily-Lc] Tablet 1 tab PO DAILY Qty: 30 0RF clonidine HCl 0.1 mg Tablet 0.1 mg PO BID Qty: 60 1RF Protocol: Hold for SBP< HOLD for SBP < : 90 thiamine HCl (vitamin B1) 100 mg Tablet 100 mg PO DAILY Qty: 30 0RF trazodone 150 mg tablet 150 mg PO BEDTIME Qty: 30 0RF pyridoxine (vitamin B6) 50 mg Tablet 50 mg PO DAILY Qty: 30 0RF folic acid 1 mg Tablet 1 mg PO DAILY Qty: 30 0RF acamprosate 333 mg Tablet,Delayed Release (Dr/Ec) 666 mg PO TIDWMEAL Qty: 90 0RF lamotrigine [Lamictal] 25 mg tablet 50 mg PO DAILY 30 Days Qty: 60 0RF melatonin 10 mg capsule 10 mg PO BEDTIME PRN (Reason: insomnia) Qty: 30 0RF Discharge Orders: Discharge Order (Routine); Ordered 04/02/22 Ordered By: Susan Perez Diet: Advance to usual diet Activity on Discharge: As tolerated Stand Alone Forms: Patient Portal Discharge page, Community Support Care Plan Goals: Maintain mood and safe behavior Take medications as directed Practice coping skills Connect with out patient providers to continue treatment Health Concerns: Stable mood and behaviors Plan of Treatment: Follow up with out patient providers Take medications as directed Assessment: Steven has declined offers to transfer to TSS/CSS programs for longer term treatment. Steven has declined an offer to admit to [facility], citing too many restrictions in place at the group home. He prefers to go to [facility]. Pt interviewed prior to discharge and found to be fully oriented and without SI/HI. Pt has insight and demonstrates adequate judgment in terms of continuing out patient treatment Pt is not in imminent risk of harm to self or others and has a plan that includes presenting to the closest ER or calling 911 if feeling unsafe. Pt has been observed closely by nursing and unit staff throughout admission. Pt has not engaged in any behaviors that suggest dangerousness to self or others and demonstrated appropriate behaviors and impulse control Discharge Date/Time: 04/02/22 14:44
== END 2022-04-02 14:44 | disposition home or self-care (01) | DRG 753 ==
LOC: HO.ED 22:58 → HO.PM5 03-24 18:09
PROVIDERS: Physician Assistant; Admitting Provider Psychiatry & Neurology Psychiatry; Emergency Provider Emergency Medicine Emergency Medical Services; PCP Family Medicine; Visit Provider Clinical Nurse Specialist Psychiatric/Mental Health, Adult
DX: F31.81 Bipolar II disorder (principal); R45.851 Suicidal ideations; F10.129 Alcohol abuse with intoxication, unspecified; F17.210 Nicotine dependence, cigarettes, uncomplicated; E66.9 Obesity, unspecified; N62 Hypertrophy of breast; Z68.32 Body mass index [BMI] 32.0-32.9, adult; F41.9 Anxiety disorder, unspecified; Y90.8 Blood alcohol level of 240 mg/100 ml or more; Z20.822 Contact with and (suspected) exposure to COVID-19; Z71.6 Tobacco abuse counseling; Z88.8 Allergy status to other drugs, medicaments and biological substances; Z79.899 Other long term (current) drug therapy
CPT/HCPCS: 0241U; 36415; 80053; 80061; 80143; 80175; 80179; 80307; 81001; 82077; 83735; 85025; 93005; 99285

== ENCOUNTER 2022-04-10 04:52 | Inpatient (IN) | payer OTHER, SELFPAY ==
[2022-04-10 05:34] VITALS: BMI 32.9
--- NOTE | 2022-04-10 05:44 | PC.ADMIT ---
PT IS A 32 YEAR OLD, CISGENDER, THAI SPEAKING MALE KNOWN TO M5 PREVIOUSLY. HE ARRIVED ON 04/10/22 AT 0500 FROM [facility]. PT WAS ADMITTED FOR VAGUE SI WITH A PLAN TO CUT HIMSELF OR JUMP OFF A BRIDGE. PT IS A CONDITIONAL VOLUNTARY. 15 MINUTE SAFETY CHECKS. PSYCH/DUAL GROUP. VITAL SIGNS STABLE. COVID NEGATIVE. EKG SHOWS NONSPECIFIC ST AND T WAVE ABNORMALITIES WELL A PROLONGED QT. PT IS ALERT AND ORIENTED X4. PT WAS IRRITABLE UPON ADMISSION HE STATED IM NOT DOING WELL, ITS BEEN A LONG DAY AND IM ABOUT TO SNAP . PT WENT TO SLEEP AND DID NOT PARTICIPATE IN HIS ADMISSION PROCESS. ADMISSION WAS DONE BASED OFF INTAKE AND ASSESSMENT MAINLY. PT REPORTS USING ALCOHOL, OPIOIDS, AND COCAINE BUT DOES NOT CURRENTLY APPEAR TO BE WITHDRAWING. PT HAS BEEN HAVING AN INCREASE IN ANXIETY AND DEPRESSION. HES BEEN HAVING LOUD AND INTRUSIVE THOUGHTS OF HARMING HIMSELF THAT HE CANNOT SEEM TO DISTRACT HIMSELF FROM. PT DENIES VH OR HI. PTS EXPERIENCING A LACK OF SLEEP AND A LOSS OF APPETITE RECENTLY. PT REPORTS FEELING HELPLESS AND HOPELESS. PT IS HOMELESS WITH MINIMAL SUPPORT SYSTEMS. PT HAS A GREATER THAN 5 CM THROMBUS IN HIS LEFT PROXIMAL, DISTAL FEMORAL VEIN. PT IS INDEPENDENT IN AMBULATION AND ADLS. PT HAS A HX OF CUTTING HIMSELF IN THE PAST AND NEEDING STITCHES. PTS SAFETY TOOL AND LEGALS NEED TO BE COMPLETED.
[2022-04-10 08:30] VITALS: BP 93/52; PULSE 64; TEMP 36.9
[2022-04-10] MEDS: Apixaban 5 MG TABLET 10 MG PO ×2 (10:01→22:30)
[2022-04-10] MEDS: lamoTRIgine 100 MG TABLET PO (10:02)
[2022-04-10] MEDS: Pyridoxine HCl (Vitamin B6) 50 MG TABLET PO (10:02)
[2022-04-10] MEDS: Multivitamin TABLET 1 TAB PO (10:02)
[2022-04-10] MEDS: Aspirin Enteric Coated 81 MG TABLET.DR PO (10:02)
[2022-04-10] MEDS: Nicotine 21 MG PATCH.TD24 TRANSDERMA (10:02)
[2022-04-10] MEDS: Folic Acid 1 MG TABLET PO (10:03)
[2022-04-10] MEDS: lamoTRIgine 25 MG TABLET 50 MG PO (10:03)
[2022-04-10] MEDS: Acamprosate Calcium 333 MG TABLET.DR 666 MG PO ×3 (10:03→17:28)
[2022-04-10] MEDS: Thiamine HCL 100 MG TABLET PO (10:03)
[2022-04-10 12:30] VITALS: BP 140/77; PULSE 96; TEMP 36.4
--- NOTE | 2022-04-10 17:16 | P.HPPS_ITS ---
HPI Date of Service: 04/10/22 Chief Complaint: Alcohol use disorder, Depressive disorder, bipolar Sources of Information: patient interviewed, chart reviewed and crisis/core team assessment reviewed HPI Subjective Notes: Kaplan Warning and Conditional Voluntary Healthcare Proxy: No Guardianship: No Medical Problems Affecting Mental Status: No Narrative: 32 yo male, hx of alcohol, cocaine use disorder and mood dysregulation transfer from [facility] where he was admitted on 04/03/22 with alcohol withdrawal, transaminitis (ischemic vs. toxic metabolic injury), cerebral infarct on CT with multiple abnormalities found on MRI likely in the setting of previous OD and unprovoked DVT and hypercoagulability. Pt tells team he experienced loud intense thoughts of not wanting to live and has not been able to get these thoughts to decrease. Concern about self harm. Reported poor sleep, decrease in appetite and anxiety. Recent [place] [facility] Reports non compliance with medications, refusal of follow up program and appointments and return to use. Recent memory is poor, pt states I have a blood clot in my forehead. I only remember the last 2 days . Pt recalls tw and recent admission-review of [facility] documentation with him to improve recall and he reports he recalls none of this. Past Psychiatric History: IP: One overnight stay secondary to alcohol when his girlfriend broke up with him-he wanted to stab himself, [facility] Feb 2022 OP: none Trials: some, trazodone, gabapentin, vitamins. Pt did not continue medications when last discharged from [facility] Medical Evaluation Reviewed: Hospitalist Kyle Pending [facility] Medical History Alcohol abuse Anxiety Bipolar disorder Heart murmur No known health problems Family History: denies Social History: Born and raised in [place]. One older sister, one younger sister, both estranged from pt. Pt completed the first quarter of 12th grade, met daughter's mother, and you know the rest of the story, failures from then on. Pt has a daughter who will be eleven on 04/04/21 whom he has not seen in one month. He describes her as smart, wonderful, my proudest moment . 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 Currently unemployed. Pt has tried to complete GED but has had no real support so this is a future goal. Parents in [place]. Has not talked with father in several years, mother in about a year. Pt asks that we make contact-He is frightened about his medical condition. Substance History: alcohol, cocaine, heroin Trauma History: Affirms and denies Diagnostics Vital Signs (24Hr): Vital Signs - 24 hr 04/10/22 08:30 04/10/22 12:30 Temperature 98.4 F 97.5 F Pulse Rate 64 96 Blood Pressure 93/52 L 140/77 H BMI result Body Mass Index 32.9 Labs Labs: RBC 4.56 ALT 175 AST 67 HGB 13.5 HCT 37.7 Imaging Radiology Impressions: MRI,Brain w/o contrast: 04/04/22: Striking signal abnormality involving the hip pocampi with hyperintensity in the diffusion sequence more likely representing T2 shine through that restricted diffusion. Similiar but slightly less intense signal abnormality is present in either globus pallidus and to a much lesser extent the putamina. T2 shine through phenomenon is also noted with multiple lesions in the cerebellum. A unifying diagnosis is not clear. The cerebellar lesions could represent subacute ischemia but this is less likely to cause the basal ganglia and hippocampal abnormalities in the absence of a marked hypoxic event which is not evident in the history. The overall pattern suggests a toxic or metabolic dx. Doppler Ext Lower Venous Bilat: Non occlusive thrombus in the left proximal to distal femoral vein measuring greater than 5 cm US Liver/Spleen: Echogenic liver likely representing hepatic steatosis MRA Neck: The origin of the left subclavian from the aortic arch is not included in the exam but the remainder of ther cervical vessels are normal in appearance. MRA Head w.o. contrast: Normal Meds/Allergies Meds Home Medications Medication Instructions Recorded Confirmed Type acamprosate 333 mg tablet,delayed 666 mg PO TIDWMEAL 04/10/22 04/10/22 History release apixaban 5 mg (74 tabs) tablets in 10 mg PO BID 04/10/22 04/10/22 History a dose pack aspirin 81 mg capsule,delayed 81 mg PO DAILY 04/10/22 04/10/22 History release folic acid 1 mg tablet 1 mg PO DAILY 04/10/22 04/10/22 History multivitamin 1 tab DAILY 04/10/22 04/10/22 History pyridoxine (vitamin B6) 50 mg 50 mg PO DAILY 04/10/22 04/10/22 History tablet thiamine HCl (vitamin B1) 100 mg 100 mg PO DAILY 04/10/22 04/10/22 History tablet Allergies Allergies Allergy/AdvReac Type Severity Reaction Status Date / Time sertraline AdvReac Intermediate heart Verified 03/04/22 04:30 palpitations Mental Status Exam Mental Status Exam Patient Appearance: Fatigued Patient Orientation: Person and Place Level of Consciousness: Awake and Disoriented Patient Behavior: Talkative, Cooperative, Anxious, Fearful, Fatigued, Distractible and Good Eye Contact Mood Description: Constricted Affect Description: Constricted Patient Cognition Impaired: Yes Ability to Follow Directions: Fair Speech Pattern: Spontaneous Speech Memory Description: Remote Impaired, Episodic Impaired and Recent Impaired Hallucinations: None Delusions: Not Present Perceptual Disturbances: Derealization Thought Process: Disoriented, Distracted and Rumination Thought Content: positive for Circumstantial, positive for Perseveration, positive for Slowed Thinking, positive for Disorganized and positive for [place] icidal Ideation Depressive Symptoms: Insomnia, Difficulty Sleeping and Thoughts of /Suicide Judgement: Poor Assessment & Plan Assessment & Plan (1) Bipolar 2 disorder, major depressive episode: Status: Acute Code(s): F31.81 - Bipolar II disorder (2) Alcohol use disorder, severe, dependence: Status: Acute Code(s): F10.20 - Alcohol dependence, uncomplicated Plan 32 yo male, transfer from [facility], s/p admit 04/03 for alcohol, cocaine detox, transaminitis, cerebral infarct on CT and multiple abnormaliteis found on MRI along with DVT. Pt reporting voices telling him to suicide. Recent discharge where pt refused a program and stopped meds upon discharge. States he did not follow up appts as well. Plan: Re-establish regime Monitor Medical follow up Will allow contact with parents Interested in addictions TSS/CSS upon discharge. Patient educated on: medication risk/benefits and therapeutic strategies Informed Consent: further education needed Reason for continued inpatient stay Substantial Risk for: harm to self and rapid decompensation Statement Statement: I have reviewed the history and physical and performed a pertinent examination on my patient. No changes have occurred unless specified. If the History and Physical was not performed prior to admission, the Hospitalist's service will be consulted for completing the admission physical. Time Spent With Patient Time: Total time managing care of this patient today _45___ minutes.
[2022-04-10 18:00] VITALS: BP 125/68; PULSE 72; RESP 20; TEMP 36.8; O2SAT 100
--- NOTE | 2022-04-10 19:38 | HO.PM.IMCN ---
History of Present Illness Data of Consult Service Date: 04/10/22 Primary Care Provider: Unknown Physician HPI Reason for consult: Admission H&P Pt is a 32-year-old male with a PMH significant for bipolar disorder, panic attacks, polysubtance abuse, and hypercoaguable state who is seen for an admission history and physical. Pt was recently seen at [facility] after having a headache, feeling confused, and passing out. Woke up in the hospital and found out he had a DVT, for which he is on apixaban. CT revealed cerebral infarct. Quit smoking around this time, 1-2 weeks ago. Has a history of substance abuse, but claims he hasn't had anything in a while. Pt is concerned about his DVT, but has no acute medical complaints. Patient denies chest pain/pressure, SOB. No F/C, N/V, abdominal pain. Review of Systems Review of Systems: No chest pain/pressure, palpitations No SOB Denies abdominal pain Yes all other systems are reviewed and are negative [facility] Medical History Alcohol abuse Anxiety Bipolar disorder Heart murmur No known health problems Family History (Updated 04/10/22 @ 19:40 by TANESHA Moe) Maternal Grandfather Diabetes Paternal Uncle Blood clot in vein HTN (hypertension) Social History Household Members: None Housing: Homeless Do you presently have visiting nurse or other home services: No Alcohol intake: current Alcohol intake frequency: a few times a week Alcohol type: hard liquor Patient Tobacco Use Status: Current everyday Tobacco user Tobacco use type: Cigarette Cigarette Packs Per Day: 1 Cigarettes Per Day: 20.0 Years Smoked: 16 Smoked in Last 30 Days: Yes e-Cigarette/Vaping Use: Never Used Patient Interested in Nicotine Replacement: No Patient Given Instructions on How to Stop Smoking: No (PT DID NOT WANT INFO ON CESSATION FROM RN) Second Hand Smoke Exposure: No Use of substances other than those prescribed or required for medical reasons: Yes Substance Use Type: Crack/Cocaine, Hallucinogens and Heroin Substance Use Frequency: Chronic Longstanding Currently Displaying Signs/Symptoms of Drug Intoxication Withdrawal: No Any prior treatment program specific to substance use: Yes Have you been hit, kicked, punched, or otherwise hurt by someone within the past year? If so, by whom?: No Do you feel safe in your current relationship?: No Current Relationship Is there a partner from a previous relationship who is making you feel unsafe now?: No Are you made to feel afraid or neglected: No Advance Directives: No Advance Directives Information Provided: No Do you have thoughts of harming others: None Do you have a plan to hurt others: No Plan Recently lost weight without trying: No Eating poorly because of decreased appetite: Yes Nutrition Risks: No Nutritional Risk Poor oral hygiene: No service: No Sexual orientation: Straight/Heterosexual Meds Allergies Allergy/AdvReac Type Severity Reaction Status Date / Time sertraline AdvReac Intermediate heart Verified 03/04/22 04:30 palpitations Active Medications: Current Medications Acamprosate (Acamprosate Calcium 333 Mg Tablet.) 666 mg PO TIDWM [facility] Last Admin: 04/10/22 17:28 Dose: 666 mg Acetaminophen (Acetaminophen 325 Mg Tablet) 650 mg PO Q6H PRN PRN Reason: Headache/Pain Mild Scale (1-3) Al Hydroxide/Mg Hydroxide (Magnesium Hydrox/Alum Hydrox 30 Ml Oral.Susp) 30 ml PO Q6H PRN PRN Reason: Heartburn/Nausea Apixaban (Apixaban 5 Mg Tablet) 10 mg PO BID [facility] Stop: 04/15/22 21:01 Last Admin: 04/10/22 10:01 Dose: 10 mg Apixaban (Apixaban 5 Mg Tablet) 5 mg PO BID [facility] Aspirin (Aspirin Enteric Coated 81 Mg Tablet.) 81 mg PO DAILY [facility] Last Admin: 04/10/22 10:02 Dose: 81 mg Clonidine HCl (Clonidine Hcl 0.1 Mg Tablet) 0.1 mg PO BID [facility]; Protocol Last Admin: 04/10/22 10:15 Dose: Not Given Folic Acid (Folic Acid 1 Mg Tablet) 1 mg PO DAILY [facility] Last Admin: 04/10/22 10:03 Dose: 1 mg Hydroxyzine HCl (Hydroxyzine Hcl 25 Mg Tablet) 25 mg PO Q6H PRN PRN Reason: Anxiety Lamotrigine (Lamotrigine 25 Mg Tablet) 50 mg PO DAILY [facility] Last Admin: 04/10/22 10:03 Dose: 50 mg Lamotrigine (Lamotrigine 100 Mg Tablet) 100 mg PO DAILY [facility] Last Admin: 04/10/22 10:02 Dose: 100 mg [place] Carbonate ([place] Carbonate 300 Mg Capsule) 300 mg PO BEDTIME [facility] Magnesium Hydroxide (Milk Of Magnesia 30 Ml Oral.Susp) 30 ml PO DAILY PRN PRN Reason: Constipation Melatonin (Melatonin 3 Mg Tablet) 9 mg PO BEDTIME PRN PRN Reason: sleep Multivitamins/Vitamin C (Multivitamin Tablet) 1 tab PO DAILY [facility] Last Admin: 04/10/22 10:02 Dose: 1 tab Nicotine (Nicotine 21 Mg Patch.Td24) 21 mg TRANSDERMA DAILY [facility] Last Admin: 04/10/22 10:02 Dose: 21 mg Nicotine Polacrilex (Nicotine Polacrilex 2 Mg Gum) 4 mg BUCCAL Q2H PRN PRN Reason: Nicotine Cravings Olanzapine (Olanzapine 7.5 Mg Tablet) 7.5 mg PO BEDTIME [facility] Pyridoxine HCl (Pyridoxine Hcl (Vitamin B6) 50 Mg Tablet) 50 mg PO DAILY [facility] Last Admin: 04/10/22 10:02 Dose: 50 mg Thiamine HCl (Thiamine Hcl 100 Mg Tablet) 100 mg PO DAILY [facility] Last Admin: 04/10/22 10:03 Dose: 100 mg Trazodone HCl (Trazodone Hcl 50 Mg Tablet) 50 mg PO BEDTIME PRN PRN Reason: Insomnia Trazodone HCl (Trazodone Hcl 50 Mg Tablet) 150 mg PO BEDTIME [facility] Home Medications Medication Instructions Recorded Confirmed Last Taken Type acamprosate 333 mg tablet,delayed 666 mg PO TIDWMEAL 04/10/22 04/10/22 Unknown History release apixaban 5 mg (74 tabs) tablets in 10 mg PO BID 04/10/22 04/10/22 Unknown History a dose pack aspirin 81 mg capsule,delayed 81 mg PO DAILY 04/10/22 04/10/22 Unknown History release folic acid 1 mg tablet 1 mg PO DAILY 04/10/22 04/10/22 Unknown History multivitamin 1 tab DAILY 04/10/22 04/10/22 Unknown History pyridoxine (vitamin B6) 50 mg 50 mg PO DAILY 04/10/22 04/10/22 Unknown History tablet thiamine HCl (vitamin B1) 100 mg 100 mg PO DAILY 04/10/22 04/10/22 Unknown History tablet Physical Exam Vital Signs and Narrative: Vital Signs: Last Vital Signs Temp 98.3 F 04/10/22 18:00 Pulse 72 04/10/22 18:00 Resp 20 04/10/22 18:00 BP 125/68 04/10/22 18:00 Pulse Ox 100 04/10/22 18:00 O2 Del Method 04/10/22 18:00 BMI result Body Mass Index 32.9 Constitutional: Alert, in no acute distress. Mental Status: Oriented to person, place and time. Eyes: Pupils are equal, round, and reactive to light. Ear, Nose, and Throat: Oropharynx clear, mucous membranes moist. Ears and nose without deformities. Trachea midline. Respiratory: Clear to auscultation bilaterally. No wheezing, rales, or rhonchi. Cardiovascular: S1, S2 regular. No murmurs, rubs, or gallops. Gastrointestinal: Abdomen soft, non-tender, non-distended. NOrmal bowel sounds. Neurologic: Cranial nerves II-XI are grossly intact. NO focal neurological deficits. Moves all extremities spontaneously. Skin: No rashes of lesions. Musculoskeletal: No cyanosis or clubbing. Extremities: No edema. Psychiatric: Normal mood and affect. Neuro: Cranial nerves: Yes CN's II-XII intact bilaterally Assessment and Plan (1) Bipolar 2 disorder, major depressive episode: Status: Acute (2) Alcohol use disorder, mild, in early remission, abuse: Status: Acute (3) Panic attacks: Status: Acute Plan Pt is a 32-year-old male with a PMH significant for bipolar disorder, panic attacks, polysubtance abuse, and hypercoaguable state who is seen for an admission history and physical. Pt has no acute medical concerns at this time. # bipolar disorder -- plan per psychiatry # panic attacks -- plan per psychiatry # hypercoaguable state/DVT -- continue apixaban Thank you for allowing me to participate in the care of this patient. Signing off at this time. Please let me know if there are any future medical questions. Time Spent With Patient Time: Total time managing care of this patient today ____ minutes.
[2022-04-10] MEDS: traZODone HCL 50 MG TABLET 150 MG PO (22:29)
[2022-04-10] MEDS: OLANZapine 7.5 MG TABLET PO (22:29)
[2022-04-10] MEDS: cloNIDine HCL 0.1 MG TABLET PO (22:29)
[2022-04-10] MEDS: Lithium Carbonate 300 MG CAPSULE PO (22:30)
[2022-04-11 08:30] VITALS: BP 110/60; PULSE 77; TEMP 36.5
[2022-04-11] MEDS: Aspirin Enteric Coated 81 MG TABLET.DR PO (08:45)
[2022-04-11] MEDS: Thiamine HCL 100 MG TABLET PO (09:18)
[2022-04-11] MEDS: cloNIDine HCL 0.1 MG TABLET PO ×2 (09:18→22:32)
[2022-04-11] MEDS: Pyridoxine HCl (Vitamin B6) 50 MG TABLET PO (09:19)
[2022-04-11] MEDS: Acamprosate Calcium 333 MG TABLET.DR 666 MG PO ×3 (09:19→17:52)
[2022-04-11] MEDS: Folic Acid 1 MG TABLET PO (09:19)
[2022-04-11] MEDS: lamoTRIgine 100 MG TABLET PO (09:19)
[2022-04-11] MEDS: lamoTRIgine 25 MG TABLET 50 MG PO (09:19)
[2022-04-11] MEDS: Multivitamin TABLET 1 TAB PO (09:19)
[2022-04-11] MEDS: Apixaban 5 MG TABLET 10 MG PO ×2 (09:19→22:32)
[2022-04-11] MEDS: Nicotine 21 MG PATCH.TD24 TRANSDERMA (09:20)
[2022-04-11] MEDS: hydrOXYzine HCL 25 MG TABLET PO (16:03)
--- NOTE | 2022-04-11 16:28 | HO.PSYCHPN ---
Subjective Subjective Date of Service: 04/11/22 Reason For Visit: Alcohol use disorder, Depressive disorder, bipolar Subjective Notes: Conditional Voluntary Healthcare Proxy: No Guardianship: No Medical Problems Affecting Mental Status: No Interim History: Ongoing review of last admission as pt's memory is poor. Review of meds, sleep-reports racing thoughts. Medication Compliance: Yes Side effects from medications: No Attending Groups: Yes Review of Systems Acute medical concerns: No Medical Review of Systems: unchanged Mental Status Exam Mental Status Exam Patient Appearance: Fatigued Patient Orientation: Person and Place Level of Consciousness: Awake and Disoriented Patient Behavior: Talkative, Cooperative, Anxious, Fearful, Fatigued, Distractible and Good Eye Contact Mood Description: Constricted Affect Description: Constricted Patient Cognition Impaired: Yes Ability to Follow Directions: Fair Speech Pattern: Spontaneous Speech Memory Description: Remote Impaired, Episodic Impaired and Recent Impaired Hallucinations: None Delusions: Not Present Perceptual Disturbances: Derealization Thought Process: Disoriented, Distracted and Rumination Thought Content: positive for Circumstantial, positive for Perseveration, positive for Slowed Thinking, positive for Disorganized and positive for Suicidal Ideation Depressive Symptoms: Insomnia, Difficulty Sleeping and Thoughts of /Suicide Judgement: Poor Diagnostics Vital Signs (24Hr): Vital Signs - 24 hr 04/10/22 18:00 04/11/22 08:30 Temperature 98.3 F 97.7 F Pulse Rate 72 77 Respiratory Rate 20 Blood Pressure 125/68 110/60 Pulse Oximetry 100 Oxygen Delivery Method Room Air BMI result Body Mass Index 32.9 Medications Medications Current Medications Acamprosate (Acamprosate Calcium 333 Mg Tablet.) 666 mg PO TIDWM [facility] Last Admin: 04/11/22 14:18 Dose: 666 mg Acetaminophen (Acetaminophen 325 Mg Tablet) 650 mg PO Q6H PRN PRN Reason: Headache/Pain Mild Scale (1-3) Al Hydroxide/Mg Hydroxide (Magnesium Hydrox/Alum Hydrox 30 Ml Oral.Susp) 30 ml PO Q6H PRN PRN Reason: Heartburn/Nausea Apixaban (Apixaban 5 Mg Tablet) 10 mg PO BID [facility] Stop: 04/15/22 21:01 Last Admin: 04/11/22 09:19 Dose: 10 mg Apixaban (Apixaban 5 Mg Tablet) 5 mg PO BID [facility] Aspirin (Aspirin Enteric Coated 81 Mg Tablet.) 81 mg PO DAILY [facility] Last Admin: 04/11/22 08:45 Dose: 81 mg Clonidine HCl (Clonidine Hcl 0.1 Mg Tablet) 0.1 mg PO BID [facility]; Protocol Last Admin: 04/11/22 09:18 Dose: 0.1 mg Folic Acid (Folic Acid 1 Mg Tablet) 1 mg PO DAILY [facility] Last Admin: 04/11/22 09:19 Dose: 1 mg Hydroxyzine HCl (Hydroxyzine Hcl 25 Mg Tablet) 25 mg PO Q6H PRN PRN Reason: Anxiety Last Admin: 04/11/22 16:03 Dose: 25 mg Lamotrigine (Lamotrigine 25 Mg Tablet) 50 mg PO DAILY [facility] Last Admin: 04/11/22 09:19 Dose: 50 mg Lamotrigine (Lamotrigine 100 Mg Tablet) 100 mg PO DAILY [facility] Last Admin: 04/11/22 09:19 Dose: 100 mg Magnesium Hydroxide (Milk Of Magnesia 30 Ml Oral.Susp) 30 ml PO DAILY PRN PRN Reason: Constipation Melatonin (Melatonin 3 Mg Tablet) 9 mg PO BEDTIME PRN PRN Reason: sleep Multivitamins/Vitamin C (Multivitamin Tablet) 1 tab PO DAILY [facility] Last Admin: 04/11/22 09:19 Dose: 1 tab Nicotine (Nicotine 21 Mg Patch.Td24) 21 mg TRANSDERMA DAILY [facility] Last Admin: 04/11/22 09:20 Dose: 21 mg Nicotine Polacrilex (Nicotine Polacrilex 2 Mg Gum) 4 mg BUCCAL Q2H PRN PRN Reason: Nicotine Cravings Olanzapine (Olanzapine 10 Mg Tablet) 10 mg PO BEDTIME [facility] Pyridoxine HCl (Pyridoxine Hcl (Vitamin B6) 50 Mg Tablet) 50 mg PO DAILY [facility] Last Admin: 04/11/22 09:19 Dose: 50 mg Thiamine HCl (Thiamine Hcl 100 Mg Tablet) 100 mg PO DAILY [facility] Last Admin: 04/11/22 09:18 Dose: 100 mg Trazodone HCl (Trazodone Hcl 50 Mg Tablet) 50 mg PO BEDTIME PRN PRN Reason: Insomnia Trazodone HCl (Trazodone Hcl 50 Mg Tablet) 150 mg PO BEDTIME [facility] Last Admin: 04/10/22 22:29 Dose: 150 mg Allergies Allergies Allergy/AdvReac Type Severity Reaction Status Date / Time sertraline AdvReac Intermediate heart Verified 03/04/22 04:30 palpitations Assessment & Plan Assessment & Plan (1) Bipolar 2 disorder, major depressive episode: Status: Acute Code(s): F31.81 - Bipolar II disorder (2) Alcohol use disorder, mild, in early remission, abuse: Status: Acute Code(s): F10.11 - Alcohol abuse, in remission (3) Panic attacks: Status: Acute Code(s): F41.0 - Panic disorder [episodic paroxysmal anxiety] Plan Pt is a 32-year-old male with a PMH significant for bipolar disorder, panic attacks, polysubtance abuse, and hypercoaguable state who is seen for an admission history and physical. Pt has no acute medical concerns at this time. # bipolar disorder -- plan per psychiatry # panic attacks -- plan per psychiatry # hypercoaguable state/DVT -- continue apixaban Thank you for allowing me to participate in the care of this patient. Signing off at this time. Please let me know if there are any future medical questions. 04/11/22 Increase Olanzapine to 10 mg at HS Discontinue [place] Patient educated on: medication risk/benefits Informed Consent: further education needed Reason for contiued inpatient stay Substantial Risk for: med/psych decompensation Time Spent With Patient Time: Total time managing care of this patient today _20___ minutes.
[2022-04-11 21:55] VITALS: BP 105/62; PULSE 64; TEMP 36.1
[2022-04-11] MEDS: OLANZapine 10 MG TABLET PO (22:31)
[2022-04-11] MEDS: traZODone HCL 50 MG TABLET 150 MG PO (22:31)
[2022-04-12] MEDS: lamoTRIgine 25 MG TABLET 50 MG PO (09:43)
[2022-04-12] MEDS: Thiamine HCL 100 MG TABLET PO (09:43)
[2022-04-12] MEDS: Pyridoxine HCl (Vitamin B6) 50 MG TABLET PO (09:43)
[2022-04-12] MEDS: Multivitamin TABLET 1 TAB PO (09:43)
[2022-04-12] MEDS: cloNIDine HCL 0.1 MG TABLET PO ×2 (09:43→23:00)
[2022-04-12] MEDS: Acamprosate Calcium 333 MG TABLET.DR 666 MG PO ×3 (09:43→18:22)
[2022-04-12] MEDS: lamoTRIgine 100 MG TABLET PO (09:43)
[2022-04-12] MEDS: Aspirin Enteric Coated 81 MG TABLET.DR PO (09:43)
[2022-04-12] MEDS: Apixaban 5 MG TABLET 10 MG PO ×2 (09:43→22:59)
[2022-04-12] MEDS: Folic Acid 1 MG TABLET PO (09:43)
[2022-04-12] MEDS: Nicotine 21 MG PATCH.TD24 TRANSDERMA (09:44)
[2022-04-12 09:47] VITALS: BP 102/62; PULSE 78; RESP 18; TEMP 36.6; O2SAT 97
--- NOTE | 2022-04-12 11:19 | HO.PSYCHPN ---
Subjective Subjective Date of Service: 04/12/22 Reason For Visit: Alcohol use disorder, Depressive disorder, bipolar Subjective Notes: Conditional Voluntary Interim History: Patient was seen and discussed in rounds today. Records and plans were reviewed. He continues to be mostly isolative and having anxiety and depression. Some reports of visual hallucinations. No complaints or side effects. Eating and sleeping adequately. No changes were made today. Tolerating the increase of Zyprexa Medication Compliance: Yes Side effects from medications: No Review of Systems Review of Systems Yes all other systems are reviewed and are negative Diagnostics Vital Signs (24Hr): Vital Signs - 24 hr 04/11/22 21:55 04/12/22 09:47 Temperature 97.0 F 97.9 F Pulse Rate 64 78 Respiratory Rate 18 Blood Pressure 105/62 102/62 Pulse Oximetry 97 Oxygen Delivery Method Room Air BMI result Body Mass Index 32.9 Medications Medications Current Medications Acamprosate (Acamprosate Calcium 333 Mg Tablet.) 666 mg PO TIDWM [facility] Last Admin: 04/12/22 09:43 Dose: 666 mg Acetaminophen (Acetaminophen 325 Mg Tablet) 650 mg PO Q6H PRN PRN Reason: Headache/Pain Mild Scale (1-3) Al Hydroxide/Mg Hydroxide (Magnesium Hydrox/Alum Hydrox 30 Ml Oral.Susp) 30 ml PO Q6H PRN PRN Reason: Heartburn/Nausea Apixaban (Apixaban 5 Mg Tablet) 10 mg PO BID [facility] Stop: 04/15/22 21:01 Last Admin: 04/12/22 09:43 Dose: 10 mg Apixaban (Apixaban 5 Mg Tablet) 5 mg PO BID [facility] Aspirin (Aspirin Enteric Coated 81 Mg Tablet.) 81 mg PO DAILY [facility] Last Admin: 04/12/22 09:43 Dose: 81 mg Clonidine HCl (Clonidine Hcl 0.1 Mg Tablet) 0.1 mg PO BID [facility]; Protocol Last Admin: 04/12/22 09:43 Dose: 0.1 mg Folic Acid (Folic Acid 1 Mg Tablet) 1 mg PO DAILY [facility] Last Admin: 04/12/22 09:43 Dose: 1 mg Hydroxyzine HCl (Hydroxyzine Hcl 25 Mg Tablet) 25 mg PO Q6H PRN PRN Reason: Anxiety Last Admin: 04/11/22 16:03 Dose: 25 mg Lamotrigine (Lamotrigine 25 Mg Tablet) 50 mg PO DAILY [facility] Last Admin: 12/24/22 09:43 Dose: 50 mg Lamotrigine (Lamotrigine 100 Mg Tablet) 100 mg PO DAILY [facility] Last Admin: 04/12/22 09:43 Dose: 100 mg Magnesium Hydroxide (Milk Of Magnesia 30 Ml Oral.Susp) 30 ml PO DAILY PRN PRN Reason: Constipation Melatonin (Melatonin 3 Mg Tablet) 9 mg PO BEDTIME PRN PRN Reason: sleep Multivitamins/Vitamin C (Multivitamin Tablet) 1 tab PO DAILY [facility] Last Admin: 04/12/22 09:43 Dose: 1 tab Nicotine (Nicotine 21 Mg Patch.Td24) 21 mg TRANSDERMA DAILY [facility] Last Admin: 04/12/22 09:44 Dose: 21 mg Nicotine Polacrilex (Nicotine Polacrilex 2 Mg Gum) 4 mg BUCCAL Q2H PRN PRN Reason: Nicotine Cravings Olanzapine (Olanzapine 10 Mg Tablet) 10 mg PO BEDTIME [facility] Last Admin: 04/11/22 22:31 Dose: 10 mg Pyridoxine HCl (Pyridoxine Hcl (Vitamin B6) 50 Mg Tablet) 50 mg PO DAILY [facility] Last Admin: 04/12/22 09:43 Dose: 50 mg Thiamine HCl (Thiamine Hcl 100 Mg Tablet) 100 mg PO DAILY [facility] Last Admin: 04/12/22 09:43 Dose: 100 mg Trazodone HCl (Trazodone Hcl 50 Mg Tablet) 50 mg PO BEDTIME PRN PRN Reason: Insomnia Trazodone HCl (Trazodone Hcl 50 Mg Tablet) 150 mg PO BEDTIME [facility] Last Admin: 04/11/22 22:31 Dose: 150 mg Allergies Allergies Allergy/AdvReac Type Severity Reaction Status Date / Time sertraline AdvReac Intermediate heart Verified 03/04/22 04:30 palpitations Assessment & Plan Assessment & Plan (1) Bipolar 2 disorder, major depressive episode: Status: Acute Code(s): F31.81 - Bipolar II disorder (2) Alcohol use disorder, mild, in early remission, abuse: Status: Acute Code(s): F10.11 - Alcohol abuse, in remission (3) Panic attacks: Status: Acute Code(s): F41.0 - Panic disorder [episodic paroxysmal anxiety] Plan Pt is a 32-year-old male with a PMH significant for bipolar disorder, panic attacks, polysubtance abuse, and hypercoaguable state who is seen for an admission history and physical. Pt has no acute medical concerns at this time. # bipolar disorder -- plan per psychiatry # panic attacks -- plan per psychiatry # hypercoaguable state/DVT -- continue apixaban Thank you for allowing me to participate in the care of this patient. Signing off at this time. Please let me know if there are any future medical questions. 04/11/22 Increase Olanzapine to 10 mg at HS Discontinue [place] 04/12: Continue current regimen and plans Reason for contiued inpatient stay Substantial Risk for: med/psych decompensation Time Spent With Patient Time: Total time managing care of this patient today ____ minutes.
[2022-04-12 18:54] VITALS: BP 107/63; PULSE 61; RESP 16; TEMP 36.8
[2022-04-12] MEDS: OLANZapine 10 MG TABLET PO (23:00)
[2022-04-12] MEDS: traZODone HCL 50 MG TABLET 150 MG PO (23:01)
[2022-04-13] MEDS: Apixaban 5 MG TABLET 10 MG PO ×2 (08:57→23:05)
[2022-04-13] MEDS: Acamprosate Calcium 333 MG TABLET.DR 666 MG PO ×3 (08:57→18:57)
[2022-04-13] MEDS: lamoTRIgine 25 MG TABLET 50 MG PO (08:57)
[2022-04-13] MEDS: Nicotine 21 MG PATCH.TD24 TRANSDERMA (08:58)
[2022-04-13] MEDS: Multivitamin TABLET 1 TAB PO (08:58)
[2022-04-13] MEDS: Pyridoxine HCl (Vitamin B6) 50 MG TABLET PO (08:58)
[2022-04-13] MEDS: Thiamine HCL 100 MG TABLET PO (08:58)
[2022-04-13] MEDS: lamoTRIgine 100 MG TABLET PO (08:58)
[2022-04-13] MEDS: Aspirin Enteric Coated 81 MG TABLET.DR PO (08:58)
[2022-04-13] MEDS: Folic Acid 1 MG TABLET PO (08:58)
[2022-04-13] MEDS: cloNIDine HCL 0.1 MG TABLET PO ×2 (08:58→23:03)
[2022-04-13 09:01] VITALS: BP 99/62; PULSE 50; RESP 18; TEMP 36.9; O2SAT 96
--- NOTE | 2022-04-13 10:16 | HO.PSYCHPN ---
Subjective Subjective Date of Service: 04/13/22 Reason For Visit: Alcohol use disorder, Depressive disorder, bipolar Subjective Notes: Conditional Voluntary Interim History: Patient was seen and discussed in rounds today. Records and plans were reviewed. He has been stapled but continues to be mostly isolative. He has been interacting a little more with others. He is compliant with medications and meals. Continues to be depressed. Sleeping adequately. No complaints. No side effects. No changes were done today Medication Compliance: Yes Side effects from medications: No Review of Systems Review of Systems Yes all other systems are reviewed and are negative Mental Status Exam Mental Status Exam Patient Appearance: Fatigued Patient Orientation: Person and Place Level of Consciousness: Awake and Disoriented Patient Behavior: Talkative, Cooperative, Anxious, Fearful, Fatigued, Distractible and Good Eye Contact Mood Description: Constricted Affect Description: Constricted Patient Cognition Impaired: Yes Ability to Follow Directions: Fair Speech Pattern: Spontaneous Speech Memory Description: Remote Impaired, Episodic Impaired and Recent Impaired Hallucinations: None Delusions: Not Present Perceptual Disturbances: Derealization Thought Process: Disoriented, Distracted and Rumination Thought Content: positive for Circumstantial, positive for Perseveration, positive for Slowed Thinking, positive for Disorganized and positive for Suicidal Ideation Depressive Symptoms: Insomnia, Difficulty Sleeping and Thoughts of /Suicide Judgement: Poor Diagnostics Vital Signs (24Hr): Vital Signs - 24 hr 04/12/22 18:54 04/13/22 09:01 Temperature 98.2 F 98.5 F Pulse Rate 61 50 Respiratory Rate 16 18 Blood Pressure 107/63 99/62 Pulse Oximetry 96 Oxygen Delivery Method Room Air BMI result Body Mass Index 32.9 Medications Medications Current Medications Acamprosate (Acamprosate Calcium 333 Mg Tablet.) 666 mg PO TIDWM [facility] Last Admin: 04/13/22 08:57 Dose: 666 mg Acetaminophen (Acetaminophen 325 Mg Tablet) 650 mg PO Q6H PRN PRN Reason: Headache/Pain Mild Scale (1-3) Al Hydroxide/Mg Hydroxide (Magnesium Hydrox/Alum Hydrox 30 Ml Oral.Susp) 30 ml PO Q6H PRN PRN Reason: Heartburn/Nausea Apixaban (Apixaban 5 Mg Tablet) 10 mg PO BID [facility] Stop: 04/15/22 21:01 Last Admin: 04/13/22 08:57 Dose: 10 mg Apixaban (Apixaban 5 Mg Tablet) 5 mg PO BID [facility] Aspirin (Aspirin Enteric Coated 81 Mg Tablet.Dr) 81 mg PO DAILY [facility] Last Admin: 04/13/22 08:58 Dose: 81 mg Clonidine HCl (Clonidine Hcl 0.1 Mg Tablet) 0.1 mg PO BID [facility]; Protocol Last Admin: 04/13/22 08:58 Dose: 0.1 mg Folic Acid (Folic Acid 1 Mg Tablet) 1 mg PO DAILY [facility] Last Admin: 04/13/22 08:58 Dose: 1 mg Hydroxyzine HCl (Hydroxyzine Hcl 25 Mg Tablet) 25 mg PO Q6H PRN PRN Reason: Anxiety Last Admin: 04/11/22 16:03 Dose: 25 mg Lamotrigine (Lamotrigine 25 Mg Tablet) 50 mg PO DAILY [facility] Last Admin: 04/13/22 08:57 Dose: 50 mg Lamotrigine (Lamotrigine 100 Mg Tablet) 100 mg PO DAILY [facility] Last Admin: 04/13/22 08:58 Dose: 100 mg Magnesium Hydroxide (Milk Of Magnesia 30 Ml Oral.Susp) 30 ml PO DAILY PRN PRN Reason: Constipation Melatonin (Melatonin 3 Mg Tablet) 9 mg PO BEDTIME PRN PRN Reason: sleep Multivitamins/Vitamin C (Multivitamin Tablet) 1 tab PO DAILY [facility] Last Admin: 04/13/22 08:58 Dose: 1 tab Nicotine (Nicotine 21 Mg Patch.Td24) 21 mg TRANSDERMA DAILY [facility] Last Admin: 04/13/22 08:58 Dose: 21 mg Nicotine Polacrilex (Nicotine Polacrilex 2 Mg Gum) 4 mg BUCCAL Q2H PRN PRN Reason: Nicotine Cravings Olanzapine (Olanzapine 10 Mg Tablet) 10 mg PO BEDTIME [facility] Last Admin: 04/12/22 23:00 Dose: 10 mg Pyridoxine HCl (Pyridoxine Hcl (Vitamin B6) 50 Mg Tablet) 50 mg PO DAILY [facility] Last Admin: 04/13/22 08:58 Dose: 50 mg Thiamine HCl (Thiamine Hcl 100 Mg Tablet) 100 mg PO DAILY [facility] Last Admin: 04/13/22 08:58 Dose: 100 mg Trazodone HCl (Trazodone Hcl 50 Mg Tablet) 50 mg PO BEDTIME PRN PRN Reason: Insomnia Trazodone HCl (Trazodone Hcl 50 Mg Tablet) 150 mg PO BEDTIME [facility] Last Admin: 12/24/22 23:01 Dose: 150 mg Allergies Allergies Allergy/AdvReac Type Severity Reaction Status Date / Time sertraline AdvReac Intermediate heart Verified 03/04/22 04:30 palpitations Assessment & Plan Assessment & Plan (1) Bipolar 2 disorder, major depressive episode: Status: Acute Code(s): F31.81 - Bipolar II disorder (2) Alcohol use disorder, mild, in early remission, abuse: Status: Acute Code(s): F10.11 - Alcohol abuse, in remission (3) Panic attacks: Status: Acute Code(s): F41.0 - Panic disorder [episodic paroxysmal anxiety] Plan Pt is a 32-year-old male with a PMH significant for bipolar disorder, panic attacks, polysubtance abuse, and hypercoaguable state who is seen for an admission history and physical. Pt has no acute medical concerns at this time. # bipolar disorder -- plan per psychiatry # panic attacks -- plan per psychiatry # hypercoaguable state/DVT -- continue apixaban Thank you for allowing me to participate in the care of this patient. Signing off at this time. Please let me know if there are any future medical questions. 04/11/22 Increase Olanzapine to 10 mg at HS Discontinue [place] 04/12: Continue current regimen and plans 04/13: Continue current plans and regimen Reason for contiued inpatient stay Substantial Risk for: med/psych decompensation Time Spent With Patient Time: Total time managing care of this patient today ____ minutes.
[2022-04-13 22:15] VITALS: BP 117/66; PULSE 68; TEMP 36.4
[2022-04-13] MEDS: traZODone HCL 50 MG TABLET 150 MG PO (23:04)
[2022-04-13] MEDS: OLANZapine 10 MG TABLET PO (23:06)
[2022-04-14 08:27] VITALS: BP 103/59; PULSE 56; RESP 16; TEMP 36.4; O2SAT 97
[2022-04-14] MEDS: lamoTRIgine 25 MG TABLET 50 MG PO (09:28)
[2022-04-14] MEDS: Acamprosate Calcium 333 MG TABLET.DR 666 MG PO ×3 (09:29→22:18)
[2022-04-14] MEDS: Pyridoxine HCl (Vitamin B6) 50 MG TABLET PO (09:29)
[2022-04-14] MEDS: Apixaban 5 MG TABLET 10 MG PO ×2 (09:29→22:17)
[2022-04-14] MEDS: Thiamine HCL 100 MG TABLET PO (09:29)
[2022-04-14] MEDS: Aspirin Enteric Coated 81 MG TABLET.DR PO (09:29)
[2022-04-14] MEDS: lamoTRIgine 100 MG TABLET PO (09:29)
[2022-04-14] MEDS: Multivitamin TABLET 1 TAB PO (09:29)
[2022-04-14] MEDS: Folic Acid 1 MG TABLET PO (09:29)
--- NOTE | 2022-04-14 09:59 | HO.PSYCHPN ---
Subjective Subjective Date of Service: 04/14/22 Reason For Visit: Alcohol use disorder, Depressive disorder, bipolar Subjective Notes: Conditional Voluntary Interim History: Patient was seen and discussed in rounds today. Records and plans were reviewed. He has been doing better, is somewhat brighter, more social. He is medication compliant. Improved affect and mood. Safe on the unit. Eating and sleeping adequately. No complaints or side effects. No changes were made Medication Compliance: Yes Side effects from medications: No Review of Systems Review of Systems Yes all other systems are reviewed and are negative Mental Status Exam Mental Status Exam Narrative: In today's visit he is alert, oriented and pleasant. Normal speech. Moderate eye contact. Affect is appropriate and improved and more varied. No signs of psychosis. No SI. Cognitively intact. Judgment is intact Diagnostics Vital Signs (24Hr): Vital Signs - 24 hr 04/13/22 22:15 04/14/22 08:27 Temperature 97.5 F 97.6 F Pulse Rate 68 56 Respiratory Rate 16 Blood Pressure 117/66 103/59 L Pulse Oximetry 97 Oxygen Delivery Method Room Air BMI result Body Mass Index 32.9 Medications Medications Current Medications Acamprosate (Acamprosate Calcium 333 Mg Tablet.) 666 mg PO TIDWM [facility] Last Admin: 04/14/22 09:29 Dose: 666 mg Acetaminophen (Acetaminophen 325 Mg Tablet) 650 mg PO Q6H PRN PRN Reason: Headache/Pain Mild Scale (1-3) Al Hydroxide/Mg Hydroxide (Magnesium Hydrox/Alum Hydrox 30 Ml Oral.Susp) 30 ml PO Q6H PRN PRN Reason: Heartburn/Nausea Apixaban (Apixaban 5 Mg Tablet) 10 mg PO BID [facility] Stop: 04/15/22 21:01 Last Admin: 04/14/22 09:29 Dose: 10 mg Apixaban (Apixaban 5 Mg Tablet) 5 mg PO BID [facility] Aspirin (Aspirin Enteric Coated 81 Mg Tablet.) 81 mg PO DAILY [facility] Last Admin: 04/14/22 09:29 Dose: 81 mg Clonidine HCl (Clonidine Hcl 0.1 Mg Tablet) 0.1 mg PO BID [facility]; Protocol Last Admin: 04/14/22 09:30 Dose: Not Given Folic Acid (Folic Acid 1 Mg Tablet) 1 mg PO DAILY [facility] Last Admin: 04/14/22 09:29 Dose: 1 mg Hydroxyzine HCl (Hydroxyzine Hcl 25 Mg Tablet) 25 mg PO Q6H PRN PRN Reason: Anxiety Last Admin: 04/11/22 16:03 Dose: 25 mg Lamotrigine (Lamotrigine 25 Mg Tablet) 50 mg PO DAILY [facility] Last Admin: 04/14/22 09:28 Dose: 50 mg Lamotrigine (Lamotrigine 100 Mg Tablet) 100 mg PO DAILY [facility] Last Admin: 04/14/22 09:29 Dose: 100 mg Magnesium Hydroxide (Milk Of Magnesia 30 Ml Oral.Susp) 30 ml PO DAILY PRN PRN Reason: Constipation Melatonin (Melatonin 3 Mg Tablet) 9 mg PO BEDTIME PRN PRN Reason: sleep Multivitamins/Vitamin C (Multivitamin Tablet) 1 tab PO DAILY [facility] Last Admin: 04/14/22 09:29 Dose: 1 tab Nicotine (Nicotine 21 Mg Patch.Td24) 21 mg TRANSDERMA DAILY [facility] Last Admin: 04/14/22 09:32 Dose: Not Given Nicotine Polacrilex (Nicotine Polacrilex 2 Mg Gum) 4 mg BUCCAL Q2H PRN PRN Reason: Nicotine Cravings Olanzapine (Olanzapine 10 Mg Tablet) 10 mg PO BEDTIME [facility] Last Admin: 04/13/22 23:06 Dose: 10 mg Pyridoxine HCl (Pyridoxine Hcl (Vitamin B6) 50 Mg Tablet) 50 mg PO DAILY [facility] Last Admin: 04/14/22 09:29 Dose: 50 mg Thiamine HCl (Thiamine Hcl 100 Mg Tablet) 100 mg PO DAILY [facility] Last Admin: 04/14/22 09:29 Dose: 100 mg Trazodone HCl (Trazodone Hcl 50 Mg Tablet) 50 mg PO BEDTIME PRN PRN Reason: Insomnia Trazodone HCl (Trazodone Hcl 50 Mg Tablet) 150 mg PO BEDTIME [facility] Last Admin: 04/13/22 23:04 Dose: 150 mg Allergies Allergies Allergy/AdvReac Type Severity Reaction Status Date / Time sertraline AdvReac Intermediate heart Verified 03/04/22 04:30 palpitations Assessment & Plan Assessment & Plan (1) Bipolar 2 disorder, major depressive episode: Status: Acute Code(s): F31.81 - Bipolar II disorder (2) Alcohol use disorder, mild, in early remission, abuse: Status: Acute Code(s): F10.11 - Alcohol abuse, in remission (3) Panic attacks: Status: Acute Code(s): F41.0 - Panic disorder [episodic paroxysmal anxiety] Plan Pt is a 32-year-old male with a PMH significant for bipolar disorder, panic attacks, polysubtance abuse, and hypercoaguable state who is seen for an admission history and physical. Pt has no acute medical concerns at this time. # bipolar disorder -- plan per psychiatry # panic attacks -- plan per psychiatry # hypercoaguable state/DVT -- continue apixaban Thank you for allowing me to participate in the care of this patient. Signing off at this time. Please let me know if there are any future medical questions. 04/11/22 Increase Olanzapine to 10 mg at HS Discontinue [place] 04/12: Continue current regimen and plans 04/13: Continue current plans and regimen 04/14: Continue current plans and regimen Reason for contiued inpatient stay Substantial Risk for: med/psych decompensation Time Spent With Patient Time: Total time managing care of this patient today ____ minutes.
[2022-04-14 18:00] VITALS: BP 120/66; PULSE 80; TEMP 36.8; O2SAT 98
[2022-04-14] MEDS: traZODone HCL 50 MG TABLET 150 MG PO (22:18)
[2022-04-14] MEDS: cloNIDine HCL 0.1 MG TABLET PO (22:18)
[2022-04-14] MEDS: OLANZapine 10 MG TABLET PO (22:18)
--- NOTE | 2022-04-15 | ECG_ITS ---
Test Reason : cp Blood Pressure : / mmHG Vent. Rate : 052 BPM Atrial Rate : 052 BPM P-R Int : 142 ms QRS Dur : 084 ms QT Int : 420 ms P-R-T Axes : 004 037 028 degrees QTc Int : 390 ms Sinus bradycardia Otherwise normal ECG When compared with ECG of 24-MAR-2022 13:22, QT has shortened Referred By: Susan Perez Electronically Signed By:IRENE KHAN MD
[2022-04-15 07:45] VITALS: BP 81/56; PULSE 56; RESP 16; TEMP 36.6; O2SAT 97
[2022-04-15] MEDS: Multivitamin TABLET 1 TAB PO (08:13)
[2022-04-15] MEDS: Pyridoxine HCl (Vitamin B6) 50 MG TABLET PO (08:13)
[2022-04-15] MEDS: Aspirin Enteric Coated 81 MG TABLET.DR PO (08:13)
[2022-04-15] MEDS: lamoTRIgine 100 MG TABLET PO (08:13)
[2022-04-15] MEDS: Acamprosate Calcium 333 MG TABLET.DR 666 MG PO ×3 (08:13→16:54)
[2022-04-15] MEDS: Folic Acid 1 MG TABLET PO (08:13)
[2022-04-15] MEDS: Thiamine HCL 100 MG TABLET PO (08:13)
[2022-04-15] MEDS: lamoTRIgine 25 MG TABLET 50 MG PO (08:13)
[2022-04-15] MEDS: Apixaban 5 MG TABLET 10 MG PO ×2 (08:14→22:09)
--- NOTE | 2022-04-15 12:38 | P.PNPSI_ITS ---
Subjective Subjective Date of Service: 04/15/22 Reason For Visit: Alcohol use disorder, Depressive disorder, bipolar Subjective Notes: Conditional Voluntary Healthcare Proxy: No Guardianship: No Medical Problems Affecting Mental Status: No Interim History: Memory sx persist-pt has lost a period of time which we are attempting to piece together. Over the weekend reported SI, racing thoughts, poor sleep. Reports today memory loss is the major issue. Racing thoughts and intermittent SI, HI are present. Reports R shoulder/back/chest pain radiating to arm. EKG ordered. Neuro consult requested, labs for the a.m. cbcd, chempanel, ammonia. Pt looking at [facility] for longer term care. Medication Compliance: Yes Side effects from medications: No Attending Groups: Intermittent Review of Systems Acute medical concerns: No Medical Review of Systems: unchanged Mental Status Exam Mental Status Exam Patient Appearance: Appropriate Patient Orientation: Person, Place and Situation Level of Consciousness: Alert Patient Behavior: Appropriate, Talkative, Cooperative and Good Eye Contact Mood Description: Flat Affect Description: Flat Patient Cognition Impaired: No Ability to Follow Directions: Good Speech Pattern: Spontaneous Speech Memory Description: Remote Impaired, Episodic Impaired and Recent Impaired Hallucinations: Auditory and Visual Delusions: Not Present Perceptual Disturbances: Derealization Thought Process: Distracted and Confusion Thought Content: positive for Circumstantial Judgement: Fair Diagnostics Vital Signs (24Hr): Vital Signs - 24 hr 04/14/22 18:00 04/15/22 07:45 Temperature 98.3 F 97.9 F Pulse Rate 80 56 Respiratory Rate 16 Blood Pressure 120/66 81/56 L Pulse Oximetry 98 97 Oxygen Delivery Method Room Air Room Air BMI result Body Mass Index 32.9 Medications Medications Current Medications Acamprosate (Acamprosate Calcium 333 Mg Tablet.) 666 mg PO TIDWM [facility] Last Admin: 04/15/22 12:15 Dose: 666 mg Acetaminophen (Acetaminophen 325 Mg Tablet) 650 mg PO Q6H PRN PRN Reason: Headache/Pain Mild Scale (1-3) Al Hydroxide/Mg Hydroxide (Magnesium Hydrox/Alum Hydrox 30 Ml Oral.Susp) 30 ml PO Q6H PRN PRN Reason: Heartburn/Nausea Apixaban (Apixaban 5 Mg Tablet) 10 mg PO BID [facility] Stop: 04/15/22 21:01 Last Admin: 04/15/22 08:14 Dose: 10 mg Apixaban (Apixaban 5 Mg Tablet) 5 mg PO BID [facility] Aspirin (Aspirin Enteric Coated 81 Mg Tablet.Dr) 81 mg PO DAILY [facility] Last Admin: 04/15/22 08:13 Dose: 81 mg Clonidine HCl (Clonidine Hcl 0.1 Mg Tablet) 0.1 mg PO BID [facility]; Protocol Last Admin: 04/15/22 09:20 Dose: Not Given Folic Acid (Folic Acid 1 Mg Tablet) 1 mg PO DAILY [facility] Last Admin: 04/15/22 08:13 Dose: 1 mg Hydroxyzine HCl (Hydroxyzine Hcl 25 Mg Tablet) 25 mg PO Q6H PRN PRN Reason: Anxiety Last Admin: 04/11/22 16:03 Dose: 25 mg Lamotrigine (Lamotrigine 25 Mg Tablet) 50 mg PO DAILY [facility] Last Admin: 04/15/22 08:13 Dose: 50 mg Lamotrigine (Lamotrigine 100 Mg Tablet) 100 mg PO DAILY [facility] Last Admin: 04/15/22 08:13 Dose: 100 mg Magnesium Hydroxide (Milk Of Magnesia 30 Ml Oral.Susp) 30 ml PO DAILY PRN PRN Reason: Constipation Melatonin (Melatonin 3 Mg Tablet) 9 mg PO BEDTIME PRN PRN Reason: sleep Multivitamins/Vitamin C (Multivitamin Tablet) 1 tab PO DAILY [facility] Last Admin: 04/15/22 08:13 Dose: 1 tab Nicotine (Nicotine 21 Mg Patch.Td24) 21 mg TRANSDERMA DAILY [facility] Last Admin: 04/15/22 09:20 Dose: Not Given Nicotine Polacrilex (Nicotine Polacrilex 2 Mg Gum) 4 mg BUCCAL Q2H PRN PRN Reason: Nicotine Cravings Olanzapine (Olanzapine 10 Mg Tablet) 10 mg PO BEDTIME [facility] Last Admin: 04/14/22 22:18 Dose: 10 mg Pyridoxine HCl (Pyridoxine Hcl (Vitamin B6) 50 Mg Tablet) 50 mg PO DAILY [facility] Last Admin: 04/15/22 08:13 Dose: 50 mg Thiamine HCl (Thiamine Hcl 100 Mg Tablet) 100 mg PO DAILY [facility] Last Admin: 04/15/22 08:13 Dose: 100 mg Trazodone HCl (Trazodone Hcl 50 Mg Tablet) 50 mg PO BEDTIME PRN PRN Reason: Insomnia Trazodone HCl (Trazodone Hcl 50 Mg Tablet) 150 mg PO BEDTIME [facility] Last Admin: 04/14/22 22:18 Dose: 150 mg Allergies Allergies Allergy/AdvReac Type Severity Reaction Status Date / Time sertraline AdvReac Intermediate heart Verified 03/04/22 04:30 palpitations Assessment & Plan Assessment & Plan (1) Bipolar 2 disorder, major depressive episode: Status: Acute Code(s): F31.81 - Bipolar II disorder (2) Alcohol use disorder, mild, in early remission, abuse: Status: Acute Code(s): F10.11 - Alcohol abuse, in remission (3) Panic attacks: Status: Acute Code(s): F41.0 - Panic disorder [episodic paroxysmal anxiety] Plan Pt is a 32-year-old male with a PMH significant for bipolar disorder, panic attacks, polysubtance abuse, and hypercoaguable state who is seen for an admission history and physical. Pt has no acute medical concerns at this time. # bipolar disorder -- plan per psychiatry # panic attacks -- plan per psychiatry # hypercoaguable state/DVT -- continue apixaban Thank you for allowing me to participate in the care of this patient. Signing off at this time. Please let me know if there are any future medical questions. 04/11/22 Increase Olanzapine to 10 mg at HS Discontinue [place] 04/12: Continue current regimen and plans 04/13: Continue current plans and regimen 04/14: Continue current plans and regimen 04/15/22: Neurology consult requested CBC, CMP, Ammonia level for 04/16/22 EKG d/t sx of back, chest, arm pain No medication changes today. Patient educated on: medication risk/benefits and therapeutic strategies Informed Consent: further education needed Reason for contiued inpatient stay Substantial Risk for: inability to function and rapid decompensation Time Spent With Patient Time: Total time managing care of this patient today 35____ minutes.
[2022-04-15 18:00] VITALS: BP 128/70; PULSE 54; RESP 20; TEMP 36.1; O2SAT 100
[2022-04-15] MEDS: traZODone HCL 50 MG TABLET 150 MG PO (22:09)
[2022-04-15] MEDS: OLANZapine 10 MG TABLET PO (22:10)
[2022-04-15] MEDS: cloNIDine HCL 0.1 MG TABLET PO (22:10)
[2022-04-16 07:41] LABS: MANUAL DIFF FLAG NO
[2022-04-16 07:44] LABS: Basophils Absolute Auto 0.1 X10*3/uL (0.0-0.2); Eosinophils Absolute Auto 0.2 X10*3/uL (0.0-0.4); Eosinophils Percent Auto 2.8 % (0-4); Hematocrit 35.5 % (42.0-52.0); Hemoglobin 12.1 g/dl (14.0-18.0); Imm Gran Abs Auto 0.02 X10*3/uL (0.00-0.03); Imm Gran Pct Auto 0.3 % (0.0-0.4); Lymphocytes Absolute Auto 2.9 X10*3/uL (1.2-4.9); Lymphocytes Percent Auto 40.4 % (20-40); Mean Corpuscular HGB Conc 34.1 g/dl (31.0-36.0); Mean Corpuscular Hemoglobin 29.5 pg (27.0-33.0); Mean Corpuscular Volume 86.6 fL (80.0-98.0); Mean Platelet Volume 10.3 fL (9.4-12.4); Monocytes Absolute Auto 0.6 X10*3/uL (0.1-1.2); Monocytes Percent Auto 8.3 % (2-11); Neutrophils Absolute Auto 3.4 x10*3/uL (2.0-8.3); Neutrophils Percent Auto 47.2 % (45-73); Platelet Count 296 X10*3/uL (160-400); White Blood Count 7.3 X10*3/uL (4.8-10.8)
[2022-04-16 07:58] LABS: Ammonia 28 umol/L (13-55)
[2022-04-16 08:08] VITALS: BP 110/62; PULSE 86; RESP 17; TEMP 36.6; O2SAT 97
[2022-04-16 08:08] LABS: Alanine Aminotransferase 49 U/L (0-40); Albumin Level 3.6 g/dL (3.5-5.0); Alkaline Phosphatase 63 U/L (39-117); Anion Gap 12 (12-20); Aspartate Amino Transferase 18 U/L (5-37); Bilirubin Total 0.2 mg/dL (0.0-1.0); Blood Urea Nitrogen 9 mg/dL (9-16); Calcium 9.1 mg/dL (8.4-10.2); Carbon Dioxide 24 mmol/L (22-29); Chloride 109 mmol/L (96-108); Creatinine Clr Calc Pharmacy 124.1; Estimated Glomerular Filt Rate > 60; Glucose Random 87 mg/dL (60-115); Potassium 4.4 mmol/L (3.3-5.1); Sodium 141 mmol/L (135-145)
[2022-04-16] MEDS: cloNIDine HCL 0.1 MG TABLET PO ×2 (08:47→22:05)
[2022-04-16] MEDS: Apixaban 5 MG TABLET PO ×2 (08:47→22:03)
[2022-04-16] MEDS: lamoTRIgine 25 MG TABLET 50 MG PO (08:47)
[2022-04-16] MEDS: Aspirin Enteric Coated 81 MG TABLET.DR PO (08:47)
[2022-04-16] MEDS: Pyridoxine HCl (Vitamin B6) 50 MG TABLET PO (08:47)
[2022-04-16] MEDS: Multivitamin TABLET 1 TAB PO (08:47)
[2022-04-16] MEDS: Acamprosate Calcium 333 MG TABLET.DR 666 MG PO ×3 (08:47→17:39)
[2022-04-16] MEDS: lamoTRIgine 100 MG TABLET PO (08:47)
[2022-04-16] MEDS: Folic Acid 1 MG TABLET PO (08:47)
[2022-04-16] MEDS: Thiamine HCL 100 MG TABLET PO (08:47)
[2022-04-16 14:16] LABS: COVID-19 Test Negative (Negative); IDNOW Serial# 55D5AD1C
[2022-04-16] MEDS: hydrOXYzine HCL 25 MG TABLET PO (15:33)
--- NOTE | 2022-04-16 17:25 | P.PNPSI_ITS ---
Subjective Subjective Date of Service: 04/16/22 Reason For Visit: Alcohol use disorder, Depressive disorder, bipolar Subjective Notes: Conditional Voluntary Healthcare Proxy: No Guardianship: No Medical Problems Affecting Mental Status: No Interim History: Review of information sent from [facility] with pt (pt discharge instructions), diagnostics, diagnostics from today and improvement in AST, ALT. Neuro consult ordered however, office reports they will not see pt until 04/21/22. Review of tox scree + barbs from [facility]- discussed with pt if by chance he was given meds he was not aware of on the street. He believes this to be possible. Overall labs improving, pt gradually gaining memory. Medication Compliance: Yes Side effects from medications: No Attending Groups: No Review of Systems Acute medical concerns: No Medical Review of Systems: unchanged Mental Status Exam Mental Status Exam Patient Appearance: Appropriate Patient Orientation: Person, Place and Situation Level of Consciousness: Alert Patient Behavior: Appropriate, Talkative, Cooperative and Good Eye Contact Mood Description: Flat Affect Description: Flat Patient Cognition Impaired: No Ability to Follow Directions: Good Speech Pattern: Spontaneous Speech Memory Description: Remote Impaired, Episodic Impaired and Recent Impaired Hallucinations: Auditory and Visual Delusions: Not Present Perceptual Disturbances: Derealization Thought Process: Distracted and Confusion Thought Content: positive for Circumstantial Judgement: Fair Diagnostics Vital Signs (24Hr): Vital Signs - 24 hr 04/15/22 18:00 04/16/22 08:08 Temperature 97 F 97.8 F Pulse Rate 54 86 Respiratory Rate 20 17 Blood Pressure 128/70 110/62 Pulse Oximetry 100 97 Oxygen Delivery Method Room Air Room Air BMI result Body Mass Index 32.9 Labs Results: 04/16/22 07:31 04/16/22 07:31 Labs: Laboratory Results - last 48 hr 04/16/22 04/16/22 04/16/22 07:31 07:31 07:31 WBC 7.3 RBC 4.10 L Hgb 12.1 L Hct 35.5 L MCV 86.6 MCH 29.5 MCHC 34.1 RDW 14.0 Plt Count 296 MPV 10.3 Immature Gran % (Auto) 0.3 Neut % (Auto) 47.2 Lymph % (Auto) 40.4 H [place] % (Auto) 8.3 Eos % (Auto) 2.8 Baso % (Auto) 1.0 Lymph # (Auto) 2.9 [place] # (Auto) 0.6 Eos # (Auto) 0.2 Baso # (Auto) 0.1 Abs Immat Gran (auto) 0.02 Absolute Neuts (auto) 3.4 Absolute Nucleated RBC 0.000 Nucleated RBC % (auto) 0.0 Sodium 141 Potassium 4.4 Chloride 109 H Carbon Dioxide 24 Anion Gap 12 BUN 9 Creatinine 0.94 Estim Creat Clear Calc 124.1 Estimated GFR > 60 Random Glucose 87 Calcium 9.1 Total Bilirubin 0.2 AST 18 ALT 49 H Alkaline Phosphatase 63 Ammonia 28 Total Protein 6.0 L Albumin 3.6 COVID-19 ([facility]) COVID-19 Clin Com 04/16/22 13:10 WBC RBC Hgb Hct MCV MCH MCHC RDW Plt Count MPV Immature Gran % (Auto) Neut % (Auto) Lymph % (Auto) [place] % (Auto) Eos % (Auto) Baso % (Auto) Lymph # (Auto) [place] # (Auto) Eos # (Auto) Baso # (Auto) Abs Immat Gran (auto) Absolute Neuts (auto) Absolute Nucleated RBC Nucleated RBC % (auto) Sodium Potassium Chloride Carbon Dioxide Anion Gap BUN Creatinine Estim Creat Clear Calc Estimated GFR Random Glucose Calcium Total Bilirubin AST ALT Alkaline Phosphatase Ammonia Total Protein Albumin COVID-19 ([facility]) Negative COVID-19 Clin Com See Note Medications Medications Current Medications Acamprosate (Acamprosate Calcium 333 Mg Tablet.) 666 mg PO TIDWM [facility] Last Admin: 04/16/22 14:28 Dose: 666 mg Acetaminophen (Acetaminophen 325 Mg Tablet) 650 mg PO Q6H PRN PRN Reason: Headache/Pain Mild Scale (1-3) Al Hydroxide/Mg Hydroxide (Magnesium Hydrox/Alum Hydrox 30 Ml Oral.Susp) 30 ml PO Q6H PRN PRN Reason: Heartburn/Nausea Apixaban (Apixaban 5 Mg Tablet) 5 mg PO BID [facility] Last Admin: 04/16/22 08:47 Dose: 5 mg Aspirin (Aspirin Enteric Coated 81 Mg Tablet.) 81 mg PO DAILY [facility] Last Admin: 04/16/22 08:47 Dose: 81 mg Clonidine HCl (Clonidine Hcl 0.1 Mg Tablet) 0.1 mg PO BID [facility]; Protocol Last Admin: 04/16/22 08:47 Dose: 0.1 mg Ferrous Sulfate (Ferrous Sulfate 324 Mg Tablet.) 325 mg PO DAILY [facility] Folic Acid (Folic Acid 1 Mg Tablet) 1 mg PO DAILY [facility] Last Admin: 04/16/22 08:47 Dose: 1 mg Hydroxyzine HCl (Hydroxyzine Hcl 25 Mg Tablet) 25 mg PO Q6H PRN PRN Reason: Anxiety Last Admin: 04/16/22 15:33 Dose: 25 mg Lamotrigine (Lamotrigine 25 Mg Tablet) 50 mg PO DAILY [facility] Last Admin: 04/16/22 08:47 Dose: 50 mg Lamotrigine (Lamotrigine 100 Mg Tablet) 100 mg PO DAILY [facility] Last Admin: 04/16/22 08:47 Dose: 100 mg Magnesium Hydroxide (Milk Of Magnesia 30 Ml Oral.Susp) 30 ml PO DAILY PRN PRN Reason: Constipation Melatonin (Melatonin 3 Mg Tablet) 9 mg PO BEDTIME PRN PRN Reason: sleep Multivitamins/Vitamin C (Multivitamin Tablet) 1 tab PO DAILY [facility] Last Admin: 04/16/22 08:47 Dose: 1 tab Nicotine (Nicotine 21 Mg Patch.Td24) 21 mg TRANSDERMA DAILY [facility] Last Admin: 04/16/22 08:48 Dose: Not Given Nicotine Polacrilex (Nicotine Polacrilex 2 Mg Gum) 4 mg BUCCAL Q2H PRN PRN Reason: Nicotine Cravings Olanzapine (Olanzapine 10 Mg Tablet) 10 mg PO BEDTIME [facility] Last Admin: 04/15/22 22:10 Dose: 10 mg Pyridoxine HCl (Pyridoxine Hcl (Vitamin B6) 50 Mg Tablet) 50 mg PO DAILY [facility] Last Admin: 04/16/22 08:47 Dose: 50 mg Thiamine HCl (Thiamine Hcl 100 Mg Tablet) 100 mg PO DAILY [facility] Last Admin: 04/16/22 08:47 Dose: 100 mg Trazodone HCl (Trazodone Hcl 50 Mg Tablet) 50 mg PO BEDTIME PRN PRN Reason: Insomnia Trazodone HCl (Trazodone Hcl 50 Mg Tablet) 150 mg PO BEDTIME [facility] Last Admin: 04/15/22 22:09 Dose: 150 mg Allergies Allergies Allergy/AdvReac Type Severity Reaction Status Date / Time sertraline AdvReac Intermediate heart Verified 03/04/22 04:30 palpitations Assessment & Plan Assessment & Plan (1) Bipolar 2 disorder, major depressive episode: Status: Acute Code(s): F31.81 - Bipolar II disorder (2) Alcohol use disorder, mild, in early remission, abuse: Status: Acute Code(s): F10.11 - Alcohol abuse, in remission (3) Panic attacks: Status: Acute Code(s): F41.0 - Panic disorder [episodic paroxysmal anxiety] Plan Pt is a 32-year-old male with a PMH significant for bipolar disorder, panic attacks, polysubtance abuse, and hypercoaguable state who is seen for an admission history and physical. Pt has no acute medical concerns at this time. # bipolar disorder -- plan per psychiatry # panic attacks -- plan per psychiatry # hypercoaguable state/DVT -- continue apixaban Thank you for allowing me to participate in the care of this patient. Signing off at this time. Please let me know if there are any future medical questions. 04/11/22 Increase Olanzapine to 10 mg at HS Discontinue [place] 04/12: Continue current regimen and plans 04/13: Continue current plans and regimen 04/14: Continue current plans and regimen 04/15/22: Neurology consult requested CBC, CMP, Ammonia level for 04/16/22 EKG d/t sx of back, chest, arm pain No medication changes today. 04/16/22: Labs improved EKG with sinus bradycardia Review of [facility] hospitalization with pt. Patient educated on: diagnosis, therapeutic strategies and medical condition Informed Consent: understands and further education needed Reason for contiued inpatient stay Substantial Risk for: med/psych decompensation Time Spent With Patient Time: Total time managing care of this patient today __25__ minutes.
[2022-04-16 22:00] VITALS: BP 108/58; PULSE 63; TEMP 36.4
[2022-04-16] MEDS: traZODone HCL 50 MG TABLET 150 MG PO (22:03)
[2022-04-16] MEDS: OLANZapine 10 MG TABLET PO (22:03)
[2022-04-17 06:00] VITALS: PULSE 59; RESP 16; TEMP 36.4; O2SAT 97
[2022-04-17 07:00] VITALS: BMI 32.8
[2022-04-17] MEDS: lamoTRIgine 25 MG TABLET 50 MG PO (07:56)
[2022-04-17] MEDS: Acamprosate Calcium 333 MG TABLET.DR 666 MG PO ×3 (07:56→16:45)
[2022-04-17] MEDS: lamoTRIgine 100 MG TABLET PO (07:56)
[2022-04-17] MEDS: Aspirin Enteric Coated 81 MG TABLET.DR PO (07:56)
[2022-04-17] MEDS: Thiamine HCL 100 MG TABLET PO (07:57)
[2022-04-17] MEDS: cloNIDine HCL 0.1 MG TABLET PO ×2 (07:57→21:07)
[2022-04-17] MEDS: Ferrous Sulfate 324 MG TABLET.DR 325 MG PO (07:57)
[2022-04-17] MEDS: Apixaban 5 MG TABLET PO ×2 (07:58→21:07)
[2022-04-17] MEDS: Pyridoxine HCl (Vitamin B6) 50 MG TABLET PO (07:58)
[2022-04-17] MEDS: Multivitamin TABLET 1 TAB PO (07:58)
[2022-04-17] MEDS: Folic Acid 1 MG TABLET PO (08:25)
--- NOTE | 2022-04-17 17:49 | P.PNPSI_ITS ---
Subjective Subjective Date of Service: 04/17/22 Reason For Visit: Alcohol use disorder, Depressive disorder, bipolar Subjective Notes: Conditional Voluntary Healthcare Proxy: No Guardianship: No Medical Problems Affecting Mental Status: No Interim History: Presents with improved clarity today. Asking more questions about our review of his treatment yesterday-on point, specific, with appropriate STM Discussed probably discharge to [facility] on 04/23/22. He is pleased with this plan. Denies any sx we need to work with at this time. Medication Compliance: Yes Side effects from medications: No Attending Groups: Intermittent Review of Systems Acute medical concerns: No Medical Review of Systems: unchanged Mental Status Exam Mental Status Exam Patient Appearance: Appropriate Patient Orientation: Person, Place and Situation Level of Consciousness: Alert Patient Behavior: Appropriate, Talkative, Cooperative and Good Eye Contact Mood Description: Appropriate Affect Description: Appropriate Patient Cognition Impaired: No Ability to Follow Directions: Good Speech Pattern: Spontaneous Speech Memory Description: Remote Impaired and Episodic Impaired Hallucinations: Auditory and Visual Delusions: Not Present Thought Process: Distracted Thought Content: positive for Circumstantial Depressive Symptoms: Low Self Esteem Judgement: Fair Diagnostics Vital Signs (24Hr): Vital Signs - 24 hr 04/16/22 22:00 04/17/22 06:00 Temperature 97.6 F 97.6 F Pulse Rate 63 59 Respiratory Rate 16 Blood Pressure 108/58 L Pulse Oximetry 97 Oxygen Delivery Method Room Air BMI result Body Mass Index 32.8 Labs Results: 04/16/22 07:31 04/16/22 07:31 Labs: Laboratory Results - last 48 hr 04/16/22 04/16/22 04/16/22 07:31 07:31 07:31 WBC 7.3 RBC 4.10 L Hgb 12.1 L Hct 35.5 L MCV 86.6 MCH 29.5 MCHC 34.1 RDW 14.0 Plt Count 296 MPV 10.3 Immature Gran % (Auto) 0.3 Neut % (Auto) 47.2 Lymph % (Auto) 40.4 H [place] % (Auto) 8.3 Eos % (Auto) 2.8 Baso % (Auto) 1.0 Lymph # (Auto) 2.9 [place] # (Auto) 0.6 Eos # (Auto) 0.2 Baso # (Auto) 0.1 Abs Immat Gran (auto) 0.02 Absolute Neuts (auto) 3.4 Absolute Nucleated RBC 0.000 Nucleated RBC % (auto) 0.0 Sodium 141 Potassium 4.4 Chloride 109 H Carbon Dioxide 24 Anion Gap 12 BUN 9 Creatinine 0.94 Estim Creat Clear Calc 124.1 Estimated GFR > 60 Random Glucose 87 Calcium 9.1 Total Bilirubin 0.2 AST 18 ALT 49 H Alkaline Phosphatase 63 Ammonia 28 Total Protein 6.0 L Albumin 3.6 COVID-19 ([facility]) COVID-19 Clin Com 04/16/22 13:10 WBC RBC Hgb Hct MCV MCH MCHC RDW Plt Count MPV Immature Gran % (Auto) Neut % (Auto) Lymph % (Auto) [place] % (Auto) Eos % (Auto) Baso % (Auto) Lymph # (Auto) [place] # (Auto) Eos # (Auto) Baso # (Auto) Abs Immat Gran (auto) Absolute Neuts (auto) Absolute Nucleated RBC Nucleated RBC % (auto) Sodium Potassium Chloride Carbon Dioxide Anion Gap BUN Creatinine Estim Creat Clear Calc Estimated GFR Random Glucose Calcium Total Bilirubin AST ALT Alkaline Phosphatase Ammonia Total Protein Albumin COVID-19 ([facility]) Negative COVID-19 Clin Com See Note Medications Medications Current Medications Acamprosate (Acamprosate Calcium 333 Mg Tablet.) 666 mg PO TIDWM [facility] Last Admin: 04/17/22 16:45 Dose: 666 mg Acetaminophen (Acetaminophen 325 Mg Tablet) 650 mg PO Q6H PRN PRN Reason: Headache/Pain Mild Scale (1-3) Al Hydroxide/Mg Hydroxide (Magnesium Hydrox/Alum Hydrox 30 Ml Oral.Susp) 30 ml PO Q6H PRN PRN Reason: Heartburn/Nausea Apixaban (Apixaban 5 Mg Tablet) 5 mg PO BID [facility] Last Admin: 04/17/22 07:58 Dose: 5 mg Aspirin (Aspirin Enteric Coated 81 Mg Tablet.) 81 mg PO DAILY [facility] Last Admin: 04/17/22 07:56 Dose: 81 mg Clonidine HCl (Clonidine Hcl 0.1 Mg Tablet) 0.1 mg PO BID [facility]; Protocol Last Admin: 04/17/22 07:57 Dose: 0.1 mg Ferrous Sulfate (Ferrous Sulfate 324 Mg Tablet.) 325 mg PO DAILY [facility] Last Admin: 04/17/22 07:57 Dose: 324 mg Folic Acid (Folic Acid 1 Mg Tablet) 1 mg PO DAILY [facility] Last Admin: 04/17/22 08:25 Dose: 1 mg Hydroxyzine HCl (Hydroxyzine Hcl 25 Mg Tablet) 25 mg PO Q6H PRN PRN Reason: Anxiety Last Admin: 04/16/22 15:33 Dose: 25 mg Lamotrigine (Lamotrigine 25 Mg Tablet) 50 mg PO DAILY [facility] Last Admin: 04/17/22 07:56 Dose: 50 mg Lamotrigine (Lamotrigine 100 Mg Tablet) 100 mg PO DAILY [facility] Last Admin: 04/17/22 07:56 Dose: 100 mg Magnesium Hydroxide (Milk Of Magnesia 30 Ml Oral.Susp) 30 ml PO DAILY PRN PRN Reason: Constipation Melatonin (Melatonin 3 Mg Tablet) 9 mg PO BEDTIME PRN PRN Reason: sleep Multivitamins/Vitamin C (Multivitamin Tablet) 1 tab PO DAILY [facility] Last Admin: 04/17/22 07:58 Dose: 1 tab Nicotine (Nicotine 21 Mg Patch.Td24) 21 mg TRANSDERMA DAILY [facility] Last Admin: 04/17/22 08:05 Dose: Not Given Nicotine Polacrilex (Nicotine Polacrilex 2 Mg Gum) 4 mg BUCCAL Q2H PRN PRN Reason: Nicotine Cravings Olanzapine (Olanzapine 10 Mg Tablet) 10 mg PO BEDTIME [facility] Last Admin: 04/16/22 22:03 Dose: 10 mg Pyridoxine HCl (Pyridoxine Hcl (Vitamin B6) 50 Mg Tablet) 50 mg PO DAILY [facility] Last Admin: 04/17/22 07:58 Dose: 50 mg Thiamine HCl (Thiamine Hcl 100 Mg Tablet) 100 mg PO DAILY [facility] Last Admin: 04/17/22 07:57 Dose: 100 mg Trazodone HCl (Trazodone Hcl 50 Mg Tablet) 50 mg PO BEDTIME PRN PRN Reason: Insomnia Trazodone HCl (Trazodone Hcl 50 Mg Tablet) 150 mg PO BEDTIME [facility] Last Admin: 04/16/22 22:03 Dose: 150 mg Allergies Allergies Allergy/AdvReac Type Severity Reaction Status Date / Time sertraline AdvReac Intermediate heart Verified 03/04/22 04:30 palpitations Assessment & Plan Assessment & Plan (1) Bipolar 2 disorder, major depressive episode: Status: Acute Code(s): F31.81 - Bipolar II disorder (2) Alcohol use disorder, mild, in early remission, abuse: Status: Acute Code(s): F10.11 - Alcohol abuse, in remission (3) Panic attacks: Status: Acute Code(s): F41.0 - Panic disorder [episodic paroxysmal anxiety] Plan Pt is a 32-year-old male with a PMH significant for bipolar disorder, panic attacks, polysubtance abuse, and hypercoaguable state who is seen for an admission history and physical. Pt has no acute medical concerns at this time. # bipolar disorder -- plan per psychiatry # panic attacks -- plan per psychiatry # hypercoaguable state/DVT -- continue apixaban Thank you for allowing me to participate in the care of this patient. Signing off at this time. Please let me know if there are any future medical questions. 04/11/22 Increase Olanzapine to 10 mg at HS Discontinue [place] 04/12: Continue current regimen and plans 04/13: Continue current plans and regimen 04/14: Continue current plans and regimen 04/15/22: Neurology consult requested CBC, CMP, Ammonia level for 04/16/22 EKG d/t sx of back, chest, arm pain No medication changes today. 04/17/22 Continue current plan. Patient educated on: therapeutic strategies Informed Consent: understands and further education needed Reason for contiued inpatient stay Substantial Risk for: rapid decompensation and med/psych decompensation Time Spent With Patient Time: Total time managing care of this patient today __20__ minutes.
[2022-04-17 18:00] VITALS: BP 125/76; PULSE 92; RESP 16; TEMP 36.4; O2SAT 99
[2022-04-17] MEDS: traZODone HCL 50 MG TABLET 150 MG PO (21:07)
[2022-04-17] MEDS: OLANZapine 10 MG TABLET PO (21:07)
[2022-04-18 06:00] VITALS: BP 108/72; PULSE 74; RESP 16; TEMP 36.5; O2SAT 95
[2022-04-18] MEDS: Thiamine HCL 100 MG TABLET PO (08:26)
[2022-04-18] MEDS: Nicotine 21 MG PATCH.TD24 TRANSDERMA (08:26)
[2022-04-18] MEDS: Ferrous Sulfate 324 MG TABLET.DR 325 MG PO (08:26)
[2022-04-18] MEDS: lamoTRIgine 100 MG TABLET PO (08:27)
[2022-04-18] MEDS: cloNIDine HCL 0.1 MG TABLET PO ×2 (08:27→21:40)
[2022-04-18] MEDS: lamoTRIgine 25 MG TABLET 50 MG PO (08:27)
[2022-04-18] MEDS: Folic Acid 1 MG TABLET PO (08:27)
[2022-04-18] MEDS: Pyridoxine HCl (Vitamin B6) 50 MG TABLET PO (08:27)
[2022-04-18] MEDS: Apixaban 5 MG TABLET PO ×2 (08:27→21:40)
[2022-04-18] MEDS: Acamprosate Calcium 333 MG TABLET.DR 666 MG PO ×3 (08:28→18:26)
[2022-04-18] MEDS: Multivitamin TABLET 1 TAB PO (08:54)
[2022-04-18] MEDS: Aspirin Enteric Coated 81 MG TABLET.DR PO (08:54)
[2022-04-18 13:21] LABS: COVID-19 Test Negative (Negative); IDNOW Serial# 16C4AD1C
[2022-04-18 18:00] VITALS: BP 113/60; PULSE 66; RESP 16; TEMP 37.1
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
[2022-04-18] MEDS: Melatonin 3 MG TABLET 9 MG PO (21:39)
[2022-04-18] MEDS: traZODone HCL 50 MG TABLET 150 MG PO (21:39)
[2022-04-18] MEDS: hydrOXYzine HCL 25 MG TABLET PO (21:40)
[2022-04-18] MEDS: OLANZapine 10 MG TABLET PO (21:40)
[2022-04-19] MEDS: lamoTRIgine 100 MG TABLET PO (08:37)
[2022-04-19] MEDS: Acamprosate Calcium 333 MG TABLET.DR 666 MG PO ×3 (08:37→18:09)
[2022-04-19] MEDS: Ferrous Sulfate 324 MG TABLET.DR 325 MG PO (08:37)
[2022-04-19] MEDS: cloNIDine HCL 0.1 MG TABLET PO ×2 (08:37→21:19)
[2022-04-19] MEDS: lamoTRIgine 25 MG TABLET 50 MG PO (08:37)
[2022-04-19] MEDS: Thiamine HCL 100 MG TABLET PO (08:37)
[2022-04-19] MEDS: Aspirin Enteric Coated 81 MG TABLET.DR PO (08:38)
[2022-04-19] MEDS: Multivitamin TABLET 1 TAB PO (08:38)
[2022-04-19] MEDS: Pyridoxine HCl (Vitamin B6) 50 MG TABLET PO (08:39)
[2022-04-19] MEDS: Apixaban 5 MG TABLET PO ×2 (08:39→21:19)
[2022-04-19] MEDS: Folic Acid 1 MG TABLET PO (08:39)
[2022-04-19 08:42] VITALS: BP 104/64; PULSE 68; RESP 18; TEMP 36.6; O2SAT 95
[2022-04-19 18:00] VITALS: BP 116/56; PULSE 62; RESP 18; TEMP 36.6; O2SAT 97
--- NOTE | 2022-04-19 19:16 | HO.PSYCHPN ---
Subjective Subjective Date of Service: 04/19/22 Reason For Visit: Alcohol use disorder, Depressive disorder, bipolar Interim History: Steven is visable in milieu. Discussed his discharge upcoming to [facility]. No current questions on treatment, plan or medications. Reports he is feeling gradually improved. Medication Compliance: Yes Side effects from medications: No Attending Groups: Yes Review of Systems Acute medical concerns: No Medical Review of Systems: unchanged Mental Status Exam Mental Status Exam Patient Appearance: Appropriate Patient Orientation: Person, Place and Situation Level of Consciousness: Alert Patient Behavior: Appropriate, Talkative, Cooperative and Good Eye Contact Mood Description: Appropriate Affect Description: Appropriate Patient Cognition Impaired: No Ability to Follow Directions: Good Speech Pattern: Spontaneous Speech Memory Description: Remote Impaired and Episodic Impaired Hallucinations: Visual Delusions: Not Present Thought Process: Goal Oriented Thought Content: positive for Circumstantial Depressive Symptoms: Low Self Esteem Judgement: Fair Diagnostics Vital Signs (24Hr): Vital Signs - 24 hr 04/19/22 08:42 04/19/22 18:00 Temperature 98 F 97.8 F Pulse Rate 68 62 Respiratory Rate 18 18 Blood Pressure 104/64 116/56 L Pulse Oximetry 95 97 Oxygen Delivery Method Room Air Room Air BMI result Body Mass Index 32.8 Labs Results: 04/16/22 07:31 04/16/22 07:31 Labs: Laboratory Results - last 48 hr 04/18/22 12:38 COVID-19 (PEDRITO) Negative COVID-19 Clin Com See Note Medications Medications Current Medications Acamprosate (Acamprosate Calcium 333 Mg Tablet.) 666 mg PO TIDWM [facility] Last Admin: 04/19/22 18:09 Dose: 666 mg Acetaminophen (Acetaminophen 325 Mg Tablet) 650 mg PO Q6H PRN PRN Reason: Headache/Pain Mild Scale (1-3) Al Hydroxide/Mg Hydroxide (Magnesium Hydrox/Alum Hydrox 30 Ml Oral.Susp) 30 ml PO Q6H PRN PRN Reason: Heartburn/Nausea Apixaban (Apixaban 5 Mg Tablet) 5 mg PO BID [facility] Last Admin: 04/19/22 08:39 Dose: 5 mg Aspirin (Aspirin Enteric Coated 81 Mg Tablet.) 81 mg PO DAILY [facility] Last Admin: 04/19/22 08:38 Dose: 81 mg Clonidine HCl (Clonidine Hcl 0.1 Mg Tablet) 0.1 mg PO BID [facility]; Protocol Last Admin: 04/19/22 08:37 Dose: 0.1 mg Ferrous Sulfate (Ferrous Sulfate 324 Mg Tablet.Dr) 325 mg PO DAILY [facility] Last Admin: 04/19/22 08:37 Dose: 325 mg Folic Acid (Folic Acid 1 Mg Tablet) 1 mg PO DAILY [facility] Last Admin: 04/19/22 08:39 Dose: 1 mg Hydroxyzine HCl (Hydroxyzine Hcl 25 Mg Tablet) 25 mg PO Q6H PRN PRN Reason: Anxiety Last Admin: 04/18/22 21:40 Dose: 25 mg Lamotrigine (Lamotrigine 25 Mg Tablet) 50 mg PO DAILY [facility] Last Admin: 04/19/22 08:37 Dose: 50 mg Lamotrigine (Lamotrigine 100 Mg Tablet) 100 mg PO DAILY [facility] Last Admin: 04/19/22 08:37 Dose: 100 mg Magnesium Hydroxide (Milk Of Magnesia 30 Ml Oral.Susp) 30 ml PO DAILY PRN PRN Reason: Constipation Melatonin (Melatonin 3 Mg Tablet) 9 mg PO BEDTIME PRN PRN Reason: sleep Last Admin: 04/18/22 21:39 Dose: 9 mg Multivitamins/Vitamin C (Multivitamin Tablet) 1 tab PO DAILY [facility] Last Admin: 04/19/22 08:38 Dose: 1 tab Nicotine (Nicotine 21 Mg Patch.Td24) 21 mg TRANSDERMA DAILY [facility] Last Admin: 04/19/22 09:54 Dose: Not Given Nicotine Polacrilex (Nicotine Polacrilex 2 Mg Gum) 4 mg BUCCAL Q2H PRN PRN Reason: Nicotine Cravings Olanzapine (Olanzapine 10 Mg Tablet) 10 mg PO BEDTIME [facility] Last Admin: 04/18/22 21:40 Dose: 10 mg Pyridoxine HCl (Pyridoxine Hcl (Vitamin B6) 50 Mg Tablet) 50 mg PO DAILY [facility] Last Admin: 04/19/22 08:39 Dose: 50 mg Thiamine HCl (Thiamine Hcl 100 Mg Tablet) 100 mg PO DAILY [facility] Last Admin: 04/19/22 08:37 Dose: 100 mg Trazodone HCl (Trazodone Hcl 50 Mg Tablet) 50 mg PO BEDTIME PRN PRN Reason: Insomnia Trazodone HCl (Trazodone Hcl 50 Mg Tablet) 150 mg PO BEDTIME [facility] Last Admin: 04/18/22 21:39 Dose: 150 mg Allergies Allergies Allergy/AdvReac Type Severity Reaction Status Date / Time sertraline AdvReac Intermediate heart Verified 03/04/22 04:30 palpitations Assessment & Plan Assessment & Plan (1) Bipolar 2 disorder, major depressive episode: Status: Acute Code(s): F31.81 - Bipolar II disorder (2) Alcohol use disorder, mild, in early remission, abuse: Status: Acute Code(s): F10.11 - Alcohol abuse, in remission (3) Panic attacks: Status: Acute Code(s): F41.0 - Panic disorder [episodic paroxysmal anxiety] Plan Pt is a 32-year-old male with a PMH significant for bipolar disorder, panic attacks, polysubtance abuse, and hypercoaguable state who is seen for an admission history and physical. Pt has no acute medical concerns at this time. # bipolar disorder -- plan per psychiatry # panic attacks -- plan per psychiatry # hypercoaguable state/DVT -- continue apixaban Thank you for allowing me to participate in the care of this patient. Signing off at this time. Please let me know if there are any future medical questions. 04/11/22 Increase Olanzapine to 10 mg at HS Discontinue [place] 04/12: Continue current regimen and plans 04/13: Continue current plans and regimen 04/14: Continue current plans and regimen 04/15/22: Neurology consult requested CBC, CMP, Ammonia level for 04/16/22 EKG d/t sx of back, chest, arm pain No medication changes today. 04/17/22 Continue current plan. 04/18/22 Continue current plan 04/19/22 Continue current plan Patient educated on: therapeutic strategies Informed Consent: understands Reason for contiued inpatient stay Substantial Risk for: rapid decompensation Time Spent With Patient Time: Total time managing care of this patient today __15__ minutes.
[2022-04-19] MEDS: hydrOXYzine HCL 25 MG TABLET PO (21:19)
[2022-04-19] MEDS: OLANZapine 10 MG TABLET PO (21:19)
[2022-04-19] MEDS: Melatonin 3 MG TABLET 9 MG PO (22:29)
[2022-04-19] MEDS: traZODone HCL 50 MG TABLET 150 MG PO (22:29)
[2022-04-20 06:00] VITALS: BP 101/56; PULSE 63; RESP 14; TEMP 36.4; O2SAT 97
[2022-04-20] MEDS: Aspirin Enteric Coated 81 MG TABLET.DR PO (08:18)
[2022-04-20] MEDS: cloNIDine HCL 0.1 MG TABLET PO (08:18)
[2022-04-20] MEDS: lamoTRIgine 25 MG TABLET 50 MG PO (08:18)
[2022-04-20] MEDS: Thiamine HCL 100 MG TABLET PO (08:18)
[2022-04-20] MEDS: Multivitamin TABLET 1 TAB PO (08:18)
[2022-04-20] MEDS: lamoTRIgine 100 MG TABLET PO (08:18)
[2022-04-20] MEDS: Folic Acid 1 MG TABLET PO (08:18)
[2022-04-20] MEDS: Acamprosate Calcium 333 MG TABLET.DR 666 MG PO ×3 (08:19→18:29)
[2022-04-20] MEDS: Apixaban 5 MG TABLET PO ×2 (08:19→22:08)
[2022-04-20] MEDS: Pyridoxine HCl (Vitamin B6) 50 MG TABLET PO (08:19)
[2022-04-20] MEDS: Ferrous Sulfate 324 MG TABLET.DR 325 MG PO (08:19)
[2022-04-20 10:14] LABS: COVID-19 Test Negative (Negative); IDNOW Serial# 16C4AD1C
--- NOTE | 2022-04-20 15:14 | P.PNPSI_ITS ---
Subjective Subjective Date of Service: 04/20/22 Reason For Visit: Alcohol use disorder, Depressive disorder, bipolar Subjective Notes: Conditional Voluntary Healthcare Proxy: No Guardianship: No Medical Problems Affecting Mental Status: No Interim History: Reports sleeping well, feeling somewhat stronger. Anxious about discharge. No current questions or concerns about medications or plan of care. Medication Compliance: Yes Side effects from medications: No Attending Groups: Yes Review of Systems Acute medical concerns: No Medical Review of Systems: unchanged Mental Status Exam Mental Status Exam Patient Appearance: Appropriate Patient Orientation: Person, Place and Situation Level of Consciousness: Alert Patient Behavior: Appropriate, Talkative, Cooperative and Good Eye Contact Mood Description: Appropriate Affect Description: Appropriate Patient Cognition Impaired: No Ability to Follow Directions: Good Speech Pattern: Spontaneous Speech Memory Description: Remote Impaired and Episodic Impaired Hallucinations: Visual Delusions: Not Present Thought Process: Goal Oriented Thought Content: positive for Circumstantial Depressive Symptoms: Low Self Esteem Judgement: Fair Diagnostics Vital Signs (24Hr): Vital Signs - 24 hr 04/19/22 18:00 04/20/22 06:00 Temperature 97.8 F 97.6 F Pulse Rate 62 63 Respiratory Rate 18 14 Blood Pressure 116/56 L 101/56 L Pulse Oximetry 97 97 Oxygen Delivery Method Room Air Room Air BMI result Body Mass Index 32.8 Labs Results: 04/16/22 07:31 04/16/22 07:31 Labs: Laboratory Results - last 48 hr 04/20/22 09:45 COVID-19 (PEDRITO) Negative COVID-19 Clin Com See Note Medications Medications Current Medications Acamprosate (Acamprosate Calcium 333 Mg Tablet.) 666 mg PO TIDWM [facility] Last Admin: 04/20/22 13:07 Dose: 666 mg Acetaminophen (Acetaminophen 325 Mg Tablet) 650 mg PO Q6H PRN PRN Reason: Headache/Pain Mild Scale (1-3) Al Hydroxide/Mg Hydroxide (Magnesium Hydrox/Alum Hydrox 30 Ml Oral.Susp) 30 ml PO Q6H PRN PRN Reason: Heartburn/Nausea Apixaban (Apixaban 5 Mg Tablet) 5 mg PO BID [facility] Last Admin: 04/20/22 08:19 Dose: 5 mg Aspirin (Aspirin Enteric Coated 81 Mg Tablet.) 81 mg PO DAILY [facility] Last Admin: 04/20/22 08:18 Dose: 81 mg Clonidine HCl (Clonidine Hcl 0.1 Mg Tablet) 0.1 mg PO BID [facility]; Protocol Last Admin: 04/20/22 08:18 Dose: 0.1 mg Ferrous Sulfate (Ferrous Sulfate 324 Mg Tablet.Dr) 325 mg PO DAILY [facility] Last Admin: 04/20/22 08:19 Dose: 325 mg Folic Acid (Folic Acid 1 Mg Tablet) 1 mg PO DAILY [facility] Last Admin: 04/20/22 08:18 Dose: 1 mg Hydroxyzine HCl (Hydroxyzine Hcl 25 Mg Tablet) 25 mg PO Q6H PRN PRN Reason: Anxiety Last Admin: 04/19/22 21:19 Dose: 25 mg Lamotrigine (Lamotrigine 25 Mg Tablet) 50 mg PO DAILY [facility] Last Admin: 04/20/22 08:18 Dose: 50 mg Lamotrigine (Lamotrigine 100 Mg Tablet) 100 mg PO DAILY [facility] Last Admin: 04/20/22 08:18 Dose: 100 mg Magnesium Hydroxide (Milk Of Magnesia 30 Ml Oral.Susp) 30 ml PO DAILY PRN PRN Reason: Constipation Melatonin (Melatonin 3 Mg Tablet) 9 mg PO BEDTIME PRN PRN Reason: sleep Last Admin: 04/19/22 22:29 Dose: 9 mg Multivitamins/Vitamin C (Multivitamin Tablet) 1 tab PO DAILY [facility] Last Admin: 04/20/22 08:18 Dose: 1 tab Nicotine (Nicotine 21 Mg Patch.Td24) 21 mg TRANSDERMA DAILY [facility] Last Admin: 04/20/22 09:05 Dose: Not Given Nicotine Polacrilex (Nicotine Polacrilex 2 Mg Gum) 4 mg BUCCAL Q2H PRN PRN Reason: Nicotine Cravings Olanzapine (Olanzapine 10 Mg Tablet) 10 mg PO BEDTIME [facility] Last Admin: 04/19/22 21:19 Dose: 10 mg Pyridoxine HCl (Pyridoxine Hcl (Vitamin B6) 50 Mg Tablet) 50 mg PO DAILY [facility] Last Admin: 04/20/22 08:19 Dose: 50 mg Thiamine HCl (Thiamine Hcl 100 Mg Tablet) 100 mg PO DAILY [facility] Last Admin: 04/20/22 08:18 Dose: 100 mg Trazodone HCl (Trazodone Hcl 50 Mg Tablet) 50 mg PO BEDTIME PRN PRN Reason: Insomnia Trazodone HCl (Trazodone Hcl 50 Mg Tablet) 150 mg PO BEDTIME [facility] Last Admin: 04/19/22 22:29 Dose: 150 mg Allergies Allergies Allergy/AdvReac Type Severity Reaction Status Date / Time sertraline AdvReac Intermediate heart Verified 03/04/22 04:30 palpitations Assessment & Plan Assessment & Plan (1) Bipolar 2 disorder, major depressive episode: Status: Acute Code(s): F31.81 - Bipolar II disorder (2) Alcohol use disorder, mild, in early remission, abuse: Status: Acute Code(s): F10.11 - Alcohol abuse, in remission (3) Panic attacks: Status: Acute Code(s): F41.0 - Panic disorder [episodic paroxysmal anxiety] Plan Pt is a 32-year-old male with a PMH significant for bipolar disorder, panic attacks, polysubtance abuse, and hypercoaguable state who is seen for an admission history and physical. Pt has no acute medical concerns at this time. # bipolar disorder -- plan per psychiatry # panic attacks -- plan per psychiatry # hypercoaguable state/DVT -- continue apixaban Thank you for allowing me to participate in the care of this patient. Signing off at this time. Please let me know if there are any future medical questions. 04/11/22 Increase Olanzapine to 10 mg at HS Discontinue [place] 04/12: Continue current regimen and plans 04/13: Continue current plans and regimen 04/14: Continue current plans and regimen 04/15/22: Neurology consult requested CBC, CMP, Ammonia level for 04/16/22 EKG d/t sx of back, chest, arm pain No medication changes today. 04/17/22 Continue current plan. 04/18/22 Continue current plan 04/19/22 Continue current plan 04/20/22 Continue current plan Patient educated on: therapeutic strategies Informed Consent: understands and further education needed Reason for contiued inpatient stay Substantial Risk for: med/psych decompensation Time Spent With Patient Time: Total time managing care of this patient today __20__ minutes.
[2022-04-20] MEDS: hydrOXYzine HCL 25 MG TABLET PO (17:21)
[2022-04-20 18:00] VITALS: BP 123/80; PULSE 71; RESP 16; TEMP 36.9
[2022-04-20] MEDS: OLANZapine 10 MG TABLET PO (22:07)
[2022-04-20] MEDS: traZODone HCL 50 MG TABLET 150 MG PO (22:07)
[2022-04-20] MEDS: Melatonin 3 MG TABLET 9 MG PO (22:07)
[2022-04-20 22:10] VITALS: BP 116/61; RESP 14
[2022-04-21 08:00] VITALS: BP 113/63; PULSE 63; RESP 18; TEMP 36.4; O2SAT 98
[2022-04-21] MEDS: Aspirin Enteric Coated 81 MG TABLET.DR PO (09:47)
[2022-04-21] MEDS: Pyridoxine HCl (Vitamin B6) 50 MG TABLET PO (09:47)
[2022-04-21] MEDS: lamoTRIgine 100 MG TABLET PO (09:47)
[2022-04-21] MEDS: Folic Acid 1 MG TABLET PO (09:47)
[2022-04-21] MEDS: Multivitamin TABLET 1 TAB PO (09:47)
[2022-04-21] MEDS: cloNIDine HCL 0.1 MG TABLET PO ×2 (09:47→22:47)
[2022-04-21] MEDS: Thiamine HCL 100 MG TABLET PO (09:47)
[2022-04-21] MEDS: Acamprosate Calcium 333 MG TABLET.DR 666 MG PO ×3 (09:48→18:29)
[2022-04-21] MEDS: Ferrous Sulfate 324 MG TABLET.DR 325 MG PO (09:48)
[2022-04-21] MEDS: Apixaban 5 MG TABLET PO ×2 (09:48→22:44)
[2022-04-21] MEDS: lamoTRIgine 25 MG TABLET 50 MG PO (09:48)
[2022-04-21] MEDS: hydrOXYzine HCL 25 MG TABLET PO (15:39)
[2022-04-21 18:00] VITALS: BP 107/68; PULSE 77; TEMP 37; O2SAT 97
--- NOTE | 2022-04-21 18:57 | HO.PSYCHPN ---
Subjective Subjective Date of Service: 04/21/22 Reason For Visit: Alcohol use disorder, Depressive disorder, bipolar Subjective Notes: Conditional Voluntary Healthcare Proxy: No Guardianship: No Medical Problems Affecting Mental Status: No Interim History: Steven reports feeling well. He is anxious about discharge yet feels prepared to move to the next step. He is focused on improving his health for his daughter and is talking today about the difficulties in stopping smoking. Medication Compliance: Yes Side effects from medications: No Attending Groups: Yes Review of Systems Acute medical concerns: No Medical Review of Systems: unchanged Mental Status Exam Mental Status Exam Patient Appearance: Appropriate Patient Orientation: Person, Place and Situation Level of Consciousness: Alert Patient Behavior: Appropriate, Talkative, Cooperative and Good Eye Contact Mood Description: Appropriate Affect Description: Appropriate Patient Cognition Impaired: No Ability to Follow Directions: Good Speech Pattern: Spontaneous Speech Memory Description: Remote Impaired and Episodic Impaired Hallucinations: Visual Delusions: Not Present Thought Process: Goal Oriented Thought Content: positive for Circumstantial Depressive Symptoms: Low Self Esteem Judgement: Fair Diagnostics Vital Signs (24Hr): Vital Signs - 24 hr 04/20/22 22:10 04/21/22 08:00 Temperature 97.6 F Pulse Rate 63 Respiratory Rate 14 18 Blood Pressure 116/61 113/63 Pulse Oximetry 98 Oxygen Delivery Method Room Air BMI result Body Mass Index 32.8 Labs Results: 04/16/22 07:31 04/16/22 07:31 Labs: Laboratory Results - last 48 hr 04/20/22 09:45 COVID-19 (PEDRITO) Negative COVID-19 Clin Com See Note Medications Medications Current Medications Acamprosate (Acamprosate Calcium 333 Mg Tablet.) 666 mg PO TIDWM [facility] Last Admin: 04/21/22 18:29 Dose: 666 mg Acetaminophen (Acetaminophen 325 Mg Tablet) 650 mg PO Q6H PRN PRN Reason: Headache/Pain Mild Scale (1-3) Al Hydroxide/Mg Hydroxide (Magnesium Hydrox/Alum Hydrox 30 Ml Oral.Susp) 30 ml PO Q6H PRN PRN Reason: Heartburn/Nausea Apixaban (Apixaban 5 Mg Tablet) 5 mg PO BID [facility] Last Admin: 04/21/22 09:48 Dose: 5 mg Aspirin (Aspirin Enteric Coated 81 Mg Tablet.) 81 mg PO DAILY [facility] Last Admin: 04/21/22 09:47 Dose: 81 mg Clonidine HCl (Clonidine Hcl 0.1 Mg Tablet) 0.1 mg PO BID [facility]; Protocol Last Admin: 04/21/22 09:47 Dose: 0.1 mg Ferrous Sulfate (Ferrous Sulfate 324 Mg Tablet.Dr) 325 mg PO DAILY [facility] Last Admin: 04/21/22 09:48 Dose: 324 mg Folic Acid (Folic Acid 1 Mg Tablet) 1 mg PO DAILY [facility] Last Admin: 04/21/22 09:47 Dose: 1 mg Hydroxyzine HCl (Hydroxyzine Hcl 25 Mg Tablet) 25 mg PO Q6H PRN PRN Reason: Anxiety Last Admin: 04/21/22 15:39 Dose: 25 mg Lamotrigine (Lamotrigine 25 Mg Tablet) 50 mg PO DAILY [facility] Last Admin: 04/21/22 09:48 Dose: 50 mg Lamotrigine (Lamotrigine 100 Mg Tablet) 100 mg PO DAILY [facility] Last Admin: 04/21/22 09:47 Dose: 100 mg Magnesium Hydroxide (Milk Of Magnesia 30 Ml Oral.Susp) 30 ml PO DAILY PRN PRN Reason: Constipation Melatonin (Melatonin 3 Mg Tablet) 9 mg PO BEDTIME PRN PRN Reason: sleep Last Admin: 04/20/22 22:07 Dose: 9 mg Multivitamins/Vitamin C (Multivitamin Tablet) 1 tab PO DAILY [facility] Last Admin: 04/21/22 09:47 Dose: 1 tab Nicotine (Nicotine 21 Mg Patch.Td24) 21 mg TRANSDERMA DAILY [facility] Last Admin: 04/21/22 10:05 Dose: Not Given Nicotine Polacrilex (Nicotine Polacrilex 2 Mg Gum) 4 mg BUCCAL Q2H PRN PRN Reason: Nicotine Cravings Olanzapine (Olanzapine 10 Mg Tablet) 10 mg PO BEDTIME [facility] Last Admin: 04/20/22 22:07 Dose: 10 mg Pyridoxine HCl (Pyridoxine Hcl (Vitamin B6) 50 Mg Tablet) 50 mg PO DAILY [facility] Last Admin: 04/21/22 09:47 Dose: 50 mg Thiamine HCl (Thiamine Hcl 100 Mg Tablet) 100 mg PO DAILY [facility] Last Admin: 04/21/22 09:47 Dose: 100 mg Trazodone HCl (Trazodone Hcl 50 Mg Tablet) 50 mg PO BEDTIME PRN PRN Reason: Insomnia Trazodone HCl (Trazodone Hcl 50 Mg Tablet) 150 mg PO BEDTIME [facility] Last Admin: 04/20/22 22:07 Dose: 150 mg Allergies Allergies Allergy/AdvReac Type Severity Reaction Status Date / Time sertraline AdvReac Intermediate heart Verified 03/04/22 04:30 palpitations Assessment & Plan Assessment & Plan (1) Bipolar 2 disorder, major depressive episode: Status: Acute Code(s): F31.81 - Bipolar II disorder (2) Alcohol use disorder, mild, in early remission, abuse: Status: Acute Code(s): F10.11 - Alcohol abuse, in remission (3) Panic attacks: Status: Acute Code(s): F41.0 - Panic disorder [episodic paroxysmal anxiety] Plan Pt is a 32-year-old male with a PMH significant for bipolar disorder, panic attacks, polysubtance abuse, and hypercoaguable state who is seen for an admission history and physical. Pt has no acute medical concerns at this time. # bipolar disorder -- plan per psychiatry # panic attacks -- plan per psychiatry # hypercoaguable state/DVT -- continue apixaban Thank you for allowing me to participate in the care of this patient. Signing off at this time. Please let me know if there are any future medical questions. 04/11/22 Increase Olanzapine to 10 mg at HS Discontinue [place] 04/12: Continue current regimen and plans 04/13: Continue current plans and regimen 04/14: Continue current plans and regimen 04/15/22: Neurology consult requested CBC, CMP, Ammonia level for 04/16/22 EKG d/t sx of back, chest, arm pain No medication changes today. 04/17/22 Continue current plan. 04/18/22 Continue current plan 04/19/22 Continue current plan 04/20/22 Continue current plan 04/21/22 Support in discharge planning Informed Consent: understands Reason for contiued inpatient stay Substantial Risk for: med/psych decompensation Time Spent With Patient Time: Total time managing care of this patient today 20 minutes.
[2022-04-21] MEDS: OLANZapine 10 MG TABLET PO (22:45)
[2022-04-21] MEDS: traZODone HCL 50 MG TABLET 150 MG PO (22:48)
[2022-04-22 09:02] VITALS: BP 101/62; PULSE 81; RESP 16; TEMP 36.8; O2SAT 95
[2022-04-22] MEDS: Acamprosate Calcium 333 MG TABLET.DR 666 MG PO ×3 (09:06→17:36)
[2022-04-22 09:07] LABS: MANUAL DIFF FLAG NO
[2022-04-22] MEDS: lamoTRIgine 25 MG TABLET 50 MG PO (09:07)
[2022-04-22] MEDS: Folic Acid 1 MG TABLET PO (09:07)
[2022-04-22] MEDS: Aspirin Enteric Coated 81 MG TABLET.DR PO (09:07)
[2022-04-22] MEDS: Ferrous Sulfate 324 MG TABLET.DR 325 MG PO (09:08)
[2022-04-22] MEDS: lamoTRIgine 100 MG TABLET PO (09:08)
[2022-04-22] MEDS: Thiamine HCL 100 MG TABLET PO (09:08)
[2022-04-22] MEDS: Pyridoxine HCl (Vitamin B6) 50 MG TABLET PO (09:08)
[2022-04-22] MEDS: Multivitamin TABLET 1 TAB PO (09:08)
[2022-04-22] MEDS: cloNIDine HCL 0.1 MG TABLET PO ×2 (09:08→20:50)
[2022-04-22] MEDS: Apixaban 5 MG TABLET PO ×2 (09:09→20:50)
[2022-04-22 09:21] LABS: Basophils Absolute Auto 0.1 X10*3/uL (0.0-0.2); Eosinophils Absolute Auto 0.1 X10*3/uL (0.0-0.4); Eosinophils Percent Auto 1.7 % (0-4); Hematocrit 36.5 % (42.0-52.0); Hemoglobin 12.6 g/dl (14.0-18.0); Imm Gran Abs Auto 0.01 X10*3/uL (0.00-0.03); Imm Gran Pct Auto 0.2 % (0.0-0.4); Lymphocytes Absolute Auto 2.2 X10*3/uL (1.2-4.9); Lymphocytes Percent Auto 35.5 % (20-40); Mean Corpuscular HGB Conc 34.5 g/dl (31.0-36.0); Mean Corpuscular Hemoglobin 29.6 pg (27.0-33.0); Mean Corpuscular Volume 85.7 fL (80.0-98.0); Mean Platelet Volume 10.3 fL (9.4-12.4); Monocytes Absolute Auto 0.7 X10*3/uL (0.1-1.2); Monocytes Percent Auto 11.1 % (2-11); Neutrophils Absolute Auto 3.1 x10*3/uL (2.0-8.3); Neutrophils Percent Auto 50.5 % (45-73); Platelet Count 278 X10*3/uL (160-400); Red Blood Count 4.26 X10*6/uL (4.60-5.80); Red Cell Distribution Width 13.7 % (11.0-16.0); White Blood Count 6.1 X10*3/uL (4.8-10.8)
[2022-04-22 09:26] LABS: Estimated Average Glucose 94 mg/dL; Hemoglobin A1c % 4.9 %
[2022-04-22 09:43] LABS: Alanine Aminotransferase 52 U/L (0-40); Albumin Level 3.9 g/dL (3.5-5.0); Alkaline Phosphatase 61 U/L (39-117); Anion Gap 13 (12-20); Aspartate Amino Transferase 25 U/L (5-37); Bilirubin Total 0.3 mg/dL (0.0-1.0); Blood Urea Nitrogen 11 mg/dL (9-16); Calcium 9.1 mg/dL (8.4-10.2); Carbon Dioxide 22 mmol/L (22-29); Chloride 108 mmol/L (96-108); Cholesterol 224 mg/dL; Creatinine Clr Calc Pharmacy 123.9; Estimated Glomerular Filt Rate > 60; Glucose Random 86 mg/dL (60-115); HDL Cholesterol 31 mg/dL; LDL Cholesterol Calculated 157 mg/dl; Potassium 4.1 mmol/L (3.3-5.1); Sodium 139 mmol/L (135-145); Total Protein 6.5 g/dL (6.5-8.0); Triglycerides 181 mg/dL
--- NOTE | 2022-04-22 12:17 | P.PNPSI_ITS ---
Subjective Subjective Date of Service: 04/22/22 Reason For Visit: Alcohol use disorder, Depressive disorder, bipolar Subjective Notes: Conditional Voluntary Healthcare Proxy: No Guardianship: No Medical Problems Affecting Mental Status: No Interim History: Reports feeling improved, memory is improved. Repeat labs improving as well Review of medications for expected discharge on 04/23/22. Medication Compliance: Yes Side effects from medications: No Attending Groups: Yes Review of Systems Acute medical concerns: No Medical Review of Systems: unchanged Mental Status Exam Mental Status Exam Patient Appearance: Appropriate Patient Orientation: Person, Place and Situation Level of Consciousness: Alert Patient Behavior: Appropriate, Talkative, Cooperative and Good Eye Contact Mood Description: Appropriate Affect Description: Appropriate Patient Cognition Impaired: No Ability to Follow Directions: Good Speech Pattern: Spontaneous Speech Memory Description: Remote Impaired and Episodic Impaired Hallucinations: Visual Delusions: Not Present Thought Process: Goal Oriented Thought Content: positive for Circumstantial Depressive Symptoms: Low Self Esteem Judgement: Fair Diagnostics Vital Signs (24Hr): Vital Signs - 24 hr 04/21/22 18:00 04/22/22 09:02 Temperature 98.6 F 98.2 F Pulse Rate 77 81 Respiratory Rate 16 Blood Pressure 107/68 101/62 Pulse Oximetry 97 95 Oxygen Delivery Method Room Air Room Air BMI result Body Mass Index 32.8 Labs Results: 04/22/22 08:20 04/22/22 08:20 Labs: Laboratory Results - last 48 hr 04/22/22 04/22/22 04/22/22 08:20 08:20 08:24 WBC 6.1 RBC 4.26 L Hgb 12.6 L Hct 36.5 L MCV 85.7 MCH 29.6 MCHC 34.5 RDW 13.7 Plt Count 278 MPV 10.3 Immature Gran % (Auto) 0.2 Neut % (Auto) 50.5 Lymph % (Auto) 35.5 [place] % (Auto) 11.1 H Eos % (Auto) 1.7 Baso % (Auto) 1.0 Lymph # (Auto) 2.2 [place] # (Auto) 0.7 Eos # (Auto) 0.1 Baso # (Auto) 0.1 Abs Immat Gran (auto) 0.01 Absolute Neuts (auto) 3.1 Absolute Nucleated RBC 0.000 Nucleated RBC % (auto) 0.0 Sodium 139 Potassium 4.1 Chloride 108 Carbon Dioxide 22 Anion Gap 13 BUN 11 Creatinine 0.94 Estim Creat Clear Calc 123.9 Estimated GFR > 60 Random Glucose 86 Estimat Average Glucose 94 Hemoglobin A1c % 4.9 Calcium 9.1 Total Bilirubin 0.3 AST 25 D ALT 52 H Alkaline Phosphatase 61 D Total Protein 6.5 Albumin 3.9 Triglycerides 181 Cholesterol 224 LDL Cholesterol, Calc 157 HDL Cholesterol 31 D Medications Medications Current Medications Acamprosate (Acamprosate Calcium 333 Mg Tablet.) 666 mg PO TIDWM [facility] Last Admin: 04/22/22 09:06 Dose: 666 mg Acetaminophen (Acetaminophen 325 Mg Tablet) 650 mg PO Q6H PRN PRN Reason: Headache/Pain Mild Scale (1-3) Al Hydroxide/Mg Hydroxide (Magnesium Hydrox/Alum Hydrox 30 Ml Oral.Susp) 30 ml PO Q6H PRN PRN Reason: Heartburn/Nausea Apixaban (Apixaban 5 Mg Tablet) 5 mg PO BID [facility] Last Admin: 04/22/22 09:09 Dose: 5 mg Aspirin (Aspirin Enteric Coated 81 Mg Tablet.) 81 mg PO DAILY [facility] Last Admin: 04/22/22 09:07 Dose: 81 mg Clonidine HCl (Clonidine Hcl 0.1 Mg Tablet) 0.1 mg PO BID [facility]; Protocol Last Admin: 04/22/22 09:08 Dose: 0.1 mg Ferrous Sulfate (Ferrous Sulfate 324 Mg Tablet.) 325 mg PO DAILY [facility] Last Admin: 04/22/22 09:08 Dose: 324 mg Folic Acid (Folic Acid 1 Mg Tablet) 1 mg PO DAILY [facility] Last Admin: 04/22/22 09:07 Dose: 1 mg Hydroxyzine HCl (Hydroxyzine Hcl 25 Mg Tablet) 25 mg PO Q6H PRN PRN Reason: Anxiety Last Admin: 04/21/22 15:39 Dose: 25 mg Lamotrigine (Lamotrigine 25 Mg Tablet) 50 mg PO DAILY [facility] Last Admin: 04/22/22 09:07 Dose: 50 mg Lamotrigine (Lamotrigine 100 Mg Tablet) 100 mg PO DAILY [facility] Last Admin: 04/22/22 09:08 Dose: 100 mg Magnesium Hydroxide (Milk Of Magnesia 30 Ml Oral.Susp) 30 ml PO DAILY PRN PRN Reason: Constipation Melatonin (Melatonin 3 Mg Tablet) 9 mg PO BEDTIME PRN PRN Reason: sleep Last Admin: 04/20/22 22:07 Dose: 9 mg Multivitamins/Vitamin C (Multivitamin Tablet) 1 tab PO DAILY [facility] Last Admin: 04/22/22 09:08 Dose: 1 tab Nicotine (Nicotine 21 Mg Patch.Td24) 21 mg TRANSDERMA DAILY [facility] Last Admin: 04/22/22 09:06 Dose: Not Given Nicotine Polacrilex (Nicotine Polacrilex 2 Mg Gum) 4 mg BUCCAL Q2H PRN PRN Reason: Nicotine Cravings Olanzapine (Olanzapine 10 Mg Tablet) 10 mg PO BEDTIME [facility] Last Admin: 04/21/22 22:45 Dose: 10 mg Pyridoxine HCl (Pyridoxine Hcl (Vitamin B6) 50 Mg Tablet) 50 mg PO DAILY [facility] Last Admin: 04/22/22 09:08 Dose: 50 mg Thiamine HCl (Thiamine Hcl 100 Mg Tablet) 100 mg PO DAILY [facility] Last Admin: 04/22/22 09:08 Dose: 100 mg Trazodone HCl (Trazodone Hcl 50 Mg Tablet) 50 mg PO BEDTIME PRN PRN Reason: Insomnia Trazodone HCl (Trazodone Hcl 50 Mg Tablet) 150 mg PO BEDTIME [facility] Last Admin: 04/21/22 22:48 Dose: 150 mg Allergies Allergies Allergy/AdvReac Type Severity Reaction Status Date / Time sertraline AdvReac Intermediate heart Verified 03/04/22 04:30 palpitations Assessment & Plan Assessment & Plan (1) Bipolar 2 disorder, major depressive episode: Status: Acute Code(s): F31.81 - Bipolar II disorder (2) Alcohol use disorder, mild, in early remission, abuse: Status: Acute Code(s): F10.11 - Alcohol abuse, in remission (3) Panic attacks: Status: Acute Code(s): F41.0 - Panic disorder [episodic paroxysmal anxiety] Plan Pt is a 32-year-old male with a PMH significant for bipolar disorder, panic a ttacks, polysubtance abuse, and hypercoaguable state who is seen for an admission history and physical. Pt has no acute medical concerns at this time. # bipolar disorder -- plan per psychiatry # panic attacks -- plan per psychiatry # hypercoaguable state/DVT -- continue apixaban Thank you for allowing me to participate in the care of this patient. Signing off at this time. Please let me know if there are any future medical questions. 04/11/22 Increase Olanzapine to 10 mg at HS Discontinue [place] 04/12: Continue current regimen and plans 04/13: Continue current plans and regimen 04/14: Continue current plans and regimen 04/15/22: Neurology consult requested CBC, CMP, Ammonia level for 04/16/22 EKG d/t sx of back, chest, arm pain No medication changes today. 04/17/22 Continue current plan. 04/18/22 Continue current plan 04/19/22 Continue current plan 04/20/22 Continue current plan 04/21/22 Support in discharge planning 04/22/22 Dischrge 04/23/22. Pt finds regime to be useful in symptom mgt. Will continue Patient educated on: medication risk/benefits and therapeutic strategies Informed Consent: understands and further education needed Reason for contiued inpatient stay Substantial Risk for: rapid decompensation Time Spent With Patient Time: Total time managing care of this patient today _25___ minutes.
[2022-04-22 20:45] VITALS: BP 111/58; PULSE 76; TEMP 36.6
[2022-04-22] MEDS: traZODone HCL 50 MG TABLET 150 MG PO (20:49)
[2022-04-22] MEDS: OLANZapine 10 MG TABLET PO (20:50)
[2022-04-23 06:00] VITALS: RESP 16
[2022-04-23 09:24] VITALS: BP 118/66; PULSE 63; RESP 18; TEMP 36.6; O2SAT 100
[2022-04-23] MEDS: Folic Acid 1 MG TABLET PO (09:35)
[2022-04-23] MEDS: Pyridoxine HCl (Vitamin B6) 50 MG TABLET PO (09:35)
[2022-04-23] MEDS: Nicotine 21 MG PATCH.TD24 TRANSDERMA (09:35)
[2022-04-23] MEDS: Acamprosate Calcium 333 MG TABLET.DR 666 MG PO (09:35)
[2022-04-23] MEDS: lamoTRIgine 25 MG TABLET 50 MG PO (09:36)
[2022-04-23] MEDS: cloNIDine HCL 0.1 MG TABLET PO (09:36)
[2022-04-23] MEDS: Ferrous Sulfate 324 MG TABLET.DR 325 MG PO (09:36)
[2022-04-23] MEDS: Aspirin Enteric Coated 81 MG TABLET.DR PO (09:36)
[2022-04-23] MEDS: Thiamine HCL 100 MG TABLET PO (09:36)
[2022-04-23] MEDS: lamoTRIgine 100 MG TABLET PO (09:36)
[2022-04-23] MEDS: Apixaban 5 MG TABLET PO (09:36)
[2022-04-23] MEDS: Multivitamin TABLET 1 TAB PO (09:37)
--- NOTE | 2022-04-23 18:30 | PM.PSYDC ---
DS: Providers Provider Date of Service: 04/23/22 Date of admission: 04/10/22 04:52 Date of discharge: 04/23/22 Primary care physician: Unknown Physician Admitting clinician: Susan Perez Attending physician on admission: Josef Ramírez Consults: 04/10/22 05:47 Consult to Hospitalist Routine Consulting Provider: Hospitalist Reason For Exam: admission physical 04/15/22 17:23 Consult to Neurology Routine Consulting Provider: [facility] Reason for consultation: recent cerebral infarct, memory loss, ETOH/Substance abuse Has provider been notified: No Attending physician on discharge: Josef Ramírez Discharging clinician: Susan Perez DS: Diagnosis Discharge Diagnosis (1) Bipolar 2 disorder, major depressive episode: Status: Acute (2) Alcohol use disorder, mild, in early remission, abuse: Status: Acute (3) Panic attacks: Status: Acute DS: Medications Discharge Medications Home Medications: Previous Rx's Medication Instructions Recorded acamprosate 333 mg tablet,delayed 666 mg PO TIDWMEAL #90 tabs 04/23/22 release apixaban 5 mg tablet (Eliquis) 5 mg PO BID #60 tabs 04/23/22 aspirin 81 mg tablet,delayed 81 mg PO DAILY #30 tabs 04/23/22 release clonidine HCl 0.1 mg tablet 0.1 mg PO BID #60 tabs 04/23/22 ferrous sulfate 324 mg (65 mg 325 mg PO DAILY #30 tabs 04/23/22 iron) tablet,delayed release folic acid 1 mg tablet 1 mg PO DAILY #30 tabs 04/23/22 hydroxyzine HCl 25 mg tablet 25 mg PO Q6H PRN Anxiety #60 tabs 04/23/22 lamotrigine 100 mg tablet 100 mg PO DAILY #30 tabs 04/23/22 lamotrigine 25 mg tablet (Lamictal) 50 mg PO DAILY 30 days #60 tabs 04/23/22 melatonin 10 mg capsule 10 mg PO BEDTIME PRN insomnia #30 04/23/22 caps multivitamin (Daily-Lc tablet) 1 tab PO DAILY #30 tabs 04/23/22 nicotine (polacrilex) 2 mg gum 4 mg buccal Q2H PRN Nicotine 04/23/22 Cravings #60 ea olanzapine 10 mg tablet 10 mg PO BEDTIME #30 tabs 04/23/22 pyridoxine (vitamin B6) 50 mg 50 mg PO DAILY #30 tabs 04/23/22 tablet thiamine HCl (vitamin B1) 100 mg 100 mg PO DAILY #30 tabs 04/23/22 tablet trazodone 150 mg tablet 150 mg PO BEDTIME #30 tabs 04/23/22 trazodone 50 mg tablet 50 mg PO BEDTIME PRN Insomnia #30 04/23/22 tabs Mental Status Exam Mental Status Exam Patient Appearance: Appropriate Patient Orientation: Person, Place and Situation Level of Consciousness: Alert Patient Behavior: Appropriate, Talkative, Cooperative and Good Eye Contact Mood Description: Appropriate Affect Description: Appropriate Patient Cognition Impaired: No Ability to Follow Directions: Good Speech Pattern: Spontaneous Speech Memory Description: Remote Impaired and Episodic Impaired Hallucinations: Visual Delusions: Not Present Thought Process: Goal Oriented Thought Content: positive for Circumstantial Depressive Symptoms: Low Self Esteem Judgement: Fair Data Data Completed and Pending Completed studies during hospitalization [Text1]: 04/18/22 04/20/22 04/22/22 12:38 09:45 08:20 WBC 6.1 RBC 4.26 L Hgb 12.6 L Hct 36.5 L MCV 85.7 MCH 29.6 MCHC 34.5 RDW 13.7 Plt Count 278 MPV 10.3 Immature Gran % (Auto) 0.2 Neut % (Auto) 50.5 Lymph % (Auto) 35.5 [place] % (Auto) 11.1 H Eos % (Auto) 1.7 Baso % (Auto) 1.0 Lymph # (Auto) 2.2 [place] # (Auto) 0.7 Eos # (Auto) 0.1 Baso # (Auto) 0.1 Abs Immat Gran (auto) 0.01 Absolute Neuts (auto) 3.1 Absolute Nucleated RBC 0.000 Nucleated RBC % (auto) 0.0 Sodium Potassium Chloride Carbon Dioxide Anion Gap BUN Creatinine Estim Creat Clear Calc Estimated GFR Random Glucose Estimat Average Glucose Hemoglobin A1c % Calcium Total Bilirubin AST ALT Alkaline Phosphatase Total Protein Albumin Triglycerides Cholesterol LDL Cholesterol, Calc HDL Cholesterol COVID-19 (PEDRITO) Negative Negative COVID-19 Clin Com See Note See Note 04/22/22 04/22/22 08:20 08:24 WBC RBC Hgb Hct MCV MCH MCHC RDW Plt Count MPV Immature Gran % (Auto) Neut % (Auto) Lymph % (Auto) [place] % (Auto) Eos % (Auto) Baso % (Auto) Lymph # (Auto) [place] # (Auto) Eos # (Auto) Baso # (Auto) Abs Immat Gran (auto) Absolute Neuts (auto) Absolute Nucleated RBC Nucleated RBC % (auto) Sodium 139 Potassium 4.1 Chloride 108 Carbon Dioxide 22 Anion Gap 13 BUN 11 Creatinine 0.94 Estim Creat Clear Calc 123.9 Estimated GFR > 60 Random Glucose 86 Estimat Average Glucose 94 Hemoglobin A1c % 4.9 Calcium 9.1 Total Bilirubin 0.3 AST 25 D ALT 52 H Alkaline Phosphatase 61 D Total Protein 6.5 Albumin 3.9 Triglycerides 181 Cholesterol 224 LDL Cholesterol, Calc 157 HDL Cholesterol 31 D COVID-19 (PEDRITO) COVID-19 Clin Com DS: Summary Hospital Course Hospital Course: Admission in transfer from [facility] for exacerbation of sx of alcohol use disorder. Recent admission 03/24/22-04/02/22. Pt initiated a medication regime, however, refused longer term treatment, opting to go to a group home upon discharge. He reports memory loss after discharge, states he was out with a friend, who offered him drugs. Steven took them, and as a result was admitted to [facility] having had a CVA and DVT. Eliquis was initiated. Pt spent this admission working on ST memory lapses prior to admission. Medicines were re-established and streamlined. As time progressed, pt's memory has started to return. He agreed to placement with [facility] and will continue treatment there, with [facility] and with [facility] and his primary care physician. Time spent discussing smoking cessation with patient: 3 to 10 minutes Status at Discharge Functional status at discharge: independent ambulation Overall status at discharge: patient is progressing back to baseline Time Spent with Patient Time attestation: Total time managing care of this patient today __35__ minutes. Time spent: Greater than 30 minutes Discharge Plan Discharge Anticipated Discharge Date/Time: 04/23/22 12:00 Patient Disposition: Xfer Other Discharge Diagnosis: Bipolar Disorder, Type II Alcohol Use Disorder, Severe, Dependence Referrals: Therapy Intake: Dariana Caballero ([facility]) [Other] - 04/24/22 2:00 pm (Appointment is in person at the office in [place]. Please arrive 15 minutes early to fill out paperwork. You must attend this appointment or the appointments with the psychiatrist are canceled. ) Psychiatrist: Hanh East ([facility]) [Other] - 05/22/22 11:00 am (Appointment is in person at the office in [place]. After your initial appointment, if it is easier, you can ask for Telehealth appointments. ) Psychiatrist: Hanh East ([facility]) [Other] - 06/19/22 11:00 am (Appointment is in person at the office in [place]) Donny Longoria MD [Physician] - 05/20/22 3:30 am (in office) Mali Poole MD [Physician] - 05/28/22 8:30 am (MD will call you. This is a telehealth follow up call.) Discharge Medications: New nicotine (polacrilex) 2 mg Gum 4 mg buccal Q2H PRN (Reason: Nicotine Cravings) Qty: 60 4RF Eliquis 5 mg Tablet 5 mg PO BID Qty: 60 0RF trazodone 50 mg Tablet 50 mg PO BEDTIME PRN (Reason: Insomnia) Qty: 30 0RF olanzapine 10 mg Tablet 10 mg PO BEDTIME Qty: 30 0RF aspirin 81 mg Tablet,Delayed Release (Dr/Ec) 81 mg PO DAILY Qty: 30 0RF hydroxyzine HCl 25 mg Tablet 25 mg PO Q6H PRN (Reason: Anxiety) Qty: 60 0RF lamotrigine 100 mg Tablet 100 mg PO DAILY Qty: 30 0RF ferrous sulfate 324 mg (65 mg iron) Tablet,Delayed Release (Dr/Ec) 325 mg PO DAILY Qty: 30 0RF multivitamin [Daily-Lc] Tablet 1 tab PO DAILY Qty: 30 0RF lamotrigine [Lamictal] 25 mg tablet 50 mg PO DAILY 30 Days Qty: 60 0RF melatonin 10 mg capsule 10 mg PO BEDTIME PRN (Reason: insomnia) Qty: 30 0RF Continued clonidine HCl 0.1 mg Tablet 0.1 mg PO BID Qty: 60 1RF Protocol: Hold for SBP< HOLD for SBP < : 90 thiamine HCl (vitamin B1) 100 mg Tablet 100 mg PO DAILY Qty: 30 0RF trazodone 150 mg tablet 150 mg PO BEDTIME Qty: 30 0RF pyridoxine (vitamin B6) 50 mg Tablet 50 mg PO DAILY Qty: 30 0RF folic acid 1 mg Tablet 1 mg PO DAILY Qty: 30 0RF acamprosate 333 mg Tablet,Delayed Release (Dr/Ec) 666 mg PO TIDWMEAL Qty: 90 0RF Discontinued nicotine 21 mg/24 hr Patch 24 Hour 21 mg transdermal DAILY Qty: 30 0RF lithium carbonate 300 mg Tablet 300 mg PO BEDTIME Qty: 14 0RF melatonin 10 mg capsule 10 mg PO BEDTIME PRN (Reason: sleep) Qty: 14 1RF lamotrigine [Lamictal] 150 mg tablet 150 mg PO DAILY Qty: 14 1RF olanzapine 7.5 mg tablet 7.5 mg PO BEDTIME Qty: 14 1RF hydroxyzine pamoate 25 mg capsule 50 mg PO BID PRN (Reason: Anxiety) Qty: 30 1RF aspirin 81 mg Capsule,Delayed Release(Dr/Ec) 81 mg PO DAILY multivitamin Tablet,Chewable 1 tab DAILY apixaban 5 mg (74 tabs) Tablets,Dose Pack 10 mg PO BID Discharge Orders: Discharge Order (Routine); Ordered 04/23/22 Ordered By: Susan Perez Diet: Advance to usual diet Activity on Discharge: As tolerated Stand Alone Forms: Patient Portal Discharge page, Community Support Care Plan Goals: Maintain mood and safe behaviors Take medications as directed Practice coping skills Connect with out patient providers Work on sobriety ronel Harris were transferred to [place] from [facility] after having a stroke and a blood clot caused by drinking and using drugs which were given to you by a friend. You will need follow up with your primary care physician to monitor your continued use of Eliquis and you have a telehealth neurology appointment arranged with [facility] for follow up. You have done excellent work while admitted and we hope you will continue to work on your health promotion, sobriety and mood stabilization. Health Concerns: Stable mood and behaviors Sobriety Plan of Treatment: Follow up with out patient providers Take medications as directed Assessment: Pt interviewed prior to discharge and found to be fully oriented and without SI/HI. Steven has insight and demonstrates good judgment in terms of wanting to pursue treatment. He is not in imminent risk of harm to self or others and has a safety plan that includes presenting to the closest ER or calling 911 if feeling unsafe. He has been observed closely by the team throughout admission. He has not engaged in any behaviors which suggest dangerousness to self or others and has demonstrated appropriate behaviors and impulse control. Discharge Date/Time: 04/23/22 13:15
== END 2022-04-23 13:15 | disposition other institution (70) | DRG 753 ==
PROVIDERS: Admitting Provider Psychiatry & Neurology Psychiatry; Visit Provider Clinical Nurse Specialist Psychiatric/Mental Health, Adult
DX: F31.81 Bipolar II disorder (principal); F10.11 Alcohol abuse, in remission; F17.210 Nicotine dependence, cigarettes, uncomplicated; F41.0 Panic disorder [episodic paroxysmal anxiety]; Z71.6 Tobacco abuse counseling; Z20.822 Contact with and (suspected) exposure to COVID-19; Z86.718 Personal history of other venous thrombosis and embolism; Z86.73 Personal history of transient ischemic attack (TIA), and cerebral infarction without residual deficits; Z59.02 Unsheltered homelessness; Z79.01 Long term (current) use of anticoagulants; Z79.82 Long term (current) use of aspirin; Z79.899 Other long term (current) drug therapy
CPT/HCPCS: 36415; 80053; 80061; 82140; 83036; 85025; 87635; 93005

== ENCOUNTER 2022-08-27 10:30 | Outpatient (REF) | payer OTHER, SELFPAY | END 2022-08-27 10:31 | disposition home or self-care (01) | LOC: HO.LAB 10:30 | PROVIDERS: Visit Provider Family Medicine | DX: Z13.89 Encounter for screening for other disorder (principal) ==

== ENCOUNTER 2022-10-31 12:27 | Outpatient (AMB) | payer OTHER, SELFPAY ==
[2022-10-31 12:42] VITALS: BP 102/70; PULSE 67; RESP 12; TEMP 36.8; O2SAT 98; BMI 33.6
--- NOTE | 2022-10-31 12:42 | A.OFFPC_ITS ---
Vital Signs 10/31/22 12:42 Height 5 ft 7 in Weight 214 lb 6 oz BMI 33.6 BP 102/70 Blood Pressure Location Rt brachial Position Sitting Respiration 12 Pulse 67 Temp 98.3 F Temp Source Temporal Artery Scan Pulse Oximetry (%) 98 Oxygen Delivery Method Room Air Intake Visit Reasons: Tooth infection-clearance for extraction Intake Note: Patient states he has to get his top front row from canine to canine of teeth taken ou.t Staff Physician Required: No Accompanied by: Self / Same As Patient Allergies sertraline Adverse Reaction (Intermediate, Verified 10/31/22 13:12) heart palpitations Medication List - Last Reconciled 10/31/22 by Salma Abreu CNP acamprosate 666 mg (2 x 333 mg) PO TIDWMEAL apixaban (Eliquis) 5 mg PO BID clonidine HCl 0.1 mg See Protocol PO BID ferrous sulfate 325 mg (1.0031 x 324 mg (65 mg iron)) PO DAILY folic acid 1,000 mcg PO DAILY hydroxyzine HCl 25 mg PO Q6H PRN lamotrigine 200 mg PO DAILY melatonin 10 mg PO BEDTIME PRN multivitamin (Daily-Lc tablet) 1 tab PO DAILY olanzapine 10 mg PO BEDTIME pyridoxine (vitamin B6) 50 mg PO DAILY thiamine HCl (vitamin B1) 100 mg PO DAILY trazodone 150 mg PO BEDTIME Tobacco use date assessed: 06/20/22 Dental Screening Dental Screen Date: 10/31/22 Did you have a dental visit in the last 12 months?: Yes Did you have a dental problem in the last 6 months where you did not have access to dental care?: No Was dental information given to patient?: Patient has dentist HPI HPI Comments 2 History of Present Illness Details 32-year-old male presents for an exam for tooth extraction He notes he has an appointment scheduled with his dentist for extraction of his top front molars. He states that 4 teeth will be removed during the visit. He reports decayed teeth r/t h/o chronic alcohol and recreational drug use. He st ates he has not consumed alcohol or used drug in the past 8 months. 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 He notes he has been on Eliquis for the past 7 months. He denies history of adverse reaction to anesthesia. He brought a clearance form from his dentist to be filled out and signed by his PCP. No acute symptoms today. [facility] Medical History (Updated 10/31/22 @ 13:24 by Salma Abreu CNP) Alcohol abuse Anxiety Bipolar disorder Heart murmur No known health problems Panic attacks Surgical History (Updated 10/31/22 @ 12:55 by Stephanie Blanc MA) No pertinent past surgical history Family History (Updated 10/31/22 @ 12:56 by Stephanie Blanc MA) Maternal Grandfather Diabetes Paternal Uncle Blood clot in vein HTN (hypertension) Other Mental health disorder Substance abuse Social History Household Members: None Housing: Other Housing Other:: Staying at a residential program. Do you presently have visiting nurse or other home services: No Alcohol intake: current Alcohol intake frequency: a few times a week Alcohol type: hard liquor Patient Tobacco Use Status: Former Tobacco user Tobacco use type: Cigarette Cigarette Packs Per Day: 1 Cigarettes Per Day: 20.0 Years Smoked: 16 e-Cigarette/Vaping Use: Never Used Second Hand Smoke Exposure: No Substance Use Type: Crack/Cocaine, Hallucinogens and Heroin service: No Current occupational status: unemployed Current occupational exposures/hazards: No Sexual orientation: Straight/Heterosexual Cognitive needs: No Hearing needs: No Vision needs: Yes Questionnaire Thrive Questionnaire Date Thrive assessed: 06/20/22 ALETHEA-7 AMB Questionnaire ALETHEA-7 Date ALETHEA - 7 assessed: 06/20/22 Source: Developed by Drs. Steven Champion, Yvonne Mcgee, Prasad Lopez and colleagues, with an educational lisa from [employer]. Review of Systems Const Details: Const Denies chills, Denies fatigue, Denies fever(s), Denies headache(s) and Denies weakness ENT Denies dizziness and Denies headache(s) Card Denies chest pain, Denies lightheadedness, Denies dyspnea and Denies other (Palpitations) Resp Denies cough, Denies dyspnea, Denies wheezing and Denies other ( shortness of breath) GI Denies abdominal pain, Denies melena, Denies hematochezia, Denies change in bowel habits, Denies dyspepsia and Denies nausea Denies hematuria and Denies dysuria Musc Denies abnormal gait, Denies myalgias, Denies arthralgias, Denies numbness and Denies tingling Skin/Breast Denies rash, Denies unusual bruising and Denies wounds Neuro Denies abnormal gait, Denies dizziness, Denies headache(s), Denies memory loss, Denies numbness, Denies Sensory deficit (Neuro), Denies tingling and Denies weakness Psych Denies anxiety and Denies depression Endo Denies fatigue Aller/Immun Denies wheezing Physical exam (Primary Care) Vital Signs: Last Vital Signs Temp 98.3 F 10/31/22 12:42 Pulse 67 10/31/22 12:42 Resp 12 10/31/22 12:42 BP 102/70 10/31/22 12:42 Pulse Ox 98 10/31/22 12:42 Oxygen Delivery Method Room Air 10/31/22 12:42 BMI result Body Mass Index 33.6 Tobacco/Smoking Status: Tobacco use Status Tobacco use date assessed 06/20/22 10/31/22 12:59 Patient Tobacco Use Status Former Tobacco user 10/31/22 12:59 Tobacco use type Cigarette 10/31/22 12:59 e-Cigarette/Vaping Use Never Used 10/31/22 12:59 Thrive Assessment: Date of Thrive Assessment Date Thrive assessed 06/20/22 10/31/22 12:59 Const Other: General: no acute distress and well developed Nutritional Appearance: well nourished Orientation/consciousness: patient oriented x3 HENMT Head: Yes normocephalic and Yes atraumatic Eyes General: appearance normal, both eyes and all related structures Pupils: Equal, round and reactive pupils present EOM: EOMs intact bilaterally Mouth: Normal oral and palatal mucosa present and moist mucous membranes Teeth and gingiva: Several decayed teeth to front top and bottom molars, normal gingiva with no overt infection Resp Effort & Inspection: normal respiratory effort Auscultation: clear to auscultation bilaterally Cardio Rate: regular rate Rhythm: regular rhythm Heart sounds: S1 normal heart sound present, S2 normal heart sound present, no gallops, no murmurs and no rubs GI Palpation (GI): No Abdominal aortic bruit present, Soft to palpation, nontender, No hepatosplenomegaly present and No Rebound tenderness present Auscultation: normal bowel sounds General: Yes no CVA tenderness Back/Spine/Pelvis Back: no CVA tenderness Cervical Spine: cervical ROM normal and No Cervical spine tenderness Thoracic/Lumbar Spine: thoraco-lumbar ROM normal, No pain with thoraco-lumbar ROM, No thoracic spinal tenderness and No lumbar spinal tenderness Extrem General: Yes normal to inspection, No edema and No calf tenderness Skin General: warm and dry. Normal skin color. Normal skin turgor Lesions: no lesions Rashes: no rashes Trauma: no lacerations or abrasions Wounds: no wounds Nails: normal Neuro General: patient oriented x3, gait normal and no focal neuro deficit Cranial nerves: Yes Equal, round and reactive pupils present Cognition (Neuro): normal cognition Gait exam (Neuro): Normal gait present Motor exam (neuro): 5/5 motor strength present throughout Sensory Exam: No Sensory deficit (Neuro) Psych Affect: normal affect Assessment and Plan Assessment & Plan (1) Teeth decayed: Code(s): K02.9 - Dental caries, unspecified Plan: 32-year-old male presents for an exam for tooth extraction He notes he has an appointment scheduled with his dentist for extraction of his top front molars. He states that 4 teeth will be removed during the visit. He reports decayed teeth r/t h/o chronic alcohol and recreational drug use. He states he has not consumed alcohol or used drug in the past 8 months. 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 He notes he has been on Eliquis for the past 7 months. Several decayed teeth to front top and bottom molars, normal gingiva with no overt infection Advised to hold Eliquis on the day of procedure and resume the following day Continue to take under medications as prescribed Clearance form filled out and signed Follow-up with PCP as planned Verbalized understanding and agreed with treatment plan. Medications: Changed From lamotrigine 100 mg PO DAILY 30 tabs 0RF To lamotrigine 200 mg PO DAILY Coding Level of Care Code Est Pt Level 3 (39150) Diagnoses Teeth decayed K02.9 Time Spent (min) 25
== END 2022-10-31 13:47 | disposition home or self-care (01) ==
PROVIDERS: PCP Family Medicine; Visit Provider Nurse Practitioner Family
DX: K02.9 Dental caries, unspecified (principal)
CPT/HCPCS: 99213

== ENCOUNTER 2022-12-09 09:04 | Outpatient (AMB) | payer OTHER, SELFPAY ==
--- NOTE | 2022-12-09 09:08 | A.OFFPC_ITS ---
Vital Signs 12/09/22 09:09 Height 5 ft 7 in Weight 215 lb BMI 33.7 BP 122/64 Blood Pressure Location Lt brachial Position Sitting Respiration 12 Pulse 71 Pulse Source Pulse Oximeter Temp 97.9 F Temp Source Temporal Artery Scan Pulse Oximetry (%) 99 Oxygen Delivery Method Room Air Intake Visit Reasons: CPE Intake Note: Patient currently has no concerns. Police Crime Scene Technician Required: No Accompanied by: Self / Same As Patient Allergies sertraline Adverse Reaction (Intermediate, Verified 12/09/22 09:14) heart palpitations Tobacco use date assessed: 06/20/22 Dental Screening Dental Screen Date: 12/09/22 Did you have a dental visit in the last 12 months?: Yes Did you have a dental problem in the last 6 months where you did not have access to dental care?: No Was dental information given to patient?: Patient has dentist HPI CPE HPI Details 32 y/o male presents for an extended exam with f/u labs and health maintenance. No recent labs to review. Pt has no concerns today. Pt reports he has not been drinking. He rides a bike around the block at least 3x a week for exercise. [facility] Medical History Alcohol abuse Anxiety Bipolar disorder Heart murmur No known health problems Panic attacks Surgical History No pertinent past surgical history Family History Maternal Grandfather Diabetes Paternal Uncle Blood clot in vein HTN (hypertension) Other Mental health disorder Substance abuse Social History Household Members: None Housing: Other Housing Other:: Staying at a residential program. Do you presently have visiting nurse or other home services: No Alcohol intake: current Alcohol intake frequency: a few times a week Alcohol type: hard liquor Patient Tobacco Use Status: Former Tobacco user Tobacco use type: Cigarette Cigarette Packs Per Day: 1 Cigarettes Per Day: 20.0 Years Smoked: 16 e-Cigarette/Vaping Use: Never Used Second Hand Smoke Exposure: No Substance Use Type: Crack/Cocaine, Hallucinogens and Heroin service: No Current occupational status: unemployed Current occupational exposures/hazards: No Sexual orientation: Straight/Heterosexual Cognitive needs: No Hearing needs: No Vision needs: Yes Questionnaire Thrive Questionnaire Date Thrive assessed: 06/20/22 ALETHEA-7 AMB Questionnaire ALETHEA-7 Date ALETHEA - 7 assessed: 06/20/22 Source: Developed by Drs. Steven Champion, Yvonne Mcgee, Prasad Lopez and colleagues, with an educational lisa from [employer]. Review of Systems Const Denies chills, Denies fatigue, Denies fever(s), Denies headache(s) and Denies weakness Eyes Denies change in vision ENT Denies dizziness, Denies headache(s), Denies hearing loss, Denies nasal congestion, Denies sinus pain, Denies sinus pressure and Denies sore throat Card Denies chest pain, Denies lightheadedness, Denies dyspnea and Denies other (palpitations) Resp Denies cough, Denies dyspnea and Denies wheezing GI Denies abdominal pain, Denies melena, Denies hematochezia, Denies change in bowel habits, Denies dyspepsia and Denies nausea Denies hematuria and Denies dysuria Musc Denies abnormal gait, Denies myalgias, Denies arthralgias, Denies numbness and Denies tingling Skin/Breast Denies rash, Denies unusual bruising and Denies wounds Neuro Denies abnormal gait, Denies dizziness, Denies headache(s), Denies memory loss, Denies numbness, Denies Sensory deficit (Neuro), Denies tingling and Denies weakness Psych Denies anxiety, Denies depression and Denies memory loss Endo Denies cold intolerance, Denies fatigue, Denies heat intolerance, Denies polydipsia and Denies polyuria Mike/Lymph Denies easy bleeding and Denies easy bruising Aller/Immun Denies wheezing Physical exam (Primary Care) Vital Signs: Last Vital Signs Temp 97.9 F 12/09/22 09:09 Pulse 71 12/09/22 09:09 Resp 12 12/09/22 09:09 BP 122/64 12/09/22 09:09 Pulse Ox 99 12/09/22 09:09 Oxygen Delivery Method Room Air 12/09/22 09:09 BMI result Body Mass Index 33.7 Tobacco/Smoking Status: Tobacco use Status Tobacco use date assessed 06/20/22 12/09/22 09:16 Patient Tobacco Use Status Former Tobacco user 12/09/22 09:16 Tobacco use type Cigarette 12/09/22 09:16 e-Cigarette/Vaping Use Never Used 12/09/22 09:16 Thrive Assessment: Date of Thrive Assessment Date Thrive assessed 06/20/22 12/09/22 09:16 Const General: no acute distress, well developed, alert and awake Nutritional Appearance: well nourished Orientation/consciousness: patient oriented x3 HENMT Head: Yes normocephalic and Yes atraumatic Ears: hearing grossly normal bilaterally and TM's normal bilaterally General nose exam: Normal external nose present and Normal nares present Mouth: Normal oral and palatal mucosa present and moist mucous membranes Teeth and gingiva: dentition normal Throat: Yes posterior oropharynx normal Eyes General: appearance normal, both eyes and all related structures Pupils: Equal, round and reactive pupils present and Pupil accommodation reflex normal EOM: EOMs intact bilaterally Neck Neck: Yes normal visual inspection, Yes no lymphadenopathy and Yes trachea midline Thyroid: Thyroid normal Carotids: no bruits Lymphatic: no lymphadenopathy noted Chest Chest palpation & inspection: normal inspection of the chest Resp Effort & Inspection: normal respiratory effort Auscultation: clear to auscultation bilaterally Cardio Rate: regular rate Rhythm: regular rhythm Heart sounds: S1 normal heart sound present, S2 normal heart sound present, no gallops, no murmurs and no rubs Bruits: no abdominal aortic bruits and no carotid bruits GI Palpation (GI): No Abdominal aortic bruit present, Soft to palpation, nontender, No hepatosplenomegaly present and No Rebound tenderness present Auscultation: normal bowel sounds General: Yes no CVA tenderness Back/Spine/Pelvis Back: no CVA tenderness Cervical Spine: cervical ROM normal and No Cervical spine tenderness Thoracic/Lumbar Spine: thoraco-lumbar ROM normal, No pain with thoraco-lumbar ROM, No thoracic spinal tenderness and No lumbar spinal tenderness Skin Lesions: no lesions Rashes: no rashes Trauma: no lacerations or abrasions Wounds: no wounds Nails: normal Neuro General: patient oriented x3 Cranial nerves: Yes Equal, round and reactive pupils present Cognition (Neuro): normal cognition Gait exam (Neuro): Normal gait present Motor exam (neuro): 5/5 motor strength present throughout Sensory Exam: No Sensory deficit (Neuro) Deep tendon reflexes (DTR's): Right patellar reflex intensity grade: 2+ and Left patellar reflex intensity grade: 2+ Extrem General: Yes normal to inspection and No edema Psych Appearance: grossly normal Affect: normal affect Attitude: cooperative Thought process: Normal thought process present Assessment and Plan Assessment & Plan (1) Depression with anxiety: Code(s): F41.8 - Other specified anxiety disorders Plan: Stable Follow-up with mental health provider (2) Bipolar 2 disorder, major depressive episode: Code(s): F31.81 - Bipolar II disorder Plan: Stable Follow-up with mental health provider (3) Mild anemia: Code(s): D64.9 - Anemia, unspecified Plan: History of mild anemia and patient had been drinking substantially at the time. No longer drinking. Rechecking CBC (4) Elevated ALT measurement: Code(s): R74.01 - Elevation of levels of liver transaminase levels Plan: No longer drinking Rechecking liver enzymes (5) Adult general medical exam: Code(s): Z00.00 - Encounter for general adult medical examination without abnormal findings Plan: 32-year-old male presents for an extended exam Encouraged healthy diet with active lifestyle and plenty of exercise Orders: Orders LDL Cholesterol Direct Today I63.9 - Cerebral infarction, unspecified Coding Level of Care Code Est Pt Level 4 (92781) Diagnoses Depression with anxiety F41.8 Bipolar 2 disorder, major depressive episode F31.81 Mild anemia D64.9 Elevated ALT measurement R74.01 Adult general medical exam Z00.00
[2022-12-09 09:09] VITALS: BP 122/64; PULSE 71; RESP 12; TEMP 36.6; O2SAT 99; BMI 33.7
== END 2022-12-09 10:05 | disposition home or self-care (01) ==
PROVIDERS: PCP Family Medicine; Visit Provider Family Medicine
DX: F41.8 Other specified anxiety disorders (principal); F31.81 Bipolar II disorder; D64.9 Anemia, unspecified; R74.01 Elevation of levels of liver transaminase levels; Z00.00 Encounter for general adult medical examination without abnormal findings
CPT/HCPCS: 99214

== ENCOUNTER 2022-12-09 09:37 | Outpatient (REF) | payer OTHER, SELFPAY ==
[2022-12-09 11:10] LABS: MANUAL DIFF FLAG NO
[2022-12-09 11:26] LABS: Basophils Percent Auto 0.6 % (0-2); Hematocrit 38.9 % (42.0-52.0); Hemoglobin 13.6 g/dl (14.0-18.0); Imm Gran Abs Auto 0.01 X10*3/uL (0.00-0.03); Imm Gran Pct Auto 0.2 % (0.0-0.4); Lymphocytes Absolute Auto 1.4 X10*3/uL (1.2-4.9); Lymphocytes Percent Auto 27.4 % (20-40); Mean Corpuscular Hemoglobin 29.6 pg (27.0-33.0); Mean Corpuscular Volume 84.6 fL (80.0-98.0); Mean Platelet Volume 9.9 fL (9.4-12.4); Monocytes Absolute Auto 0.4 X10*3/uL (0.1-1.2); Monocytes Percent Auto 7.9 % (2-11); Neutrophils Absolute Auto 3.2 x10*3/uL (2.0-8.3); Neutrophils Percent Auto 63.9 % (45-73); Platelet Count 230 X10*3/uL (160-400); Red Cell Distribution Width 13.5 % (11.0-16.0); White Blood Count 5.1 X10*3/uL (4.8-10.8)
[2022-12-09 12:00] LABS: Alanine Aminotransferase 46 U/L (0-40); Albumin Level 4.3 g/dL (3.5-5.0); Alkaline Phosphatase 70 U/L (39-117); Anion Gap 11 (12-20); Aspartate Amino Transferase 31 U/L (5-37); Bilirubin Total 0.4 mg/dL (0.0-1.0); Blood Urea Nitrogen 9 mg/dL (9-16); Calcium 9.9 mg/dL (8.4-10.2); Carbon Dioxide 19 mmol/L (22-29); Chloride 113 mmol/L (96-108); Cholesterol 225 mg/dL (<200); Estimated Glomerular Filt Rate > 60; Glucose Fasting 90 mg/dL (60-99); HDL Cholesterol 37 mg/dL (>40); LDL Cholesterol Calculated 158 mg/dL (<100); Potassium 3.9 mmol/L (3.3-5.1); Sodium 139 mmol/L (135-145); Total Protein 7.6 g/dL (6.5-8.0); Triglycerides 154 mg/dL (<150)
[2022-12-09 12:01] LABS: Appearance Urine Clear; Color Urine Yellow; Glucose Urine UA Negative (Negative); Leukocyte Esterase Urine Negative (Negative); Nitrite Urine Negative (Negative); Urine Blood Negative (Negative); Urine Ketones Negative (Negative); Urine Protein Negative (Neg-Trace)
[2022-12-09 12:04] LABS: TSH reflex Free T4 2.15 uIU/mL (0.32-4.0)
[2022-12-09 12:14] LABS: Folate > 20.0 ng/mL (> or = 4.0); Vitamin B12 308 pg/mL (200-900)
[2022-12-09 12:19] LABS: HBS Num1 0.38 mIU/mL (0-7.99); HBc Num1 0.11 S/CO (0.00-0.79); HBsAGNum1 0.39 S/CO (0.00-0.99); HIV AB/AG Nonreactive (Nonreactive); HIV Num 1 0.05 S/CO (0.00-0.99); Hepatitis B Core Antibody Nonreactive (Nonreactive); Hepatitis B Surface Antigen Negative (Negative); ~HepC Num1 0.11 S/CO (0.00-0.79); ~Hepatitis B Surface Antibody NONREACTIVE (Nonreactive); ~Hepatitis C Antibody Nonreactive (Nonreactive)
[2022-12-09 12:23] LABS: Creatinine Urine 36.19 mg/dL; Microalbumin Urine < 5.0 mg/L
[2022-12-09 13:46] LABS: CT PCR NOT DETECTED (Not Detect.); NG PCR NOT DETECTED (Not Detect.)
[2022-12-10 04:12] LABS: Syphilis Screen Nonreactive (Nonreactive)
[2022-12-11 20:34] LABS: TS Negative Control Passed; TS Panel A 0; TS Panel B 1; TS Positive Control Passed; TSpotTB Negative (Negative)
== END 2022-12-09 09:38 | disposition home or self-care (01) ==
LOC: HO.WFDLDS 09:37
PROVIDERS: Visit Provider Family Medicine
DX: Z00.00 Encounter for general adult medical examination without abnormal findings (principal); Z11.1 Encounter for screening for respiratory tuberculosis; Z11.3 Encounter for screening for infections with a predominantly sexual mode of transmission; R74.01 Elevation of levels of liver transaminase levels; E53.8 Deficiency of other specified B group vitamins; F31.9 Bipolar disorder, unspecified; I10 Essential (primary) hypertension; I63.9 Cerebral infarction, unspecified; D64.9 Anemia, unspecified
CPT/HCPCS: 0353U; 80053; 80061; 81003; 82043; 82607; 82746; 84443; 85025; 86481; 86704; 86706; 86780; 86803; 87340; 87389

== ENCOUNTER 2023-01-15 13:35 | Outpatient (AMB) | payer OTHER, SELFPAY ==
--- NOTE | 2023-01-15 13:38 | A.OFFPC_ITS ---
Vital Signs 01/15/23 13:40 Height 5 ft 7 in Weight 214 lb 4 oz BMI 33.6 BP 130/76 Blood Pressure Location Lt brachial Position Sitting Pulse 65 Pulse Source Pulse Oximeter Pulse Oximetry (%) 99 Oxygen Delivery Method Room Air Intake Visit Reasons: Right side face swelling Intake Note: Patient is here with right eye lid swelling since this morning. Allergies sertraline Adverse Reaction (Intermediate, Verified 01/15/23 13:43) heart palpitations Medication List - Last Reconciled 01/15/23 by Salma Abreu CNP acamprosate 666 mg (2 x 333 mg) PO TIDWMEAL apixaban (Eliquis) 5 mg PO BID clonidine HCl 0.1 mg See Protocol PO BID ferrous sulfate 325 mg (1.0031 x 324 mg (65 mg iron)) PO DAILY folic acid 1,000 mcg PO DAILY hydroxyzine HCl 25 mg PO Q6H PRN lamotrigine 200 mg PO DAILY melatonin 10 mg PO BEDTIME PRN multivitamin (Daily-Lc tablet) 1 tab PO DAILY olanzapine 10 mg PO BEDTIME pyridoxine (vitamin B6) 50 mg PO DAILY thiamine HCl (vitamin B1) 100 mg PO DAILY trazodone 150 mg PO BEDTIME Tobacco use date assessed: 01/15/23 Dental Screening Dental Screen Date: 01/15/23 Did you have a dental visit in the last 12 months?: Yes Did you have a dental problem in the last 6 months where you did not have access to dental care?: No Was dental information given to patient?: Patient has dentist HPI HPI Comments History of Present Illness Details 32-year-old male presents with complaint s of swelling below his right eye. He notes that he noticed the swelling this morning. He states that the area was itchy last night and he may have scratched it aggressively with his fingernails and caused the swelling. He pain, itching, or discharge to the eye. He denies headache or visual di sturbances. COUNTS INCLUDE 234 BEDS AT THE [facility] Medical History Bipolar disorder Alcohol abuse Panic attacks Anxiety No known health problems Heart murmur Surgical History No pertinent past surgical history Family History Maternal Grandfather Diabetes Paternal Uncle Blood clot in vein HTN (hypertension) Other Mental health disorder Substance abuse Social History Household Members: None Housing: Other Housing Other:: Staying at a residential program. Do you presently have visiting nurse or other home services: No Alcohol intake: current Alcohol intake frequency: a few times a week Alcohol type: hard liquor Patient Tobacco Use Status: Former Tobacco user Tobacco use type: Cigarette Cigarette Packs Per Day: 1 Cigarettes Per Day: 20.0 Years Smoked: 16 e-Cigarette/Vaping Use: Never Used Second Hand Smoke Exposure: No Substance Use Type: Crack/Cocaine, Hallucinogens and Heroin service: No Current occupational status: unemployed Current occupational exposures/hazards: No Sexual orientation: Straight/Heterosexual Cognitive needs: No Hearing needs: No Vision needs: Yes Questionnaire Thrive Questionnaire Date Thrive assessed: 06/20/22 ALETHEA-7 AMB Questionnaire ALETHEA-7 Date ALETHEA - 7 assessed: 06/20/22 Source: Developed by Drs. Steven Champion, Yvonne Mcgee, Prasad Lopez and colleagues, with an educational lisa from [employer]. Review of Systems Const Details: Const Denies chills, Denies fatigue, Denies fever(s), Denies headache(s) and Denies weakness ENT Reports as per HPI Card Denies chest pain, Denies lightheadedness, Denies dyspnea and Denies other (Palpitations) Resp Denies cough, Denies dyspnea, Denies wheezing and Denies other ( shortness of b reath) GI Denies abdominal pain, Denies melena, Denies hematochezia, Denies change in bowel habits, Denies dyspepsia and Denies nausea Denies hematuria and Denies dysuria Musc Denies abnormal gait, Denies myalgias, Denies arthralgias, Denies numbness and Denies tingling Skin/Breast Denies rash, Denies unusual bruising and Denies wounds Neuro Denies abnormal gait, Denies dizziness, Denies headache(s), Denies memory loss, Denies numbness, Denies Sensory deficit (Neuro), Denies tingling and Denies weakness Psych Denies anxiety, Denies depression, Denies memory loss Endo Denies cold intolerance, Denies fatigue, Denies heat intolerance, Denies polydipsia and Denies polyuria Aller/Immun Denies wheezing Physical exam (Primary Care) Vital Signs: Last Vital Signs Pulse 65 01/15/23 13:40 BP 130/76 01/15/23 13:40 Pulse Ox 99 01/15/23 13:40 Oxygen Delivery Method Room Air 01/15/23 13:40 BMI result Body Mass Index 33.6 Tobacco/Smoking Status: Tobacco use Status Tobacco use date assessed 01/15/23 01/15/23 13:46 Patient Tobacco Use Status Former Tobacco user 01/15/23 13:46 Tobacco use type Cigarette 01/15/23 13:46 e-Cigarette/Vaping Use Never Used 01/15/23 13:46 Thrive Assessment: Date of Thrive Assessment Date Thrive assessed 06/20/22 01/15/23 13:46 Const Other: General: no acute distress and well developed Nutritional Appearance: well nourished Orientation/consciousness: patient oriented x3 HENMT Slight erythema and edema to the right lower lid, skin is intact, normal eye exam, sclera is white, conjunctivae is pink, no discharge Eyes General: appearance normal, both eyes and all related structures Pupils: Equal, round and reactive pupils present EOM: EOMs intact bilaterally Resp Effort & Inspection: normal respiratory effort Auscultation: clear to auscultation bilaterally Cardio Rate: regular rate Rhythm: regular rhythm Heart sounds: S1 normal heart sound present, S2 normal heart sound present, no gallops, no murmurs and no rubs GI Palpation (GI): No Abdominal aortic bruit present, Soft to palpation, nontender, No hepatosplenomegaly present and No Rebound tenderness present Auscultation: normal bowel sounds General: Yes no CVA tenderness Back/Spine/Pelvis Back: no CVA tenderness Cervical Spine: cervical ROM normal and No Cervical spine tenderness Thoracic/Lumbar Spine: thoraco-lumbar ROM normal, No pain with thoraco-lumbar ROM, No thoracic spinal tenderness and No lumbar spinal tenderness Extrem General: Yes normal to inspection, No edema and No calf tenderness Skin General: warm and dry. Normal skin color. Normal skin turgor Lesions: no lesions Rashes: no rashes Trauma: no lacerations or abrasions Wounds: no wounds Nails: normal Neuro General: patient oriented x3, gait normal and no focal neuro deficit Cranial nerves: Yes Equal, round and reactive pupils present Cognition (Neuro): normal cognition Gait exam (Neuro): Normal gait present Sensory Exam: No Sensory deficit (Neuro) Psych Appearance: grossly normal Affect: normal affect Attitude: cooperative Thought process: Normal thought process present Assessment and Plan Assessment & Plan (1) Periorbital edema of right eye: Code(s): R60.0 - Localized edema Plan: He states that the area below his right lower eyelid was itchy last night and he may have scratched it aggressively with his fingernails and caused the swelling. Slight erythema and edema to the right lower lid, skin is intact, normal eye exam, sclera is white, conjunctivae is pink, no discharge Scratching of the area with his fingernail may have irritated the skin No evidence of infection Cold compresses encouraged May take Tylenol ibuprofen for pain, fever, or discomfort Follow-up or go to the ED with increase swelling or redness or new signs and symptoms such as pain, visual disturbance, or drainage Verbalized understanding and agreed with treatment plan. Coding Level of Care Code Est Pt Level 2 (14149) Diagnoses Periorbital edema of right eye R60.0
[2023-01-15 13:40] VITALS: BP 130/76; PULSE 65; O2SAT 99; BMI 33.6
== END 2023-01-15 14:14 | disposition home or self-care (01) ==
PROVIDERS: PCP Family Medicine; Visit Provider Nurse Practitioner Family
DX: R60.0 Localized edema (principal)
CPT/HCPCS: 99212

== ENCOUNTER 2023-08-13 14:22 | Outpatient (AMB) | payer OTHER, SELFPAY ==
[2023-08-13 14:42] VITALS: BP 136/80; PULSE 61; O2SAT 98; BMI 34.2
--- NOTE | 2023-08-13 14:42 | A.OFFPC_ITS ---
Vital Signs 08/13/23 14:42 Height 5 ft 7 in Weight 218 lb 2 oz BMI 34.2 BP 136/80 Blood Pressure Location Lt brachial Position Sitting Pulse 61 Pulse Source Pulse Oximeter Pulse Oximetry (%) 98 Oxygen Delivery Method Room Air Intake Visit Reasons: dental procedure / follow up meds Intake Note: Patient is here for dental procedure and follow up on meds. Patient would like a refill on Betamethasone cream today. Allergies sertraline Adverse Reaction (Intermediate, Verified 08/13/23 14:47) heart palpitations Tobacco use date assessed: 08/13/23 Dental Screening Dental Screen Date: 08/13/23 Did you have a dental visit in the last 12 months?: Yes Did you have a dental problem in the last 6 months where you did not have access to dental care?: No Was dental information given to patient?: Patient has dentist HPI dental procedure / follow up meds HPI Details Dense?for?recommendations?regarding?Eliquis?prior?to?dental?procedures. Patient?has?a?hypercoagulable?state?and?is?on?Eliquis. Had?referred?him?to?Hematology-Oncology?in?May?2022?though?he?has?not?been?seen. [facility] Medical History Bipolar disorder Alcohol abuse Panic attacks Anxiety No known health problems Heart murmur Surgical History No pertinent past surgical history Family History Maternal Grandfather Diabetes Paternal Uncle Blood clot in vein HTN (hypertension) Other Mental health disorder Substance abuse Social History Household Members: None Housing: Other Housing Other:: Staying at a residential program. Do you presently have visiting nurse or other home services: No Alcohol intake: current Alcohol intake frequency: a few times a week Alcohol type: hard liquor Patient Tobacco Use Status: Former Tobacco user Tobacco use type: Cigarette Cigarette Packs Per Day: 1 Cigarettes Per Day: 20.0 Years Smoked: 16 e-Cigarette/Vaping Use: Never Used Second Hand Smoke Exposure: No Substance Use Type: Crack/Cocaine, Hallucinogens and Heroin service: No Current occupational status: unemployed Current occupational exposures/hazards: No Sexual orientation: Straight/Heterosexual Cognitive needs: No Hearing needs: No Vision needs: Yes Questionnaire Thrive Questionnaire Date Thrive assessed: 06/20/22 ALETHEA-7 AMB Questionnaire ALETHEA-7 Date ALETHEA - 7 assessed: 06/20/22 Source: Developed by Drs. Steven Champion, Yvonne Mcgee, Prasad Lopez and colleagues, with an educational lisa from [employer]. Review of Systems Const Denies chills, Denies fatigue, Denies fever(s), Denies headache(s) and Denies weakness ENT Denies dizziness and Denies headache(s) Card Denies chest pain, Denies lightheadedness, Denies dyspnea and Denies other (Palpitations) Resp Denies cough, Denies dyspnea, Denies wheezing and Denies other ( shortness of breath) Musc Denies numbness and Denies tingling Neuro Denies dizziness, Denies headache(s), Denies numbness, Denies tingling, Denies paresthesias and Denies weakness Psych Denies anxiety and Denies depression Endo Denies fatigue Aller/Immun Denies wheezing Physical exam (Primary Care) Vital Signs: Last Vital Signs Pulse 61 08/13/23 14:42 BP 136/80 08/13/23 14:42 Pulse Ox 98 08/13/23 14:42 Oxygen Delivery Method Room Air 08/13/23 14:42 BMI result Body Mass Index 34.2 Tobacco/Smoking Status: Tobacco use Status Tobacco use date assessed 08/13/23 08/13/23 14:59 Patient Tobacco Use Status Former Tobacco user 08/13/23 14:59 Tobacco use type Cigarette 08/13/23 14:59 e-Cigarette/Vaping Use Never Used 08/13/23 14:59 Thrive Assessment: Date of Thrive Assessment Date Thrive assessed 06/20/22 08/13/23 14:59 Const General: no acute distress and well developed Nutritional Appearance: well nourished Orientation/consciousness: patient oriented x3 HENMT Head: Yes normocephalic and Yes atraumatic Eyes General: appearance normal, both eyes and all related structures Pupils: Equal, round and reactive pupils present EOM: EOMs intact bilaterally Resp Effort & Inspection: normal respiratory effort Auscultation: clear to auscultation bilaterally Cardio Rate: regular rate Rhythm: regular rhythm Heart sounds: S1 normal heart sound present, S2 normal heart sound present, no gallops, no murmurs and no rubs Neuro General: patient oriented x3 and gait normal Cranial nerves: Yes Equal, round and reactive pupils present Psych Affect: normal affect Assessment and Plan Assessment & Plan (1) Hypercoagulable state: Code(s): D68.59 - Other primary thrombophilia Plan: Discussed?with?patient?and?attendant?that?he?may hold?Eliquis?on?the?day?of?his?dental?procedure?and?resume?it?again?on?the?follo wing?day. Patient?was?referred?to?Heme- Onc?in?August?2022?to?evaluate?for?underlying?cause?but?was?not?seen. Referred?back?to?[facility] Medications: New betamethasone dipropionate 0.05% 1 appl topical BID 14 days 45 grams 2RF Changed From folic acid 1,000 mcg PO DAILY To folic acid 1,000 mcg PO DAILY 90 days 90 tabs 3RF From pyridoxine (vitamin B6) 50 mg PO DAILY To pyridoxine (vitamin B6) 50 mg (1/2 x 100 mg) PO DAILY 90 days 45 tabs 3RF Refilled thiamine HCl (vitamin B1) 100 mg PO DAILY 30 tabs 0RF apixaban (Eliquis) 5 mg PO BID 60 tabs 0RF ferrous sulfate 325 mg (1.0031 x 324 mg (65 mg iron)) PO DAILY 30 tabs 0RF multivitamin (Daily-Lc tablet) 1 tab PO DAILY 30 tabs 0RF Coding Level of Care Code Est Pt Level 3 (90729) Diagnoses Hypercoagulable state D68.59
== END 2023-08-13 16:04 | disposition home or self-care (01) ==
PROVIDERS: PCP Family Medicine; Visit Provider Family Medicine
DX: D68.59 Other primary thrombophilia (principal)
CPT/HCPCS: 99213

== ENCOUNTER 2023-12-11 08:36 | Outpatient (AMB) | payer OTHER, SELFPAY ==
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
[2023-12-11 09:10] VITALS: BP 90/60; PULSE 78; RESP 16; TEMP 36.5; O2SAT 99; BMI 32.3
== END 2023-12-11 09:47 | disposition home or self-care (01) ==
PROVIDERS: PCP Family Medicine; Visit Provider Family Medicine
DX: Z00.00 Encounter for general adult medical examination without abnormal findings (principal); F41.8 Other specified anxiety disorders; F10.20 Alcohol dependence, uncomplicated
CPT/HCPCS: 99395

== ENCOUNTER 2024-02-11 13:50 | Outpatient (AMB) | payer OTHER, SELFPAY ==
--- NOTE | 2024-02-11 14:04 | A.OFFPC_ITS ---
Vital Signs 02/11/24 14:07 Height 5 ft 7.68 in Weight 199 lb 6 oz BMI 30.6 BP 97/61 Blood Pressure Location Rt brachial Position Sitting Respiration 14 Pulse 88 Pulse Source Pulse Oximeter Temp 98.6 F Temp Source Temporal Artery Scan Pulse Oximetry (%) 98 Oxygen Delivery Method Room Air Intake Visit Reasons: f/u CPE-labs Intake Note: f/u up labs disability paperwork Allergies sertraline Adverse Reaction (Intermediate, Verified 02/11/24 14:07) heart palpitations Tobacco use date assessed: 12/11/23 Dental Screening Dental Screen Date: 12/11/23 HPI f/u CPE-labs HPI Details 33 y/o male presents to review CPE-labs. Had started him on artovastatin as cholesterol levels were high. No recent labs to review. Requesting disability paperwork today. Has complaints of a wound on the back of his leg. He notes wound started off with a rash. [facility], LATER [facility] Medical History Bipolar disorder Alcohol abuse Panic attacks Anxiety No known health problems Heart murmur Surgical History No pertinent past surgical history Family History Maternal Grandfather Diabetes Paternal Uncle Blood clot in vein HTN (hypertension) Other Mental health disorder Substance abuse Social History (Updated 12/11/23 @ 09:07 by Juanito Hodge [facility]) Household Members: None Housing: Other Housing Other:: Staying at a residential program. Do you presently have visiting nurse or other home services: No Alcohol intake: current Alcohol intake frequency: a few times a week Alcohol type: hard liquor Patient Tobacco Use Status: Former Tobacco user Tobacco use type: Cigarette Cigarette Packs Per Day: 1 Cigarettes Per Day: 20.0 Years Smoked: 16 e-Cigarette/Vaping Use: Never Used Second Hand Smoke Exposure: No Substance Use Type: Crack/Cocaine, Hallucinogens and Heroin service: No Current occupational status: unemployed Current occupational exposures/hazards: No Sexual orientation: Straight/Heterosexual Cognitive needs: No Hearing needs: No Vision needs: Yes Questionnaire PHQ-9 Over the last 2 weeks, how often have you been bothered by any of the following problems? 1. Little interest or pleasure in doing things: several days 2. Feeling down, depressed, or hopeless: several days 3. Trouble falling or staying asleep, or sleeping too much: more than half the days 4. Feeling tired or having little energy: more than half the days 5. Poor appetite or overeating: more than half the days 6. Feeling bad about yourself - or that you are a failure or have let yourself or your family down: several days 7. Trouble concentrating on things, such as reading the newspaper or watching television: more than half the days 8. Moving or speaking so slowly that other people could have noticed. Or the opposite - being so fidgety or restless that you have been moving around a lot more than usual: more than half the days 9. Thoughts that you would be better off or of hurting yourself in some way: not at all Total score: 13 Source: Developed by Drs. Steven Champion, Yvonne Mcgee, Prasad Lopez and colleagues, with an educational lisa from [employer]. Thrive Questionnaire Date Thrive assessed: 12/11/23 I am a: Patient What is your living situation today?: I choose not to answer this question Within the past 12 months, did the food you bought not last and you didn't have the money to get more?: Sometimes True Within the past 12 months, did you worry whether your food would run out before you got money to buy more?: Sometimes True Do you have trouble paying for medicines?: I choose not to answer this question Do you have trouble getting transportation to medical appointments?: Yes Do you have trouble paying your heating and electricity bill?: I choose not to answer this question Do you have trouble taking care of your child, family member or friend?: No Do you have trouble with day-to-day activities such as bathing, preparing meals, shopping, managing finances, etc.?: No Are you currently unemployed and looking for a job?: Yes Are you interested in more education?: I choose not to answer this question Please select the resources that you would like help with: Job search/training and Education Currently or been in a relationship where the following occur: No concerns reported THRIVE Score: 3 AUDIT C Alcohol Use Questionnaire (AUDIT-C) 1. How often do you have a drink containing alcohol?: Never Total Score: 0 ALETHEA-7 AMB Questionnaire ALETHEA-7 Date ALETHEA - 7 assessed: 12/11/23 Feeling nervous, anxious, or on edge: 2 = More than half the days Not being able to stop or control worryin = More than half the days Worrying too much about different things: 2 = More than half the days Trouble relaxin = Nearly every day Being so restless that it is hard to sit still: 2 = More than half the days Becoming easily annoyed or irritable: 2 = More than half the days Feeling afraid as if something awful might happen: 3 = Nearly every day Total ALETHEA-7 score (0-4 normal; 5-9 mild; 10-14 moderate; 15-21 severe): 16 Source: Developed by Drs. Steven Champion, Yvonne Mcgee, Prasad Lopez and colleagues, with an educational lisa from [employer]. Review of Systems Const Denies chills, Denies fatigue, Denies fever(s), Denies headache(s) and Denies weakness ENT Denies dizziness and Denies headache(s) Card Denies dyspnea Resp Denies cough, Denies dyspnea, Denies wheezing and Denies other (shortness of breath) Musc Denies numbness and Denies tingling Neuro Denies dizziness, Denies headache(s), Denies numbness, Denies tingling and Denies weakness Psych Denies anxiety and Denies depression Endo Denies fatigue Aller/Immun Denies wheezing Physical exam (Primary Care) Vital Signs: Last Vital Signs Temp 98.6 F 02/11/24 14:07 Pulse 88 02/11/24 14:07 Resp 14 02/11/24 14:07 BP 97/61 02/11/24 14:07 Pulse Ox 98 02/11/24 14:07 Oxygen Delivery Method Room Air 02/11/24 14:07 BMI result Body Mass Index 30.6 Tobacco/Smoking Status: Tobacco use Status Tobacco use date assessed 12/11/23 02/11/24 14:05 Patient Tobacco Use Status Former Tobacco user 02/11/24 14:05 Tobacco use type Cigarette 02/11/24 14:05 e-Cigarette/Vaping Use Never Used 02/11/24 14:05 PHQ-9: PHQ-9 Score PHQ-9: Total score 13 02/11/24 14:25 Thrive Assessment: Date of Thrive Assessment Date Thrive assessed 12/11/23 02/11/24 14:05 Currently or been in a relationship where the following occur: No concerns reported Const General: well developed; No acute distress Nutritional Appearance: well nourished Orientation/consciousness: patient oriented x3 HENMT Head: Yes normocephalic and Yes atraumatic Eyes General: appearance normal, both eyes and all related structures Pupils: Equal, round and reactive pupils present EOM: EOMs intact bilaterally Resp Effort & Inspection: normal respiratory effort Auscultation: clear to auscultation bilaterally Cardio Rate: regular rate Rhythm: regular rhythm Heart sounds: S1 normal heart sound present, S2 normal heart sound present, no gallops, no murmurs and no rubs Neuro General: patient oriented x3 and gait normal Cranial nerves: Yes Equal, round and reactive pupils present Psych Affect: normal affect Coding Level of Care Code Est Pt Level 3 (44306) Diagnoses Wound of skin T14.8XXA Assessment & Plan Assessment & Plan (1) Wound of skin: Code(s): T14.8XXA - Other injury of unspecified body region, initial encounter Category: Medical Plan: Wound?of?skin?with?mild?cellulitis Start?cephalexin Dress?wound?with?triple?antibiotic?ointment?and?nonstick?gauze Finish?all?antibiotic?and?follow-up?in?10?days.??Call?or?return?to?office?if?not ?improving?or?worsens Plan Filled?out?patient's?disability?due?to?bipolar?disorder,?hypercoagulable?state?w ith?history?of?CVA. Medications: New cephalexin 500 mg PO Q12H 10 days 20 caps 0RF
[2024-02-11 14:07] VITALS: BP 97/61; PULSE 88; RESP 14; TEMP 37; O2SAT 98; BMI 30.6
== END 2024-02-11 14:55 | disposition home or self-care (01) ==
PROVIDERS: PCP Family Medicine; Visit Provider Family Medicine
DX: L03.116 Cellulitis of left lower limb (principal); T14.8XXA Other injury of unspecified body region, initial encounter

== ENCOUNTER → 2024-02-11 13:50 | Outpatient (BNVA) | payer OTHER, SELFPAY | PROVIDERS: PCP Family Medicine; Visit Provider Family Medicine ==

== ENCOUNTER 2024-02-11 14:15 | Outpatient (REF) | payer OTHER, SELFPAY ==
[2024-02-11 17:42] LABS: MANUAL DIFF FLAG NO
[2024-02-11 17:47] LABS: Appearance Urine Clear; Color Urine Yellow; Glucose Urine UA Negative (Negative); Leukocyte Esterase Urine Negative (Negative); Nitrite Urine Negative (Negative); PH 8.5 (5.0-9.0); Specific Gravity - Urine <= 1.005 (1.005-1.025); Urine Blood Negative (Negative); Urine Ketones Negative (Negative); Urine Protein Negative (Neg-Trace)
[2024-02-11 18:00] LABS: Basophils Absolute Auto 0.1 X10*3/uL (0.0-0.2); Basophils Percent Auto 0.7 % (0-2); Hematocrit 40.2 % (42.0-52.0); Hemoglobin 14.6 g/dl (14.0-18.0); Imm Gran Abs Auto 0.02 X10*3/uL (0.00-0.03); Imm Gran Pct Auto 0.3 % (0.0-0.4); Lymphocytes Absolute Auto 1.9 X10*3/uL (1.2-4.9); Lymphocytes Percent Auto 25.2 % (20-40); Mean Corpuscular HGB Conc 36.3 g/dl (31.0-36.0); Mean Corpuscular Hemoglobin 30.2 pg (27.0-33.0); Mean Corpuscular Volume 83.2 fL (80.0-98.0); Mean Platelet Volume 10.2 fL (9.4-12.4); Monocytes Absolute Auto 0.7 X10*3/uL (0.1-1.2); Monocytes Percent Auto 8.6 % (2-11); Neutrophils Percent Auto 65.2 % (45-73); Platelet Count 215 X10*3/uL (160-400); Red Blood Count 4.83 X10*6/uL (4.60-5.80); Red Cell Distribution Width 13.2 % (11.0-16.0); White Blood Count 7.7 X10*3/uL (4.8-10.8)
[2024-02-11 18:05] LABS: Alanine Aminotransferase 52 U/L (0-40); Albumin Level 4.7 g/dL (3.5-5.0); Alkaline Phosphatase 80 U/L (39-117); Anion Gap 14 (12-20); Aspartate Amino Transferase 36 U/L (5-37); Bilirubin Total 0.5 mg/dL (0.0-1.0); Blood Urea Nitrogen 7 mg/dL (9-16); Calcium 10.2 mg/dL (8.4-10.2); Carbon Dioxide 17 mmol/L (22-29); Chloride 114 mmol/L (96-108); Cholesterol 119 mg/dL (<200); Estimated Glomerular Filt Rate > 60; Glucose Fasting 93 mg/dL (60-99); HDL Cholesterol 36 mg/dL (>40); LDL Cholesterol Calculated 64 mg/dL (<100); Potassium 3.4 mmol/L (3.3-5.1); Sodium 142 mmol/L (135-145); Total Protein 7.9 g/dL (6.5-8.0); Triglycerides 96 mg/dL (<150)
[2024-02-11 18:16] LABS: Creatinine Urine 33.09 mg/dL; Microalbumin Urine < 5.0 mg/L
[2024-02-11 18:21] LABS: TSH reflex Free T4 2.08 uIU/mL (0.32-4.0)
[2024-02-11 18:44] LABS: Folate > 20.0 ng/mL (> or = 4.0); Vitamin B12 366 pg/mL (200-900)
== END 2024-02-11 14:16 | disposition home or self-care (01) ==
LOC: HO.WFDLDS 14:15
PROVIDERS: Visit Provider Family Medicine
DX: I10 Essential (primary) hypertension (principal); E53.8 Deficiency of other specified B group vitamins; T14.8XXA Other injury of unspecified body region, initial encounter; E78.5 Hyperlipidemia, unspecified; Z79.899 Other long term (current) drug therapy
CPT/HCPCS: 36415; 80053; 80061; 81003; 82570; 82607; 82746; 84443; 85025; 96127; 99212

== ENCOUNTER 2024-02-26 13:46 | Outpatient (AMB) | payer OTHER, SELFPAY ==
--- NOTE | 2024-02-26 13:57 | A.OFFPC_ITS ---
Vital Signs 02/26/24 13:58 Height 5 ft 7.68 in Weight 196 lb 4 oz BMI 30.1 BP 120/60 Blood Pressure Location Rt brachial Position Sitting Respiration 14 Pulse 77 Pulse Source Pulse Oximeter Temp 97.6 F Temp Source Oral Pulse Oximetry (%) 98 Oxygen Delivery Method Room Air Intake Visit Reasons: f/u wound Intake Note: f/u on left leg wound refill for all meds Allergies sertraline Adverse Reaction (Intermediate, Verified 02/26/24 13:57) heart palpitations Tobacco use date assessed: 12/11/23 Dental Screening Dental Screen Date: 12/11/23 HPI f/u wound HPI Details 34 y/o male presents to f/u mildly infec joe wound/cellulitis at [place]. Had started him on cephalexin and dressing changes. Notes leg wound continues to improve. COUNT INCLUDES [facility] Medical History Bipolar disorder Alcohol abuse Panic attacks Anxiety No known health problems Heart murmur Surgical History No pertinent past surgical history Family History Maternal Grandfather Diabetes Paternal Uncle Blood clot in vein HTN (hypertension) Other Mental health disorder Substance abuse Social History (Updated 12/11/23 @ 09:07 by Juanito Hodge [facility]) Household Members: None Housing: Other Housing Other:: Staying at a residential program. Do you presently have visiting nurse or other home services: No Alcohol intake: current Alcohol intake frequency: a few times a week Alcohol type: hard liquor Patient Tobacco Use Status: Former Tobacco user Tobacco use type: Cigarette Cigarette Packs Per Day: 1 Cigarettes Per Day: 20.0 Years Smoked: 16 e-Cigarette/Vaping Use: Never Used Second Hand Smoke Exposure: No Substance Use Type: Crack/Cocaine, Hallucinogens and Heroin service: No Current occupational status: unemployed Current occupational exposures/hazards: No Sexual orientation: Straight/Heterosexual Cognitive needs: No Hearing needs: No Vision needs: Yes Questionnaire Thrive Questionnaire Date Thrive assessed: 02/11/24 I am a: Patient What is your living situation today?: I choose not to answer this question Within the past 12 months, did the food you bought not last and you didn't have the money to get more?: Sometimes True Within the past 12 months, did you worry whether your food would run out before you got money to buy more?: Sometimes True Do you have trouble paying for medicines?: I choose not to answer this question Do you have trouble getting transportation to medical appointments?: Yes Do you have trouble paying your heating and electricity bill?: I choose not to answer this question Do you have trouble taking care of your child, family member or friend?: No Do you have trouble with day-to-day activities such as bathing, preparing meals, shopping, managing finances, etc.?: No Are you currently unemployed and looking for a job?: Yes Are you interested in more education?: I choose not to answer this question Currently or been in a relationship where the following occur: No concerns reported THRIVE Score: 3 ALETHEA-7 AMB Questionnaire ALETHEA-7 Date ALETHEA - 7 assessed: 12/11/23 Source: Developed by Drs. Steven Champion, Yvonne Mcgee, Prasad Lopez and colleagues, with an educational lisa from [employer]. Physical exam (Primary Care) Vital Signs: Last Vital Signs Temp 97.6 F 02/26/24 13:58 Pulse 77 02/26/24 13:58 Resp 14 02/26/24 13:58 BP 120/60 02/26/24 13:58 Pulse Ox 98 02/26/24 13:58 Oxygen Delivery Method Room Air 02/26/24 13:58 BMI result Body Mass Index 30.1 Tobacco/Smoking Status: Tobacco use Status Tobacco use date assessed 12/11/23 02/26/24 14:04 Patient Tobacco Use Status Former Tobacco user 02/26/24 14:04 Tobacco use type Cigarette 02/26/24 14:04 e-Cigarette/Vaping Use Never Used 02/26/24 14:04 Thrive Assessment: Date of Thrive Assessment Date Thrive assessed 02/11/24 02/26/24 14:04 Currently or been in a relationship where the following occur: No concerns reported Coding Level of Care Code Est Pt Level 3 (62968) Diagnoses Wound of skin T14.8XXA Assessment & Plan Assessment & Plan (1) Wound of skin: Code(s): T14.8XXA - Other injury of unspecified body region, initial encounter Category: Medical Plan: Left?[place]?wound,?recently?infected?and?patient?completed?antibiotics. No?longer?infected,?now?has?eschar and?will?try?chemical?debridement?to?improve?healing. He?will?call?or?return?to?office?if?any?increased?redness,?swelling,?pain,?warmt h?or?drainage. Should?continue?to?improve?and?resolve. Medications: New collagenase clostridium histo. (Santyl) 1 appl topical BEDTIME 10 days PRN 15 grams 0RF wound care
[2024-02-26 13:58] VITALS: BP 120/60; PULSE 77; RESP 14; TEMP 36.4; O2SAT 98; BMI 30.1
== END 2024-02-26 14:47 | disposition home or self-care (01) ==
PROVIDERS: PCP Family Medicine; Visit Provider Family Medicine
DX: T14.8XXA Other injury of unspecified body region, initial encounter (principal)

== ENCOUNTER → 2024-02-26 13:46 | Outpatient (BNVA) | payer OTHER, SELFPAY | PROVIDERS: PCP Family Medicine; Visit Provider Family Medicine | DX: S89.92XD Unspecified injury of left lower leg, subsequent encounter (principal) | CPT/HCPCS: 99212 ==

== ENCOUNTER 2024-05-31 14:33 | Outpatient (AMB) | payer OTHER, SELFPAY ==
--- NOTE | 2024-05-31 14:37 | A.OFFPC_ITS ---
Vital Signs 05/31/24 14:41 Height 5 ft 7.68 in Weight 181 lb 2 oz BMI 27.8 BP 120/60 Blood Pressure Location Rt brachial Position Sitting Respiration 14 Pulse 74 Pulse Source Pulse Oximeter Temp 97.5 F Temp Source Oral Pulse Oximetry (%) 100 Oxygen Delivery Method Room Air Intake Visit Reasons: f/u chronic conditions Intake Note: follow up on leg wound on left leg Allergies sertraline Adverse Reaction (Intermediate, Verified 05/31/24 14:38) heart palpitations Medication List - Last Reconciled 05/31/24 by Donny Longoria MD acamprosate 666 mg (2 x 333 mg) PO TIDWMEAL apixaban (Eliquis) 5 mg PO BID atorvastatin 20 mg PO BEDTIME 90 days clonidine HCl 0.1 mg See Protocol PO BID collagenase clostridium histo. (Santyl) 1 appl topical BEDTIME PRN 10 days ferrous sulfate 325 mg (1.0031 x 324 mg (65 mg iron)) PO DAILY folic acid 1,000 mcg PO DAILY 90 days hydroxyzine HCl 25 mg PO Q6H PRN lamotrigine 200 mg PO DAILY melatonin 10 mg PO BEDTIME PRN multivitamin (Daily-Lc tablet) 1 tab PO DAILY olanzapine 10 mg PO BEDTIME trazodone 200 mg PO BEDTIME Tobacco use date assessed: 12/11/23 Dental Screening Dental Screen Date: 12/11/23 HPI f/u chronic conditions HPI Details 34 y/o male presents to f/u chronic cond itions. Leg wound of L leg. Ongoing issues of a scab and has not been to wound care yet. Denies any pain. He continues to elevate his legs when sitting down. He notes mood has been stable with his medication regimen. [facility] Medical History Bipolar disorder Alcohol abuse Panic attacks Anxiety No known health problems Heart murmur Surgical History No pertinent past surgical history Family History Maternal Grandfather Diabetes Paternal Uncle Blood clot in vein HTN (hypertension) Other Mental health disorder Substance abuse Social History (Updated 12/11/23 @ 09:07 by AMELIA Eagle) Household Members: None Housing: Other Housing Other:: Staying at a residential program. Do you presently have visiting nurse or other home services: No Alcohol intake: current Alcohol intake frequency: a few times a week Alcohol type: hard liquor Patient Tobacco Use Status: Former Tobacco user Tobacco use type: Cigarette Cigarette Packs Per Day: 1 Cigarettes Per Day: 20.0 Years Smoked: 16 Packs Per Year: 16 Packs per year/per ci.00 e-Cigarette/Vaping Use: Never Used Second Hand Smoke Exposure: No Substance Use Type: Crack/Cocaine, Hallucinogens and Heroin service: No Current occupational status: unemployed Current occupational exposures/hazards: No Sexual orientation: Straight/Heterosexual Cognitive needs: No Hearing needs: No Vision needs: Yes Questionnaire PHQ-9 Over the last 2 weeks, how often have you been bothered by any of the following problems? 1. Little interest or pleasure in doing things: several days 2. Feeling down, depressed, or hopeless: several days 3. Trouble falling or staying asleep, or sleeping too much: several days 4. Feeling tired or having little energy: more than half the days 5. Poor appetite or overeating: several days 6. Feeling bad about yourself - or that you are a failure or have let yourself or your family down: several days 7. Trouble concentrating on things, such as reading the newspaper or watching television: more than half the days 8. Moving or speaking so slowly that other people could have noticed. Or the opposite - being so fidgety or restless that you have been moving around a lot more than usual: more than half the days 9. Thoughts that you would be better off or of hurting yourself in some way: not at all Total score: 11 Source: Developed by Drs. Steven Champion, Yvonne Mcgee, Prasad Lopez and colleagues, with an educational lisa from [employer]. Thrive Questionnaire Date Thrive assessed: 02/11/24 I am a: Patient What is your living situation today?: I have a place to live, but I am worried about losing it in the future Within the past 12 months, did the food you bought not last and you didn't have the money to get more?: Never true Within the past 12 months, did you worry whether your food would run out before you got money to buy more?: Never true Do you have trouble paying for medicines?: No Do you have trouble getting transportation to medical appointments?: No Do you have trouble paying your heating and electricity bill?: I choose not to answer this question Do you have trouble taking care of your child, family member or friend?: I choose not to answer this question Do you have trouble with day-to-day activities such as bathing, preparing meals, shopping, managing finances, etc.?: No Are you currently unemployed and looking for a job?: I choose not to answer this question Are you interested in more education?: I choose not to answer this question Please select the resources that you would like help with: None Currently or been in a relationship where the following occur: No concerns reported THRIVE Score: 1 AUDIT C Alcohol Use Questionnaire (AUDIT-C) 1. How often do you have a drink containing alcohol?: Never Total Score: 0 ALETHEA-7 AMB Questionnaire ALETHEA-7 Date ALETHEA - 7 assessed: 12/11/23 Feeling nervous, anxious, or on edge: 1 = Several days Not being able to stop or control worryin = More than half the days Worrying too much about different things: 1 = Several days Trouble relaxin = More than half the days Being so restless that it is hard to sit still: 2 = More than half the days Becoming easily annoyed or irritable: 2 = More than half the days Feeling afraid as if something awful might happen: 0 = Not at all Total ALETHEA-7 score (0-4 normal; 5-9 mild; 10-14 moderate; 15-21 severe): 10 Source: Developed by Drs. Steven Champion, Yvonne Mcgee, Prasad Lopez and colleagues, with an educational lisa from [employer]. Review of Systems Const Denies chills, Denies fatigue, Denies fever(s), Denies headache(s) and Denies weakness ENT Denies dizziness and Denies headache(s) Card Denies dyspnea Resp Denies cough, Denies dyspnea, Denies wheezing and Denies other (shortness of breath) Musc Denies numbness and Denies tingling Neuro Denies dizziness, Denies headache(s), Denies numbness, Denies tingling and Denies weakness Psych Denies anxiety and Denies depression Endo Denies fatigue Aller/Immun Denies wheezing Physical exam (Primary Care) Vital Signs: Last Vital Signs Temp 97.5 F 05/31/24 14:41 Pulse 74 05/31/24 14:41 Resp 14 05/31/24 14:41 BP 120/60 05/31/24 14:41 Pulse Ox 100 05/31/24 14:41 Oxygen Delivery Method Room Air 05/31/24 14:41 BMI result Body Mass Index 27.8 Tobacco/Smoking Status: Tobacco use Status Tobacco use date assessed 12/11/23 05/31/24 14:37 Patient Tobacco Use Status Former Tobacco user 05/31/24 14:37 Tobacco use type Cigarette 05/31/24 14:37 e-Cigarette/Vaping Use Never Used 05/31/24 14:37 PHQ-9: PHQ-9 Score PHQ-9: Total score 11 05/31/24 14:41 Thrive Assessment: Date of Thrive Assessment Date Thrive assessed 02/11/24 05/31/24 14:37 Currently or been in a relationship where the following occur: No concerns reported Const General: well developed; No acute distress Nutritional Appearance: well nourished Orientation/consciousness: patient oriented x3 HENMT Head: Yes normocephalic and Yes atraumatic Eyes General: appearance normal, both eyes and all related structures Pupils: Equal, round and reactive pupils present EOM: EOMs intact bilaterally Resp Effort & Inspection: normal respiratory effort Auscultation: clear to auscultation bilaterally Cardio Rate: regular rate Rhythm: regular rhythm Heart sounds: S1 normal heart sound present, S2 normal heart sound present, no gallops, no murmurs and no rubs Neuro General: patient oriented x3 and gait normal Cranial nerves: Yes Equal, round and reactive pupils present Psych Affect: normal affect Coding Level of Care Code Est Pt Level 4 (53865) Diagnoses Wound of skin T14.8XXA Depression with anxiety F41.8 Mild anemia D64.9 Elevated ALT measurement R74.01 Assessment & Plan Assessment & Plan (1) Wound of skin: Code(s): T14.8XXA - Other injury of unspecified body region, initial encounter Category: Medical Plan: Left?lower?extremity?skin?wound,?previously?infected. Infection?resolved?leaving?[place]?and?tried?chemical?debridement. Chemical?debridement?not?resolved?wound. Will?refer?to?Wound Care,?may?sharp?debridement. Elevate?leg Watch?for?increased?redness,?pain,?drainage Can?take?showers?wash?with?warm?soapy?water Dress?dry?dressing?now (2) Depression with anxiety: Code(s): F41.8 - Other specified anxiety disorders Category: Medical Plan: Stable Continue?current?medication?regimen (3) Mild anemia: Code(s): D64.9 - Anemia, unspecified Category: Medical Plan: Will?recheck?CBC Continue?iron?for?now?- this?is?improving (4) Elevated ALT measurement: Code(s): R74.01 - Elevation of levels of liver transaminase levels Category: Medical Plan: Mild?elevation?liver?enzymes We?are?following?this?no?significant?changes Will?recheck?with?next?lab?draw Orders: Referrals Wound Care Referral T14.8XXA - Other injury of unspecified body region, initial encounter Medications: Refilled ferrous sulfate 325 mg (1.0031 x 324 mg (65 mg iron)) PO DAILY 30 tabs 0RF multivitamin (Daily-Lc tablet) 1 tab PO DAILY 30 tabs 0RF folic acid 1,000 mcg PO DAILY 90 days 90 tabs 3RF apixaban (Eliquis) 5 mg PO BID 60 tabs 0RF atorvastatin 20 mg PO BEDTIME 90 days 90 tabs 3RF Discontinued cephalexin Discontinued Reason: Doctor's Order 500 mg PO Q12H 10 days 20 caps 0RF
[2024-05-31 14:41] VITALS: BP 120/60; PULSE 74; RESP 14; TEMP 36.4; O2SAT 100; BMI 27.8
== END 2024-05-31 15:13 | disposition home or self-care (01) ==
PROVIDERS: PCP Family Medicine; Visit Provider Family Medicine
DX: T14.8XXA Other injury of unspecified body region, initial encounter (principal); F41.8 Other specified anxiety disorders; D64.9 Anemia, unspecified; R74.01 Elevation of levels of liver transaminase levels

== ENCOUNTER → 2024-05-31 14:33 | Outpatient (BNVA) | payer OTHER, SELFPAY | PROVIDERS: PCP Family Medicine; Visit Provider Family Medicine | DX: T14.8XXD Other injury of unspecified body region, subsequent encounter (principal); F41.8 Other specified anxiety disorders; D64.9 Anemia, unspecified; R74.01 Elevation of levels of liver transaminase levels | CPT/HCPCS: 99212 ==

== ENCOUNTER 2024-07-07 11:32 | Outpatient (AMB) | payer OTHER, SELFPAY ==
--- NOTE | 2024-07-07 11:34 | MHC.PC.OV ---
Vital Signs 07/07/24 11:45 Height 5 ft 7.68 in Weight 176 lb 4 oz BMI 27.0 BP 109/60 Blood Pressure Location Lt brachial Position Sitting Respiration 10 L Pulse 59 Pulse Source Pulse Oximeter Temp 97.7 F Temp Source Oral Pulse Oximetry (%) 100 Oxygen Delivery Method Room Air Intake Visit Reasons: f/u wound, labs Intake Note: patient is scheduled for wound check Storage Receipt Poster Required: No Allergies sertraline Adverse Reaction (Intermediate, Verified 07/07/24 11:44) heart palpitations Tobacco use date assessed: 12/11/23 Dental Screening Dental Screen Date: 12/11/23 HPI f/u wound, labs HPI Details 34 y/o male presents to f/u wound. He notes he had been following up with wound care for his leg wound. I do not see any notes from them yet. [facility] Medical History Bipolar disorder Alcohol abuse Panic attacks Anxiety No known health problems Heart murmur Surgical History No pertinent past surgical history Family History Maternal Grandfather Diabetes Paternal Uncle Blood clot in vein HTN (hypertension) Other Mental health disorder Substance abuse Social History (Updated 12/11/23 @ 09:07 by Juanito Hodge [facility]) Household Members: None Housing: Other Housing Other:: Staying at a residential program. Do you presently have visiting nurse or other home services: No Alcohol intake: current Alcohol intake frequency: a few times a week Alcohol type: hard liquor Patient Tobacco Use Status: Former Tobacco user Tobacco use type: Cigarette Cigarette Packs Per Day: 1 Cigarettes Per Day: 20.0 Years Smoked: 16 Packs Per Year: 16 Packs per year/per ci.00 e-Cigarette/Vaping Use: Never Used Second Hand Smoke Exposure: No Substance Use Type: Crack/Cocaine, Hallucinogens and Heroin service: No Current occupational status: unemployed Current occupational exposures/hazards: No Sexual orientation: Straight/Heterosexual Cognitive needs: No Hearing needs: No Vision needs: Yes Questionnaire Thrive Questionnaire Date Thrive assessed: 05/31/24 I am a: Patient What is your living situation today?: I have a place to live, but I am worried about losing it in the future Within the past 12 months, did the food you bought not last and you didn't have the money to get more?: Never true Within the past 12 months, did you worry whether your food would run out before you got money to buy more?: Never true Do you have trouble paying for medicines?: No Do you have trouble getting transportation to medical appointments?: No Do you have trouble paying your heating and electricity bill?: I choose not to answer this question Do you have trouble taking care of your child, family member or friend?: I choose not to answer this question Do you have trouble with day-to-day activities such as bathing, preparing meals, shopping, managing finances, etc.?: No Are you currently unemployed and looking for a job?: I choose not to answer this question Are you interested in more education?: I choose not to answer this question Please select the resources that you would like help with: None Currently or been in a relationship where the following occur: No concerns reported THRIVE Score: 1 ALETHEA-7 AMB Questionnaire ALETHEA-7 Date ALETHEA - 7 assessed: 12/11/23 Source: Developed by Drs. Steven Champion, Yvonne Mcgee, Prasad Lopez and colleagues, with an educational lisa from [employer]. Review of Systems Const Denies chills, Denies fatigue, Denies fever(s), Denies headache(s) and Denies weakness ENT Denies dizziness and Denies headache(s) Card Denies dyspnea Resp Denies cough, Denies dyspnea, Denies wheezing and Denies other (shortness of breath) Musc Denies numbness and Denies tingling Neuro Denies dizziness, Denies headache(s), Denies numbness, Denies tingling and Denies weakness Psych Denies anxiety and Denies depression Endo Denies fatigue Aller/Immun Denies wheezing Physical exam (Primary Care) Vital Signs: Last Vital Signs Temp 97.7 F 07/07/24 11:45 Pulse 59 07/07/24 11:45 Resp 10 L 07/07/24 11:45 BP 109/60 07/07/24 11:45 Pulse Ox 100 07/07/24 11:45 Oxygen Delivery Method Room Air 07/07/24 11:45 BMI result Body Mass Index 27.0 Tobacco/Smoking Status: Tobacco use Status Tobacco use date assessed 12/11/23 07/07/24 11:36 Patient Tobacco Use Status Former Tobacco user 07/07/24 11:36 Tobacco use type Cigarette 07/07/24 11:36 e-Cigarette/Vaping Use Never Used 07/07/24 11:36 Thrive Assessment: Date of Thrive Assessment Date Thrive assessed 05/31/24 07/07/24 11:36 Currently or been in a relationship where the following occur: No concerns reported Const General: well developed; No acute distress Nutritional Appearance: well nourished Orientation/consciousness: patient oriented x3 HENMT Head: Yes normocephalic and Yes atraumatic Eyes General: appearance normal, both eyes and all related structures Pupils: Equal, round and reactive pupils present EOM: EOMs intact bilaterally Resp Effort & Inspection: normal respiratory effort Neuro General: patient oriented x3 and gait normal Cranial nerves: Yes Equal, round and reactive pupils present Psych Affect: normal affect Coding Level of Care Code Est Pt Level 3 (56151) Diagnoses Wound of skin T14.8XXA Elevated ALT measurement R74.01 Assessment & Plan Assessment & Plan (1) Wound of skin: Code(s): T14.8XXA - Other injury of unspecified body region, initial encounter Category: Medical Plan: Patient?now?followed?by?wound?care?though?I?do?not?have?any?notes. Patient?and?caregiver?say they?have?given?him?a?topical?ointment?in?that?they?are?measuring?wound?which?they?had?found?is?reducing?in?size. Currently?escar?is?still?present?with?surrounding erythema?but?no?drainage?or?pus Continue?to?follow-up?with?wound?care (2) Elevated ALT measurement: Code(s): R74.01 - Elevation of levels of liver transaminase levels Category: Medical Plan: Patient?also?has?had?elevated?liver?enzymes?and?he?has?not?gotten?labs?drawn?yet.??He?will?do?so?tomorrow We?can?follow-up?in?about?2?months.??If they?are?still?elevated?will?order?an?ultrasound Orders: Orders Comprehensive Met. Panel Today R74.01 - Elevation of levels of liver transaminase levels
[2024-07-07 11:45] VITALS: BP 109/60; PULSE 59; RESP 10; TEMP 36.5; O2SAT 100; BMI 27.0
== END 2024-07-07 12:32 | disposition home or self-care (01) ==
LOC: HO.HMCFM 11:32
PROVIDERS: PCP Family Medicine; Visit Provider Family Medicine
DX: T14.8XXA Other injury of unspecified body region, initial encounter (principal); R74.01 Elevation of levels of liver transaminase levels

== ENCOUNTER → 2024-07-07 11:32 | Outpatient (BNVA) | payer OTHER, SELFPAY | PROVIDERS: PCP Family Medicine; Visit Provider Family Medicine | DX: R74.01 Elevation of levels of liver transaminase levels (principal); T14.8XXD Other injury of unspecified body region, subsequent encounter | CPT/HCPCS: 99212 ==

== ENCOUNTER 2024-09-14 11:09 | Outpatient (REF) | payer OTHER, SELFPAY ==
[2024-09-14 15:11] LABS: Alanine Aminotransferase 42 U/L (0-40); Albumin Level 4.7 g/dL (3.5-5.0); Alkaline Phosphatase 89 U/L (39-117); Anion Gap 15 (12-20); Aspartate Amino Transferase 37 U/L (5-37); Bilirubin Total 0.9 mg/dL (0.0-1.0); Blood Urea Nitrogen 9 mg/dL (9-16); Calcium 9.6 mg/dL (8.4-10.2); Carbon Dioxide 19 mmol/L (22-29); Chloride 111 mmol/L (96-108); Estimated Glomerular Filt Rate > 60; Glucose Random 81 mg/dL (60-115); Potassium 3.9 mmol/L (3.3-5.1); Sodium 141 mmol/L (135-145); Total Protein 7.9 g/dL (6.5-8.0)
== END 2024-09-14 11:10 | disposition home or self-care (01) ==
LOC: HO.WFDLDS 11:09
PROVIDERS: Visit Provider Family Medicine
DX: R74.01 Elevation of levels of liver transaminase levels (principal)
CPT/HCPCS: 36415; 80053

== ENCOUNTER 2024-11-21 16:09 | Outpatient (AMB) | payer OTHER, SELFPAY ==
--- NOTE | 2024-11-21 16:13 | MHC.PC.OV ---
Vital Signs 11/21/24 16:14 Height 5 ft 7.68 in Weight 158 lb 8 oz BMI 24.3 BP 110/70 Blood Pressure Location Rt brachial Position Sitting Respiration 16 Pulse 71 Pulse Source Pulse Oximeter Temp 97.0 F Temp Source Oral Pulse Oximetry (%) 99 Oxygen Delivery Method Room Air Intake Visit Reasons: f/u elevated liver enzymes Accompanied by: Self / Same As Patient Allergies sertraline Adverse Reaction (Intermediate, Verified 11/21/24 16:19) heart palpitations Medication List - Last Reconciled 11/21/24 by Donny Longoria MD acamprosate 666 mg (2 x 333 mg) PO TIDWMEAL apixaban (Eliquis) 5 mg PO BID 90 days atorvastatin 20 mg PO BEDTIME 90 days clonidine HCl 0.1 mg See Protocol PO BID collagenase clostridium histo. (Santyl) 1 appl topical BEDTIME PRN 10 days ferrous sulfate 325 mg (1.0031 x 324 mg (65 mg iron)) PO DAILY 30 days folic acid 1,000 mcg PO DAILY 90 days hydroxyzine HCl 25 mg PO Q6H PRN melatonin 10 mg PO BEDTIME PRN multivitamin (Daily-Lc tablet) 1 tab PO DAILY 90 days trazodone 200 mg PO BEDTIME Tobacco use date assessed: 11/21/24 Dental Screening Dental Screen Date: 11/21/24 Did you have a dental visit in the last 12 months?: No Did you have a dental problem in the last 6 months where you did not have access to dental care?: No Was dental information given to patient?: Patient has dentist HPI f/u elevated liver enzymes HPI Details 34 y/o male presents to f/u liver enzymes. Most recent labs drawn 09/14/24. Reviewed labs with pt. Elevated AST of 42. ED visit in 08/23/24 for ?CVA. Pt CT imaging no evidence of CVA. Labs did not show any concerning abnormalities. Denies any EtOH/drug use. Pt notes more recent episode of dizziness. [facility] Medical History Bipolar disorder Alcohol abuse Panic attacks Anxiety No known health problems Heart murmur Surgical History No pertinent past surgical history Family History Maternal Grandfather Diabetes Paternal Uncle Blood clot in vein HTN (hypertension) Other Mental health disorder Substance abuse Social History Household Members: None Housing: Other Housing Other:: Staying at a residential program. Do you presently have visiting nurse or other home services: No Alcohol intake: current Alcohol intake frequency: a few times a week Alcohol type: hard liquor Patient Tobacco Use Status: Former Tobacco user Tobacco use type: Cigarette Cigarette Packs Per Day: 1 Cigarettes Per Day: 20.0 Years Smoked: 16 Packs Per Year: 16 Packs per year/per ci.00 e-Cigarette/Vaping Use: Never Used Second Hand Smoke Exposure: No Substance Use Type: Crack/Cocaine, Hallucinogens and Heroin service: No Current occupational status: unemployed Current occupational exposures/hazards: No Sexual orientation: Straight/Heterosexual Cognitive needs: No Hearing needs: No Vision needs: Yes Questionnaire PHQ-9 Over the last 2 weeks, how often have you been bothered by any of the following problems? 1. Little interest or pleasure in doing things: several days 2. Feeling down, depressed, or hopeless: several days 3. Trouble falling or staying asleep, or sleeping too much: several days 4. Feeling tired or having little energy: more than half the days 5. Poor appetite or overeating: several days 6. Feeling bad about yourself - or that you are a failure or have let yourself or your family down: several days 7. Trouble concentrating on things, such as reading the newspaper or watching television: more than half the days 8. Moving or speaking so slowly that other people could have noticed. Or the opposite - being so fidgety or restless that you have been moving around a lot more than usual: more than half the days 9. Thoughts that you would be better off or of hurting yourself in some way: not at all Total score: 11 Depression Screening Interpretation: Positive Depression Screening Done: Yes [id number] - PHQ-9 Billing: Yes Source: Developed by Drs. Steven Champion, Yvonne Mcgee, Prasad Lopez and colleagues, with an educational lisa from [employer]. Thrive Questionnaire Date Thrive assessed: 02/11/25 I am a: Patient What is your living situation today?: I have a place to live, but I am worried about losing it in the future Within the past 12 months, did the food you bought not last and you didn't have the money to get more?: Never true Within the past 12 months, did you worry whether your food would run out before you got money to buy more?: Never true Do you have trouble paying for medicines?: No Do you have trouble getting transportation to medical appointments?: No Do you have trouble paying your heating and electricity bill?: I choose not to answer this question Do you have trouble taking care of your child, family member or friend?: I choose not to answer this question Do you have trouble with day-to-day activities such as bathing, preparing meals, shopping, managing finances, etc.?: No Are you currently unemployed and looking for a job?: I choose not to answer this question Are you interested in more education?: I choose not to answer this question Please select the resources that you would like help with: None Currently or been in a relationship where the following occur: No concerns reported THRIVE Score: 1 AUDIT C Alcohol Use Questionnaire (AUDIT-C) 1. How often do you have a drink containing alcohol?: Never 3. How often do you have six or more drinks on one occasion?: Never Total Score: 0 ALETHEA-7 AMB Questionnaire ALETHEA-7 Date ALETHEA - 7 assessed: 11/21/24 Feeling nervous, anxious, or on edge: 3 = Nearly every day Not being able to stop or control worryin = More than half the days Worrying too much about different things: 2 = More than half the days Trouble relaxin = Nearly every day Being so restless that it is hard to sit still: 3 = Nearly every day Becoming easily annoyed or irritable: 2 = More than half the days Feeling afraid as if something awful might happen: 2 = More than half the days Total ALETHEA-7 score (0-4 normal; 5-9 mild; 10-14 moderate; 15-21 severe): 17 Source: Developed by Drs. Steven Champion, Yvonne Mcgee, Prasad Lopez and colleagues, with an educational lisa from [employer]. ALETHEA-7 Assessment Billing ALETHEA-7 Assessment Tool: ALETHEA-7 Assessment 67131 Review of Systems Const Denies chills, Denies fatigue, Denies fever(s), Denies headache(s) and Denies weakness ENT Denies dizziness and Denies headache(s) Card Denies chest pain, Denies lightheadedness, Denies dyspnea and Denies other (Palpitations) Resp Denies cough, Denies dyspnea, Denies wheezing and Denies other ( shortness of breath) Musc Denies numbness and Denies tingling Neuro Denies dizziness, Denies headache(s), Denies numbness, Denies tingling, Denies paresthesias and Denies weakness Psych Denies anxiety and Denies depression Endo Denies fatigue Aller/Immun Denies wheezing Physical exam (Primary Care) Vital Signs: Last Vital Signs Temp 97.0 F 11/21/24 16:14 Pulse 71 11/21/24 16:14 Resp 16 11/21/24 16:14 BP 110/70 11/21/24 16:14 Pulse Ox 99 11/21/24 16:14 Oxygen Delivery Method Room Air 11/21/24 16:14 BMI result Body Mass Index 24.3 Tobacco/Smoking Status: Tobacco use Status Tobacco use date assessed 11/21/24 11/21/24 16:24 Patient Tobacco Use Status Former Tobacco user 11/21/24 16:13 Tobacco use type Cigarette 11/21/24 16:13 e-Cigarette/Vaping Use Never Used 11/21/24 16:13 PHQ-9: PHQ-9 Score PHQ-9: Total score 11 11/21/24 16:50 Depression Screening Interpretation: Positive Thrive Assessment: Date of Thrive Assessment Date Thrive assessed 05/31/24 11/21/24 16:13 Currently or been in a relationship where the following occur: No concerns reported Const General: no acute distress and well developed Nutritional Appearance: well nourished Orientation/consciousness: patient oriented x3 HENMT Head: Yes normocephalic and Yes atraumatic Eyes General: appearance normal, both eyes and all related structures Pupils: Equal, round and reactive pupils present EOM: EOMs intact bilaterally Resp Effort & Inspection: normal respiratory effort Auscultation: clear to auscultation bilaterally Cardio Rate: regular rate Rhythm: regular rhythm Heart sounds: S1 normal heart sound present, S2 normal heart sound present, no gallops, no murmurs and no rubs Neuro General: patient oriented x3 and gait normal Cranial nerves: Yes Equal, round and reactive pupils present Psych Affect: normal affect Coding Level of Care Code Est Pt Level 4 (51377) Diagnoses Elevated ALT measurement R74.01 Depression with anxiety F41.8 Dizziness R42 Additional Codes ALETHEA-7 Assessment Billing - ALETHEA-7 Assessment Tool: ALETHEA-7 Assessment 59618 ([id number]) PHQ-9 - 46741 - PHQ-9 Billing: Yes ([id number]) Assessment & Plan Assessment & Plan (1) Elevated ALT measurement: Code(s): R74.01 - Elevation of levels of liver transaminase levels Category: Medical Plan: Ongoing elevation of liver enzymes and though they are improved. Have remained elevated quite some time. Will check liver ultrasound (2) Depression with anxiety: Code(s): F41.8 - Other specified anxiety disorders Category: Medical (3) Dizziness: Code(s): R42 - Dizziness and giddiness Category: Medical Plan Patient notes some ongoing dizziness and had had a change in mental status which was evaluated at the emergency department. Patient has left lower leg wound infection and is followed by wound care Likely some altered mental status from infection in patient with history of CVA. Symptoms have resolved Hydrate well Check labs. Orders: Orders Complete Blood Count Auto Diff Today R42 - Dizziness and giddiness, Z00.00 - Encounter for general adult medical examination without abnormal findings TSH reflex Free T4 Today R42 - Dizziness and giddiness, Z00.00 - Encounter for general adult medical examination without abnormal findings Comprehensive Met. Panel Today R42 - Dizziness and giddiness Microalbumin, Random (w Creat) Today I10 - Essential (primary) hypertension, R42 - Dizziness and giddiness UA CC w/rflx Micro + Cult Today R42 - Dizziness and giddiness, Z00.00 - Encounter for general adult medical examination without abnormal findings US abdomen bowman w elastography Today R74.01 - Elevation of levels of liver transaminase levels
[2024-11-21 16:14] VITALS: BP 110/70; PULSE 71; RESP 16; TEMP 36.1; O2SAT 99; BMI 24.3
== END 2024-11-21 16:56 | disposition home or self-care (01) ==
LOC: HO.HMCFM 16:10
PROVIDERS: PCP Family Medicine; Visit Provider Family Medicine
DX: R74.01 Elevation of levels of liver transaminase levels (principal); F41.8 Other specified anxiety disorders; R42 Dizziness and giddiness

== ENCOUNTER → 2024-11-21 16:09 | Outpatient (BNVA) | payer OTHER, SELFPAY | PROVIDERS: PCP Family Medicine; Visit Provider Family Medicine | DX: R74.01 Elevation of levels of liver transaminase levels (principal); F41.8 Other specified anxiety disorders; R42 Dizziness and giddiness; Z13.31 Encounter for screening for depression; Z13.39 Encounter for screening examination for other mental health and behavioral disorders | CPT/HCPCS: 96127; 99212 ==

== ENCOUNTER 2025-03-31 13:45 | Outpatient (RCR) | payer OTHER, SELFPAY | END 2025-03-31 16:58 | disposition home or self-care (01) | LOC: HO.WCC 13:45 | PROVIDERS: PCP Family Medicine; Visit Provider Surgery Surgical Oncology | DX: S80.812A Abrasion, left lower leg, initial encounter (principal); I87.392 Chronic venous hypertension (idiopathic) with other complications of left lower extremity; L30.8 Other specified dermatitis; F42.4 Excoriation (skin-picking) disorder; X58.XXXA Exposure to other specified factors, initial encounter; Y93.9 Activity, unspecified; Y92.9 Unspecified place or not applicable; Y99.9 Unspecified external cause status; Z79.01 Long term (current) use of anticoagulants; Z87.891 Personal history of nicotine dependence; Z86.718 Personal history of other venous thrombosis and embolism; Z86.73 Personal history of transient ischemic attack (TIA), and cerebral infarction without residual deficits | CPT/HCPCS: 11042; 17250; 29580; 97597; 97602; 99212; 99213 ==